=== PATIENT | male | born 1980 | race Caucasian/White ===

== ENCOUNTER 2020-07-16 17:59 | Emergency (ER) | payer MEDICAID, SELFPAY ==
[2020-07-16 18:00] VITALS: BP 130/84; PULSE 71; RESP 18; O2SAT 98; BMI 29.2
--- NOTE | 2020-07-16 18:07 | ECG_ITS ---
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 Measurements Intervals [place] Rate: 70 P: 50 ME: 129 QRS: 86 QRSD: 94 T: 55 QT: 356 QTc: 386 Interpretive Statements SINUS RHYTHM Diffuse early repolarization changes No previous ECG available for comparison Electronically Signed On 07-16-2020 23:04:39 CDT by Eldon Rose M.D. [email or web address] hospitali-[facility].[employer]/store/NU/[id number] f
--- NOTE | 2020-07-16 18:07 | W.ED.HA ---
HPI - Headache General: Chief Complaint: Headache Stated Complaint: HEADACHE Time Seen by Provider: 07/16/20 18:00 Source: patient Mode of arrival: ambulatory Limitations: no limitations History of Present Illness: HPI Narrative: Bernabe is a nice 40-year-old male who comes in complaining of headache. He states he is had a migraine on the right side of his head for the past 2 days. Patient has a history of migraine headaches and he states this feels like a migraine headache. Patient states this headache started 2 days ago with gradual onset getting progressively worse. He denies any fever, neck pain or stiffness or sudden onset thunderclap type headache. He states he is had numerous other headaches like this in the past and he has had them last this long before. He denies any other complaints or concerns said that he had to come to the hospital before for pain relief. He denies any fever, chills, nausea vomiting, loss of sense of taste or loss of sense of smell. Associated symptoms: Deny chest pain, confusion, diaphoresis, fever(s), lightheadedness, malaise, nausea, pre-syncope, rash, syncope or vomiting Review of Systems Const: Denies: fever(s), chills, body aches, fatigue, malaise or diaphoresis Eyes: Denies: change in vision, blurry vision, photophobia, eye discomfort, eye discharge or eye redness ENMT: Denies: throat pain, odynophagia, hoarseness, swelling of lips/tongue, ear or mastoid pain, ear discharge, change in hearing or nasal discharge Card: Denies: chest pain, palpitations, irregular heart rhythm, edema, lightheadedness, syncope, pre-syncope, dyspnea on exertion or orthopnea Resp: Denies: dyspnea, productive cough, non-productive cough, wheezing, hemoptysis or chest congestion GI: Denies: abdominal pain, nausea, vomiting, hematemesis, coffee ground emesis, heartburn, diarrhea, constipation, GI cramping, hematochezia or melena : Denies: flank pain, dysuria, urinary frequency, urinary urgency or hematuria Musc: Denies: neck pain, back pain, extremity pain, extremity swelling, joint pain, joint swelling, joint redness, joint warmth or joint stiffness Skin/Breast: Denies: rash, pruritus, erythema or skin tenderness Neuro: Reports: headache(s); Denies: numbness in extremities, weakness in extremities, sensory changes, lack of coordination, difficulty walking, dizziness, vertigo, confusion, Slurred speech present or seizure-like activity Shashank/Lymph: Denies: easy bruising, easy bleeding, petechiae, purpura or enlarged lymph nodes All/Imm: Denies: urticaria, throat swelling, tongue swelling, facial swelling or acute wheezing PFSH ED PFSH: Medical History Hx of migraine headaches Seizures TBI (traumatic brain injury) Physical Exam Const: COMMON NORMALS: no acute distress, patient oriented x3, no limitations, healthy appearing and well nourished GENERAL APPEARANCE: cooperative, well kempt and well developed HENMT: COMMON NORMALS: normocephalic, atraumatic, external ears normal, EAC's normal and Normal external nose present HEAD & SCALP: normal to inspection, normocephalic and atraumatic FACE & SINUS: normal facial exam and face symmetric NOSE: Normal external nose present and Normal nares present EXTERNAL EAR: Yes external ears normal EXTERNAL AUDITORY CANAL: EAC's normal MOUTH: Normal oral and palatal mucosa present, lip normal and tongue normal Eye: COMMON NORMALS: Equal, round and reactive pupils present and conjunctivae normal GENERAL EYE: appearance normal, both eyes and all related structures ALIGNMENT: Yes alignment normal PERIORBITAL: periorbital findings normal EYELID: eyelids normal CONJUNCTIVA: Yes conjunctivae normal SCLERA: sclerae normal PUPIL: Yes Equal, round and reactive pupils present Neck/C-Spine: COMMON NORMALS: full ROM, no lymphadenopathy, supple, no meningeal signs and no JVD GENERAL: Yes normal visual inspection and Yes trachea midline Chest: COMMONS NORMALS: normal inspection of the chest and normal palpation of entire chest wall Resp: COMMON NORMALS: normal respiratory effort, No retractions, No use of accessory muscles and clear to auscultation bilaterally EFFORT & INSPECTION: Yes able to speak in complete sentences and Yes symmetric chest movement AUSCULTATION: clear to auscultation bilaterally, no crackles, no rales, no rhonchi and no wheezes Cardio: COMMON NORMALS: no JVD, regular rate, regular rhythm, S1 normal heart sound present and S2 normal heart sound present RATE: regular rate RHYTHM: regular rhythm HEART SOUNDS: S1 normal heart sound present, S2 normal heart sound present, no click, no gallops, no murmurs, no rubs and abnormal split S2 GI: COMMON NORMALS: Soft to palpation and No hepatosplenomegaly present PALPATION: Yes Soft to palpation, No Tenderness to palpation present (GI), No Guarding due to palpation present (GI), No Rigid due to palpation, Yes No hepatosplenomegaly present, No Hernia present, No Palpable mass present and No Pulsatile mass present : COMMON NORMALS: Yes no CVA tenderness BLADDER/KIDNEY EXAM: Yes no CVA tenderness Back/Pelvis: COMMON NORMALS: no CVA tenderness, thoracic and lumbar spine normal to inspection, no thoracic nor lumbar tenderness and thoraco-lumbar ROM normal Extremity: COMMON NORMALS: normal to inspection, full ROM, capillary refill normal, no joint enlargement, no clubbing, cyanosis or edema and no calf tenderness Neuro: COMMON NORMALS: patient oriented x3, CN's II-XII intact bilaterally, moves all extremities, no focal motor deficits and no sensory deficits noted MENINGEAL SIGNS: Yes no meningeal signs SPEECH: speech normal Psych: COMMON NORMALS: mental status grossly normal, Normal thought process present, cooperative, normal affect, speech normal and activity/motor behavior normal APPEARANCE: Yes well kempt SPEECH: Yes normal speech THOUGHT PROCESS: Normal thought process present Skin: COMMON NORMALS: no rashes or lesions noted, turgor normal, no jaundice, no petechiae and no mottling GENERAL SKIN EXAM: no rashes or lesions noted and turgor normal Course Vital Signs: Vital signs: Vital Signs Pulse Rate 71 07/16/20 18:31 Respiratory Rate 17 07/16/20 18:31 Blood Pressure 120/78 07/16/20 18:31 Pulse Oximetry 98 07/16/20 18:31 MDM - Headache MDM Narrative: Medical decision making narrative: The patient is feeling much better and is ready to go home. He declines any further treatment including the secondary medicines I have ordered. He agrees to return should her symptoms change or worsen but he is feeling much better and would like to be discharged. I see no sign of subarachnoid hemorrhage, meningitis, pseudotumor cerebri or otherwise. I will go and discharge the patient to follow-up with his regular doctor. Discharge Plan Discharge Patient Disposition: Home Clinical Impression: Migraine Qualifiers: Migraine type: without aura Status migrainosus presence: with status migrainosus Intractability: not intractable Qualified Code(s): G43.001 - Migraine without aura, not intractable, with status migrainosus Condition: Stable Discharge Orders: Discharge Order (Routine); Ordered 07/16/20 Ordered By: Magdalena Charles Referrals: Sheryl Bentley MD [Physician] - 7-10 days Discharge Diet: Advance as tolerated Discharge Activity: Increase activity as tolerated Patient Instructions: Migraine Headache (ED), Acute Headache (ED) Activity Restrictions/Additional Instructions: Please return to the ER immediately for any of the signs or symptoms listed on your discharge instruction sheets, worsening/changing of your symptoms, you are not getting better as quickly as expected, or for ANY other cause or concerns. Coding Level of Care Code ED Customer Service Associate for Chg Fwd Exam Comprehensive
[2020-07-16] MEDS: sodium chloride 0.9% 1,000 ML 100 ML IV (18:26)
[2020-07-16] MEDS: diphenhydrAMINE 50 mg/mL SDV 1mL IVP (18:26)
[2020-07-16] MEDS: metoclopramide 5 mg/mL SDV 2 mL 10 MG IVP (18:26)
[2020-07-16 18:31] VITALS: BP 120/78; PULSE 71; RESP 17; O2SAT 98
--- NOTE | 2020-07-16 18:34 | PC.NURSE ---
EKG done at 1805 and shown to ER doctor, had issues with printing EKG. Doctor cancelled EKG
== END 2020-07-16 19:10 | disposition home or self-care (01) ==
PROVIDERS: Emergency Provider Emergency Medicine
DX: G43.001 Migraine without aura, not intractable, with status migrainosus (principal)
CPT/HCPCS: 12345; 93005; 96361; 96374; 96375; 99282; 99283; J0131; J1200; J2765; J7030

== ENCOUNTER → 2020-10-20 12:25 | Outpatient (BNVA) | payer MEDICAID, SELFPAY | PROVIDERS: Visit Provider Psychiatry & Neurology Psychiatry | DX: F43.10 Post-traumatic stress disorder, unspecified (principal); F10.10 Alcohol abuse, uncomplicated; S06.9X9A Unspecified intracranial injury with loss of consciousness of unspecified duration, initial encounter; R56.9 Unspecified convulsions | CPT/HCPCS: 90792 ==

== ENCOUNTER → 2020-10-28 10:46 | Outpatient (BNVA) | payer MEDICAID, SELFPAY | PROVIDERS: Visit Provider Family Medicine | DX: E78.2 Mixed hyperlipidemia (principal); R56.9 Unspecified convulsions | CPT/HCPCS: 80053; 80061; 85025 ==

== ENCOUNTER → 2020-11-05 09:59 | Outpatient (BNVA) | payer MEDICAID, SELFPAY | PROVIDERS: Visit Provider Specialist | DX: R56.9 Unspecified convulsions (principal); F17.210 Nicotine dependence, cigarettes, uncomplicated | CPT/HCPCS: 95816 ==

== ENCOUNTER 2020-11-12 12:20 | Emergency (ER) | payer MEDICAID, SELFPAY ==
[2020-11-12 12:25] VITALS: BP 149/125; PULSE 113; RESP 18; TEMP 36.6; O2SAT 98; BMI 28.8
--- NOTE | 2020-11-12 13:05 | CT_ITS ---
WS: [id number] CT HEAD NONCONTRAST HISTORY: weakness, concern for subacute stroke TECHNIQUE: Contiguous axial imaging performed through the brain in 2.5 mm imaging. Bone and soft tiss ue windows. Sagittal and coronal reformats reviewed. All CT scans at [facility] use at le ast one of these dose optimization techniques: automated exposure control; mA and/or kV adjustment pe r patient size (includes targeted exams where dose is matched to clinical indication); or iterative r econstruction. DLP: 765.49 mGy.cm COMPARISON: None available. No acute intracranial hemorrhage, midline shift or mass effect. No atrophy or prior infarcts or herniation. Ventricles: Normal size with no hydrocephalus. Paranasal sinuses: Small amount of fluid in the posterior RIGHT ethmoid air cells. Mastoid air cells: Well pneumatized. Calvarium and scalp: Skull is intact with no soft tissue edema or swelling. CT/CT head wo con* [id number] IMPRESSION: 1. No acute intracranial hemorrhage or edema. 2. Minimal posterior RIGHT ethmoid air cell disease.
[2020-11-12 13:26] VITALS: BP 117/82; PULSE 84; RESP 14; O2SAT 96
[2020-11-12 13:45] LABS: Blood Urea Nitrogen 8 mg/dL (6-20); Calcium 9.5 mg/dL (8.5-10.5); Carbon Dioxide 25 mmol/L (22-29); Chloride 101 mmol/L (98-107); Glomerular Filtration Rate 147.8 mL/min (90-130); Glucose 95 mg/dL (65-115); Osmolality Calculated 280 mOsm/kg (285-295); Sodium 136 mmol/L (136-145)
[2020-11-12 13:50] LABS: Creatinine Clr Calc Pharmacy 149.7259
[2020-11-12 15:26] VITALS: BP 137/84; PULSE 82; RESP 14; O2SAT 97
--- NOTE | 2020-11-12 18:14 | ED_ITS ---
HPI - Neuro Symptoms/Deficit General: Chief Complaint: Neuro Symptoms/Deficit Stated Complaint: abnormal EEG Time Seen by Provider: 11/12/20 12:48 History of Present Illness: HPI Narrative: Patient is a well-appearing 40-year-old male seen for multiple complaints. He complains of stuttering which he states came on after having a seizure. He also complains of muscular tenderness in the right forearm and right calf causing flexion of his fingers and toes. He denies weakness of either side, only pain when he tries to extend his fingers and toes. He states that he has had similar symptoms in the past following seizures, and that they always resolve on their own, usually in 1 to 2 weeks. Girlfriend and he both confirm that his stuttering is a starting to improve in his ability to walk and use his hand is improving faster than normal. He denies recent sickness, fever, headache, and has no other associated symptoms. He has no other acute complaints. Review of Systems General: Reports: 10 or more systems reviewed and unremarkable except in HPI and below PFSH ED PFSH: Medical History Alcohol abuse Hx of migraine headaches PTSD (post-traumatic stress disorder) Seizures TBI (traumatic brain injury) Social History Smoking and tobacco status: current every day smoker cigarettes Years cigarettes smoked: 19 Smoking risk assessment/counseling performed?: Yes Tobacco counseling given: counseling >3 minutes Current gender identity: Male Physical Exam Const: COMMON NORMALS: patient oriented x3 and alert ORIENTATION/CONSCIOUSNESS: Yes oriented to person, Yes oriented to place and Yes oriented to time Extremity: NARRATIVE EXTREMITY EXAM: Patient has his right hand balled into a fist, however he is able to open all his fingers roughly 30% of total extension and I am able to passively extend them completely. He has no sensorimotor deficits. I suspect muscle spasm secondary to his seizures and I do not suspect any stroke like symptoms. Neuro: COMMON NORMALS: patient oriented x3 SENSORIUM/ORIENTATION: Yes alert, Yes oriented to person, Yes oriented to place and Yes oriented to time OTHER: He has a stammering stutter which states is typical for him following a seizure and she states it is progressingly getting better each day following the seizure. Course Vital Signs: Vital signs: Vital Signs Temperature 97.9 F 12/17/20 12:25 Pulse Rate 82 11/12/20 15:26 Respiratory Rate 14 11/12/20 15:26 Blood Pressure 137/84 11/12/20 15:26 Pulse Oximetry 97 11/12/20 15:26 MDM - Neuro Symptoms/Deficit MDM Narrative: Medical decision making narrative: Patient remained hemodynamically stable throughout ED course. BMP shows no appreciable abnormality and CT head shows no acute process. I do not suspect stroke, hypokalemia, or any other emergent process warranting further work-up at this time. To be discharged home in stable condition with follow-up to neurology as needed. Lab Data: Labs: Lab Results 11/12/20 Range/Units 13:25 Sodium 136 (136-145) mmol/L Potassium 4.0 (3.5-5.1) mmol/L Chloride 101 (98-107) mmol/L Carbon Dioxide 25 (22-29) mmol/L Anion Gap 14.0 (5-19) BUN 8 (6-20) mg/dL Creatinine 0.6 L (0.7-1.2) mg/dL GFR Calculation 147.8 H (90-130) mL/min Glucose 95 (65-115) mg/dL Calculated Osmolal ity 280 L (285-295) mOsm/k g Calcium 9.5 (8.5-10.5) mg/dL Discharge Plan Discharge Patient Disposition: Home Clinical Impression: Idiopathic stuttering, Seizures, Muscle spasm Condition: Stable Prescriptions: No Action naproxen sodium [Aleve] 220 mg capsule 220 mg PO BID PRN (Reason: Pain) RF: 0 Lipitor 10 mg tablet 10 mg PO DAILY@17 RF: 0 prazosin 1 mg capsule 1 mg PO BEDTIME@ RF: 0 Keppra 250 mg tablet 500 mg PO BID PRN (Reason: Seizures) RF: 0 carbamazepine 300 mg capsule, ER multiphase 12 hr 300 mg PO BID@ RF: 0 Discharge Orders: Discharge ED (Routine); Ordered 11/12/20 Ordered By: Ronnie Fields Discharge Diet: Usual diet Discharge Activity: Resume usual activity Activity Restrictions/Additional Instructions: Your blood test and CT of the brain looked good today. Hopefully your symptoms will resolve as they have in the past following seizures. And there is no evidence of stroke or electrolyte abnormality to cause your symptoms. Coding Level of Care Code ED Sales And Service Advisor for Parker Sutherland
== END 2020-11-12 15:26 | disposition home or self-care (01) ==
PROVIDERS: Emergency Provider Student in an Organized Health Care Education/Training Program
DX: F98.5 Adult onset fluency disorder (principal); R56.9 Unspecified convulsions; M62.838 Other muscle spasm; F17.210 Nicotine dependence, cigarettes, uncomplicated
CPT/HCPCS: 12345; 70450; 80048; 99282; 99283

== ENCOUNTER → 2020-12-10 15:35 | Outpatient (BNVA) | payer MEDICAID, SELFPAY | PROVIDERS: Visit Provider Nurse Practitioner Family | DX: J06.9 Acute upper respiratory infection, unspecified (principal); Z20.828 Contact with and (suspected) exposure to other viral communicable diseases | CPT/HCPCS: 87635 ==

== ENCOUNTER → 2020-12-17 09:16 | Outpatient (BNVA) | payer MEDICAID, SELFPAY | PROVIDERS: Visit Provider Psychiatry & Neurology Psychiatry | DX: F43.10 Post-traumatic stress disorder, unspecified (principal); F10.10 Alcohol abuse, uncomplicated | CPT/HCPCS: 99214 ==

== ENCOUNTER → 2021-02-01 12:17 | Outpatient (BNVA) | payer MEDICAID, SELFPAY | PROVIDERS: Visit Provider Family Medicine | DX: E78.2 Mixed hyperlipidemia (principal) | CPT/HCPCS: 80053; 80061; 85025 ==

== ENCOUNTER → 2021-02-23 13:58 | Outpatient (BNVA) | payer MEDICAID, SELFPAY | PROVIDERS: Visit Provider Nurse Practitioner | DX: F43.10 Post-traumatic stress disorder, unspecified (principal) | CPT/HCPCS: 99214 ==

== ENCOUNTER → 2021-02-25 14:17 | Outpatient (BNVA) | payer MEDICAID, SELFPAY | PROVIDERS: Visit Provider Psychiatry & Neurology Psychiatry | DX: F43.10 Post-traumatic stress disorder, unspecified (principal) | CPT/HCPCS: 99214 ==

== ENCOUNTER 2021-03-17 09:44 | Emergency (ER) | payer MEDICAID, SELFPAY ==
[2021-03-17 09:51] VITALS: BP 133/82; PULSE 72; RESP 18; TEMP 36.7; O2SAT 95
[2021-03-17 09:54] VITALS: BP 133/82; PULSE 78; RESP 18; TEMP 36.7; O2SAT 96
--- NOTE | 2021-03-17 09:54 | XR_ITS ---
WS: [id number] Portable AP upright chest, 03/17/2021 Clinical Data: stroke Comparison: None. Findings: No nodules, masses or effusions are seen. The heart is normal. The pulmonary vascularity is not increased. No pneumonia or pneumothorax is seen. XR/XR chest 1V portable [id number] Impression: Negative chest.
--- NOTE | 2021-03-17 09:56 | ECG_ITS ---
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
--- NOTE | 2021-03-17 09:56 | CT_ITS ---
WS: [id number] CT HEAD TECHNIQUE: Noncontrast CT of the head obtained from the skullbase to the vertex. CLINICAL INFORMATION: Symptoms of Acute Stroke COMPARISON: CT November 12, 2020 DLP: 850.[address] scans at [facility] use at least one of these dose optimization techniques: automat ed exposure control; mA and/or kV adjustment per patient size (includes targeted exams where dose is matched to clinical indication); or iterative reconstruction. FINDINGS: No evidence of intracranial hemorrhage or mass effect. Ventricular system and basal cisterns are padilla nt. Incidental cavum septum pellucidum. Normal crum-white differentiation. No extra-axial fluid colle ctions. No evidence of mass or mass effect. Normal crum-white differentiation. Paranasal sinuses and mastoid air cells are well aerated. . Mild mucosal thickening in the ethmoid ai r cells. CT/CT head wo con* [id number] IMPRESSION: 1. No evidence of intracranial hemorrhage or mass effect. 2. Normal crum-white differentiation. 3. No acute intracranial findings. Attempted notification Juan Frazier MD at 03/17/2021 10:38 AM.
[2021-03-17] MEDS: sodium chloride 0.9% 1,000 ML 999 ML IV (10:19)
[2021-03-17 10:23] LABS: Basophils # 0.1 10^3/uL (0.0-0.1); Basophils % 0.9 %; Eosinophils # 0.3 10^3/uL (0.0-0.8); Eosinophils % 2.9 %; Hematocrit 47.5 % (42.0-52.0); Hemoglobin 16.4 g/dL (11.7-16.6); Lymphocytes % 25.9 %; Mean Corpuscular HGB Conc 34.5 g/dL (30.0-36.0); Mean Corpuscular Hemoglobin 32.6 pg (28.0-34.0); Mean Corpuscular Volume 94.4 fL (80-94); Mean Platelet Volume 9.8 fL (7.4-10.4); Monocytes # 1.2 10^3/uL (0.2-0.9); Monocytes % 10.3 %; Neutrophils # 6.67 10^3/uL (1.8-7.7); Neutrophils % 57.7 %; Nucleated Red Blood Cells % 0 %; Platelet Count 429 10^3/cmm (130-400); Red Blood Count 5.03 10^6/uL (4.1-5.3); Red Cell Distribution Width 11.7 % (12.1-15.1); White Blood Count 11.6 10^3/uL (4.0-10.0)
[2021-03-17 10:31] LABS: INR 0.93 (0.8-1.2)
[2021-03-17 10:32] LABS: Partial Thromboplastin Time 27.9 SECONDS (23.9-36.7)
--- NOTE | 2021-03-17 10:40 | PM.SAN ---
Stroke Alert Activation ED Arrival Date: 03/17/21 Other Last Known Well Infomation: I was called stat for stroke team. Jovan called the emergency department after the stroke alert was called at 9:51 AM. I was informed that Dr. Bundy called the stroke alert but he was called to an emergency and could not talk with me and the patient was being sent to CT. I waited for 15 minutes and did not hear back from Dr. Bundy so I went directly to the emergency department. Dr. Bundy was in his office and informed me that he activated stroke alert because the patient had left facial weakness and as far as he could tell, that was new. He did not know the duration of the patient's symptoms. He said that the [facility] was called to the patient's residence because of a seizure and that they had not expressed any concern about a stroke. Because of the confusion regarding the patient's diagnosis I evaluated the patient. I talked with his best friend, Lucrecia, who was available on his cell phone and he was actively texting with her. He went to [facility] this morning as is often his habit. He walks there. Lucrecia says that normally he has a little bit of trouble expressing himself subsequent to a head injury that he says happened in 2006. He is on carbamazepine and Keppra for seizures but he does not always take them and because of his head injury and memory problems he cannot tell me when he last took a dose of either of his medications. He is reportedly on 400 mg of carbamazepine twice daily and Keppra 500 mg twice daily. He cannot tell me whether he has been seeing a neurologist but he recognized my name and said that he was supposed to see me but he did not keep his appointment. I was able to find a previous EEG from 11/05/2020 that was normal, ordered by Cristina Salamanca. He moved here from [place] in April [address] Salamanca. He goes to behavioral health care for posttraumatic stress disorder related to having witnessed his good friend murdered. He had a head injury in 2006 was in a coma for 6 months. None of his physical exams from the emergency room or Dr. Salamanca have described any kind of neurologic deficit. Lucrecia says that she was called by a friend from [facility] who said that Bernabe went to [facility] and told people he thought he was going to have a seizure and then walked home. When she got there to check on him he was having generalized shaking. She put a spoon in his mouth to prevent him from swallowing his tongue (none of his teeth are broken). She says that normally his speech is better than it is right now but he is always dysarthric. NIH Stroke Scale Time: 12:30 NIH stroke score NIHSS: Level Of Consciousness - 1a: 0 Level Of Consciousness Questions - 1b: Both Correct Level Of Consciousness Commands - 1c: Both Correct Best Gaze - 2: Normal Visual Carmen - 3: No Visual Loss Facial Palsy - 4: Minor Paralysis Motor Arm Right - 5: No Drift Motor Arm Left - 5: No Drift Motor Leg Right - 6: No Drift Motor Leg Left - 6: No Drift Limb Ataxia - 7: Absent Sensory - 8: Normal Best Language - 9: No Aphasia Dysarthia - 10: Severe Dysarthia Extinction And Inattention - 11: 0 Score: Total Score: 3 Stroke Alert Data/Treatment CT Impression: I reviewed his CT of the head on my arrival to the emergency department at 10:00 and that study was normal. Stroke Risk Factors: hypertension and depression tPA Contraindication: tPA Contraindication: Treatment not indcated Critical Care Time Critical Care Time: 30 - 74 mins A&P Assessment and plan (1) TBI (traumatic brain injury): 41-year-old man with previous traumatic brain injury and chronic epilepsy. Cristina Salamanca has been managing his epilepsy and posttraumatic stress disorder with carbamazepine and he is also on a low dose of Keppra. He is not compliant by his own admission. I asked Dr. Bundy to obtain Keppra and carbamazepine levels. I think he can probably go home after he is loaded with IV Keppra but that depends on whether he can walk. I did not check his gait for limits of time today but I think he is having an acute infarct. I think he has postictal speech difficulty related to his previous brain injury. Status: Acute (2) Seizure: Status: Acute Coding Level of Care Code Acute Routeman for Parker Sutherland Diagnoses TBI (traumatic brain injury) S06.9X9A Seizure R56.9
[2021-03-17 10:42] LABS: Troponin(5th) Baseline 6 ng/L (0-15)
[2021-03-17 10:44] LABS: Creatine Phosphokinase 88 U/L (39-308)
[2021-03-17 10:50] LABS: Alanine Aminotransferase 37 U/L (0-41); Albumin Level 4.4 g/dL (3.5-5.2); Alkaline Phosphatase 93 IU/L (40-130); Anion Gap 14.1 (5-19); Aspartate Amino Transferase 24 U/L (0-40); Blood Urea Nitrogen 7 mg/dL (6-20); Carbon Dioxide 24 mmol/L (22-29); Chloride 103 mmol/L (98-107); Globulin 2.3 g/dL (1.3-4.6); Glomerular Filtration Rate 123.1 mL/min (90-130); Glucose 92 mg/dL (65-115); NT Pro B Type Natriuretic Pept 29 pg/mL (0-125); Osmolality Calculated 282 mOsm/kg (285-295); Potassium 4.1 mmol/L (3.5-5.1); Sodium 137 mmol/L (136-145); Total Bilirubin 0.2 mg/dL (0.15-1.2); Total Protein 6.7 g/dL (6.6-8.7)
[2021-03-17 10:58] VITALS: BP 140/93; PULSE 75; RESP 15; O2SAT 95
[2021-03-17 11:02] LABS: Glucose Point of Care 88 mg/dL (70-110)
--- NOTE | 2021-03-17 11:02 | PC.PHAR ---
PT STATES HE TAKES CARE OF HIS OWN MEDICATIONS-PT STATES HE STOP TAKING KEPPRA OVER A MONTH AGO-PT STATES HE IS UNSURE OF ALL THE NAMES OF HIS MEDICATIONS-MEDICATIONS ENTERED ARE FROM EXT MED HISTORY AND FROM WHAT THE PT REMEMBERES-NOTES ARE MADE ON EACH RX IN THE PHARMACY COMMENTS
[2021-03-17 11:06] LABS: Alcohol Level < 10 mg/dL (0-10)
[2021-03-17 11:58] VITALS: BP 137/86; PULSE 64; RESP 18; O2SAT 95
[2021-03-17 12:04] LABS: Add Urine Microscopic? NO; Charge for UA Resulting for Rev
--- NOTE | 2021-03-17 12:08 | ECG_ITS ---
[facility] Test Date: 2021-03-17 Pat Name: Bernabe Kumar Department: Room: Gender: Male Rails Developer: : 1980 Requested By: Juan Frazier Order Number: [id number] Reading MD: GAGE KERN Measurements Intervals [place] Rate: 59 P: 47 [place]: 148 QRS: 83 QRSD: 93 T: 54 QT: 364 QTc: 362 Interpretive Statements SINUS BRADYCARDIA Compared to ECG 03/17/2021 10:04:09 Sinus rhythm no longer present Early repolarization no longer present Electronically Signed On 03-17-2021 19:24:12 CDT by GAGE KERN [email or web address].[facility] RFIDbaldwin park [facility].[employer]/store/OM/[id number]
[2021-03-17 12:14] LABS: Amphetamines Screen Urine Negative (Negative); Barbiturates Screen Urine Negative (Negative); Benzodiazepines Screen Urine Negative (Negative); Cocaine Screen Urine Negative (Negative); Opiate Screen Urine Negative (Negative); PCP Screen Urine Negative (Negative); THC Screen Urine Positive (Negative)
[2021-03-17] MEDS: carBAMazepine 200 mg Tablet 400 MG PO (12:16)
[2021-03-17 12:18] LABS: Bilirubin Urine Neg (Negative); Blood Urine Neg (Negative); Glucose Urine UA Norm (Normal); Ketones Urine Negative (Negative); Leukocyte Esterase Urine Negative (Negative); Nitrate Urine Negative (Negative); Protein Urine Neg (Negative); Specific Gravity, Urine 1.015 (1.005-1.030); Urine Appearance Clear (CLEAR); Urine Color Yellow (Yellow); Urobilinogen Urine Norm (Negative); pH Urine 7 (5-7)
--- NOTE | 2021-03-17 13:12 | W.ED.SEIZURE ---
HPI - Seizure General: Chief Complaint: Seizure Stated Complaint: SEIZURES Time Seen by Provider: 03/17/21 09:46 History of Present Illness: HPI Narrative: The patient is a 41-year-old male with past medical history seizure disorder who comes to the ER after having 2 generalized seizures today. He takes carbamazepine and Keppra. He has a history of traumatic brain injury which causes his seizures years ago and because of this he has memory issues. He is very afraid of taking multiple doses of the seizure medications so he says he misses many doses because he cannot remember if he took them or not. The report is that his speech is abnormal at baseline for years because of this injury as well. He says he has microstrokes with some of his were seizures but does not know if he is ever fully had a stroke. The facial droop he says is from his traumatic brain injury and has not changed for years. At his baseline he is able to walk around and talk with significantly garbled speech. His friend came to check on him today and the door was locked and found him having a generalized seizure. EMS arrived and shortly after their arrival he began to have right arm twitching and then had a generalized seizure. No seizures in the ER so far. Initially a stroke alert was called because of his right facial droop and slight right-sided weakness but with further history this appears to be a chronic finding. Description of Episode: post-event confusion -: minutes(s) (1) Witnessed: Yes - by Bystander Trauma: No Seizure History: Yes Place: Home Possible Precipitating Event: none Associated symptoms: Reports no associated symptoms and confusion; Deny chest pain Review of Systems General: Reports: 10 or more systems reviewed and unremarkable except in HPI and below Const: Denies: fatigue Eyes: Denies: change in vision, blurry vision or eye redness ENMT: Denies: throat pain, swelling of lips/tongue, ear or mastoid pain or nasal congestion Card: Denies: chest pain, palpitations, irregular heart rhythm, edema, dyspnea on exertion or orthopnea Resp: Denies: dyspnea, productive cough or non-productive cough GI: Denies: abdominal pain, diarrhea or GI cramping : Denies: flank pain, urinary frequency or urinary urgency Musc: Denies: neck pain, back pain, extremity pain, joint pain, joint redness, limited range of motion or muscle weakness Skin/Breast: Denies: rash, pruritus, erythema, skin pain or skin tenderness Neuro: Reports: confusion, Slurred speech present and seizure-like activity; Denies: headache(s), numbness in extremities, weakness in extremities, sensory changes, difficulty walking or dizziness Psych: Denies: anxiety or depression Endo: Denies: polyuria All/Imm: Denies: urticaria, throat swelling or tongue swelling PFSH ED PFSH: Medical History Alcohol abuse Hx of migraine headaches PTSD (post-traumatic stress disorder) Seizures TBI (traumatic brain injury) Social History Smoking and tobacco status: current every day smoker cigarettes Packs smoked per day: 0.5 Years cigarettes smoked: 19 Second hand smoke exposure: Yes Smoking risk assessment/counseling performed?: Yes Tobacco counseling given: counseling >3 minutes Alcohol intake: current Alcohol intake frequency: holidays/special occasions only Marital status: Number of children: 2 Current occupational status: retired and disabled Current gender identity: Male Physical Exam Const: COMMON NORMALS: no acute distress, average body habitus, patient oriented x3, no limitations, healthy appearing, alert and well nourished GENERAL APPEARANCE: cooperative, comfortable, well kempt and well developed ORIENTATION/CONSCIOUSNESS: Yes awake, Yes oriented to person, Yes oriented to place and Yes oriented to time HENMT: COMMON NORMALS: normocephalic, external ears normal and Normal external nose present HEAD & SCALP: normal to inspection and normocephalic NOSE: Normal external nose present EXTERNAL EAR: Yes external ears normal MOUTH: Normal oral and palatal mucosa present THROAT: posterior oropharynx normal Eye: COMMON NORMALS: Equal, round and reactive pupils present and EOMs intact bilaterally GENERAL EYE: appearance normal, both eyes and all related structures PUPIL: Yes Equal, round and reactive pupils present Neck/C-Spine: COMMON NORMALS: full ROM, no lymphadenopathy, no meningeal signs and no JVD GENERAL: Yes normal visual inspection Lymph: LYMPHATIC: no lymphadenopathy noted Chest: COMMONS NORMALS: normal inspection of the chest and normal palpation of entire chest wall Resp: COMMON NORMALS: normal respiratory effort, No retractions, No use of accessory muscles, clear to auscultation bilaterally and percussion normal EFFORT & INSPECTION: Yes able to speak in complete sentences AUSCULTATION: clear to auscultation bilaterally PERCUSSION: percussion normal Cardio: COMMON NORMALS: no JVD, regular rate, regular rhythm, S1 normal heart sound present, S2 normal heart sound present and Peripheral pulses 2+ throughout RATE: regular rate RHYTHM: regular rhythm HEART SOUNDS: S1 normal heart sound present and S2 normal heart sound present PERIPHERAL PULSES: Peripheral pulses 2+ throughout GI: COMMON NORMALS: Normal to inspection, nondistended, normoactive bowel sounds present, Soft to palpation, non-tender and no masses INSPECTION: Yes normal to inspection PALPATION: Yes Soft to palpation : COMMON NORMALS: Yes no CVA tenderness BLADDER/KIDNEY EXAM: Yes no CVA tenderness Back/Pelvis: COMMON NORMALS: no CVA tenderness, thoracic and lumbar spine normal to inspection, no thoracic nor lumbar tenderness and thoraco-lumbar ROM normal Extremity: COMMON NORMALS: normal to inspection, full ROM, capillary refill normal, no joint enlargement and no pedal edema GENERAL: Yes normal exam except as noted Neuro: COMMON NORMALS: patient oriented x3, CN's II-XII intact bilaterally, moves all extremities, no focal motor deficits, no sensory deficits noted and gait normal SENSORIUM/ORIENTATION: Yes alert, Yes oriented to person, Yes oriented to place and Yes oriented to time MENINGEAL SIGNS: Yes no meningeal signs Psych: COMMON NORMALS: mental status grossly normal, Normal thought process present, cooperative, normal affect and speech normal APPEARANCE: Yes well kempt ATTITUDE: Yes calm SPEECH: Yes normal speech THOUGHT PROCESS: Normal thought process present Skin: COMMON NORMALS: no rashes or lesions noted GENERAL SKIN EXAM: no rashes or lesions noted Course Vital Signs: Vital signs: Vital Signs Temperature 98.1 F 03/17/21 09:54 Pulse Rate 64 03/17/21 11:58 Respiratory Rate 18 03/17/21 11:58 Blood Pressure 137/86 03/17/21 11:58 Pulse Oximetry 95 03/17/21 11:58 MDM - Seizure MDM Narrative: Medical decision making narrative: The patient had a couple seizures at home and has a history of noncompliance. His traumatic brain injury gives him memory issues and he does not like taking double the dose so he often misses doses. His carbamazepine level was low and he was given a dose of that and the Keppra as well. He trended back to his baseline neuro functioning and was safe for discharge home. Placed case management referral for follow-up to set up care with neurology and primary care locally. ER with worsening symptoms. Discussed he should write down when he takes medications as it has been a significant issue for him daily. He understands and will try to do so. Lab Data: Labs: Lab Results 03/17/21 03/17/21 03/17/21 Range/Units 10:00 10:00 10:00 WBC 11.6 H (4.0-10.0) 10^3/ uL RBC 5.03 (4.1-5.3) 10^6/u L Hgb 16.4 (11.7-16.6) g/dL Hct 47.5 (42.0-52.0) % MCV 94.4 H (80-94) fL MCH 32.6 (28.0-34.0) pg MCHC 34.5 (30.0-36.0) g/dL RDW 11.7 L (12.1-15.1) % Plt Count 429 H (130-400) 10^3/c mm MPV 9.8 (7.4-10.4) fL Neut % (Auto) 57.7 % Lymph % (Auto) 25.9 % [place] % (Auto) 10.3 % Eos % (Auto) 2.9 % Baso % (Auto) 0.9 % Neut # (Auto) 6.67 (1.8-7.7) 10^3/u L Lymph # (Auto) 3.0 (0.8-4.8) 10^3/u L [place] # (Auto) 1.2 H (0.2-0.9) 10^3/u L Eos # (Auto) 0.3 (0.0-0.8) 10^3/u L Baso # (Auto) 0.1 (0.0-0.1) 10^3/u L Nucleated RBC % (a uto) 0 % Nucleated RBCs # 0.0 /100WBC PT 12.80 (12.1-14.9) SECO NDS INR 0.93 (0.8-1.2) APTT 27.9 (23.9-36.7) SECO NDS Sodium 137 (136-145) mmol/L Potassium 4.1 (3.5-5.1) mmol/L Chloride 103 (98-107) mmol/L Carbon Dioxide 24 (22-29) mmol/L Anion Gap 14.1 (5-19) BUN 7 (6-20) mg/dL Creatinine 0.7 (0.7-1.2) mg/dL GFR Calculation 123.1 (90-130) mL/min Glucose 92 (65-115) mg/dL POC Glucose (70-110) mg/dL Calculated Osmolal ity 282 L (285-295) mOsm/k g Calcium 9.0 (8.5-10.5) mg/dL Total Bilirubin 0.2 (0.15-1.2) mg/dL AST 24 (0-40) U/L ALT 37 (0-41) U/L Alkaline Phosphata se 93 (40-130) IU/L Creatine Kinase (39-308) U/L Troponin T Baselin e (0-15) ng/L Troponin T 120 Min [place] (0-15) ng/L Delta Troponin T (0-10) ABS# NT-Pro-B Natriuret Pep 29 (0-125) pg/mL Total Protein 6.7 (6.6-8.7) g/dL Albumin 4.4 (3.5-5.2) g/dL Globulin 2.3 (1.3-4.6) g/dL Urine Color (Yellow) Urine Appearance (CLEAR) Urine pH (5-7) Ur Specific Gravit y (1.005-1.030) Urine Protein (Negative) Urine Glucose (UA) (Normal) Urine Ketones (Negative) Urine Blood (Negative) Urine Nitrate (Negative) Urine Bilirubin (Negative) Urine Urobilinogen (Negative) mg/dL Ur Leukocyte [place] ase (Negative) Urine Opiates Scre en (Negative) ng/mL Ur Barbiturates Sc reen (Negative) ng/mL Carbamazepine (4.0-12.0) ug/mL Ur Phencyclidine S crn (Negative) ng/mL Ur Amphetamines Sc reen (Negative) ng/mL U Benzodiazepines Scrn (Negative) ng/mL Urine Cocaine Scre en (Negative) ng/mL U Marijuana (THC) Screen (Negative) ng/mL Ethyl Alcohol < 10 (0-10) mg/dL 03/17/21 03/17/2103/17/21 Range/Units 10:00 10:00 10:00 WBC (4.0-10.0) 10^3/ uL RBC (4.1-5.3) 10^6/u L Hgb (11.7-16.6) g/dL Hct (42.0-52.0) % MCV (80-94) fL MCH (28.0-34.0) pg MCHC (30.0-36.0) g/dL RDW (12.1-15.1) % Plt Count (130-400) 10^3/c mm MPV (7.4-10.4) fL Neut % (Auto) % Lymph % (Auto) % [place] % (Auto) % Eos % (Auto) % Baso % (Auto) % Neut # (Auto) (1.8-7.7) 10^3/u L Lymph # (Auto) (0.8-4.8) 10^3/u L [place] # (Auto) (0.2-0.9) 10^3/u L Eos # (Auto) (0.0-0.8) 10^3/u L Baso # (Auto) (0.0-0.1) 10^3/u L Nucleated RBC % (a uto) % Nucleated RBCs # /100WBC PT (12.1-14.9) SECO NDS INR (0.8-1.2) APTT (23.9-36.7) SECO NDS Sodium (136-145) mmol/L Potassium (3.5-5.1) mmol/L Chloride (98-107) mmol/L Carbon Dioxide (22-29) mmol/L Anion Gap (5-19) BUN (6-20) mg/dL Creatinine (0.7-1.2) mg/dL GFR Calculation (90-130) mL/min Glucose (65-115) mg/dL POC Glucose (70-110) mg/dL Calculated Osmolal ity (285-295) mOsm/k g Calcium (8.5-10.5) mg/dL Total Bilirubin (0.15-1.2) mg/dL AST (0-40) U/L ALT (0-41) U/L Alkaline Phosphata se (40-130) IU/L Creatine Kinase 88 (39-308) U/L Troponin T Baselin e 6 (0-15) ng/L Troponin T 120 Min [place] (0-15) ng/L Delta Troponin T (0-10) ABS# NT-Pro-B Natriuret Pep (0-125) pg/mL Total Protein (6.6-8.7) g/dL Albumin (3.5-5.2) g/dL Globulin (1.3-4.6) g/dL Urine Color (Yellow) Urine Appearance (CLEAR) Urine pH (5-7) Ur Specific Gravit y (1.005-1.030) Urine Protein (Negative) Urine Glucose (UA) (Normal) Urine Ketones (Negative) Urine Blood (Negative) Urine Nitrate (Negative) Urine Bilirubin (Negative) Urine Urobilinogen (Negative) mg/dL Ur Leukocyte [place] ase (Negative) Urine Opiates Scre en (Negative) ng/mL Ur Barbiturates Sc reen (Negative) ng/mL Carbamazepine 2.0 L (4.0-12.0) ug/mL Ur Phencyclidine S crn (Negative) ng/mL Ur Amphetamines Sc reen (Negative) ng/mL U Benzodiazepines Scrn (Negative) ng/mL Urine Cocaine Scre en (Negative) ng/mL U Marijuana (THC) Screen (Negative) ng/mL Ethyl Alcohol (0-10) mg/dL 03/17/21 03/17/21 03/17/21 Range/Units 10:57 12:00 12:00 WBC (4.0-10.0) 10^3/ uL RBC (4.1-5.3) 10^6/u L Hgb (11.7-16.6) g/dL Hct (42.0-52.0) % MCV (80-94) fL MCH (28.0-34.0) pg MCHC (30.0-36.0) g/dL RDW (12.1-15.1) % Plt Count (130-400) 10^3/c mm MPV (7.4-10.4) fL Neut % (Auto) % Lymph % (Auto) % [place] % (Auto) % Eos % (Auto) % Baso % (Auto) % Neut # (Auto) (1.8-7.7) 10^3/u L Lymph # (Auto) (0.8-4.8) 10^3/u L [place] # (Auto) (0.2-0.9) 10^3/u L Eos # (Auto) (0.0-0.8) 10^3/u L Baso # (Auto) (0.0-0.1) 10^3/u L Nucleated RBC % (a uto) % Nucleated RBCs # /100WBC PT (12.1-14.9) SECO NDS INR (0.8-1.2) APTT (23.9-36.7) SECO NDS Sodium (136-145) mmol/L Potassium (3.5-5.1) mmol/L Chloride (98-107) mmol/L Carbon Dioxide (22-29) mmol/L Anion Gap (5-19) BUN (6-20) mg/dL Creatinine (0.7-1.2) mg/dL GFR Calculation (90-130) mL/min Glucose (65-115) mg/dL POC Glucose 88 (70-110) mg/dL Calculated Osmolal ity (285-295) mOsm/k g Calcium (8.5-10.5) mg/dL Total Bilirubin (0.15-1.2) mg/dL AST (0-40) U/L ALT (0-41) U/L Alkaline Phosphata se (40-130) IU/L Creatine Kinase (39-308) U/L Troponin T Baselin e (0-15) ng/L Troponin T 120 Min [place] (0-15) ng/L Delta Troponin T (0-10) ABS# NT-Pro-B Natriuret Pep (0-125) pg/mL Total Protein (6.6-8.7) g/dL Albumin (3.5-5.2) g/dL Globulin (1.3-4.6) g/dL Urine Color Yellow (Yellow) Urine Appearance Clear (CLEAR) Urine pH 7 (5-7) Ur Specific Gravit y 1.015 (1.005-1.030) Urine Protein Neg (Negative) Urine Glucose (UA) Norm (Normal) Urine Ketones Negative (Negative) Urine Blood Neg (Negative) Urine Nitrate Negative (Negative) Urine Bilirubin Neg (Negative) Urine Urobilinogen Norm (Negative) mg/dL Ur Leukocyte [place] Negative (Negative) Urine Opiates Scre en Negative (Negative) ng/mL Ur Barbiturates Sc reen Negative (Negative) ng/mL Carbamazepine (4.0-12.0) ug/mL Ur Phencyclidine S crn Negative (Negative) ng/mL Ur Amphetamines Sc reen Negative (Negative) ng/mL U Benzodiazepines Scrn Negative (Negative) ng/mL Urine Cocaine Scre en Negative (Negative) ng/mL U Marijuana (THC) Screen Positive H (Negative) ng/mL Ethyl Alcohol (0-10) mg/dL 03/17/21 Range/Units 12:07 WBC (4.0-10.0) 10^3/ uL RBC (4.1-5.3) 10^6/u L Hgb (11.7-16.6) g/dL Hct (42.0-52.0) % MCV (80-94) fL MCH (28.0-34.0) pg MCHC (30.0-36.0) g/dL RDW (12.1-15.1) % Plt Count (130-400) 10^3/c mm MPV (7.4-10.4) fL Neut % (Auto) % Lymph % (Auto) % [place] % (Auto) % Eos % (Auto) % Baso % (Auto) % Neut # (Auto) (1.8-7.7) 10^3/u L Lymph # (Auto) (0.8-4.8) 10^3/u L [place] # (Auto) (0.2-0.9) 10^3/u L Eos # (Auto) (0.0-0.8) 10^3/u L Baso # (Auto) (0.0-0.1) 10^3/u L Nucleated RBC % (a uto) % Nucleated RBCs # /100WBC PT (12.1-14.9) SECO NDS INR (0.8-1.2) APTT (23.9-36.7) SECO NDS Sodium (136-145) mmol/L Potassium (3.5-5.1) mmol/L Chloride (98-107) mmol/L Carbon Dioxide (22-29) mmol/L Anion Gap (5-19) BUN (6-20) mg/dL Creatinine (0.7-1.2) mg/dL GFR Calculation (90-130) mL/min Glucose (65-115) mg/dL POC Glucose (70-110) mg/dL Calculated Osmolal ity (285-295) mOsm/k g Calcium (8.5-10.5) mg/dL Total Bilirubin (0.15-1.2) mg/dL AST (0-40) U/L ALT (0-41) U/L Alkaline Phosphata se (40-130) IU/L Creatine Kinase (39-308) U/L Troponin T Baselin e (0-15) ng/L Troponin T 120 Min [place] 7.40 (0-15) ng/L Delta Troponin T 1.40 (0-10) ABS# NT-Pro-B Natriuret Pep (0-125) pg/mL Total Protein (6.6-8.7) g/dL Albumin (3.5-5.2) g/dL Globulin (1.3-4.6) g/dL Urine Color (Yellow) Urine Appearance (CLEAR) Urine pH (5-7) Ur Specific Gravit y (1.005-1.030) Urine Protein (Negative) Urine Glucose (UA) (Normal) Urine Ketones (Negative) Urine Blood (Negative) Urine Nitrate (Negative) Urine Bilirubin (Negative) Urine Urobilinogen (Negative) mg/dL Ur Leukocyte Shav[place] ase (Negative) Urine Opiates Scre en (Negative) ng/mL Ur Barbiturates Sc reen (Negative) ng/mL Carbamazepine (4.0-12.0) ug/mL Ur Phencyclidine S crn (Negative) ng/mL Ur Amphetamines Sc reen (Negative) ng/mL U Benzodiazepines Scrn (Negative) ng/mL Urine Cocaine Scre en (Negative) ng/mL U Marijuana (THC) Screen (Negative) ng/mL Ethyl Alcohol (0-10) mg/dL Discharge Plan Discharge Patient Disposition: Home Clinical Impression: Seizures, H/O medication noncompliance Condition: Stable Prescriptions: No Action naproxen sodium [Aleve] 220 mg capsule 440 - 880 mg PO PRN RF: 0 celecoxib [Celebrex] 200 mg capsule 200 mg PO BID Qty: 60 RF: 0 carbamazepine 400 mg tablet extended release 12 hr 400 mg PO BID Qty: 60 RF: 0 atorvastatin 20 mg tablet 20 mg PO BEDTIME RF: 0 tizanidine 4 mg tablet 4 mg PO BEDTIME RF: 0 mirtazapine 30 mg tablet 30 mg PO BEDTIME RF: 0 prazosin 2 mg capsule 4 mg PO BEDTIME RF: 0 Discharge Orders: Discharge ED (Routine); Ordered 03/17/21 Ordered By: Juan Frazier Referrals: Cristina Salamanca MD [Physician] - 03/22/21 10:40 am Discharge Diet: Advance as tolerated Discharge Activity: Resume usual activity Patient Instructions: Opioid Safety, Seizures Activity Restrictions/Additional Instructions: You have had 2 seizures today likely related to missing doses of your medication. We have given you the doses of the medication here in the ER so please start them again this evening and write down when you take them see you do not forget if you have taken them or not. Please follow-up with Dr. Bentley in 1 to 2 weeks to set up care with her as she is a neurologist. Return to the ER with worsening symptoms at any time Coding Level of Care Code ED Identification And Records Commander for [facility] Exam Comprehensive
--- NOTE | 2021-03-17 14:09 | DCPLANNER ---
Addendum entered by Eryn Camp 03/23/21 07:29: Patient did attend appointment at [facility] on 03.22.[address] Salamanca. Original Note: manufacturing operations manager was asked to speak with patient about getting established with a primary care physician. manufacturing operations manager spoke with patient, he stated that he seen at the [facility]. manufacturing operations manager called the clinic, a follow up appointment was scheduled for Monday, March 22, 2021 at 10:[address] Salamanca. manufacturing operations manager gave patient the appointment information. manufacturing operations manager was also asked to schedule a follow up appointment for patient with Dr. Bentley. manufacturing operations manager called the office of Dr. Bentley, to speak with Caprice Quevedo building services coordinator for that office. manufacturing operations manager unable to speak with her, a voicemail was left for her with patients information and the reason for the referral.
[2021-03-17 14:12] VITALS: BP 136/62; PULSE 107; RESP 18; O2SAT 94
[2021-03-22 16:07] LABS: Levetiracetam Keppra <2.0 mcg/mL
--- NOTE | 2021-03-24 07:43 | DCPLANNER ---
Patient has a follow up appointment scheduled for Monday, May 17, 2021 at 2:[address] Bentley. Clinic will call patient with appointment information.
--- NOTE | 2021-06-22 11:40 | DCPLANNER ---
Patient had a follow up appointment scheduled for 05.17.[address] Bentley - patient did attend appointment.
== END 2021-03-17 14:14 | disposition home or self-care (01) ==
PROVIDERS: Emergency Provider Family Medicine
DX: G40.909 Epilepsy, unspecified, not intractable, without status epilepticus (principal); Z91.14 Patient's other noncompliance with medication regimen; Z87.820 Personal history of traumatic brain injury; F17.210 Nicotine dependence, cigarettes, uncomplicated
CPT/HCPCS: 36415; 36416; 70450; 71045; 80053; 80156; 80177; 80306; 80307; 81003; 82550; 82962; 83880; 84484; 85025; 85610; 85730; 93005; 96361; 96374; 99284; J1953; J7030

== ENCOUNTER 2021-03-25 20:24 | Emergency (ER) | payer MEDICAID, SELFPAY ==
[2021-03-25] VITALS (14 sets, daily range): BP systolic 100–139; BP diastolic 63–105; PULSE 61–92; RESP 16–25; TEMP 36.7; O2SAT 92–97; BMI 29.8
--- NOTE | 2021-03-25 | CTR_ITS ---
PROCEDURE INFORMATION: Exam: CT Head Without Contrast Exam date and time: 03/25/2021 8:27 PM Age: 41 years old Clinical indication: Condition or disease; Convulsions or seizures; Additional info: Stroke alert TECHNIQUE: Imaging protocol: Computed tomography of the head without contrast. Radiation optimization: All CT scans at this facility use at least one of these dose optimization techniques: automated exposure control; mA and/or kV adjustment per patient size (includes targeted exams where dose is matched to clinical indication); or iterative reconstruction. Other technique: STROKE PROTOCOL was implemented. COMPARISON: CT head wo con* [id number] 03/17/2021 10:23 AM RADIATION DOSE METRICS: Total DLP (mGy-cm): 892.36 FINDINGS: Brain: Normal. No hemorrhage. Unremarkable white matter. No mass effect. Cerebral ventricles: There is a normal-variant cavum septum pellucidum. Bones/joints: Unremarkable. No acute fracture. Paranasal sinuses: Visualized sinuses are unremarkable. No fluid levels. Mastoid air cells: Visualized mastoid air cells are well aerated. Soft tissues: Unremarkable. CT/CT head wo con* [id number] IMPRESSION: No acute intracranial findings. No significant change from 03/17/2021 ASSESSMENT: ASPECTS (Bobbi Stroke Program Early CT Score) is 10. Radiation Dose CTDIVOL = (mGy): DLP = 892.36 (mGy-cm)
--- NOTE | 2021-03-25 20:46 | ED_ITS ---
HPI - Neuro Symptoms/Deficit General: Chief Complaint: Neuro Symptoms/Deficit Stated Complaint: Left facial droop, slurred speech Time Seen by Provider: 03/25/21 20:44 Source: patient and EMS Mode of arrival: EMS Limitations: other (Previous brain injury, dysphagia) History of Present Illness: HPI Narrative: 41-year-old male with history of TBI and seizure disorder brought in by EMS. The patient's friend witnessed him having a seizure and called 911, when the paramedics arrived, he had finished seizing, but was still postictal, in route to the hospital he did have another seizure, they gave him 1 mg of Ativan. He is unsure if he took his carbamazepine tonight. He has a history of TBI and has residual facial droop and weakness. She denies any recent nausea, vomiting, diarrhea. No fever, cough or chest pain. Associated symptoms: Reports headache(s); Deny chest pain, nausea or vomiting Review of Systems General: Reports: 10 or more systems reviewed and unremarkable except in HPI a nd below Const: Denies: fever(s), chills or body aches ENMT: Denies: odynophagia, hoarseness or oral sores Card: Denies: chest pain, irregular heart rhythm or edema Resp: Denies: dyspnea, productive cough or wheezing GI: Denies: nausea, vomiting, heartburn or diarrhea : Denies: difficulty urinating, dysuria or urinary frequency Musc: Denies: extremity pain or extremity swelling Skin/Breast: Denies: rash, pruritus or erythema Neuro: Reports: headache(s), weakness in extremities, confusion and Slurred speech present; Denies: frequent falls Psych: Denies: anxiety or depression Endo: Denies: polyuria, polydipsia or tired all the time Shashank/Lymph: Denies: easy bruising or easy bleeding PFSH ED PFSH: Medical History Alcohol abuse Hx of migraine headaches PTSD (post-traumatic stress disorder) Seizures TBI (traumatic brain injury) Social History Smoking and tobacco status: current every day smoker cigarettes Packs smoked per day: 0.5 Years cigarettes smoked: 19 Second hand smoke exposure: Yes Smoking risk assessment/counseling performed?: Yes Tobacco counseling given: counseling >3 minutes Alcohol intake: current Alcohol intake frequency: holidays/special occasions only Marital status: Number of children: 2 Current occupational status: retired and disabled Current gender identity: Male Physical Exam Const: GENERAL APPEARANCE: cooperative; not in distress, not anxious, not ill appearing and not diaphoretic ORIENTATION/CONSCIOUSNESS: Yes awake and Yes oriented to person HENMT: COMMON NORMALS: normocephalic HEAD & SCALP: normal to inspection and normocephalic FACE & SINUS: face not symmetric Eye: COMMON NORMALS: Equal, round and reactive pupils present, EOMs intact bilaterally, conjunctivae normal and no scleral icterus CONJUNCTIVA: Yes conjunctivae normal PUPIL: Yes Equal, round and reactive pupils present Neck/C-Spine: COMMON NORMALS: full ROM, no lymphadenopathy and supple Resp: COMMON NORMALS: normal respiratory effort EFFORT & INSPECTION: Yes able to speak in complete sentences, No tachypneic, No respiratory distress and No labored Cardio: COMMON NORMALS: regular rate and regular rhythm RATE: regular rate RHYTHM: regular rhythm GI: COMMON NORMALS: Normal to inspection, nondistended, normoactive bowel sounds present, Soft to palpation, non-tender and No hepatosplenomegaly present PALPATION: Yes Soft to palpation and Yes No hepatosplenomegaly present Extremity: COMMON NORMALS: normal to inspection and full ROM Neuro: COMMON NORMALS: moves all extremities and no focal motor deficits SENSORIUM/ORIENTATION: Yes oriented to person and Yes somnolent CRANIAL NERVES: Yes other (Left facial droop) COORDINATION/BALANCE: [id number] test normal SPEECH: abnormal speech Details: slurred GAIT: Yes Unable to assess gait MOTOR EXAM: No Tremors during motor activity present, No Motor fasciculations present and No Abnormal muscle tone present COORDINATION: [id number] test normal Skin: COMMON NORMALS: no rashes or lesions noted, no wounds, turgor normal and no jaundice GENERAL SKIN EXAM: no rashes or lesions noted and turgor normal Course Vital Signs: Vital signs: Vital Signs Temperature 98.1 F 03/25/21 20:26 Pulse Rate 86 03/26/21 01:02 Respiratory Rate 14 03/26/21 01:02 Blood Pressure 133/81 03/26/21 01:02 Pulse Oximetry 92 03/26/21 01:02 MDM - Neuro Symptoms/Deficit MDM Narrative: Medical decision making narrative: 41-year-old male with a history of TBI and residual neuro deficits, seizure disorder, presents with breakthrough seizures x2 today. No known trigger. CT head without any acute abnormalities Somewhat postictal on arrival, but cooperative and communicative. Neuro deficits appear to be chronic and stable. No acute abnormalities on CBC or chemistry. UA clear. Tox: Positive for marijuana. Loaded with Keppra 1000 mg, will recommend that he start 500 mg twice daily unt il he follows up with neurology. Recommended that he discontinue marijuana as it lowers the seizure threshold. ER precautions. Ok to be discharged home with a friend. Differential Diagnosis: Neuro Differential Diagnosis: Likely convulsions, delirium, subarachnoid hemorrhage, cerebrovascular accident and transient cerebral ischemia Medical Records: Attestation: I reviewed the patient's medical records. Lab Data: Attestation: I reviewed the patient's lab results. Labs: Lab Results 03/25/21 03/25/21 03/26/21 Range/Units 23:00 23:00 00:20 WBC 11.6 H (4.0-10.0) 10^3/ uL RBC 4.66 (4.1-5.3) 10^6/u L Hgb 15.1 (11.7-16.6) g/dL Hct 44.4 (42.0-52.0) % MCV 95.3 H (80-94) fL MCH 32.4 (28.0-34.0) pg MCHC 34.0 (30.0-36.0) g/dL RDW 11.8 L (12.1-15.1) % Plt Count 422 H (130-400) 10^3/c mm MPV 9.5 (7.4-10.4) fL Neut % (Auto) 56.9 % Lymph % (Auto) 26.4 % [place] % (Auto) 10.5 % Eos % (Auto) 2.5 % Baso % (Auto) 1.0 % Neut # (Auto) 6.58 (1.8-7.7) 10^3/u L Lymph # (Auto) 3.1 (0.8-4.8) 10^3/u L [place] # (Auto) 1.2 H (0.2-0.9) 10^3/u L Eos # (Auto) 0.3 (0.0-0.8) 10^3/u L Baso # (Auto) 0.1 (0.0-0.1) 10^3/u L Nucleated RBC % (a uto) 0 % Nucleated RBCs # 0.0 /100WBC Sodium 140 (136-145) mmol/L Potassium 3.9 (3.5-5.1) mmol/L Chloride 107 (98-107) mmol/L Carbon Dioxide 24 (22-29) mmol/L Anion Gap 12.9 (5-19) BUN 7 (6-20) mg/dL Creatinine 0.7 (0.7-1.2) mg/dL GFR Calculation 123.1 (90-130) mL/min Glucose 125 H (65-115) mg/dL Calculated Osmolal ity 289 (285-295) mOsm/k g Calcium 8.3 L (8.5-10.5) mg/dL Magnesium 2.1 (1.7-2.3) mg/dL Total Bilirubin 0.2 (0.15-1.2) mg/dL AST 25 (0-40) U/L ALT 33 (0-41) U/L Alkaline Phosphata se 87 (40-130) IU/L Total Protein 6.1 L (6.6-8.7) g/dL Albumin 4.1 (3.5-5.2) g/dL Globulin 2.0 (1.3-4.6) g/dL Urine Color Yellow (Yellow) Urine Appearance Hazy A (CLEAR) Urine pH 8 H (5-7) Ur Specific Gravit y 1.010 (1.005-1.030) Urine Protein Neg (Negative) Urine Glucose (UA) Norm (Normal) Urine Ketones Negative (Negative) Urine Blood Neg (Negative) Urine Nitrate Negative (Negative) Urine Bilirubin Neg (Negative) Prot Sulfosalicyli c Acd Negative (Negative) Urine Urobilinogen Norm (Negative) mg/dL Ur Leukocyte Shavonne ase Negative (Negative) Urine RBC 0-4 H (0-2) /hpf Urine WBC 0-4 H (0-5) /hpf Ur Squamous Epith Cells 0-4 H (0-5) /hpf Amorphous Sediment 3+ /hpf Urine Bacteria Trace (NONE) /hpf Urine Opiates Scre en (Negative) ng/mL Ur Barbiturates Sc reen (Negative) ng/mL Ur Phencyclidine S crn (Negative) ng/mL Ur Amphetamines Sc reen (Negative) ng/mL U Benzodiazepines Scrn (Negative) ng/mL Urine Cocaine Scre en (Negative) ng/mL U Marijuana (THC) Screen (Negative) ng/mL 03/26/21 Range/Units 00:20 WBC (4.0-10.0) 10^3/ uL RBC (4.1-5.3) 10^6/u L Hgb (11.7-16.6) g/dL Hct (42.0-52.0) % MCV (80-94) fL MCH (28.0-34.0) pg MCHC (30.0-36.0) g/dL RDW (12.1-15.1) % Plt Count (130-400) 10^3/c mm MPV (7.4-10.4) fL Neut % (Auto) % Lymph % (Auto) % [place] % (Auto) % Eos % (Auto) % Baso % (Auto) % Neut # (Auto) (1.8-7.7) 10^3/u L Lymph # (Auto) (0.8-4.8) 10^3/u L [place] # (Auto) (0.2-0.9) 10^3/u L Eos # (Auto) (0.0-0.8) 10^3/u L Baso # (Auto) (0.0-0.1) 10^3/u L Nucleated RBC % (a uto) % Nucleated RBCs # /100WBC Sodium (136-145) mmol/L Potassium (3.5-5.1) mmol/L Chloride (98-107) mmol/L Carbon Dioxide (22-29) mmol/L Anion Gap (5-19) BUN (6-20) mg/dL Creatinine (0.7-1.2) mg/dL GFR Calculation (90-130) mL/min Glucose (65-115) mg/dL Calculated Osmolal ity (285-295) mOsm/k g Calcium (8.5-10.5) mg/dL Magnesium (1.7-2.3) mg/dL Total Bilirubin (0.15-1.2) mg/dL AST (0-40) U/L ALT (0-41) U/L Alkaline Phosphata se (40-130) IU/L Total Protein (6.6-8.7) g/dL Albumin (3.5-5.2) g/dL Globulin (1.3-4.6) g/dL Urine Color (Yellow) Urine Appearance (CLEAR) Urine pH (5-7) Ur Specific Gravit y (1.005-1.030) Urine Protein (Negative) Urine Glucose (UA) (Normal) Urine Ketones (Negative) Urine Blood (Negative) Urine Nitrate (Negative) Urine Bilirubin (Negative) Prot Sulfosalicyli c Acd (Negative) Urine Urobilinogen (Negative) mg/dL Ur Leukocyte Shavonne ase (Negative) Urine RBC (0-2) /hpf Urine WBC (0-5) /hpf Ur Squamous Epith Cells (0-5) /hpf Amorphous Sediment /hpf Urine Bacteria (NONE) /hpf Urine Opiates Scre en Negative (Negative) ng/mL Ur Barbiturates Sc reen Negative (Negative) ng/mL Ur Phencyclidine S crn Negative (Negative) ng/mL Ur Amphetamines Sc reen Negative (Negative) ng/mL U Benzodiazepines Scrn Positive H (Negative) ng/mL Urine Cocaine Scre en Negative (Negative) ng/mL U Marijuana (THC) Screen Positive H (Negative) ng/mL Discharge Plan Discharge Patient Disposition: Home Clinical Impression: Seizure disorder, Breakthrough seizure Condition: Stable Prescriptions: New Keppra 500 mg tablet 500 mg PO BID 15 Days Qty: 30 RF: 0 No Action naproxen sodium [Aleve] 220 mg capsule 440 - 880 mg PO PRN RF: 0 celecoxib [Celebrex] 200 mg capsule 200 mg PO BID Qty: 60 RF: 0 carbamazepine 400 mg tablet extended release 12 hr 400 mg PO BID Qty: 60 RF: 0 atorvastatin 20 mg tablet 20 mg PO BEDTIME RF: 0 tizanidine 4 mg tablet 4 mg PO BEDTIME RF: 0 mirtazapine 30 mg tablet 30 mg PO BEDTIME RF: 0 prazosin 2 mg capsule 4 mg PO BEDTIME RF: 0 Discharge Orders: Discharge ED (Routine); Ordered 03/26/21 Ordered By: Allyson Elena Discharge Diet: Advance as tolerated Discharge Activity: Resume usual activity Patient Instructions: Recurrent Seizures Adult (ED), Opioid Safety Activity Restrictions/Additional Instructions: Make sure to schedule a follow-up appointment with Dr. Betnley as soon as possible. Start taking Keppra 500 mg twice daily until you see the neurologist. Make sure you get plenty of sleep, continue taking your carbamazepine as prescribed. Return immediately to the ER if you have further seizures, severe headache, fever, or any other concerning changes. Coding Level of Care Code ED Enrollment Specialist for Parker Sutherland
[2021-03-25] MEDS: LORazepam 2 mg/mL INJ 1 mL 1 MG IVP (20:48)
--- NOTE | 2021-03-25 21:45 | PC.PHAR ---
pt unable to verify medications-pt wouldnt wake up to verify medications-medications entered are meds that show up on ext med history and what was entered on previous entered med list
[2021-03-25 23:04] LABS: Basophils # 0.1 10^3/uL (0.0-0.1); Eosinophils # 0.3 10^3/uL (0.0-0.8); Eosinophils % 2.5 %; Hematocrit 44.4 % (42.0-52.0); Hemoglobin 15.1 g/dL (11.7-16.6); Lymphocytes # 3.1 10^3/uL (0.8-4.8); Lymphocytes % 26.4 %; Mean Corpuscular Hemoglobin 32.4 pg (28.0-34.0); Mean Corpuscular Volume 95.3 fL (80-94); Mean Platelet Volume 9.5 fL (7.4-10.4); Monocytes # 1.2 10^3/uL (0.2-0.9); Monocytes % 10.5 %; Neutrophils # 6.58 10^3/uL (1.8-7.7); Neutrophils % 56.9 %; Nucleated Red Blood Cells % 0 %; Platelet Count 422 10^3/cmm (130-400); Red Blood Count 4.66 10^6/uL (4.1-5.3); Red Cell Distribution Width 11.8 % (12.1-15.1); White Blood Count 11.6 10^3/uL (4.0-10.0)
[2021-03-25 23:19] LABS: Alanine Aminotransferase 33 U/L (0-41); Albumin Level 4.1 g/dL (3.5-5.2); Alkaline Phosphatase 87 IU/L (40-130); Anion Gap 12.9 (5-19); Aspartate Amino Transferase 25 U/L (0-40); Blood Urea Nitrogen 7 mg/dL (6-20); Calcium 8.3 mg/dL (8.5-10.5); Carbon Dioxide 24 mmol/L (22-29); Chloride 107 mmol/L (98-107); Glomerular Filtration Rate 123.1 mL/min (90-130); Glucose 125 mg/dL (65-115); Magnesium 2.1 mg/dL (1.7-2.3); Osmolality Calculated 289 mOsm/kg (285-295); Potassium 3.9 mmol/L (3.5-5.1); Sodium 140 mmol/L (136-145); Total Bilirubin 0.2 mg/dL (0.15-1.2); Total Protein 6.1 g/dL (6.6-8.7)
--- NOTE | 2021-03-25 23:44 | ECG_ITS ---
[facility] Test Date: 2021-03-25 Pat Name: Bernabe Kumar Department: Room: Gender: Male Staff Electrical Engineer: : 1980 Requested By: Allyson Elena Order Number: [id number] Josie MD: Venus Dailey M.D. Measurements Intervals [place] Rate: 70 P: 51 [place]: 137 QRS: 85 QRSD: 94 T: 67 QT: 358 QTc: 387 Interpretive Statements SINUS RHYTHM Compared to ECG 03/17/2021 12:35:23 Sinus bradycardia no longer present Electronically Signed On 03-26-2021 7:14:48 CDT by Venus Dailey M.D. [id number]
[2021-03-26] VITALS: BP 133/81; PULSE 84; RESP 22; O2SAT 88
[2021-03-26 00:34] LABS: Amphetamines Screen Urine Negative (Negative); Barbiturates Screen Urine Negative (Negative); Benzodiazepines Screen Urine Positive (Negative); Cocaine Screen Urine Negative (Negative); Opiate Screen Urine Negative (Negative); PCP Screen Urine Negative (Negative); THC Screen Urine Positive (Negative)
[2021-03-26 00:45] LABS: Add Urine Microscopic? YES; Amorphous Sediment Urine 3+ /hpf; Bacteria Urine TRACE /hpf; Bilirubin Urine Neg (Negative); Blood Urine Neg (Negative); Glucose Urine UA Norm (Normal); Ketones Urine Negative (Negative); Leukocyte Esterase Urine Negative (Negative); Nitrate Urine Negative (Negative); Protein Urine Neg (Negative); RBC Urine 0-4 /hpf (0-2); Squamous Epithelial Cell Urine 0-4 /hpf (0-5); Sulfosalicylic Acid Urine Negative (Negative); Urine Appearance Hazy (CLEAR); Urine Color Yellow (Yellow); Urobilinogen Urine Norm (Negative); WBC Urine 0-4 /hpf (0-5); pH Urine 8 (5-7)
[2021-03-26 01:02] VITALS: BP 133/81; PULSE 86; RESP 14; O2SAT 92
== END 2021-03-26 01:04 | disposition home or self-care (01) ==
PROVIDERS: Emergency Provider Family Medicine
DX: G40.802 Other epilepsy, not intractable, without status epilepticus (principal); F17.210 Nicotine dependence, cigarettes, uncomplicated
CPT/HCPCS: 70450; 80053; 80306; 81001; 83735; 85025; 93005; 96374; 96375; 99284; J1953; J2060

== ENCOUNTER → 2021-04-05 14:15 | Outpatient (BNVA) | payer MEDICAID, SELFPAY | PROVIDERS: Visit Provider Psychiatry & Neurology Psychiatry | DX: F43.10 Post-traumatic stress disorder, unspecified (principal); F10.10 Alcohol abuse, uncomplicated; S06.9X9A Unspecified intracranial injury with loss of consciousness of unspecified duration, initial encounter | CPT/HCPCS: 99214 ==

== ENCOUNTER → 2021-05-17 14:05 | Outpatient (BNVA) | payer MEDICAID, SELFPAY | PROVIDERS: Referring Provider Family Medicine; Visit Provider Specialist | DX: G40.109 Localization-related (focal) (partial) symptomatic epilepsy and epileptic syndromes with simple partial seizures, not intractable, without status epilepticus (principal); G40.309 Generalized idiopathic epilepsy and epileptic syndromes, not intractable, without status epilepticus; S06.9X1S Unspecified intracranial injury with loss of consciousness of 30 minutes or less, sequela; Y93.9 Activity, unspecified; F17.210 Nicotine dependence, cigarettes, uncomplicated | CPT/HCPCS: 99215 ==

== ENCOUNTER → 2021-05-27 14:27 | Outpatient (BNVA) | payer MEDICAID, SELFPAY | PROVIDERS: Visit Provider Psychiatry & Neurology Psychiatry | DX: F43.10 Post-traumatic stress disorder, unspecified (principal); F10.10 Alcohol abuse, uncomplicated; S06.9X1D Unspecified intracranial injury with loss of consciousness of 30 minutes or less, subsequent encounter | CPT/HCPCS: 99214 ==

== ENCOUNTER → 2021-06-28 07:57 | Outpatient (BNVA) | payer MEDICAID, SELFPAY | PROVIDERS: Visit Provider Specialist | DX: R56.9 Unspecified convulsions (principal); F17.210 Nicotine dependence, cigarettes, uncomplicated | CPT/HCPCS: 95816 ==

== ENCOUNTER → 2021-07-05 16:45 | Outpatient (BNVA) | payer MEDICAID, SELFPAY | PROVIDERS: Visit Provider Family Medicine | DX: E78.2 Mixed hyperlipidemia (principal); G40.309 Generalized idiopathic epilepsy and epileptic syndromes, not intractable, without status epilepticus | CPT/HCPCS: 80053; 80061; 84443; 85025 ==

== ENCOUNTER → 2021-07-13 14:58 | Outpatient (BNVA) | payer MEDICAID, SELFPAY | PROVIDERS: Visit Provider Specialist | DX: G40.309 Generalized idiopathic epilepsy and epileptic syndromes, not intractable, without status epilepticus (principal); G40.109 Localization-related (focal) (partial) symptomatic epilepsy and epileptic syndromes with simple partial seizures, not intractable, without status epilepticus; S06.9X1D Unspecified intracranial injury with loss of consciousness of 30 minutes or less, subsequent encounter; Y93.9 Activity, unspecified; F43.10 Post-traumatic stress disorder, unspecified | CPT/HCPCS: 99215 ==

== ENCOUNTER → 2021-07-29 14:46 | Outpatient (BNVA) | payer MEDICAID, SELFPAY | PROVIDERS: Visit Provider Psychiatry & Neurology Psychiatry | DX: F43.10 Post-traumatic stress disorder, unspecified (principal); F10.10 Alcohol abuse, uncomplicated; S06.9X1D Unspecified intracranial injury with loss of consciousness of 30 minutes or less, subsequent encounter | CPT/HCPCS: 99214 ==

== ENCOUNTER 2021-09-29 10:21 | Emergency (ER) | payer MEDICAID, SELFPAY ==
--- NOTE | 2021-09-29 10:26 | CT_ITS ---
WS: [id number] CT HEAD TECHNIQUE: Noncontrast CT of the head obtained from the skullbase to the vertex. CLINICAL INFORMATION: eval brain bleed COMPARISON: CT 429.1 DLP: 895.[address] scans at [facility] use at least one of these dose optimization techniques: automated e xposure control; mA and/or kV adjustment per patient size (includes targeted exams where dose is matc hed to clinical indication); or iterative reconstruction. FINDINGS: No evidence of intracranial hemorrhage or mass effect. Ventricular system and basal cisterns are padilla nt. Incidental cavum septi pellucidum and vergae. No extra-axial fluid collections. Normal crum-white differentiation. Slightly low-lying cerebellar tonsils unchanged. No hydrocephalus. Mild mucosal thickening ethmoid air cells. Mastoid air cells well aerated. CT/CT head wo con* [id number] IMPRESSION: 1. No evidence of intracranial hemorrhage or mass effect. 2. Normal crum-white differentiation. 3. No acute intracranial findings.
[2021-09-29 10:28] VITALS: BP 128/97; PULSE 80; RESP 18; O2SAT 97; BMI 28.6
[2021-09-29 10:59] LABS: Basophils # 0.1 10^3/uL (0.0-0.1); Eosinophils # 0.3 10^3/uL (0.0-0.8); Eosinophils % 2.9 %; Hematocrit 44.4 % (42.0-52.0); Hemoglobin 15.4 g/dL (11.7-16.6); Lymphocytes # 2.9 10^3/uL (0.8-4.8); Lymphocytes % 26.3 %; Mean Corpuscular HGB Conc 34.7 g/dL (30.0-36.0); Mean Corpuscular Hemoglobin 32.2 pg (28.0-34.0); Mean Corpuscular Volume 92.9 fl (80-94); Mean Platelet Volume 10.5 fL (7.4-10.4); Monocytes % 9.5 %; Neutrophils # 6.29 10^3/uL (1.8-7.7); Neutrophils % 58.2 %; Nucleated Red Blood Cells % 0 %; Platelet Count 284 10^3/cmm (130-400); Red Blood Count 4.78 10^6/uL (4.1-5.3); Red Cell Distribution Width 11.8 % (12.1-15.1); White Blood Count 10.8 10^3/uL (4.0-10.0)
[2021-09-29 11:10] LABS: INR 0.85 (0.8-1.2)
[2021-09-29 11:11] LABS: Partial Thromboplastin Time 21.8 SECONDS (23.9-36.7)
[2021-09-29 11:13] LABS: Blood Urea Nitrogen 6 mg/dL (6-20); Calcium 9.6 mg/dL (8.5-10.5); Carbon Dioxide 25 mmol/L (22-29); Chloride 103 mmol/L (98-107); Glomerular Filtration Rate 181.5 mL/min (90-130); Glucose 95 mg/dL (65-115); Osmolality Calculated 285 mOsm/kg (285-295); Sodium 139 mmol/L (136-145)
--- NOTE | 2021-09-29 11:13 | PC.PHAR ---
PT UNABLE TO VERIFY MEDICATIONS-PT BROUGHT IN CARBAMAZEPINE BOTTLE DATED 10/21/2020 for er 300mg bid-[facility] LAST FILLED 05/04/21 30D/S FOR ER 400MG BID -AND mirtazapine 30MG bottle-NOTES ARE MADE IN THE PHARMACY COMMENTS
--- NOTE | 2021-09-29 11:35 | W.ED.GENADLT ---
HPI - General Adult General: Chief complaint: Altered Mental Status Stated complaint: PCP SENT POSS BRAIN BLEED Time Seen by Provider: 09/29/21 10:23 History of Present Illness: HPI narrative: Patient is a 41-year-old male with history of recent development seizure who presents the emergency room for concerns of short-term amnesia. Patient tells me that 2 weeks ago, he fell while walking and hit his head against the concrete. Patient does not remember what happened but was told by his that he lost consciousness. Patient tells me that he cannot recall that he has 2 children. In addition, patient says that he has had difficulty remembering recent events. Denies any changes in long-term memory. Patient denies any history of alcohol use. Was referred to us by his PCP for evaluation of a possible intracranial injuries. Onset: 2 weeks ago Duration:2 weeks ago Location:home Severity:moderate Review of Systems Narrative: Constitutional: No fever, no chills. HEENT: No vision changes CV: No chest pain, no palpitations PULM: no cough, no dyspnea. GI: No abdominal pain, no N/V/D. : No dysuria MSKEL: No muscle pain SKIN: No new rashes, no lesions. NEURO: No headache, no focal weakness. HEME: No visible bruises PSYCH: Normal mood PFSH ED PFSH: Medical History Alcohol abuse Hx of migraine headaches Psychiatric care PTSD (post-traumatic stress disorder) Seizures TBI (traumatic brain injury) Social History Second hand smoke exposure: Yes Smoking risk assessment/counseling performed?: Yes Tobacco counseling given: counseling >3 minutes Alcohol intake: current Alcohol intake frequency: holidays/special occasions only Marital status: Number of children: 2 Current occupational status: retired and disabled History of recent travel: No Current gender identity: Male Physical Exam Narrative: EXAM NARRATIVE: Head: Atraumatic Eyes: PERRL, conjunctiva without injection ENT: Mucous membrane moist NECK: Supple, ROM intact LUNGS: LCTAB, no crackles/rhonchi CV: RRR ABDOMEN: Soft, nontender in all quadrants EXTREMITY: Normal ROM SKIN: No rash or erythema NEURO: Mental status? Awake, alert, and oriented to self, year, month, location, and situation.? Following simple axial and appendicular commands.? Has appropriate fund of knowledge, comprehension, and insight.? Able to recall and understands pertinent aspects of medical history and current treatment status.? ? Language? Speech is fluent without word-finding difficulties.? Intact naming, expression, hospital receptionist, and repetition.? ? Cranial nerves? 2,3,4,6: PERRL, EOMI with no nystagmus. 5: Intact sensation to light touch, symmetric? 7: Smile symmetrical, no facial droop.? 8: Hearing grossly intact.? 9,10: Normal palate movement.? 11: Normal strength in trapezius bilaterally 12: Tongue protrudes midline.? ? Motor examination? Normal bulk & tone. Strength as follows (R/L): Delts (5/5), Biceps (5/5), Triceps (5/5), Wrist ext (5/5), hip flexors (5/5), plantarflexors (5/5), dorsiflexors (5/5). Sensation? Light Touch: Grossly intact and equal in upper and lower extremities bilaterally? Romberg: Negative.? Distal joint position sense intact ? Coordination? Jfhwju-hm-ghyb-finger movements intact without dysmetria or past-pointing.? Rapid fingertaps: preserved amplitude without decriment.? No tremor, myoclonus or truncal ataxia.? ? Gait/stance? Steady, normal narrow base gait with appropriate arm swing and turning.? Tandem gait without hesitation or loss of balance. PSYCH: Normal mood and affect Course Vital Signs: Vital signs: Vital Signs Pulse Rate 80 09/29/21 10:28 Respiratory Rate 18 09/29/21 10:28 Blood Pressure 128/97 09/29/21 10:28 Pulse Oximetry 97 09/29/21 10:28 MDM - General Adult MDM Narrative: Medical decision making narrative: 41-year-old male presents to the emergency room for concerns of short-term amnesia s/p fall. On exam, patient is neurologically intact. No other focal complaints at this time. CT head negative for any acute findings. I discussed today's work-up with patient's Jessica who agrees with close outpatient follow-up at this time. Disposition: Discharge. Patient counseled regarding diagnostic impression, treatment plan. Patient given ED strict return precautions to return for continuation, worsening, or development of new symptoms. Instructed to f/u w/ PCP and Dr. Bentley regarding symptoms today. Patient verbalized understanding. Lab Data: Labs: Lab Results 09/29/21 09/29/21 09/29/21 10:50 10:50 10:50 WBC 10.8 10^3/uL H 10 ^3/uL (4.0-10.0) RBC 4.78 10^6/uL 10^6 /uL (4.1-5.3) Hgb 15.4 g/dL g/dL (11.7-16.6) Hct 44.4 % % (42.0-52.0) MCV 92.9 fl fl (80-94) MCH 32.2 pg pg (28.0-34.0) MCHC 34.7 g/dL g/dL (30.0-36.0) RDW 11.8 % L % (12.1-15.1) Plt Count 284 10^3/cmm 10^3 /cmm (130-400) MPV 10.5 fL H fL (7.4-10.4) Neut % (Auto) 58.2 % % Lymph % (Auto) 26.3 % % [place] % (Auto) 9.5 % % Eos % (Auto) 2.9 % % Baso % (Auto) 1.0 % % Neut # (Auto) 6.29 10^3/uL 10^3 /uL (1.8-7.7) Lymph # (Auto) 2.9 10^3/uL 10^3/ uL (0.8-4.8) [place] # (Auto) 1.0 10^3/uL H 10^ 3/uL (0.2-0.9) Eos # (Auto) 0.3 10^3/uL 10^3/ uL (0.0-0.8) Baso # (Auto) 0.1 10^3/uL 10^3/ uL (0.0-0.1) Nucleated RBC % (a uto) 0 % % Nucleated RBCs # 0.0 /100WBC /100W BC PT 11.90 SECONDS L S ECONDS (12.1-14.9) INR 0.85 (0.8-1.2) APTT 21.8 SECONDS L SE CONDS (23.9-36.7) Sodium 139 mmol/L mmol/L (136-145) Potassium 4.0 mmol/L mmol/L (3.5-5.1) Chloride 103 mmol/L mmol/L (98-107) Carbon Dioxide 25 mmol/L mmol/L (22-29) Anion Gap 15.0 (5-19) BUN 6 mg/dL mg/dL (6-20) Creatinine 0.5 mg/dL L mg/dL (0.7-1.2) GFR Calculation 181.5 mL/min H mL /min (90-130) Glucose 95 mg/dL mg/dL (65-115) Calculated Osmolal ity 285 mOsm/kg mOsm/ kg (285-295) Calcium 9.6 mg/dL mg/dL (8.5-10.5) Imaging Data^: Other Imaging: Radiologist's impression: [address] [id number] Scan ReportSigned Patient: Maeve Kumar #: [id number]: 1980Acct#:[id number]/Sex: 41 / MADM Date: 09/29/21Loc: ERRoom/Bed:Attending Dr: Ordering Provider/Ordering MD: Rubens Singleton MD Date of Service: 09/29/21 Procedure(s): CT head wo con* [id number] Accession Number(s): [id number] Report Number: [id number] WS: [id number] CT HEAD TECHNIQUE: Noncontrast CT of the head obtained from the skullbase to the vertex. CLINICAL INFORMATION: eval brain bleed COMPARISON: CT 429.1 DLP: 895.[address] scans at [facility] use at least one of these dose optimization techniques: automated exposure control; mA and/or kV adjustment per patient size (includes targeted exams where dose is matched to clinical indication); or iterative reconstruction. FINDINGS: No evidence of intracranial hemorrhage or mass effect. Ventricular system and basal cisterns are patent. Incidental cavum septi pellucidum and vergae. No extra-axial fluid collections. Normal crum-white differentiation. Slightly low-lying cerebellar tonsils unchanged. No hydrocephalus. Mild mucosal thickening ethmoid air cells. Mastoid air cells well aerated. CT/CT head wo con* [id number] IMPRESSION: 1. No evidence of intracranial hemorrhage or mass effect. 2. Normal crum-white differentiation. 3. No acute intracranial findings. Dictated By:Timmy Gibbons MDSigned By:Timmy Gibbons MDSigned Date/Time:09/29/21 1048DD/ 1041 Discharge Plan Discharge Prescriptions: No Action naproxen sodium [Aleve] 220 mg capsule 440 - 880 mg PO Q12H PRN (Reason: Pain) RF: 0 mirtazapine 30 mg tablet 30 mg PO BEDTIME 30 Days Qty: 30 RF: 3 atorvastatin 40 mg tablet 40 mg PO BEDTIME RF: 0 carbamazepine 400 mg tablet extended release 12 hr 400 mg PO BID RF: 0 Biofreeze 0.2-3.5 % Gel 1 applic TOPICAL PRN RF: 0 celecoxib 200 mg capsule 200 mg PO BID RF: 0 Keppra 500 mg tablet 500 mg PO BID RF: 0 clobazam [Onfi] 20 mg tablet 20 mg PO BID RF: 0 prazosin 2 mg capsule 4 mg PO BEDTIME RF: 0 Coding Level of Care Code ED [place] Targeting Supervisor for Parker Sutherland
--- NOTE | 2021-09-30 12:54 | DCPLANNER ---
Patient had a message to schedule a follow up appointment for patient with neurology. finance business manager emailed patients information to the neurology clinic. Patients information will be printed and reviewed. Clinic will call patient with appointment information.
--- NOTE | 2021-10-01 10:32 | DCPLANNER ---
Addendum entered by Eryn Camp 12/19/21 15:35: Patient had a follow up appointment scheduled with Dr. Bentley - patient did attend appointment. Original Note: Patient has a follow up appointment scheduled for Monday, October 25, 2021 at 3:30 with Bryce at neurology. Clinic will call patient with appointment information.
== END 2021-09-29 13:40 | disposition home or self-care (01) ==
PROVIDERS: Emergency Provider Emergency Medicine
DX: R41.3 Other amnesia (principal); F43.10 Post-traumatic stress disorder, unspecified; Z87.820 Personal history of traumatic brain injury
CPT/HCPCS: 70450; 80048; 85025; 85610; 85730; 99283

== ENCOUNTER → 2021-09-30 14:55 | Outpatient (BNVA) | payer MEDICAID, SELFPAY | PROVIDERS: Visit Provider Psychiatry & Neurology Psychiatry | DX: F43.10 Post-traumatic stress disorder, unspecified (principal); F10.10 Alcohol abuse, uncomplicated; S06.9X1D Unspecified intracranial injury with loss of consciousness of 30 minutes or less, subsequent encounter | CPT/HCPCS: 99214 ==

== ENCOUNTER 2021-10-17 14:04 | Emergency (ER) | payer MEDICAID, SELFPAY ==
[2021-10-17 14:10] VITALS: BP 120/91; PULSE 104; RESP 16; TEMP 37.1; O2SAT 93
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
--- NOTE | 2021-10-17 14:25 | ECG_ITS ---
[facility] Test Date: 2021-10-17 Pat Name: Bernabe [place] Department: Room: Gender: Male Manager Programming: : 1980 Requested By: Rubens Singleton Order Number: [id number] Josie MD: Eldon Rose M.D. Measurements Intervals [place] Rate: 89 P: 55 [place]: 127 QRS: 98 QRSD: 96 T: 57 QT: 318 QTc: 389 Interpretive Statements SINUS RHYTHM WITH SINUS ARRHYTHMIA BORDERLINE RIGHT AXIS DEVIATION [QRS AXIS > 90] No previous ECG available for comparison Electronically Signed On 10-17-2021 15:57:19 AUTOMATION ARCHITECT by Eldon Rose M.D. [id number] f
[2021-10-17 14:38] LABS: Basophils # 0.1 10^3/uL (0.0-0.1); Basophils % 0.6 %; Eosinophils # 0.2 10^3/uL (0.0-0.8); Eosinophils % 1.3 %; Hematocrit 45.8 % (42.0-52.0); Hemoglobin 16.6 g/dL (11.7-16.6); Lymphocytes # 2.1 10^3/uL (0.8-4.8); Lymphocytes % 15.2 %; Mean Corpuscular HGB Conc 36.2 g/dL (30.0-36.0); Mean Corpuscular Hemoglobin 33.2 pg (28.0-34.0); Mean Corpuscular Volume 91.6 fl (80-94); Mean Platelet Volume 9.6 fL (7.4-10.4); Monocytes # 1.5 10^3/uL (0.2-0.9); Monocytes % 11.3 %; Neutrophils # 9.43 10^3/uL (1.8-7.7); Neutrophils % 69.7 %; Nucleated Red Blood Cells % 0 %; Platelet Count 460 10^3/cmm (130-400); Red Cell Distribution Width 11.9 % (12.1-15.1); White Blood Count 13.5 10^3/uL (4.0-10.0)
[2021-10-17] MEDS: sodium chloride 0.9% 500 ML IV (14:49)
[2021-10-17] MEDS: LORazepam 2 mg/mL INJ 1 mL IVP (14:50)
[2021-10-17 14:51] VITALS: BP 120/91; PULSE 99; RESP 18; O2SAT 98
--- NOTE | 2021-10-17 14:53 | PC.NURSE ---
Pt return from CT and certified surgical tech/first assistant stated pt was having a seizure. BRISSA Quick at bedside, DR Singleton to room with 2 other RNs. Pt on monitor no change in HR 100s, no activity movement noted with pt's eyes closed, no twitching of eyes. 2nd IV started. IV Ativan order and given.
[2021-10-17 14:54] LABS: Partial Thromboplastin Time 23.4 SECONDS (23.9-36.7)
[2021-10-17 14:57] LABS: INR 0.97 (0.8-1.2)
[2021-10-17 14:58] LABS: Alanine Aminotransferase 76 U/L (0-41); Albumin Level 4.6 g/dL (3.5-5.2); Alkaline Phosphatase 94 IU/L (40-130); Anion Gap 17.3 (5-19); Aspartate Amino Transferase 42 U/L (0-40); Blood Urea Nitrogen 8 mg/dL (6-20); Calcium 9.4 mg/dL (8.5-10.5); Carbon Dioxide 25 mmol/L (22-29); Chloride 101 mmol/L (98-107); Globulin 2.7 g/dL (1.3-4.6); Glomerular Filtration Rate 105.5 mL/min (90-130); Glucose 109 mg/dL (65-115); Lipase 49 U/L (13-60); Osmolality Calculated 287 mOsm/kg (285-295); Potassium 4.3 mmol/L (3.5-5.1); Sodium 139 mmol/L (136-145); Total Bilirubin 0.6 mg/dL (0.15-1.2); Total Protein 7.3 g/dL (6.6-8.7)
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
[2021-10-17 16:00] VITALS: BP 128/79; PULSE 83; RESP 18; O2SAT 100
[2021-10-17 17:00] VITALS: PULSE 75; RESP 16; O2SAT 98
[2021-10-17 17:51] VITALS: BP 103/76; PULSE 74; RESP 16; O2SAT 97
== END 2021-10-17 17:52 | disposition home or self-care (01) ==
PROVIDERS: Emergency Provider Emergency Medicine
DX: R56.9 Unspecified convulsions (principal); S06.0X9A Concussion with loss of consciousness of unspecified duration, initial encounter; Z87.820 Personal history of traumatic brain injury; Y04.2XXA Assault by strike against or bumped into by another person, initial encounter
CPT/HCPCS: 70450; 80053; 83690; 85025; 85610; 85730; 93005; 96361; 96374; 96375; 99284; J1953; J2060; J7040

== ENCOUNTER → 2021-10-25 15:08 | Outpatient (BNVA) | payer MEDICAID, SELFPAY | PROVIDERS: Visit Provider Nurse Practitioner | DX: G40.309 Generalized idiopathic epilepsy and epileptic syndromes, not intractable, without status epilepticus (principal); R41.3 Other amnesia; T14.90XS Injury, unspecified, sequela; Z91.19 Patient's noncompliance with other medical treatment and regimen | CPT/HCPCS: 99213; 99214 ==

== ENCOUNTER 2021-10-25 16:37 | Outpatient (CLI) | payer MEDICAID, SELFPAY ==
[2021-10-25 17:56] LABS: Anion Gap 16.9 (5-19); Blood Urea Nitrogen 13 mg/dL (6-20); Calcium 9.5 mg/dL (8.5-10.5); Carbon Dioxide 25 mmol/L (22-29); Chloride 103 mmol/L (98-107); Glomerular Filtration Rate 105.5 mL/min (90-130); Glucose 92 mg/dL (65-115); Osmolality Calculated 292 mOsm/kg (285-295); Potassium 3.9 mmol/L (3.5-5.1); Sodium 141 mmol/L (136-145); Thyroid Stimulating Hormone 0.73 uIU/mL (0.27-4.20); Vitamin B12 323 pg/mL (232-1245)
[2021-10-25 20:27] LABS: Carbamazepine Tegretol 3.8 ug/mL (4.0-12.0)
[2021-10-25 20:30] LABS: Rapid Plasma Reagin Syphilis Nonreactive (Nonreactive)
[2021-10-30 13:38] LABS: Levetiracetam Keppra <2.0 mcg/mL
== END 2021-10-25 16:38 | disposition home or self-care (01) ==
PROVIDERS: PCP Family Medicine; Visit Provider Nurse Practitioner
DX: R41.3 Other amnesia (principal); G40.309 Generalized idiopathic epilepsy and epileptic syndromes, not intractable, without status epilepticus
CPT/HCPCS: 36415; 80048; 80156; 80177; 82607; 84443; 86592

== ENCOUNTER → 2021-12-07 09:12 | Outpatient (BNVA) | payer MEDICAID, SELFPAY | PROVIDERS: PCP Family Medicine; Visit Provider Family Medicine | DX: E78.2 Mixed hyperlipidemia (principal); R56.9 Unspecified convulsions | CPT/HCPCS: 80053; 80061; 85025 ==

== ENCOUNTER 2022-01-11 22:29 | Emergency (ER) | payer MEDICAID, SELFPAY ==
[2022-01-11 22:32] VITALS: BP 142/110; PULSE 83; RESP 18; TEMP 36.5; O2SAT 96; BMI 29.2
--- NOTE | 2022-01-11 22:32 | CTR_ITS ---
PROCEDURE INFORMATION: Exam: CT Head Without Contrast Exam date and time: 01/11/2022 10:32 PM Age: 41 years old Clinical indication: Patient HX: Seizure activity. History of seizure disorder. TECHNIQUE: Imaging protocol: Computed tomography of the head without contrast. Radiation optimization: All CT scans at this facility use at least one of these dose optimization techniques: automated exposure control; mA and/or kV adjustment per patient size (includes targeted exams where dose is matched to clinical indication); or iterative reconstruction. COMPARISON: CT head wo con* [id number] 10/17/2021 2:36 PM RADIATION DOSE METRICS: Total DLP (mGy-cm): 831.45 FINDINGS: Brain: Normal. No hemorrhage. Unremarkable white matter. No mass effect. Cerebral ventricles: No ventriculomegaly. Paranasal sinuses: Visualized sinuses are unremarkable. No fluid levels. Mastoid air cells: Visualized mastoid air cells are well aerated. Bones/joints: Unremarkable. No acute fracture. Soft tissues: Unremarkable. CT/CT head wo con* [id number] IMPRESSION: No acute intracranial abnormality.
[2022-01-11 22:39] VITALS: BP 142/110; PULSE 64; RESP 20; O2SAT 96
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
[2022-01-11 23:13] LABS: Basophils # 0.1 10^3/uL (0.0-0.1); Basophils % 0.7 %; Eosinophils # 0.3 10^3/uL (0.0-0.8); Eosinophils % 2.4 %; Hematocrit 42.9 % (42.0-52.0); Hemoglobin 14.7 g/dL (11.7-16.6); Lymphocytes % 21.8 %; Mean Corpuscular HGB Conc 34.3 g/dL (30.0-36.0); Mean Corpuscular Hemoglobin 32.3 pg (28.0-34.0); Mean Corpuscular Volume 94.3 fl (80-94); Mean Platelet Volume 9.9 fL (7.4-10.4); Monocytes # 1.8 10^3/uL (0.2-0.9); Neutrophils # 8.25 10^3/uL (1.8-7.7); Neutrophils % 60.8 %; Nucleated Red Blood Cells % 0 %; Platelet Count 410 10^3/cmm (130-400); Red Blood Count 4.55 10^6/uL (4.1-5.3); Red Cell Distribution Width 11.8 % (12.1-15.1); White Blood Count 13.6 10^3/uL (4.0-10.0)
[2022-01-11 23:27] LABS: Alanine Aminotransferase 29 U/L (0-41); Albumin Level 4.2 g/dL (3.5-5.2); Alkaline Phosphatase 81 IU/L (40-130); Anion Gap 13.8 (5-19); Aspartate Amino Transferase 20 U/L (0-40); Blood Urea Nitrogen 5 mg/dL (6-20); Calcium 8.9 mg/dL (8.5-10.5); Carbon Dioxide 23 mmol/L (22-29); Chloride 110 mmol/L (98-107); Globulin 2.2 g/dL (1.3-4.6); Glomerular Filtration Rate 123.1 mL/min (90-130); Glucose 94 mg/dL (65-115); Osmolality Calculated 293 mOsm/kg (285-295); Potassium 3.8 mmol/L (3.5-5.1); Sodium 143 mmol/L (136-145); Total Bilirubin 0.3 mg/dL (0.15-1.2); Total Protein 6.4 g/dL (6.6-8.7)
[2022-01-12 02:32] VITALS: BP 105/66; PULSE 72; RESP 18; O2SAT 90
== END 2022-01-12 04:17 | disposition home or self-care (01) ==
PROVIDERS: Emergency Provider Emergency Medicine; PCP Family Medicine
DX: R56.9 Unspecified convulsions (principal); F17.210 Nicotine dependence, cigarettes, uncomplicated; Z87.820 Personal history of traumatic brain injury
CPT/HCPCS: 70450; 80053; 85025; 96374; 99284; J1953

== ENCOUNTER → 2022-01-25 14:45 | Outpatient (BNVA) | payer MEDICAID, SELFPAY | PROVIDERS: PCP Family Medicine; Visit Provider Psychiatry & Neurology Psychiatry | DX: F43.10 Post-traumatic stress disorder, unspecified (principal); F10.10 Alcohol abuse, uncomplicated; S06.9X1D Unspecified intracranial injury with loss of consciousness of 30 minutes or less, subsequent encounter | CPT/HCPCS: 99214 ==

== ENCOUNTER → 2022-03-08 10:42 | Outpatient (BNVA) | payer MEDICAID, SELFPAY | PROVIDERS: PCP Family Medicine; Visit Provider Family Medicine | DX: R04.2 Hemoptysis (principal) | CPT/HCPCS: 71046 ==

== ENCOUNTER → 2022-04-19 14:53 | Outpatient (BNVA) | payer MEDICAID, SELFPAY | PROVIDERS: PCP Family Medicine; Visit Provider Psychiatry & Neurology Psychiatry | DX: F43.10 Post-traumatic stress disorder, unspecified (principal); F10.10 Alcohol abuse, uncomplicated; S06.9X1D Unspecified intracranial injury with loss of consciousness of 30 minutes or less, subsequent encounter | CPT/HCPCS: 99214 ==

== ENCOUNTER 2022-04-21 14:10 | Outpatient (CLI) | payer MEDICAID, SELFPAY ==
--- NOTE | 2022-04-21 14:30 | CT_ITS ---
WS: [id number] CT CHEST WITHOUT INTRAVENOUS CONTRAST HISTORY: R04.2 - Hemoptysis TECHNIQUE: Contiguous 5 mm axial imaging performed on the thorax. Coronal and sagittal reformats are submitted. All CT scans at [facility] use at least one of these dose optimization techniques: automated exposure control; mA and/or kV adjustment per patient size (includes targeted exams where dose is matched to clinical indication); or iterative reconstruction. CONTRAST: None DLP: 733.69 mGy.cm COMPARISON: None available. Lungs and central airway: Mild pulmonary hyperexpansion. 4 mm noncalcified nodule RIGHT upper lobe, i mage 27 series 4. No additional noncalcified nodules. No pneumonia. No bronchiectasis. Pleura: Normal. No pleural effusion. Heart and pericardium: Normal size heart with no pericardial effusion. Mediastinum and lupe: No mediastinum or hilar adenopathy. Vessels: Normal size aortic and pulmonary artery. No coronary artery calcifications. Chest wall and lower neck: No soft tissue masses. Upper abdomen: Very mild hyperplasia LEFT adrenal gland. Osseous structures: No destructive process. CT/CT chest wo con [id number] IMPRESSION: 1. No pulmonary mass or pneumonia. 2. 4 mm noncalcified nodule RIGHT upper lobe. Consider [address] follow-up.
== END 2022-04-21 14:11 | disposition home or self-care (01) ==
LOC: RAD 14:12
PROVIDERS: PCP Family Medicine; Visit Provider Family Medicine
DX: R04.2 Hemoptysis (principal); R91.1 Solitary pulmonary nodule
CPT/HCPCS: 71250

== ENCOUNTER → 2022-05-12 14:31 | Outpatient (BNVA) | payer MEDICAID, SELFPAY | PROVIDERS: PCP Family Medicine; Visit Provider Psychiatry & Neurology Psychiatry | DX: F43.10 Post-traumatic stress disorder, unspecified (principal) | CPT/HCPCS: 80061; 83036 ==

== ENCOUNTER 2022-07-08 09:13 | Emergency (ER) | payer MEDICAID, SELFPAY ==
[2022-05-17 15:46] VITALS: BP 125/81; BMI 29.3
[2022-07-08 09:16] VITALS: BP 132/79; PULSE 74; RESP 18; TEMP 36.8; O2SAT 97; BMI 28.8
--- NOTE | 2022-07-08 09:31 | CT_ITS ---
WS: [id number] CT CERVICAL SPINE HISTORY: fall from approx 10 feet TECHNIQUE: Contiguous 2.5 mm axial imaging performed through the entire cervical spine. Sagittal and coronal reformats also performed. All CT scans at [facility] use at least one of these dose o ptimization techniques: automated exposure control; mA and/or kV adjustment per patient size (include s targeted exams where dose is matched to clinical indication); or iterative reconstruction. DLP: 187.17 mGy.cm COMPARISON: None available. Normal cervical alignment. Craniocervical junction, atlantodental interval and C1-C2 alignment is nor mal. There are a few tiny calcific or osseous density is noted in the cervical spine, along the anterior C 5-6 disc which is probably an osteophyte. No fractures are identified. There is an additional 2 mm os seous density adjacent to the inferior endplate on the LEFT of C6. No acute disc protrusions or stenosis. Lung apices are clear. CT/CT cervical spin wo con* [id number] IMPRESSION: 1. No acute cervical spine fracture identified. 2. There are 2 ossifications or calcifications as described above. These are p robably degenerative in etiology. If patient continues with neck pain consider follow-up cervical spine MRI.
--- NOTE | 2022-07-08 09:31 | CT_ITS ---
WS: [id number] CT HEAD NONCONTRAST HISTORY: Fall with positive LOC TECHNIQUE: Contiguous axial imaging performed through the brain in 2.5 mm imaging. Bone and soft tiss ue windows. Sagittal and coronal reformats reviewed. All CT scans at [facility] use at least one of these dose optimization techniques: automated exposure control; mA and/or kV adjustment per pa tient size (includes targeted exams where dose is matched to clinical indication); or iterative recon struction. DLP: 1059.08 mGy.cm COMPARISON: 01/11/2022 No acute intracranial hemorrhage, midline shift or mass effect. No atrophy or prior infarcts or herniation. No prior infarct or volume loss. Ventricles: Normal size with no hydrocephalus. No inferior displacement of cerebellar tonsils. Paranasal sinuses: Mild mucoperiosteal thickening throughout the ethmoid air cells. No air-fluid leve ls in the sinuses. Mastoid air cells: Mild coalescence of mastoid air cells. Calvarium and scalp: Skull is intact with no soft tissue edema or swelling. CT/CT head wo con* [id number] IMPRESSION: Negative head CT.
--- NOTE | 2022-07-08 09:31 | CT_ITS ---
WS: [id number] CT THORACIC SPINE HISTORY: Back pain after fall from 10 feet high TECHNIQUE: Contiguous 2.5 mm axial images are reviewed to thoracic spine. Images are reformatted in s agittal and coronal planes. All CT scans at [facility] use at least one of these dose optimiz ation techniques: automated exposure control; mA and/or kV adjustment per patient size (includes targ eted exams where dose is matched to clinical indication); or iterative reconstruction. DLP: 952.01 mGy.cm COMPARISON: None available. Normal thoracic alignment. The vertebral body heights and disc spaces are well preserved. Facet joint s are normally aligned. No fractures are identified. No acute disc protrusions or herniations. No compromise of the central canal or foramina. The adjacen t lungs are clear. No pneumothorax or paravertebral hematoma. CT/CT thoracic spin wo con* [id number] IMPRESSION: Negative CT thoracic spine.
--- NOTE | 2022-07-08 09:31 | CT_ITS ---
WS: [id number] CT LUMBAR SPINE, noncontrast. HISTORY: Back pain after fall from 10 feet high TECHNIQUE: Contiguous 2.5 mm axial imaging are performed. Sagittal and coronal reformats are submitte d and reviewed. All CT scans at [facility] use at least one of these dose optimization techni ques: automated exposure control; mA and/or kV adjustment per patient size (includes targeted exams w here dose is matched to clinical indication); or iterative reconstruction. IV contrast: None DLP: 627.00 mGy.cm COMPARISON: None available. Normal lumbar alignment with no loss of disc space height or vertebral body height. L1-2: Normal. L2-3: Normal. L3-4: Normal. L4-5: Normal. L5-S1: Normal. Visualized retroperitoneum is normal. CT/CT lumbar spine wo con* [id number] IMPRESSION: NORMAL CT LUMBAR SPINE.
--- NOTE | 2022-07-08 09:31 | XR_ITS ---
WS: [id number] XR ribs LT mn 3V w CXR1V [id number] REASON FOR EXAM: Fall with left rib pain FINDINGS: The heart and mediastinum are within normal limits. There is calcified granulomatous disease in both hemithoraces. No active pulmonary parenchymal or pleural disease is noted. The bony thorax is intact. Additional images of the left ribs demonstrate no fracture or other bone abnormality. XR/XR ribs LT mn 3V w CXR1V [id number] IMPRESSION: No acute chest abnormality. No rib fracture identified.
--- NOTE | 2022-07-08 09:32 | W.ED.FALL ---
HPI - Fall General: Chief Complaint: Fall Stated Complaint: BACK PAIN - FALL Time Seen by Provider: 07/08/22 09:14 History of Present Illness: Patient is a 42-year-old male comes to the ED via EMS with back pain after fall. EMS gave patient fentanyl while in route to help with pain. Fall injury occurred 2 days ago. Patient says he was working around a pool and they were draining it and going to clean it out. A pool vacuum hose was wrapped around his leg and turned on which caused him to trip and lose his balance. He fell and hit the handrail for the latter that goes out of the pool and then he fell back and landed into the pool. He says he fell approximately 10 to 15 feet. They had been draining the pool and says that there was only about 1 to 2 feet of water at the bottom of the pool. He endorses loss of consciousness and his coworker found him unconscious and woke him. Since the fall he has had severe lower and thoracic back pain along with left rib pain. He endorses having a headache as well. Today the pain was too much and he called the ambulance to bring him here for further evaluation. Denies any vision changes, numbness tingling to face or extremities or any weakness to 1 side of his body. Associated symptoms-after fall: Reports headache(s); Denies abdominal pain, chest pain, hematuria or neck pain Review of Systems Const: Denies: fever(s), chills or fatigue Eyes: Denies: change in vision or eye discomfort ENMT: Denies: throat pain, odynophagia, nasal discharge or nasal congestion Card: Denies: chest pain, palpitations, edema, swelling of feet/ankles, dyspnea on exertion or orthopnea Resp: Reports: pain on inspiration (Left rib pain); Denies: dyspnea, productive cough or non-productive cough GI: Denies: abdominal pain, nausea, vomiting, diarrhea, constipation or hematochezia : Denies: flank pain, difficulty urinating, dysuria or hematuria Musc: Reports: back pain; Denies: neck pain or extremity swelling Skin/Breast: Denies: rash or new lesions Neuro: Reports: headache(s); Denies: numbness in extremities or weakness in extremities [facility] ED PFSH: Medical History Alcohol abuse Hx of migraine headaches Psychiatric care PTSD (post-traumatic stress disorder) Seizures TBI (traumatic brain injury) Family History Other CAD (coronary artery disease) Dementia Suicide Social History Smoking and tobacco status: current every day smoker cigarettes Packs smoked per day: 0.5 Years cigarettes smoked: 30 Quit status (tobacco): considering quitting Second hand smoke exposure: Yes Smoking risk assessment/counseling performed?: Yes Tobacco counseling given: counseling >3 minutes Alcohol intake: current Alcohol intake frequency: holidays/special occasions only Adopted: No Caregiver/support person: No Lives independently: Yes Household members: none Housing: Apartment Marital status: Number of children: 2 Number of grandchildren: 1 Highest education level completed: GED or Equivalent service: Yes (8 years) status: Discharged branch: [employer] Assignments: Outside [facility] ([employer]) Current occupational status: retired and disabled Current occupational exposures/hazards: No Pets and animals: No History of recent travel: No Leisure activites: other Leisure activities details: Watch TV Sexually active: No Current gender identity: Male Macy/Jain: Restorationism Special macy needs: No Agree to transfusion: Yes Financial difficulty paying for basics: Somewhat Hard Physical Exam Const: COMMON NORMALS: patient oriented x3 and alert GENERAL APPEARANCE: cooperative HENMT: COMMON NORMALS: normocephalic HEAD & SCALP: normocephalic MOUTH: Normal oral and palatal mucosa present THROAT: posterior oropharynx normal and uvula midline Eye: COMMON NORMALS: Equal, round and reactive pupils present and EOMs intact bilaterally GENERAL EYE: appearance normal, both eyes and all related structures PUPIL: Yes Equal, round and reactive pupils present Neck/C-Spine: COMMON NORMALS: supple GENERAL: Yes normal visual inspection Lymph: LYMPHATIC: no lymphadenopathy noted Chest: CHEST: Yes tenderness rib left mid-scapular line involving the 5th rib, involving the 6th rib and involving the 7th rib Resp: COMMON NORMALS: normal respiratory effort, No retractions, No use of accessory muscles and clear to auscultation bilaterally AUSCULTATION: clear to auscultation bilaterally Cardio: COMMON NORMALS: regular rate, regular rhythm, S1 normal heart sound present, S2 normal heart sound present, No gallops present (Cardio), No clicks present (Cardio), No murmurs present (Cardio) and Peripheral pulses 2+ throughout RATE: regular rate RHYTHM: regular rhythm HEART SOUNDS: S1 normal heart sound present and S2 normal heart sound present PERIPHERAL PULSES: Peripheral pulses 2+ throughout GI: COMMON NORMALS: Normal to inspection, nondistended, normoactive bowel sounds present, Soft to palpation, non-tender and no masses PALPATION: Yes Soft to palpation : COMMON NORMALS: Yes no CVA tenderness BLADDER/KIDNEY EXAM: Yes no CVA tenderness Back/Pelvis: COMMON NORMALS: no CVA tenderness THORACIC SPINE/UPPER BACK: Yes paraspinal muscle tenderness Thoracic paraspinal muscle tenderness: bilateral LUMBAR SPINE/LOWER BACK: Yes paraspinal muscle tenderness Lumbar paraspinal muscle tenderness: bilateral Extremity: GENERAL: Yes normal exam except as noted Neuro: COMMON NORMALS: patient oriented x3, CN's II-XII intact bilaterally, moves all extremities, no focal motor deficits and no sensory deficits noted SENSORIUM/ORIENTATION: Yes alert SENSORY EXAM: Yes extremities (intact) MOTOR EXAM: 5/5 motor strength present throughout Skin: COMMON NORMALS: no rashes or lesions noted GENERAL SKIN EXAM: no rashes or lesions noted and dry skin Course Vital Signs: Vital signs: Vital Signs Temperature 98.3 F 07/08/22 09:16 Pulse Rate 72 07/08/22 10:34 Respiratory Rate 18 07/08/22 10:34 Blood Pressure 132/79 07/08/22 09:16 Pulse Oximetry 94 07/08/22 10:34 Oxygen Delivery Me thod 07/08/22 10:34 MDM - Fall Medical Decision Making Patient is a 42-year-old male comes to the ED via EMS with back pain after fall. Patient describes falling close to 10 feet into a pool that only had about a foot to 2 feet of water. He reports loss of consciousness. He is complaining of having a headache, back and left rib pain. Vitals are stable. Patient has some palpable bilateral paraspinal muscle tenderness of the thoracic and lumbar spine but no other acute exam findings noted. Neuro exam was benign. CT of head showed no acute findings. CT of cervical spine, thoracic spine and lumbar spine showed no acute fractures or findings CT of cervical spine did note that patient had some chronic ossifications or calcifications and I told patient about those findings and that he can follow-up with his PCP for further outpatient evaluation of chronic neck issues. Left rib x-ray showed no acute findings. Patient was diagnosed with back pain due to injury and discharged home with a prescription for meloxicam and muscle relaxer. Follow-up with PCP in the next week for reevaluation. Return to ED precautions given. Patient understood and agreed with plan. Lab Data Radiology Impressions Cervical Spine CT 07/08/22 09:31 IMPRESSION: 1. No acute cervical spine fracture identified. 2. There are 2 ossifications or calcifications as described above. These are probably degenerative in etiology. If patient continues with neck pain consider follow-up cervical spine MRI. Head CT 07/08/22 09:31 IMPRESSION: Negative head CT. Lumbar Spine CT 07/08/22 09:31 IMPRESSION: NORMAL CT LUMBAR SPINE. Ribs X-Ray 07/08/22 09:31 IMPRESSION: No acute chest abnormality. No rib fracture identified. Thoracic Spine CT 07/08/22 09:31 IMPRESSION: Negative CT thoracic spine. Discharge Plan Discharge Patient Disposition: Home Clinical Impression: Back pain due to injury Condition: Stable Prescriptions: New meloxicam 15 mg tablet 15 mg PO DAILY PRN (Reason: pain) Qty: 30 0RF cyclobenzaprine 10 mg tablet 10 mg PO BID PRN (Reason: muscle spasm) Qty: 20 0RF No Action naproxen sodium [Aleve] 220 mg capsule 440 - 880 mg PO Q12H PRN (Reason: Pain) mirtazapine 30 mg tablet 30 mg PO BEDTIME 30 Days Qty: 30 5RF prazosin 2 mg capsule 4 mg PO BEDTIME 30 Days Qty: 60 5RF clobazam [Onfi] 20 mg tablet 20 mg PO BID Qty: 60 1RF atorvastatin 80 mg tablet 80 mg PO DAILY Qty: 30 2RF carbamazepine 400 mg tablet extended release 12 hr 400 mg PO BID Qty: 60 4RF Keppra 500 mg tablet 500 mg PO BID Qty: 60 4RF Biofreeze 0.2-3.5 % Gel 1 applic TOPICAL PRN celecoxib 200 mg capsule 200 mg PO BID Discharge Orders: Discharge ED (Routine); Ordered 07/08/22 Ordered By: Abdiel Gomez Referrals: Cristina Salamanca MD [Primary Care Provider] - Discharge Diet: Regular Discharge Activity: Increase activity as tolerated Patient Instructions: Back Pain (ED) Activity Restrictions/Additional Instructions: Follow-up with medical provider as directed in the next 5 to 7 days for reevaluation. Take medications as prescribed. Apply cold pack on back to help with symptoms as well. Limit any activity or lifting for the next several days to rest and allow for healing. Return to the ER or your medical provider if condition worsens. Please read and understand discharge instructions. Thank you for choosing [facility] for your healthcare needs today. Please realize this is an emergency room and that we are providing you with a medical screening exam and this may not be complete and all inclusive of all the testing and or work up that you may need to determine your ailment or severity of your illness. It is very important that you follow up as instructed or that you return to the Emergency Department should you have concerns or if your condition changes or worsens in any way. Coding Level of Care Code ED Metal Refiner for Parker Sutherland Exam Comprehensive
[2022-07-08 10:00] VITALS: RESP 18
[2022-07-08] MEDS: morphine 4 mg/mL SDV 1 mL IVP (10:00)
[2022-07-08] MEDS: orphenadrine 30 mg/mL Inj 2 mL 60 MG IVP (10:00)
[2022-07-08 10:34] VITALS: PULSE 72; RESP 18; O2SAT 94
[2022-07-08] MEDS: ketorolac 30 mg/mL INJ IVP (11:28)
[2022-07-08 11:55] VITALS: BP 119/71; PULSE 56; RESP 16; O2SAT 98
== END 2022-07-08 12:01 | disposition home or self-care (01) ==
PROVIDERS: Emergency Provider Physician Assistant; PCP Family Medicine
DX: S39.92XA Unspecified injury of lower back, initial encounter (principal); F17.210 Nicotine dependence, cigarettes, uncomplicated; W17.89XA Other fall from one level to another, initial encounter
CPT/HCPCS: 70450; 71101; 72125; 72128; 72131; 96374; 96375; 99284; J1885; J2270; J2360

== ENCOUNTER 2022-07-24 23:02 | Emergency (ER) | payer MEDICAID, SELFPAY ==
[2022-05-17 15:46] VITALS: BP 125/81; BMI 29.3
[2022-07-24 23:09] VITALS: BP 171/103; PULSE 77; RESP 18; TEMP 37.1; O2SAT 96; BMI 28.3
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
[2022-07-24] MEDS: HYDROcodone-acetaminophen 5-325 mg Tablet 2 TAB PO (23:42)
[2022-07-24 23:50] VITALS: BP 169/99; PULSE 79; RESP 18; TEMP 37; O2SAT 97
== END 2022-07-24 23:51 | disposition home or self-care (01) ==
PROVIDERS: Emergency Provider Physician Assistant; PCP Family Medicine
DX: S02.5XXA Fracture of tooth (traumatic), initial encounter for closed fracture (principal); F17.210 Nicotine dependence, cigarettes, uncomplicated; Z87.820 Personal history of traumatic brain injury; W50.0XXA Accidental hit or strike by another person, initial encounter
CPT/HCPCS: 99283

== ENCOUNTER 2022-09-01 17:53 | Emergency (ER) | payer MEDICAID, SELFPAY ==
[2022-05-17 15:46] VITALS: BP 125/81; BMI 29.3
[2022-09-01 18:00] VITALS: BP 116/83; PULSE 82; RESP 18; TEMP 36.6; O2SAT 97; BMI 27.6
--- NOTE | 2022-09-01 19:28 | XRR_ITS ---
PROCEDURE INFORMATION: Exam: XR Right Forearm Exam date and time: 09/01/2022 7:33 PM Age: 42 years old Clinical indication: Pain; Lower or forearm; Right; Additional info: Fall with deformity TECHNIQUE: Imaging protocol: Radiologic exam of the Right forearm. Views: 2 views. COMPARISON: No relevant prior studies available. FINDINGS: Bones/joints: Normal. Soft tissues: Normal. XR/XR forearm RT 2V [id number] IMPRESSION: No acute findings.
--- NOTE | 2022-09-01 19:29 | W.ED.EXTPRO ---
HPI - Extremity Problem General: Chief complaint: Extremity Injury, Lower Stated complaint: right arm pain Time Seen by Provider: 09/01/22 19:06 History of Present Illness: Patient is in today for right arm pain. He reports that he was running and playing with his granddaughter in the yard and he fell into a hole. He reports trying to catch himself in the right iron fence his arm went in and then when he fell backwards it got stuck and bent the wrong way. He reports that his forearm was turned the wrong way. 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 He is very surprised that he can feel his arm at this point. Review of Systems Musc: Reports: extremity pain PFS ED PFSH: Medical History Alcohol abuse Hx of migraine headaches Psychiatric care PTSD (post-traumatic stress disorder) Seizures TBI (traumatic brain injury) Family History Other CAD (coronary artery disease) Dementia Suicide Social History Smoking and tobacco status: current every day smoker cigarettes Packs smoked per day: 0.5 Years cigarettes smoked: 30 Quit status (tobacco): considering quitting Second hand smoke exposure: Yes Smoking risk assessment/counseling performed?: Yes Tobacco counseling given: counseling >3 minutes Alcohol intake: current Alcohol intake frequency: holidays/special occasions only Adopted: No Caregiver/support person: No Lives independently: Yes Household members: none Housing: Apartment Marital status: Number of children: 2 Number of grandchildren: 1 Highest education level completed: GED or Equivalent service: Yes (8 years) status: Discharged branch: [employer] Assignments: Outside [facility] ([employer]) Current occupational status: retired and disabled Current occupational exposures/hazards: No Pets and animals: No History of recent travel: No Leisure activites: other Leisure activities details: Watch TV Sexually active: No Current gender identity: Male Macy/Yarsanism: Jewish Special macy needs: No Agree to transfusion: Yes Financial difficulty paying for basics: Somewhat Hard Physical Exam Const: COMMON NORMALS: patient oriented x3 and alert OTHER: Patient is in obvious pain but cooperative with exam Resp: COMMON NORMALS: normal respiratory effort and No use of accessory muscles Extremity: NARRATIVE EXTREMITY EXAM: Right forearm is splinted by EMS. Is reported that there was obvious deformity so I did not remove the splint. Fingers are pink warm and dry. Patient has limited mobility of fingers related to pain. Patient reports sensation as per his normal to the fingers but reports pain to his mid arm Neuro: COMMON NORMALS: patient oriented x3 SENSORIUM/ORIENTATION: Yes alert Course Vital Signs: Vital signs: Vital Signs Temperature 97.8 F 09/01/22 18:00 Pulse Rate 82 09/01/22 18:00 Respiratory Rate 18 09/01/22 18:00 Blood Pressure 116/83 09/01/22 18:00 Pulse Oximetry 97 09/01/22 18:00 Oxygen Delivery Me thod 09/01/22 18:00 MDM - Extremity (Nontraumatic) Medical Decision Making Patient was brought in by EMS who advised the nursing staff that his arm was deformed they had it in a splint. X-rays were done. On initial exam patient was not moving the fingers although they were pink warm and dry. X-rays do not show any evidence of acute fracture. I went in to talk to patient about this and he ripped the splint off and his hands were moving everywhere. He has full range of motion of the entire hand and arm. I advised him of conservative treatment at home for arm sprain. Follow-up with PCP as needed. Return to the ER for new or worsening symptoms Lab Data Radiology Impressions Forearm X-Ray 09/01/22 19:28 IMPRESSION: No acute findings. Discharge Plan Discharge Patient Disposition: Home Clinical Impression: Forearm sprain Condition: Stable Prescriptions: No Action prazosin 2 mg capsule 4 mg PO BEDTIME 30 Days Qty: 60 5RF mirtazapine 45 mg tablet 45 mg PO BEDTIME 30 Days Qty: 30 5RF carbamazepine 400 mg tablet extended release 12 hr 400 mg PO BID Qty: 60 4RF Keppra 500 mg tablet 500 mg PO BID Qty: 60 4RF meloxicam 15 mg tablet 15 mg PO DAILY PRN (Reason: pain) Qty: 30 0RF hydrocodone-acetaminophen 5-325 mg tablet 1 tab PO Q6H PRN (Reason: pain) Qty: 10 0RF Discharge Orders: Discharge ED (Routine); Ordered 09/01/22 Ordered By: Tasia Lynn Referrals: Cristina Salamanca MD [Primary Care Provider] - Discharge Diet: Usual diet Discharge Activity: Increase activity as tolerated Patient Instructions: Sprains Activity Restrictions/Additional Instructions: Your x-rays did not show any evidence of fracture. I recommend Yoandy wrap just for comfort and support over the next couple of days. Elevate the arm ice the arm. Take it easy for a day or 2. Follow-up with your primary care provider if needed. Return to the ER for new or worsening symptoms. Coding Level of Care Code ED Master Planner for Chg Fwd Exam Expanded Problem Focused
[2022-09-01 20:33] VITALS: BP 127/82; PULSE 64; RESP 18; TEMP 36.6; O2SAT 97
== END 2022-09-01 20:35 | disposition home or self-care (01) ==
PROVIDERS: Emergency Provider Nurse Practitioner Family; PCP Family Medicine
DX: S63.591A Other specified sprain of right wrist, initial encounter (principal); Z87.820 Personal history of traumatic brain injury; F17.210 Nicotine dependence, cigarettes, uncomplicated; W01.0XXA Fall on same level from slipping, tripping and stumbling without subsequent striking against object, initial encounter
CPT/HCPCS: 73090; 99283

== ENCOUNTER 2022-10-18 12:16 | Outpatient (CLI) | payer MEDICAID, SELFPAY ==
[2022-05-17 15:46] VITALS: BP 125/81; BMI 29.3
--- NOTE | 2022-10-18 13:00 | MR_ITS ---
WS: [id number] MRI CERVICAL SPINE NONCONTRAST TECHNIQUE: Sagittal T1, T2 and STIR imaging. Axial T2, gradient, and fiesta imaging. CLINICAL INFORMATION: M54.2 - Cervicalgia COMPARISON: CT July 08, 2022 FINDINGS: Straightening of the normal cervical lordosis. No high-grade central canal narrowing. Cord signal is normal. No acute fractures. No evidence of acute bony avulsion or ligamentous injury. C2-C3: Normal. C3-C4: Mild disc bulging with a tiny shallow central protrusion. Slight effacement of ventral thecal sac. Mild facet arthropathy. Spinal canal and foramen are patent. C4-C5: Mild disc bulging with osteophytic ridging. Mild LEFT bony foraminal narrowing. Mild facet art hropathy. C5-C6: Disc osteophyte ridging. Mild to moderate LEFT greater than RIGHT bony foraminal narrowing. Sp inal canal is patent. Mild facet arthropathy. Uncovertebral joint hypertrophy. C6-C7: Minimal disc bulging. Mild LEFT and no significant RIGHT foraminal narrowing. Spinal canal is patent. C7-T1: No significant disc bulging. Mild LEFT and no RIGHT foraminal narrowing. Visualized brain stem structures: Normal. Prevertebral soft tissues: Normal. MR/MR cervical spin wo con* [id number] IMPRESSION: 1. Straightening of the normal cervical lordosis. Cord signal is normal. 2. Shallow central disc protrusion C3-C4 with slight effacement of ventral the lane sac. 3. Minimal disc bulging C4-C6 without significant spinal canal narrowing. 4. Mild LEFT C4-C5 bony foraminal narrowing. Mild to moderate LEFT C5-C6 bony foraminal narrowing. Mild LEFT C6-C7 and LEFT C7-T1 bony foraminal narrowing. 5. Moderate facet arthropathy C3-C4 and C4-C5.
== END 2022-10-18 12:17 | disposition home or self-care (01) ==
LOC: RAD 12:17
PROVIDERS: PCP Family Medicine; Visit Provider Family Medicine
DX: M50.21 Other cervical disc displacement, high cervical region (principal); M47.812 Spondylosis without myelopathy or radiculopathy, cervical region
CPT/HCPCS: 72141

== ENCOUNTER → 2022-11-24 08:53 | Outpatient (BNVA) | payer MEDICAID, SELFPAY ==
[2022-05-17 15:46] VITALS: BP 125/81; BMI 29.3
== END ==
PROVIDERS: PCP Family Medicine; Referring Provider Family Medicine; Visit Provider Physician Assistant
DX: M54.2 Cervicalgia (principal)
CPT/HCPCS: 72050; 99203

== ENCOUNTER → 2022-12-13 09:49 | Outpatient (BNVA) | payer MEDICAID, SELFPAY ==
[2022-05-17 15:46] VITALS: BP 125/81; BMI 29.3
== END ==
PROVIDERS: PCP Family Medicine; Referring Provider Physician Assistant; Visit Provider Anesthesiology Pain Medicine
DX: M47.812 Spondylosis without myelopathy or radiculopathy, cervical region (principal); M54.41 Lumbago with sciatica, right side; G40.309 Generalized idiopathic epilepsy and epileptic syndromes, not intractable, without status epilepticus; S06.9X1D Unspecified intracranial injury with loss of consciousness of 30 minutes or less, subsequent encounter; M79.601 Pain in right arm; M79.602 Pain in left arm; X58.XXXD Exposure to other specified factors, subsequent encounter
CPT/HCPCS: 99204

== ENCOUNTER → 2023-02-21 10:51 | Outpatient (BNVA) | payer MEDICAID, SELFPAY ==
[2022-05-17 15:46] VITALS: BP 125/81; BMI 29.3
== END ==
PROVIDERS: PCP Family Medicine; Visit Provider Anesthesiology Pain Medicine
DX: M47.812 Spondylosis without myelopathy or radiculopathy, cervical region (principal); M54.41 Lumbago with sciatica, right side; G40.309 Generalized idiopathic epilepsy and epileptic syndromes, not intractable, without status epilepticus; S06.9X1D Unspecified intracranial injury with loss of consciousness of 30 minutes or less, subsequent encounter; X58.XXXD Exposure to other specified factors, subsequent encounter
CPT/HCPCS: 99214

== ENCOUNTER → 2023-03-13 14:26 | Outpatient (BNVA) | payer MEDICAID, SELFPAY ==
[2022-05-17 15:46] VITALS: BP 125/81; BMI 29.3
== END ==
PROVIDERS: PCP Family Medicine; Visit Provider Anesthesiology Pain Medicine
DX: M47.812 Spondylosis without myelopathy or radiculopathy, cervical region (principal)
CPT/HCPCS: 64490; 64491; 64492; J3490

== ENCOUNTER → 2023-03-22 10:46 | Outpatient (BNVA) | payer MEDICAID, SELFPAY ==
[2022-05-17 15:46] VITALS: BP 125/81; BMI 29.3
== END ==
PROVIDERS: PCP Family Medicine; Visit Provider Anesthesiology Pain Medicine
DX: M47.812 Spondylosis without myelopathy or radiculopathy, cervical region (principal); M54.41 Lumbago with sciatica, right side; G40.309 Generalized idiopathic epilepsy and epileptic syndromes, not intractable, without status epilepticus; S06.9X1D Unspecified intracranial injury with loss of consciousness of 30 minutes or less, subsequent encounter; X58.XXXD Exposure to other specified factors, subsequent encounter
CPT/HCPCS: 99214

== ENCOUNTER → 2023-04-06 14:15 | Outpatient (BNVA) | payer MEDICAID, SELFPAY ==
[2022-05-17 15:46] VITALS: BP 125/81; BMI 29.3
== END ==
PROVIDERS: PCP Family Medicine; Visit Provider Anesthesiology Pain Medicine
DX: M47.812 Spondylosis without myelopathy or radiculopathy, cervical region (principal)
CPT/HCPCS: 64633; 64634; J1030

== ENCOUNTER → 2023-04-27 11:02 | Outpatient (BNVA) | payer MEDICAID, SELFPAY ==
[2022-05-17 15:46] VITALS: BP 125/81; BMI 29.3
== END ==
PROVIDERS: PCP Family Medicine; Visit Provider Anesthesiology Pain Medicine
DX: M47.812 Spondylosis without myelopathy or radiculopathy, cervical region (principal); G40.309 Generalized idiopathic epilepsy and epileptic syndromes, not intractable, without status epilepticus; M54.41 Lumbago with sciatica, right side; S06.9X1D Unspecified intracranial injury with loss of consciousness of 30 minutes or less, subsequent encounter; X58.XXXD Exposure to other specified factors, subsequent encounter
CPT/HCPCS: 99213

== ENCOUNTER 2023-05-02 15:18 | Outpatient (CLI) | payer MEDICAID, SELFPAY ==
[2022-05-17 15:46] VITALS: BP 125/81; BMI 29.3
--- NOTE | 2023-05-02 15:30 | CTR_ITS ---
PROCEDURE INFORMATION: Exam: CT Chest Without Contrast; Diagnostic Exam date and time: 05/02/2023 3:30 PM Age: 43 years old Clinical indication: Abnormal findings; Abnormal radiologic exam of lung or chest; Additional info: R91.1 - solitary pulmonary nodule, allergy to contrast dye TECHNIQUE: Imaging protocol: Diagnostic computed tomography of the chest without contrast. Radiation optimization: All CT scans at this facility use at least one of these dose optimization techniques: automated exposure control; mA and/or kV adjustment per patient size (includes targeted exams where dose is matched to clinical indication); or iterative reconstruction. REPORTING DATA: Count of CT and Cardiac NM exams in prior 12 months: This patient has received 4 known CTs and 0 known cardiac nuclear medicine studies in the 12 months prior to the current study. COMPARISON: CT chest wo con [id number] 04/21/2022 2:54 PM RADIATION DOSE METRICS: Total DLP (mGy-cm): 201.67 FINDINGS: Lungs: Emphysematous changes. Right upper lobe 4 mm pulmonary nodule, series 4, image 28, similar to prior exam. Pleural spaces: Unremarkable. No pneumothorax. No pleural effusion. Heart: Unremarkable. No cardiomegaly. No pericardial effusion. Negative for coronary artery atherosclerotic calcifications. Impression Lymph nodes: Unremarkable. No enlarged lymph nodes. Vasculature: Unremarkable. No aortic aneurysm. Bones/joints: Unremarkable. No acute fracture. Soft tissues: Unremarkable. CT/CT chest wo con [id number] IMPRESSION: 1. Emphysematous changes. 2. Right upper lobe 4 mm pulmonary nodule, series 4, image 28, similar to prior exam. Consider an additional 6-12 month follow-up exam to ensure continued stability for up to 2 years.
== END 2023-05-02 15:19 | disposition home or self-care (01) ==
LOC: RAD 15:20
PROVIDERS: PCP Family Medicine; Visit Provider Family Medicine
DX: R91.1 Solitary pulmonary nodule (principal)
CPT/HCPCS: 71250

== ENCOUNTER → 2023-06-27 15:38 | Outpatient (BNVA) | payer MEDICAID, SELFPAY ==
[2023-06-21 10:37] VITALS: BP 125/81; BMI 29.3
== END ==
PROVIDERS: PCP Family Medicine; Visit Provider Family Medicine
DX: R56.9 Unspecified convulsions (principal); Z13.220 Encounter for screening for lipoid disorders; Z12.5 Encounter for screening for malignant neoplasm of prostate; Z13.29 Encounter for screening for other suspected endocrine disorder; F43.10 Post-traumatic stress disorder, unspecified; G40.309 Generalized idiopathic epilepsy and epileptic syndromes, not intractable, without status epilepticus; E78.2 Mixed hyperlipidemia
CPT/HCPCS: 80053; 80061; 84443; 85025; G0103

== ENCOUNTER 2023-08-19 15:52 | Emergency (ER) | payer MEDICAID, SELFPAY ==
[2023-06-21 10:37] VITALS: BP 125/81; BMI 29.3
[2023-08-19 15:58] VITALS: BP 117/77; PULSE 58; RESP 18; TEMP 36.8; O2SAT 94; BMI 27.9
--- NOTE | 2023-08-19 16:13 | CTR_ITS ---
PROCEDURE INFORMATION: Exam: CT Chest With Contrast; Diagnostic Exam date and time: 08/19/2023 5:06 PM Age: 43 years old Clinical indication: Injury or trauma; Fall; Luq; Blunt trauma (contusions or hematomas); Additional info: Fall, syncope- fell onto furniture. Left chest pain, luq and llq TECHNIQUE: Imaging protocol: Diagnostic computed tomography of the chest with contrast. Radiation optimization: All CT scans at this facility use at least one of these dose optimization techniques: automated exposure control; mA and/or kV adjustment per patient size (includes targeted exams where dose is matched to clinical indication); or iterative reconstruction. Contrast material: OMNI 350; Contrast volume: 100 ml; Contrast route: INTRAVENOUS (IV); REPORTING DATA: Count of CT and Cardiac NM exams in prior 12 months: This patient has received [address] and 0 known cardiac nuclear medicine studies in the 12 months prior to the current study. COMPARISON: CT chest wo con [id number] 05/02/2023 3:30 PM RADIATION DOSE METRICS: Total DLP (mGy-cm): 846.82 FINDINGS: Lungs: Unremarkable. No consolidation. No masses. Pleural spaces: Unremarkable. No pneumothorax. No pleural effusion. Heart: Unremarkable. No cardiomegaly. No pericardial effusion. Lymph nodes: Unremarkable. No enlarged lymph nodes. Vasculature: Unremarkable. No aortic aneurysm. Bones/joints: Unremarkable. No acute fracture. Soft tissues: Unremarkable. PROCEDURE INFORMATION: Exam: CT Abdomen And Pelvis With Contrast Exam date and time: 08/19/2023 5:06 PM Age: 43 years old Clinical indication: Injury or trauma; Fall; Luq; Blunt trauma (contusions or hematomas); Additional info: Fall, syncope- fell onto furniture. Left chest pain, luq and llq TECHNIQUE: Imaging protocol: Computed tomography of the abdomen and pelvis with contrast. Radiation optimization: All CT scans at this facility use at least one of these dose optimization techniques: automated exposure control; mA and/or kV adjustment per patient size (includes targeted exams where dose is matched to clinical indication); or iterative reconstruction. Contrast material: OMNI 350; Contrast volume: 100 ml; Contrast route: INTRAVENOUS (IV); REPORTING DATA: Count of CT and Cardiac NM exams in prior 12 months: This patient has received [address] and 0 known cardiac nuclear medicine studies in the 12 months prior to the current study. COMPARISON: CT chest wo con [id number] 05/02/2023 3:30 PM RADIATION DOSE METRICS: Total DLP (mGy-cm): 846.82 FINDINGS: Liver: Normal. No mass. Gallbladder and bile ducts: Normal. No calcified stones. No ductal dilation. Pancreas: Normal. No ductal dilation. Spleen: Normal. No splenomegaly. Adrenal glands: Normal. No mass. Kidneys and ureters: Normal. No hydronephrosis. Stomach and bowel: Unremarkable. No obstruction. No mucosal thickening. Mild diverticular disease in the colon. Appendix: No evidence of appendicitis. Intraperitoneal space: Unremarkable. No free air. No significant fluid collection. Vasculature: Unremarkable. No abdominal aortic aneurysm. Lymph nodes: Unremarkable. No enlarged lymph nodes. Urinary bladder: Unremarkable as visualized. Reproductive: Unremarkable as visualized. Bones/joints: Mild degenerative changes at L5-S1. Soft tissues: Unremarkable. CT/CT chest abdpel w/*[id number] IMPRESSION: No acute findings. IMPRESSION: No acute findings.
--- NOTE | 2023-08-19 16:13 | CTR_ITS ---
PROCEDURE INFORMATION: Exam: CT Cervical Spine Without Contrast Exam date and time: 08/19/2023 4:39 PM Age: 43 years old Clinical indication: Injury or trauma; Fall; Concussion/head injury; Additional info: Fall, syncope, fell onto furniture, neck pain TECHNIQUE: Imaging protocol: Computed tomography of the cervical spine without contrast. Radiation optimization: All CT scans at this facility use at least one of these dose optimization techniques: automated exposure control; mA and/or kV adjustment per patient size (includes targeted exams where dose is matched to clinical indication); or iterative reconstruction. REPORTING DATA: Count of CT and Cardiac NM exams in prior 12 months: This patient has received [address] and 0 known cardiac nuclear medicine studies in the 12 months prior to the current study. COMPARISON: MR cervical spin wo con* [id number] 10/18/2022 12:57 PM RADIATION DOSE METRICS: Total DLP (mGy-cm): 615.3 FINDINGS: Bones/joints: Alignment is normal. No fracture. No significant degenerative change. Lungs: Visualized lung apices are clear. Soft tissues: Unremarkable. CT/CT cervical spin wo con* [id number] IMPRESSION: No acute findings.
--- NOTE | 2023-08-19 16:13 | CTR_ITS ---
PROCEDURE INFORMATION: Exam: CT Head Without Contrast Exam date and time: 08/19/2023 4:39 PM Age: 43 years old Clinical indication: Injury or trauma; Fall; Concussion/head injury; Additional info: Fall, syncope, fall- hit head on furniture TECHNIQUE: Imaging protocol: Computed tomography of the head without contrast. Radiation optimization: All CT scans at this facility use at least one of these dose optimization techniques: automated exposure control; mA and/or kV adjustment per patient size (includes targeted exams where dose is matched to clinical indication); or iterative reconstruction. REPORTING DATA: Count of CT and Cardiac NM exams in prior 12 months: This patient has received [address] and 0 known cardiac nuclear medicine studies in the 12 months prior to the current study. COMPARISON: CT head wo con* [id number] 07/08/2022 10:05 AM RADIATION DOSE METRICS: Total DLP (mGy-cm): 949.4 FINDINGS: Brain: No midline shift. Ventricles, cisterns, and sulci are normal. No mass, acute infarct, hemorrhage, or extraaxial fluid collection. Cerebral ventricles: No ventriculomegaly. Incidental note is made of cavum septum pellucidum. Paranasal sinuses: Visualized sinuses are unremarkable. No fluid levels. Mastoid air cells: Visualized mastoid air cells are well aerated. Bones/joints: Unremarkable. No acute fracture. Soft tissues: Unremarkable. CT/CT head wo con* [id number] IMPRESSION: No acute intracranial abnormality.
--- NOTE | 2023-08-19 16:15 | ECG_ITS ---
[facility] Test Date: 2023-08-19 Pat Name: Bernabe Birmingham Department: Room: Gender: Male General Duty Nurse: : 1980 Requested By: Saundra Baker Order Number: [id number] Josie MD: Neel Pulliam M.D. Measurements Intervals [place] Rate: 51 P: 45 OK: 143 QRS: 71 QRSD: 93 T: 66 QT: 398 QTc: 370 Interpretive Statements SINUS BRADYCARDIA Compared to ECG 10/17/2021 14:10:15 Sinus rhythm no longer present Sinus arrhythmia no longer present Electronically Signed On 08-19-2023 20:29:45 CDT by Neel Pulliam M.D. [id number]
--- NOTE | 2023-08-19 16:17 | W.ED.SYNCOPE ---
HPI - Syncope General: Chief Complaint: Syncope Stated Complaint: SYNCOPE; FALL Time Seen by Provider: 08/19/23 16:03 Source: patient Mode of arrival: EMS Limitations: no limitations History of Present Illness: Patient presents emergency department today after syncopal episode and injury sustained during the syncopal episode at home. Patient states he woke up this morning and knew he did not feel right. Patient reports sensations of presyncope throughout the day. Patient has been out of his chronic medications now for approximately 2 days as they all needed authorization for refills. He states he was notified today that they were available so he went to [facility]. He states he was after returning home from [facility] that he noticed an acute worsening in his symptoms and reports that while walking into his living room passed out. He indicated his loss of consciousness was brief because he indicated when he fell he knew he impacted his left upper quadrant on the coffee table and pushed him sideways causing him to impact his head and bend his neck sideways on the couch. Patient reports hearing cracks from his neck. Patient states his cell phone was in his pocket so he was able to call 911 for help. Patient reports severe left upper quadrant pain-indicated up underneath his ribs and left abdominal pain in addition to severe neck pain. Patient received 100 of fentanyl in route. Patient is not sure why he had been presyncopal and had a syncopal episode at home. He denies recent illness with fever, cough, congestion, or GI bug with vomiting or diarrhea. Review of Systems General: Reports: 10 or more systems reviewed and unremarkable except in HPI and below PFSH ED PFSH: Medical History Alcohol abuse Hx of migraine headaches Psychiatric care PTSD (post-traumatic stress disorder) Seizures TBI (traumatic brain injury) Family History Other CAD (coronary artery disease) Dementia Suicide Social History Smoking and tobacco status: current every day smoker cigarettes Packs smoked per day: 0.5 Years cigarettes smoked: 30 Quit status (tobacco): considering quitting Smoking risk assessment/counseling performed?: Yes Tobacco counseling given: counseling >3 minutes Alcohol intake: current Alcohol intake frequency: holidays/special occasions only Alcohol type: beer and hard liquor Substance/Drug Use: never Adopted: No Caregiver/support person: No Lives independently: Yes Household members: none Housing: Apartment Marital status: Number of children: 2 Number of grandchildren: 1 Highest education level completed: GED or Equivalent service: Yes (8 years) status: Discharged branch: [employer] Assignments: Outside [facility] ([employer]) Current occupational status: retired and disabled Current occupational exposures/hazards: No Pets and animals: No Leisure activites: other Leisure activities details: Watch TV Sexually active: No Do you think of yourself as: Straight/Heterosexual Current gender identity: Male Macy/Scientologist: Denominational Special macy needs: No Agree to transfusion: Yes Financial difficulty paying for basics: Somewhat Hard Physical Exam Const: COMMON NORMALS: patient oriented x3 and alert OTHER: Patient in distress and indicating significant pain. He is still able to answer his own history. HENMT: COMMON NORMALS: normocephalic, atraumatic and hearing grossly normal bilaterally HEAD & SCALP: normocephalic and atraumatic OTHER: No signs of facial trauma. No signs of acute dental injury. No signs of epistaxis from nasal trauma. No raccoon eyes, no dennis sign. Eye: COMMON NORMALS: Equal, round and reactive pupils present, EOMs intact bilaterally and conjunctivae normal CONJUNCTIVA: Yes conjunctivae normal PUPIL: Yes Equal, round and reactive pupils present Neck/C-Spine: COMMON NORMALS: full ROM OTHER: Patient's initial evaluation he was in a c-collar but was tender on palpation through the collar. After negative CT scan and removal of c-collar, patient did demonstrate range of motion to the neck for me. Lymph: LYMPHATIC: no lymphadenopathy noted Chest: OTHER: Tender on palpation to the left anterior lower ribs Resp: COMMON NORMALS: normal respiratory effort, No retractions and No use of accessory muscles Cardio: COMMON NORMALS: regular rate RATE: regular rate GI: OTHER: Profuse tenderness on palpation in the left upper quadrant and along the left lateral abdomen. Abdomen is still soft but patient does exhibit guarding. No signs of abdominal bruising to the left abdominal region. Back/Pelvis: THORACIC SPINE/UPPER BACK: Yes normal to inspection, Yes thoracic ROM normal and No thoracic spinal tenderness Extremity: NARRATIVE EXTREMITY EXAM: Patient demonstrates full range of motion of his extremities. Equal and strong cocktail lounge manager strength of the upper extremities bilaterally. Neuro: COMMON NORMALS: patient oriented x3 SENSORIUM/ORIENTATION: Yes alert Psych: COMMON NORMALS: mental status grossly normal, Normal thought process present, cooperative and normal affect THOUGHT PROCESS: Normal thought process present Skin: COMMON NORMALS: no rashes or lesions noted and turgor normal GENERAL SKIN EXAM: no rashes or lesions noted and turgor normal Course Vital Signs: Vital signs: Vital Signs Temperature 98.2 F 08/19/23 15:58 Pulse Rate 64 08/19/23 18:53 Respiratory Rate 18 08/19/23 16:53 Blood Pressure 134/94 08/19/23 18:53 Pulse Oximetry 100 08/19/23 17:30 Oxygen Delivery Me thod Room Air 08/19/23 17:30 MDM - Syncope Medical Decision Making Given that the patient is not sure why he passed out we did go ahead and proceed on with evaluation for potential arrhythmia or cardiac involvement. All evaluation for this was negative. Patient had no significant findings on his lab work to indicate acute dehydration, anemia. Patient states that with an negative work-up he most likely is having symptoms because he has not had his medication for a while. However, he states his medication is at home and would like to discharge home to return to his normal medication regimens. CT examination of the head, neck, chest, abdomen, and pelvis are all negative for any acute injury. There was concern for a potential splenic injury, diaphragm injury, or chest/rib injury given the profuse amount of pain patient was in when he presented. However, patient has been treated for pain here and has calm significantly in regards to his pain. Patient is up and ambulatory in his room just prior to his discharge. Did have a conversation with the patient that at this time, work-up is negative. We discussed any concerns he may have for further work-up either for his pain or due to his syncopal episode but, patient indicates he would like to discharge home and continue monitoring there. Patient was given strict return precautions for change or worsening in condition including any passing of blood in the stool, new onset vomiting, any difficulty breathing or return of syncope. Patient verbalized understanding and agreement to the treatment plan. Differential Diagnosis Unlikely syncope due to orthostatic hypotension, vasovagal syncope, complete atrioventricular block, subarachnoid hemorrhage, pulmonary embolism or dehydration Lab Data 08/19/23 16:35 08/19/23 16:35 Radiology Impressions Cervical Spine CT 08/19/23 16:13 IMPRESSION: No acute findings. Chest/Abdomen/Pelvis CT 08/19/23 16:13 IMPRESSION: No acute findings. IMPRESSION: No acute findings. Head CT 08/19/23 16:13 IMPRESSION: No acute intracranial abnormality. Laboratory Results WBC 11.71 10^3/uL (3.29-11.43) H 08/19/23 16:35 RBC 4.91 10^6/uL (3.85-5.65) 08/19/23 16:35 Hgb 16.00 g/dL (11.27-16.99) 08/19/23 16:35 Hct 46.3 % (37-53) 08/19/23 16:35 MCV 94.3 fl (82-101) 08/19/23 16:35 MCH 32.6 pg (27-33) 08/19/23 16:35 MCHC 34.6 g/dL (30-55) 08/19/23 16:35 RDW 12.2 % (12.1-15.1) 08/19/23 16:35 Plt Count 444 10^3/cmm (157-399) H 08/19/23 16:35 MPV 9.4 fL (7.4-10.4) 08/19/23 16:35 Neut % (Auto) 60.9 % 08/19/23 16:35 Lymph % (Auto) 24.7 % 08/19/23 16:35 [place] % (Auto) 11.0 % 08/19/23 16:35 Eos % (Auto) 1.5 % 08/19/23 16:35 Baso % (Auto) 0.6 % 08/19/23 16:35 Neut # (Auto) 7.14 10^3/uL (1.8-7.7) 08/19/23 16:35 Lymph # (Auto) 2.9 10^3/uL (0.8-4.8) 08/19/23 16:35 [place] # (Auto) 1.3 10^3/uL (0.2-0.9) H 08/19/23 16:35 Eos # (Auto) 0.2 10^3/uL (0.0-0.8) 08/19/23 16:35 Baso # (Auto) 0.1 10^3/uL (0.0-0.1) 08/19/23 16:35 Nucleated RBC % (auto) 0 % 08/19/23 16:35 Nucleated RBCs # 0.0 /100WBC 08/19/23 16:35 Sodium 139 mmol/L (136-145) 08/19/23 16:35 Potassium 4.1 mmol/L (3.5-5.1) 08/19/23 16:35 Chloride 102 mmol/L (98-107) 08/19/23 16:35 Carbon Dioxide 23 mmol/L (22-29) 08/19/23 16:35 Anion Gap 18.1 (5-19) 08/19/23 16:35 BUN 10 mg/dL (6-20) 08/19/23 16:35 Creatinine 0.9 mg/dL (0.7-1.2) 08/19/23 16:35 GFR Calculation 91.3 mL/min (90-130) 08/19/23 16:35 Glucose 97 mg/dL (65-115) 08/19/23 16:35 Calculated Osmolality 287 mOsm/kg (285-295) 08/19/23 16:35 Calcium 9.7 mg/dL (8.5-10.5) 08/19/23 16:35 Total Bilirubin 0.4 mg/dL (0.15-1.2) 08/19/23 16:35 AST 23 U/L (0-40) 08/19/23 16:35 ALT 21 U/L (0-41) 08/19/23 16:35 Alkaline Phosphatase 94 U/L (40-130) 08/19/23 16:35 Troponin T Baseline < 6 ng/L (0-15) 08/19/23 16:35 Troponin T 120 Minute 6.00 ng/L (0-15) 08/19/23 18:25 Delta Troponin T 0 ABS# (0-10) 08/19/23 18:25 Total Protein 7.2 g/dL (6.6-8.7) 08/19/23 16:35 Albumin 4.9 g/dL (3.5-5.2) 08/19/23 16:35 Globulin 2.3 g/dL (1.3-4.6) 08/19/23 16:35 Ethyl Alcohol < 10 mg/dL (0-10) 08/19/23 16:35 All radiology interpretation(s) finalized by discharge Discharge Plan Discharge Patient Disposition: Home Clinical Impression: Syncope, Rib pain on left side, Left lateral abdominal pain Condition: Stable Prescriptions: No Action naproxen sodium [Aleve] 220 mg tablet 220 mg PO BID PRN carbamazepine 400 mg tablet extended release 12 hr See Rx Instructions .ROUTE .COMPLEX Qty: 60 2RF Dose Instruction: Take 1 tablet by mouth twice daily Rx Instructions: Take 1 tablet by mouth twice daily levetiracetam 500 mg tablet See Rx Instructions .ROUTE .COMPLEX Qty: 60 3RF Dose Instruction: Take 1 tablet by mouth twice daily Rx Instructions: Take 1 tablet by mouth twice daily mirtazapine 45 mg tablet 45 mg PO BEDTIME 30 Days Qty: 30 5RF prazosin 2 mg capsule 4 mg PO BEDTIME 30 Days Qty: 60 5RF tizanidine 4 mg tablet 4 mg PO BID PRN (Reason: muscle spasticity) Qty: 60 2RF meloxicam 15 mg tablet 15 mg PO DAILY PRN (Reason: pain) Qty: 30 0RF hydrocodone-acetaminophen 5-325 mg tablet 1 tab PO Q6H PRN (Reason: pain) Qty: 10 0RF Discharge Orders: Discharge ED (Routine); Ordered 08/19/23 Ordered By: Saundra Montoya Referrals: Cristina Salamanca MD [Primary Care Provider] - Discharge Diet: Usual diet Discharge Activity: Increase activity as tolerated Patient Instructions: Abdominal Pain (ED), Opioid Safety, Pain Management Activity Restrictions/Additional Instructions: Labs showed no acute concerns regarding your episode of syncope. Your scans revealed no acute fractures or internal organ damage from your fall. You will still be extremely tender and sore and encourage you to take your at home medication for pain to help control your discomfort. You may wish to apply ice packs or heating pads to various areas of discomfort for the next several days. We recommend a recheck next week with your primary care doctor to reevaluate any residual discomfort or pain you may have from your fall. Start back on your chronic medications as directed this evening. Coding Level of Care Code ED Crew Leader Gluing for Parker Sutherland
[2023-08-19] MEDS: methylPREDNISolone sod succ 40 MG in water for injection-sterile 1 ML 12 MG IVP (16:50)
[2023-08-19] MEDS: diphenhydrAMINE 50 mg/mL SDV 1mL IVP (16:50)
[2023-08-19 16:53] VITALS: RESP 18
[2023-08-19] MEDS: morphine 4 mg/mL SDV 1 mL IVP (16:53)
[2023-08-19] MEDS: metoclopramide 5 mg/mL SDV 2 mL 10 MG IVP (16:53)
[2023-08-19 17:11] LABS: Basophils # 0.1 10^3/uL (0.0-0.1); Basophils % 0.6 %; Eosinophils # 0.2 10^3/uL (0.0-0.8); Eosinophils % 1.5 %; Hematocrit 46.3 % (37-53); Lymphocytes # 2.9 10^3/uL (0.8-4.8); Lymphocytes % 24.7 %; Mean Corpuscular HGB Conc 34.6 g/dL (30-55); Mean Corpuscular Hemoglobin 32.6 pg (27-33); Mean Corpuscular Volume 94.3 fl (82-101); Mean Platelet Volume 9.4 fL (7.4-10.4); Monocytes # 1.3 10^3/uL (0.2-0.9); Neutrophils # 7.14 10^3/uL (1.8-7.7); Neutrophils % 60.9 %; Nucleated Red Blood Cells % 0 %; Platelet Count 444 10^3/cmm (157-399); Red Blood Count 4.91 10^6/uL (3.85-5.65); Red Cell Distribution Width 12.2 % (12.1-15.1); White Blood Count 11.71 10^3/uL (3.29-11.43)
[2023-08-19] MEDS: iohexol 350 mg/mL 500 mL Btl (per mL) IV (17:11)
[2023-08-19 17:30] VITALS: BP 93/56; PULSE 52; O2SAT 100
[2023-08-19 17:32] LABS: Troponin(5th) Baseline < 6 ng/L (0-15)
[2023-08-19 17:36] LABS: Alanine Aminotransferase 21 U/L (0-41); Albumin Level 4.9 g/dL (3.5-5.2); Alkaline Phosphatase 94 U/L (40-130); Anion Gap 18.1 (5-19); Aspartate Amino Transferase 23 U/L (0-40); Blood Urea Nitrogen 10 mg/dL (6-20); Calcium 9.7 mg/dL (8.5-10.5); Carbon Dioxide 23 mmol/L (22-29); Chloride 102 mmol/L (98-107); Globulin 2.3 g/dL (1.3-4.6); Glomerular Filtration Rate 91.3 mL/min (90-130); Glucose 97 mg/dL (65-115); Osmolality Calculated 287 mOsm/kg (285-295); Potassium 4.1 mmol/L (3.5-5.1); Sodium 139 mmol/L (136-145); Total Bilirubin 0.4 mg/dL (0.15-1.2); Total Protein 7.2 g/dL (6.6-8.7)
[2023-08-19 17:37] LABS: Alcohol Level < 10 mg/dL (0-10)
[2023-08-19 18:53] VITALS: BP 134/94; PULSE 64
[2023-08-19 18:58] LABS: Troponin 5 2HR Delta 0 ABS# (0-10)
== END 2023-08-19 18:54 | disposition home or self-care (01) ==
PROVIDERS: Emergency Provider Physician Assistant; PCP Family Medicine
DX: R55 Syncope and collapse (principal); R07.81 Pleurodynia; R10.12 Left upper quadrant pain; R10.32 Left lower quadrant pain; F17.210 Nicotine dependence, cigarettes, uncomplicated; Z87.820 Personal history of traumatic brain injury
CPT/HCPCS: 36415; 70450; 71260; 72125; 74177; 80053; 80307; 84484; 85025; 93005; 96374; 96375; 99285; J1200; J2270; J2765; J2920; Q9967

== ENCOUNTER 2023-09-02 12:52 | Emergency (ER) | payer MEDICAID, SELFPAY ==
[2023-06-21 10:37] VITALS: BP 125/81; BMI 29.3
[2023-09-02 12:55] VITALS: BP 118/87; PULSE 62; RESP 16; TEMP 36.5; O2SAT 98
--- NOTE | 2023-09-02 13:07 | CTR_ITS ---
PROCEDURE INFORMATION: Exam: CT Cervical Spine Without Contrast Exam date and time: 09/02/2023 1:16 PM Age: 43 years old Clinical indication: Injury or trauma; Blunt trauma; Injury details: Had seizure causing a fall TECHNIQUE: Imaging protocol: Computed tomography of the cervical spine without contrast. Radiation optimization: All CT scans at this facility use at least one of these dose optimization techniques: automated exposure control; mA and/or kV adjustment per patient size (includes targeted exams where dose is matched to clinical indication); or iterative reconstruction. REPORTING DATA: Count of CT and Cardiac NM exams in prior 12 months: This patient has received 4 known CTs and 0 known cardiac nuclear medicine studies in the 12 months prior to the current study. COMPARISON: CT cervical spin wo con* [id number] 08/19/2023 4:39 PM RADIATION DOSE METRICS: Total DLP (mGy-cm): 483.3 FINDINGS: Bones/joints: Normal alignment. No fracture or traumatic subluxation. Disk spaces are maintained. No severe spinal canal stenosis. Lungs: Lung apices are normal. Soft tissues: Unremarkable. CT/CT cervical spin wo con* [id number] IMPRESSION: No acute findings.
--- NOTE | 2023-09-02 13:07 | CTR_ITS ---
PROCEDURE INFORMATION: Exam: CT Head Without Contrast Exam date and time: 09/02/2023 1:16 PM Age: 43 years old Clinical indication: Injury or trauma; Blunt trauma (contusions or hematomas); Injury details: Had seizure causing a fall TECHNIQUE: Imaging protocol: Computed tomography of the head without contrast. Radiation optimization: All CT scans at this facility use at least one of these dose optimization techniques: automated exposure control; mA and/or kV adjustment per patient size (includes targeted exams where dose is matched to clinical indication); or iterative reconstruction. REPORTING DATA: Count of CT and Cardiac NM exams in prior 12 months: This patient has received 4 known CTs and 0 known cardiac nuclear medicine studies in the 12 months prior to the current study. COMPARISON: CT head wo con* [id number] 08/19/2023 4:39 PM RADIATION DOSE METRICS: Total DLP (mGy-cm): 933.3 FINDINGS: Brain: Normal. No hemorrhage. No mass effect or midline shift. Cortical sulci and white matter are unremarkable for age. Cerebral ventricles: Unremarkable for age. Developmental variation with septum cavum lucent of incidentally noted. Paranasal sinuses: Visualized sinuses are unremarkable. No fluid levels. Mastoid air cells: Visualized mastoid air cells are well aerated. Bones/joints: Unremarkable. No acute fracture. Soft tissues: Unremarkable. CT/CT head wo con* [id number] IMPRESSION: No acute intracranial abnormality.
[2023-09-02 13:20] LABS: Basophils # 0.1 10^3/uL (0.0-0.1); Eosinophils # 0.3 10^3/uL (0.0-0.8); Eosinophils % 2.2 %; Hematocrit 48.7 % (37-53); Lymphocytes # 2.7 10^3/uL (0.8-4.8); Mean Corpuscular HGB Conc 34.3 g/dL (30-55); Mean Corpuscular Hemoglobin 32.4 pg (27-33); Mean Corpuscular Volume 94.6 fl (82-101); Mean Platelet Volume 10.8 fL (7.4-10.4); Monocytes # 1.5 10^3/uL (0.2-0.9); Monocytes % 12.5 %; Neutrophils # 7.27 10^3/uL (1.8-7.7); Neutrophils % 60.4 %; Nucleated Red Blood Cells % 0 %; Platelet Count 399 10^3/cmm (157-399); Red Blood Count 5.15 10^6/uL (3.85-5.65); Red Cell Distribution Width 11.9 % (12.1-15.1); White Blood Count 12.05 10^3/uL (3.29-11.43)
--- NOTE | 2023-09-02 13:20 | ED_ITS ---
HPI - Seizure General: Chief Complaint: Seizure Stated Complaint: FALL; SEIZURE Time Seen by Provider: 09/02/23 12:54 Source: patient Mode of arrival: EMS History of Present Illness: HPI Narrative: 43-year-old male presents emergency room via EMS. He was walking on the way to [place] became lightheaded dizzy fell and had a seizure hit his head. He has a known history of seizures 2 weeks ago he ran out of his Keppra he was out for a week and then received a short prescription for a week. He missed this morning's doses he took the last dose last night. He also states he has not been sleeping well. No vomiting no loss of bowel or bladder control. Patient has had issues with syncopal episodes in the past as well. MD complaint: seizure Onset (ago): minute(s) Description of Episode: loss of consciousness and tonic-clonic movement Witnessed: Yes - by Bystander Trauma: No Seizure History: Yes (TBI) Place: Outdoors Possible Precipitating Event: lack of sleep and medication Associated symptoms: Deny chills or fever(s) Treatments prior to arrival: none Review of Systems Const: Denies: fever(s) or chills Resp: Denies: dyspnea GI: Denies: abdominal pain : Denies: dysuria Musc: Denies: neck pain or back pain Skin/Breast: Denies: pruritus Neuro: Denies: headache(s) PFSH ED PFSH: Medical History Alcohol abuse Hx of migraine headaches Psychiatric care PTSD (post-traumatic stress disorder) Seizures TBI (traumatic brain injury) Family History Other CAD (coronary artery disease) Dementia Suicide Social History Smoking and tobacco status: current every day smoker cigarettes Packs smoked per day: 0.5 Years cigarettes smoked: 30 Quit status (tobacco): considering quitting Smoking risk assessment/counseling performed?: Yes Tobacco counseling given: counseling >3 minutes Alcohol intake: current Alcohol intake frequency: holidays/special occasions only Alcohol type: beer and hard liquor Substance/Drug Use: never Adopted: No Caregiver/support person: No Lives independently: Yes Household members: none Housing: Apartment Marital status: Number of children: 2 Number of grandchildren: 1 Highest education level completed: GED or Equivalent service: Yes (8 years) status: Discharged branch: [employer] Assignments: Outside [facility] ([employer]) Current occupational status: retired and disabled Current occupational exposures/hazards: No Pets and animals: No Leisure activites: other Leisure activities details: Watch TV Sexually active: No Do you think of yourself as: Straight/Heterosexual Current gender identity: Male Macy/Lutheran: Sikh Special macy needs: No Agree to transfusion: Yes Financial difficulty paying for basics: Somewhat Hard Physical Exam Const: COMMON NORMALS: no acute distress GENERAL APPEARANCE: cooperative and comfortable ORIENTATION/CONSCIOUSNESS: Yes awake, Yes oriented to person, Yes oriented to place and Yes oriented to time HENMT: COMMON NORMALS: normocephalic, atraumatic and hearing grossly normal bilaterally HEAD & SCALP: normocephalic and atraumatic Resp: COMMON NORMALS: normal respiratory effort, No retractions, No use of accessory muscles and clear to auscultation bilaterally AUSCULTATION: clear to auscultation bilaterally Cardio: COMMON NORMALS: regular rate, regular rhythm and No murmurs present (Cardio) RATE: regular rate RHYTHM: regular rhythm GI: COMMON NORMALS: Soft to palpation and No hepatosplenomegaly present AUSCULTATION: Yes normoactive bowel sounds PALPATION: Yes Soft to palpation, No Tenderness to palpation present (GI), No Guarding due to palpation present (GI) and Yes No hepatosplenomegaly present Extremity: COMMON NORMALS: normal to inspection, capillary refill normal, no clubbing, cyanosis or edema, no calf tenderness and no pedal edema Neuro: SENSORIUM/ORIENTATION: Yes oriented to person, Yes oriented to place and Yes oriented to time Skin: COMMON NORMALS: no rashes or lesions noted GENERAL SKIN EXAM: no rashes or lesions noted Course Vital Signs: Vital signs: Vital Signs Temperature 97.7 F 09/02/23 12:55 Pulse Rate 70 09/02/23 13:32 Respiratory Rate 16 09/02/23 12:55 Blood Pressure 135/83 09/02/23 13:32 Pulse Oximetry 99 09/02/23 13:32 Oxygen Delivery Me thod Room Air 09/02/23 13:32 MDM - Seizure MDM Narrative Medical decision making narrative: CT head and neck unremarkable. Patient has been out of his Keppra missed a dose this morning and he had lack of sleep overnight. Lactic acid was normal. Remainder of his exam was unremarkable. Discharge patient home encouraged to take his Keppra and Tegretol he was given Keppra single dose IV here. Levels for both have been checked and are pending. He should follow-up with his primary care doctor within the next week return if is further problems. Lab Data 09/02/23 12:55 09/02/23 12:55 Labs: Radiology Impressions Cervical Spine CT 09/02/23 13:07 IMPRESSION: No acute findings. Head CT 09/02/23 13:07 IMPRESSION: No acute intracranial abnormality. Laboratory Results WBC 12.05 10^3/uL (3.29-11.43) H 09/02/23 12:55 RBC 5.15 10^6/uL (3.85-5.65) 09/02/23 12:55 Hgb 16.70 g/dL (11.27-16.99) 09/02/23 12:55 Hct 48.7 % (37-53) 09/02/23 12:55 MCV 94.6 fl (82-101) 09/02/23 12:55 MCH 32.4 pg (27-33) 09/02/23 12:55 MCHC 34.3 g/dL (30-55) 09/02/23 12:55 RDW 11.9 % (12.1-15.1) L 09/02/23 12:55 Plt Count 399 10^3/cmm (157-399) 09/02/23 12:55 MPV 10.8 fL (7.4-10.4) H 09/02/23 12:55 Neut % (Auto) 60.4 % 09/02/23 12:55 Lymph % (Auto) 22.0 % 09/02/23 12:55 [place] % (Auto) 12.5 % 09/02/23 12:55 Eos % (Auto) 2.2 % 09/02/23 12:55 Baso % (Auto) 1.0 % 09/02/23 12:55 Neut # (Auto) 7.27 10^3/uL (1.8-7.7) 09/02/23 12:55 Lymph # (Auto) 2.7 10^3/uL (0.8-4.8) 09/02/23 12:55 [place] # (Auto) 1.5 10^3/uL (0.2-0.9) H 09/02/23 12:55 Eos # (Auto) 0.3 10^3/uL (0.0-0.8) 09/02/23 12:55 Baso # (Auto) 0.1 10^3/uL (0.0-0.1) 09/02/23 12:55 Nucleated RBC % (auto) 0 % 09/02/23 12:55 Nucleated RBCs # 0.0 /100WBC 09/02/23 12:55 Sodium 139 mmol/L (136-145) 09/02/23 12:55 Potassium 3.8 mmol/L (3.5-5.1) 09/02/23 12:55 Chloride 100 mmol/L (98-107) 09/02/23 12:55 Carbon Dioxide 28 mmol/L (22-29) 09/02/23 12:55 Anion Gap 14.8 (5-19) 09/02/23 12:55 BUN 9 mg/dL (6-20) 09/02/23 12:55 Creatinine 0.9 mg/dL (0.7-1.2) 09/02/23 12:55 GFR Calculation 91.3 mL/min (90-130) 09/02/23 12:55 Glucose 103 mg/dL (65-115) 09/02/23 12:55 Calculated Osmolality 287 mOsm/kg (285-295) 09/02/23 12:55 Lactic Acid 1.2 mmol/L (0.5-2.2) 09/02/23 13:40 Calcium 9.8 mg/dL (8.5-10.5) 09/02/23 12:55 Total Bilirubin 0.3 mg/dL (0.15-1.2) 09/02/23 12:55 AST 21 U/L (0-40) 09/02/23 12:55 ALT 22 U/L (0-41) 09/02/23 12:55 Alkaline Phosphatase 102 U/L (40-130) 09/02/23 12:55 Total Protein 7.6 g/dL (6.6-8.7) 09/02/23 12:55 Albumin 4.9 g/dL (3.5-5.2) 09/02/23 12:55 Globulin 2.7 g/dL (1.3-4.6) 09/02/23 12:55 Urine Color Yellow (Yellow) 09/02/23 13:53 Urine Appearance Clear (CLEAR) 09/02/23 13:53 Urine pH 6.5 (5-7) 09/02/23 13:53 Ur Specific [place] 1.010 (1.005-1.030) 09/02/23 13:53 Urine Protein Neg (Negative) 09/02/23 13:53 Urine Glucose (UA) Norm (Normal) 09/02/23 13:53 Urine Ketones Negative (Negative) 09/02/23 13:53 Urine Blood Neg (Negative) 09/02/23 13:53 Urine Nitrate Negative (Negative) 09/02/23 13:53 Urine Bilirubin Neg (Negative) 09/02/23 13:53 Urine Urobilinogen Norm mg/dL (Negative) 09/02/23 13:53 Ur Leukocyte Esterase Negative (Negative) 09/02/23 13:53 All radiology interpretation(s) finalized by discharge Discharge Plan Discharge Patient Disposition: Home Clinical Impression: Seizure, Neck pain Condition: Stable Prescriptions: No Action naproxen sodium [Aleve] 220 mg tablet 220 mg PO BID PRN carbamazepine 400 mg tablet extended release 12 hr See Rx Instructions .ROUTE .COMPLEX Qty: 60 2RF Dose Instruction: Take 1 tablet by mouth twice daily Rx Instructions: Take 1 tablet by mouth twice daily levetiracetam 500 mg tablet See Rx Instructions .ROUTE .COMPLEX Qty: 60 3RF Dose Instruction: Take 1 tablet by mouth twice daily Rx Instructions: Take 1 tablet by mouth twice daily mirtazapine 45 mg tablet 45 mg PO BEDTIME 30 Days Qty: 30 5RF prazosin 2 mg capsule 4 mg PO BEDTIME 30 Days Qty: 60 5RF tizanidine 4 mg tablet 4 mg PO BID PRN (Reason: muscle spasticity) Qty: 60 2RF meloxicam 15 mg tablet 15 mg PO DAILY PRN (Reason: pain) Qty: 30 0RF hydrocodone-acetaminophen 5-325 mg tablet 1 tab PO Q6H PRN (Reason: pain) Qty: 10 0RF Discharge Orders: Discharge ED (Routine); Ordered 09/02/23 Ordered By: Marlon De Referrals: Cristina Salamanca MD [Primary Care Provider] - Discharge Diet: Usual diet Discharge Activity: Increase activity as tolerated Patient Instructions: Opioid Safety, Pain Management Activity Restrictions/Additional Instructions: Continue your current antiseizure medications Keppra and Tegretol. Follow-up with your primary care doctor next week. Coding Level of Care Code ED Transaction Manager for [facility]
[2023-09-02 13:30] LABS: Alanine Aminotransferase 22 U/L (0-41); Albumin Level 4.9 g/dL (3.5-5.2); Alkaline Phosphatase 102 U/L (40-130); Anion Gap 14.8 (5-19); Aspartate Amino Transferase 21 U/L (0-40); Blood Urea Nitrogen 9 mg/dL (6-20); Calcium 9.8 mg/dL (8.5-10.5); Carbon Dioxide 28 mmol/L (22-29); Chloride 100 mmol/L (98-107); Globulin 2.7 g/dL (1.3-4.6); Glomerular Filtration Rate 91.3 mL/min (90-130); Glucose 103 mg/dL (65-115); Osmolality Calculated 287 mOsm/kg (285-295); Potassium 3.8 mmol/L (3.5-5.1); Sodium 139 mmol/L (136-145); Total Bilirubin 0.3 mg/dL (0.15-1.2); Total Protein 7.6 g/dL (6.6-8.7)
[2023-09-02 13:32] VITALS: BP 135/83; PULSE 70; O2SAT 99
[2023-09-02 14:01] LABS: Add Urine Microscopic? NO; Charge for UA Resulting for Rev
[2023-09-02 14:05] LABS: Bilirubin Urine Neg (Negative); Blood Urine Neg (Negative); Glucose Urine UA Norm (Normal); Ketones Urine Negative (Negative); Leukocyte Esterase Urine Negative (Negative); Nitrate Urine Negative (Negative); Protein Urine Neg (Negative); Urine Appearance Clear (CLEAR); Urine Color Yellow (Yellow); Urobilinogen Urine Norm (Negative); pH Urine 6.5 (5-7)
[2023-09-02 14:07] LABS: Lactic Sepsis W/Reflex 1.2 mmol/L (0.5-2.2)
[2023-09-05 10:53] LABS: Levetiracetam Immunoassy <2.0 mcg/mL (6.0-46.0)
== END 2023-09-02 14:27 | disposition home or self-care (01) ==
PROVIDERS: Emergency Provider Family Medicine; PCP Family Medicine
DX: R56.9 Unspecified convulsions (principal); M54.2 Cervicalgia; Z87.820 Personal history of traumatic brain injury; F17.210 Nicotine dependence, cigarettes, uncomplicated
CPT/HCPCS: 36415; 70450; 72125; 80053; 80156; 80177; 81003; 83605; 85025; 96365; 99285; J1953

== ENCOUNTER 2023-10-04 16:31 | Emergency (ER) | payer MEDICAID, SELFPAY ==
[2023-06-21 10:37] VITALS: BP 125/81; BMI 29.3
[2023-10-04 16:39] VITALS: BP 116/81; PULSE 68; RESP 18; TEMP 36.8; O2SAT 95; BMI 29.2
--- NOTE | 2023-10-04 16:45 | CTR_ITS ---
PROCEDURE INFORMATION: Exam: CT Head Without Contrast Exam date and time: 10/04/2023 6:16 PM Age: 43 years old Clinical indication: Injury or trauma; Fall; Blunt trauma (contusions or hematomas); Additional info: Seizure TECHNIQUE: Imaging protocol: Computed tomography of the head without contrast. Radiation optimization: All CT scans at this facility use at least one of these dose optimization techniques: automated exposure control; mA and/or kV adjustment per patient size (includes targeted exams where dose is matched to clinical indication); or iterative reconstruction. REPORTING DATA: Count of CT and Cardiac NM exams in prior 12 months: This patient has received 6 known CTs and 0 known cardiac nuclear medicine studies in the 12 months prior to the current study. COMPARISON: CT head wo con* [id number] 09/02/2023 1:16 PM RADIATION DOSE METRICS: Total DLP (mGy-cm): 1032 FINDINGS: Brain: Normal. No hemorrhage. Unremarkable white matter. No mass effect. Cerebral ventricles: No ventriculomegaly. Paranasal sinuses: Visualized sinuses are unremarkable. No fluid levels. Mastoid air cells: Visualized mastoid air cells are well aerated. Bones/joints: Unremarkable. No acute fracture. Soft tissues: Posterior scalp contusion. CT/CT head wo con* [id number] IMPRESSION: No acute intracranial abnormality.
--- NOTE | 2023-10-04 16:46 | W.ED.SEIZURE ---
HPI - Seizure General: Chief Complaint: Seizure Stated Complaint: siezures Time Seen by Provider: 10/04/23 16:38 Source: patient and EMS Mode of arrival: EMS Limitations: no limitations History of Present Illness: HPI Narrative: 43-year-old male has a history of TBI along with seizure history states that he had a seizure just prior to arrival. He is unsure if he hit his head he is on Keppra he states he has missed some doses of his Keppra he is now awake and alert at his baseline he has a mild headache denies any other complaints Seizure History: Yes Associated symptoms: Deny chest pain, chills or fever(s) Review of Systems Const: Denies: fever(s), chills, body aches or change in appetite Eyes: Denies: eye discomfort ENMT: Denies: throat pain or dental pain Card: Denies: chest pain Resp: Denies: dyspnea GI: Denies: abdominal pain, nausea, vomiting or diarrhea Musc: Denies: neck pain or back pain Skin/Breast: Denies: rash Neuro: Reports: seizure-like activity; Denies: headache(s) PFSH ED PFSH: Medical History Alcohol abuse Hx of migraine headaches Psychiatric care PTSD (post-traumatic stress disorder) Seizures TBI (traumatic brain injury) Family History Other CAD (coronary artery disease) Dementia Suicide Social History Smoking and tobacco/nicotine status: current every day tobacco/nicotine user cigarettes Packs smoked per day: 0.5 Years cigarettes smoked: 30 Quit status (tobacco/nicotine): considering quitting Alcohol intake: current Alcohol intake frequency: holidays/special occasions only Alcohol type: beer and hard liquor Substance/Drug Use: never Adopted: No Caregiver/support person: No Lives independently: Yes Household members: none Housing: Apartment Marital status: Number of children: 2 Number of grandchildren: 1 Highest education level completed: GED or Equivalent service: Yes (8 years) status: Discharged branch: [employer] Assignments: Outside [facility] ([employer]) Current occupational status: retired and disabled Current occupational exposures/hazards: No Pets and animals: No Leisure activites: other Leisure activities details: Watch TV Sexually active: No Do you think of yourself as: Straight/Heterosexual Current gender identity: Male Macy/Baptism: Anabaptist Special macy needs: No Agree to transfusion: Yes Physical Exam Const: COMMON NORMALS: no acute distress, patient oriented x3 and healthy appearing HENMT: COMMON NORMALS: normocephalic and atraumatic HEAD & SCALP: normocephalic and atraumatic Eye: COMMON NORMALS: Equal, round and reactive pupils present and EOMs intact bilaterally PUPIL: Yes Equal, round and reactive pupils present Neck/C-Spine: COMMON NORMALS: full ROM and supple Chest: COMMONS NORMALS: normal inspection of the chest and normal palpation of entire chest wall Resp: COMMON NORMALS: normal respiratory effort, No retractions, No use of accessory muscles and clear to auscultation bilaterally AUSCULTATION: clear to auscultation bilaterally Cardio: COMMON NORMALS: regular rate, regular rhythm and No murmurs present (Cardio) RATE: regular rate RHYTHM: regular rhythm GI: COMMON NORMALS: Normal to inspection, nondistended, normoactive bowel sounds present, Soft to palpation, non-tender and no masses PALPATION: Yes Soft to palpation Extremity: COMMON NORMALS: normal to inspection and full ROM Neuro: COMMON NORMALS: patient oriented x3, moves all extremities and no focal motor deficits Psych: COMMON NORMALS: mental status grossly normal, Normal thought process present and cooperative THOUGHT PROCESS: Normal thought process present Skin: COMMON NORMALS: no rashes or lesions noted and no wounds GENERAL SKIN EXAM: no rashes or lesions noted Course Vital Signs: Vital signs: Vital Signs Temperature 98.2 F 10/04/23 16:39 Pulse Rate 68 10/04/23 16:39 Respiratory Rate 18 10/04/23 16:39 Blood Pressure 116/81 10/04/23 16:39 Pulse Oximetry 95 10/04/23 16:39 Oxygen Delivery Me thod Room Air 10/04/23 16:39 MDM - Seizure MDM Narrative Medical decision making narrative: Patient presents with a seizure likely due to noncompliance he is well-appearing here head CT is normal did give him IV Keppra here he is stable for discharge follow-up with PCP and return if worsening. Medical Records Attestation: I reviewed the patient's medical records. Lab Data Labs: Radiology Impressions Head CT 10/04/23 16:45 IMPRESSION: No acute intracranial abnormality. No radiology studies performed this visit Discharge Plan Discharge Patient Disposition: Home Clinical Impression: Seizure Condition: Stable Prescriptions: No Action naproxen sodium [Aleve] 220 mg tablet 220 mg PO BID PRN levetiracetam 500 mg tablet See Rx Instructions .ROUTE .COMPLEX Qty: 60 3RF Dose Instruction: Take 1 tablet by mouth twice daily Rx Instructions: Take 1 tablet by mouth twice daily mirtazapine 45 mg tablet 45 mg PO BEDTIME 30 Days Qty: 30 5RF prazosin 2 mg capsule 4 mg PO BEDTIME 30 Days Qty: 60 5RF tizanidine 4 mg tablet 4 mg PO BID PRN (Reason: muscle spasticity) Qty: 60 2RF carbamazepine 400 mg tablet extended release 12 hr See Rx Instructions .ROUTE .COMPLEX Qty: 60 3RF Dose Instruction: Take 1 tablet by mouth twice daily Rx Instructions: Take 1 tablet by mouth twice daily meloxicam 15 mg tablet 15 mg PO DAILY PRN (Reason: pain) Qty: 30 0RF hydrocodone-acetaminophen 5-325 mg tablet 1 tab PO Q6H PRN (Reason: pain) Qty: 10 0RF Discharge Orders: Discharge ED (Routine); Ordered 10/04/23 Ordered By: Rukhsana Jolley Referrals: Cristina Salamanca MD [Primary Care Provider] - 1-3 days Discharge Diet: Advance as tolerated Discharge Activity: Resume usual activity Patient Instructions: Recurrent Seizures in Adults (ED) Coding Level of Care Code ED Copy Room Technician for [facility]
[2023-10-04] MEDS: levETIRAcetam 1,000 MG/100 ML PREMIX 400 MG IV (16:52)
== END 2023-10-04 19:08 | disposition home or self-care (01) ==
PROVIDERS: Emergency Provider Emergency Medicine; PCP Family Medicine
DX: R56.9 Unspecified convulsions (principal); Z87.820 Personal history of traumatic brain injury; F17.210 Nicotine dependence, cigarettes, uncomplicated
CPT/HCPCS: 70450; 96365; 99285; J1953

== ENCOUNTER → 2023-10-30 10:55 | Outpatient (BNVA) | payer MEDICAID, SELFPAY ==
[2023-06-21 10:37] VITALS: BP 125/81; BMI 29.3
== END ==
PROVIDERS: PCP Family Medicine; Visit Provider Anesthesiology Pain Medicine
DX: M47.812 Spondylosis without myelopathy or radiculopathy, cervical region; G40.309 Generalized idiopathic epilepsy and epileptic syndromes, not intractable, without status epilepticus; M54.41 Lumbago with sciatica, right side; S06.9X1D Unspecified intracranial injury with loss of consciousness of 30 minutes or less, subsequent encounter; M48.02 Spinal stenosis, cervical region; X58.XXXD Exposure to other specified factors, subsequent encounter
CPT/HCPCS: 99214

== ENCOUNTER 2023-11-01 14:54 | Outpatient (CLI) | payer MEDICAID, SELFPAY ==
[2023-06-21 10:37] VITALS: BP 125/81; BMI 29.3
--- NOTE | 2023-11-01 15:00 | XR_ITS ---
WS: [id number] Cervical spine, 3 views, 11/01/2023 Clinical Data: M54.2 - Cervicalgia Comparison: Cervical spine, 11/24/2022. Findings: No compression fractures are seen. The disc heights are normal. There is minimal calcificat ion of the anterior longitudinal ligament at C5-C6 unchanged. There is no prevertebral soft tissue sw elling. The odontoid is unremarkable. The soft tissues of the neck and the lung apices are normal. 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
== END 2023-11-01 14:55 | disposition home or self-care (01) ==
LOC: RAD 14:56
PROVIDERS: PCP Family Medicine; Visit Provider Anesthesiology Pain Medicine
DX: M54.2 Cervicalgia (principal)
CPT/HCPCS: 72040

== ENCOUNTER → 2023-11-08 15:04 | Outpatient (BNVA) | payer MEDICAID, SELFPAY ==
[2023-06-21 10:37] VITALS: BP 125/81; BMI 29.3
== END ==
PROVIDERS: PCP Family Medicine; Visit Provider Anesthesiology Pain Medicine
DX: M79.18 Myalgia, other site (principal); M47.812 Spondylosis without myelopathy or radiculopathy, cervical region; G40.309 Generalized idiopathic epilepsy and epileptic syndromes, not intractable, without status epilepticus; M54.41 Lumbago with sciatica, right side; S06.9X1D Unspecified intracranial injury with loss of consciousness of 30 minutes or less, subsequent encounter; X58.XXXD Exposure to other specified factors, subsequent encounter
CPT/HCPCS: 20553; 99214; J1030; J3490

== ENCOUNTER 2023-12-06 09:00 | Emergency (ER) | payer MEDICAID, SELFPAY ==
[2023-06-21 10:37] VITALS: BP 125/81; BMI 29.3
[2023-12-06 09:02] VITALS: BP 122/62; PULSE 74; TEMP 36.4; O2SAT 96; BMI 30.2
--- NOTE | 2023-12-06 10:03 | ED_ITS ---
HPI - Back Pain/Injury 2 General: Chief Complaint: Back Pain/Injury Stated Complaint: Fall Time Seen by Provider: 12/06/23 09:02 History of Present Illness: 43-year-old male presents emergency room complaining of right flank pain that began overnight when he was bending over to pick something up. He notices worsening pain with almost any movement and light touch she denies dysuria urgency or frequency no fever sweats or chills. Associated symptoms: Deny abdominal pain, chills, dysuria, fever(s) or urinary urgency Review of Systems 2 Const: Denies: fever(s) or chills Card: Denies: chest pain Resp: Denies: dyspnea GI: Denies: abdominal pain : Denies: dysuria, urinary frequency or urinary urgency Musc: Denies: neck pain or back pain Skin/Breast: Denies: rash PFSH ED 2 PFSH: Medical History Alcohol abuse PTSD (post-traumatic stress disorder) Seizures TBI (traumatic brain injury) Hx of migraine headaches Family History Other CAD (coronary artery disease) Dementia Suicide Social History Smoking and tobacco/nicotine status: current every day tobacco/nicotine user cigarettes Packs smoked per day: 0.5 Years cigarettes smoked: 30 Quit status (tobacco/nicotine): considering quitting Alcohol intake: current Alcohol intake frequency: holidays/special occasions only Alcohol type: beer and hard liquor Substance/Drug Use: never Adopted: No Caregiver/support person: No Lives independently: Yes Household members: none Housing: Apartment Marital status: Number of children: 2 Number of grandchildren: 1 Highest education level completed: GED or Equivalent service: Yes (8 years) status: Discharged branch: [employer] Assignments: Outside [facility] ([employer]) Current occupational status: retired and disabled Current occupational exposures/hazards: No Pets and animals: No Leisure activites: other Leisure activities details: Watch TV Sexually active: No Do you think of yourself as: Straight/Heterosexual Current gender identity: Male Macy/Yarsanism: Church Special macy needs: No Agree to transfusion: Yes Physical Exam 2 Const: COMMON NORMALS: no acute distress GENERAL APPEARANCE: cooperative and comfortable ORIENTATION/CONSCIOUSNESS: Yes awake, Yes oriented to person, Yes oriented to place and Yes oriented to time HENMT: COMMON NORMALS: normocephalic, atraumatic and hearing grossly normal bilaterally HEAD & SCALP: normocephalic and atraumatic Resp: COMMON NORMALS: normal respiratory effort, No retractions, No use of accessory muscles and clear to auscultation bilaterally AUSCULTATION: clear to auscultation bilaterally Cardio: COMMON NORMALS: regular rate, regular rhythm and No murmurs present (Cardio) RATE: regular rate RHYTHM: regular rhythm GI: COMMON NORMALS: Soft to palpation and No hepatosplenomegaly present A USCULTATION: Yes normoactive bowel sounds PALPATION: Yes Soft to palpation, No Tenderness to palpation present (GI), No Guarding due to palpation present (GI) and Yes No hepatosplenomegaly present Extremity: COMMON NORMALS: normal to inspection, capillary refill normal, no clubbing, cyanosis or edema, no calf tenderness and no pedal edema Neuro: SENSORIUM/ORIENTATION: Yes oriented to person, Yes oriented to place and Yes oriented to time Skin: COMMON NORMALS: no rashes or lesions noted GENERAL SKIN EXAM: no rashes or lesions noted Course 2 Vital Signs: Vital signs: Vital Signs Temperature 97.5 F L 12/06/23 09:02 Pulse Rate 60 12/06/23 12:17 Respiratory Rate 18 12/06/23 12:17 Blood Pressure 141/94 12/06/23 12:17 Pulse Oximetry 97 12/06/23 12:17 Oxygen Delivery Me thod Room Air 12/06/23 12:17 MDM - Back Pain/Injury Medical Decision Making Labs and imaging reviewed CT does not show an acute appendicitis there is no sign of acute gallbladder disease no sign of infection CT did not show any abnormality in the lumbar spine or the your genitourinary system. Suspect this is all musculoskeletal in nature and at bedside it is reproduced with light touch and with movement discharge home with steroid taper tizanidine diclofenac follow-up with primary care. Differential Diagnosis Likely strain of lumbar region Medical Records I reviewed the patient's medical records. Labs I reviewed the patient's lab results. 12/06/23 10:19 12/06/23 10:19 Laboratory Results WBC 9.94 10^3/uL (3.29-11.43) 12/06/23 10:19 RBC 4.85 10^6/uL (3.85-5.65) 12/06/23 10:19 Hgb 15.80 g/dL (11.27-16.99) 12/06/23 10:19 Hct 46.1 % (37-53) 12/06/23 10:19 MCV 95.1 fl (82-101) 12/06/23 10:19 MCH 32.6 pg (27-33) 12/06/23 10:19 MCHC 34.3 g/dL (30-55) 12/06/23 10:19 RDW 12.1 % (12.1-15.1) 12/06/23 10:19 Plt Count 406 10^3/cmm (157-399) H 12/06/23 10:19 MPV 9.5 fL (7.4-10.4) 12/06/23 10:19 Neut % (Auto) 62.0 % 12/06/23 10:19 Lymph % (Auto) 19.0 % 12/06/23 10:19 [place] % (Auto) 10.4 % 12/06/23 10:19 Eos % (Auto) 2.7 % 12/06/23 10:19 Baso % (Auto) 1.7 % 12/06/23 10:19 Neut # (Auto) 6.16 10^3/uL (1.8-7.7) 12/06/23 10:19 Lymph # (Auto) 1.9 10^3/uL (0.8-4.8) 12/06/23 10:19 [place] # (Auto) 1.0 10^3/uL (0.2-0.9) H 12/06/23 10:19 Eos # (Auto) 0.3 10^3/uL (0.0-0.8) 12/06/23 10:19 Baso # (Auto) 0.2 10^3/uL (0.0-0.1) H 12/06/23 10:19 Nucleated RBC % (auto) 0 % 12/06/23 10:19 Nucleated RBCs # 0.0 /100WBC 12/06/23 10:19 Sodium 139 mmol/L (136-145) 12/06/23 10:19 Potassium 4.2 mmol/L (3.5-5.1) 12/06/23 10:19 Chloride 103 mmol/L (98-107) 12/06/23 10:19 Carbon Dioxide 28 mmol/L (22-29) 12/06/23 10:19 Anion Gap 12.2 (5-19) 12/06/23 10:19 BUN 9 mg/dL (6-20) 12/06/23 10:19 Creatinine 0.6 mg/dL (0.7-1.2) L 12/06/23 10:19 GFR Calculation 145.7 mL/min (90-130) H 12/06/23 10:19 Glucose 103 mg/dL (65-115) 12/06/23 10:19 Calculated Osmolality 287 mOsm/kg (285-295) 12/06/23 10:19 Lactic Acid 1.6 mmol/L (0.5-2.2) 12/06/23 10:19 Calcium 9.4 mg/dL (8.5-10.5) 12/06/23 10:19 Total Bilirubin 0.2 mg/dL (0.15-1.2) 12/06/23 10:19 AST 20 U/L (0-40) 12/06/23 10:19 ALT 20 U/L (0-41) 12/06/23 10:19 Alkaline Phosphatase 80 U/L (40-130) 12/06/23 10:19 Creatine Kinase 87 U/L (39-308) 12/06/23 10:19 Total Protein 6.6 g/dL (6.6-8.7) 12/06/23 10:19 Albumin 4.1 g/dL (3.5-5.2) 12/06/23 10:19 Globulin 2.5 g/dL (1.3-4.6) 12/06/23 10:19 Urine Color Yellow (Yellow) 12/06/23 11:52 Urine Appearance Clear (CLEAR) 12/06/23 11:52 Urine pH 7 (5-7) 12/06/23 11:52 Ur Specific [place] 1.005 (1.005-1.030) 12/06/23 11:52 Urine Protein Neg (Negative) 12/06/23 11:52 Urine Glucose (UA) Norm (Normal) 12/06/23 11:52 Urine Ketones Negative (Negative) 12/06/23 11:52 Urine Blood Neg (Negative) 12/06/23 11:52 Urine Nitrate Negative (Negative) 12/06/23 11:52 Urine Bilirubin Neg (Negative) 12/06/23 11:52 Urine Urobilinogen Norm mg/dL (Negative) 12/06/23 11:52 Ur Leukocyte Esterase Negative (Negative) 12/06/23 11:52 All radiology interpretation(s) finalized by discharge Discharge Plan Discharge Patient Disposition: Home Clinical Impression: Strain of lumbar region, Acute right flank pain Condition: Stable Prescriptions: New tizanidine 4 mg tablet 4 mg PO Q6H PRN (Reason: muscle spasticity) Qty: 20 0RF Rx Instructions: do not exceed 3 doses per 24 hrs prednisone 20 mg tablet 20 mg PO TID Qty: 15 0RF Rx Instructions: 1 p.o. 3 times daily x3 days, 1 p.o. twice daily x2 days, 1 p.o. daily x2 days diclofenac sodium 75 mg tablet,delayed release (DR/EC) 75 mg PO Q12H PRN (Reason: pain) Qty: 20 0RF Discontinued naproxen sodium [Aleve] 220 mg tablet 220 mg PO BID PRN (Reason: Pain) No Action mirtazapine 45 mg tablet 45 mg PO BEDTIME 30 Days Qty: 30 5RF prazosin 2 mg capsule 4 mg PO BEDTIME 30 Days Qty: 60 5RF tizanidine 4 mg tablet 4 mg PO BID PRN (Reason: muscle spasticity) Qty: 60 2RF levetiracetam 500 mg tablet 500 mg PO BID carbamazepine 400 mg tablet extended release 12 hr 400 mg PO BID Discharge Orders: Discharge ED (Routine); Ordered 12/06/23 Ordered By: Marlon De Referrals: Cristina Salamanca MD [Primary Care Provider] - Patient Instructions: Musculoskeletal Pain (ED), Opioid Safety, Pain Management Activity Restrictions/Additional Instructions: Thank you for choosing [facility] for your healthcare needs today. Please realize this is an emergency room and that we are providing you with a medical screening exam and this may not be complete and all inclusive of all the testing and or work up that you may need to determine your ailment or severity of your illness. It is very important that you follow up as instructed or that you return to the Emergency Department should you have concerns or if your condition changes or worsens in any way. Coding Level of Care Code ED Field Agent for Parker Sutherland
[2023-12-06 10:04] VITALS: BP 103/72; PULSE 78; RESP 18; O2SAT 99
--- NOTE | 2023-12-06 10:12 | CT_ITS ---
WS: [id number] CT ABDOMEN PELVIS TECHNIQUE: Noncontrast CT of the abdomen and pelvis with coronal and sagittal reformatted images. CLINICAL INFORMATION: flank pain COMPARISON: CT 08/19/2023 DLP: 606.[address] scans at [facility] use at least one of these dose optimization techniques: automated e xposure control; mA and/or kV adjustment per patient size (includes targeted exams where dose is matc hed to clinical indication); or iterative reconstruction. FINDINGS: Adrenal glands are normal. No hydronephrosis in either kidney. No obstructing renal or ureteral calcu li. Normal appendix in the RIGHT lower quadrant. No evidence of acute appendicitis. Lung bases are well aerated. Mild hepatomegaly. Noncontrast spleen is normal. Normal GE junction. Air -fluid level in the stomach. Noncontrast pancreas is normal. Normal caliber abdominal aorta. Normal colon. No evidence of small or large bowel obstruction. Urine distended bladder. Normal calibe r abdominal aorta. No other suspicious findings. IMPRESSION: 1. Normal appendix. 2. No hydronephrosis in either kidney. No obstructing renal or ureteral calculi. 3. No other suspicious findings.
[2023-12-06 10:37] LABS: Basophils # 0.2 10^3/uL (0.0-0.1); Basophils % 1.7 %; Eosinophils # 0.3 10^3/uL (0.0-0.8); Eosinophils % 2.7 %; Hematocrit 46.1 % (37-53); Lymphocytes # 1.9 10^3/uL (0.8-4.8); Mean Corpuscular HGB Conc 34.3 g/dL (30-55); Mean Corpuscular Hemoglobin 32.6 pg (27-33); Mean Corpuscular Volume 95.1 fl (82-101); Mean Platelet Volume 9.5 fL (7.4-10.4); Monocytes % 10.4 %; Neutrophils # 6.16 10^3/uL (1.8-7.7); Nucleated Red Blood Cells % 0 %; Platelet Count 406 10^3/cmm (157-399); Red Blood Count 4.85 10^6/uL (3.85-5.65); Red Cell Distribution Width 12.1 % (12.1-15.1); White Blood Count 9.94 10^3/uL (3.29-11.43)
[2023-12-06] MEDS: ondansetron 2 mg/ML SDV 2 mL 4 MG IVP (10:47)
[2023-12-06] MEDS: morphine 4 mg/mL SDV 1 mL IVP (10:47)
[2023-12-06] MEDS: sodium chloride 0.9% 1,000 ML 999 ML IV (10:47)
[2023-12-06 10:54] LABS: Lactic Sepsis W/Reflex 1.6 mmol/L (0.5-2.2)
[2023-12-06 10:55] LABS: Alanine Aminotransferase 20 U/L (0-41); Albumin Level 4.1 g/dL (3.5-5.2); Alkaline Phosphatase 80 U/L (40-130); Anion Gap 12.2 (5-19); Aspartate Amino Transferase 20 U/L (0-40); Blood Urea Nitrogen 9 mg/dL (6-20); Calcium 9.4 mg/dL (8.5-10.5); Carbon Dioxide 28 mmol/L (22-29); Chloride 103 mmol/L (98-107); Creatine Phosphokinase 87 U/L (39-308); Creatinine Clr Calc Pharmacy 148.3337; Globulin 2.5 g/dL (1.3-4.6); Glomerular Filtration Rate 145.7 mL/min (90-130); Glucose 103 mg/dL (65-115); Osmolality Calculated 287 mOsm/kg (285-295); Potassium 4.2 mmol/L (3.5-5.1); Sodium 139 mmol/L (136-145); Total Bilirubin 0.2 mg/dL (0.15-1.2); Total Protein 6.6 g/dL (6.6-8.7)
--- NOTE | 2023-12-06 12:01 | W.ED.BACK ---
HPI - Back Pain/Injury General: Chief Complaint: Back Pain/Injury Stated Complaint: Fall Time Seen by Provider: 12/06/23 09:02 [facility] ED PFSH: Medical History Alcohol abuse PTSD (post-traumatic stress disorder) Seizures TBI (traumatic brain injury) Hx of migraine headaches Family History Other CAD (coronary artery disease) Dementia Suicide Social History Smoking and tobacco/nicotine status: current every day tobacco/nicotine user cigarettes Packs smoked per day: 0.5 Years cigarettes smoked: 30 Quit status (tobacco/nicotine): considering quitting Alcohol intake: current Alcohol intake frequency: holidays/special occasions only Alcohol type: beer and hard liquor Substance/Drug Use: never Adopted: No Caregiver/support person: No Lives independently: Yes Household members: none Housing: Apartment Marital status: Number of children: 2 Number of grandchildren: 1 Highest education level completed: GED or Equivalent service: Yes (8 years) status: Discharged branch: [employer] Assignments: Outside [employer] ([employer]) Current occupational status: retired and disabled Current occupational exposures/hazards: No Pets and animals: No Leisure activites: other Leisure activities details: Watch TV Sexually active: No Do you think of yourself as: Straight/Heterosexual Current gender identity: Male Macy/Scientologist: Sikhism Special macy needs: No Agree to transfusion: Yes Course Vital Signs: Vital signs: Vital Signs Temperature 97.5 F L 12/06/23 09:02 Pulse Rate 78 12/06/23 10:04 Respiratory Rate 18 12/06/23 10:04 Blood Pressure 103/72 12/06/23 10:04 Pulse Oximetry 99 12/06/23 10:04 Oxygen Delivery Me thod Room Air 12/06/23 10:04 MDM - Back Pain/Injury Labs 12/06/23 10:19 12/06/23 10:19 Laboratory Results WBC 9.94 10^3/uL (3.29-11.43) 12/06/23 10:19 RBC 4.85 10^6/uL (3.85-5.65) 12/06/23 10:19 Hgb 15.80 g/dL (11.27-16.99) 12/06/23 10:19 Hct 46.1 % (37-53) 12/06/23 10:19 MCV 95.1 fl (82-101) 12/06/23 10:19 MCH 32.6 pg (27-33) 12/06/23 10:19 MCHC 34.3 g/dL (30-55) 12/06/23 10:19 RDW 12.1 % (12.1-15.1) 12/06/23 10:19 Plt Count 406 10^3/cmm (157-399) H 12/06/23 10:19 MPV 9.5 fL (7.4-10.4) 12/06/23 10:19 Neut % (Auto) 62.0 % 12/06/23 10:19 Lymph % (Auto) 19.0 % 12/06/23 10:19 [place] % (Auto) 10.4 % 12/06/23 10:19 Eos % (Auto) 2.7 % 12/06/23 10:19 Baso % (Auto) 1.7 % 12/06/23 10:19 Neut # (Auto) 6.16 10^3/uL (1.8-7.7) 12/06/23 10:19 Lymph # (Auto) 1.9 10^3/uL (0.8-4.8) 12/06/23 10:19 [place] # (Auto) 1.0 10^3/uL (0.2-0.9) H 12/06/23 10:19 Eos # (Auto) 0.3 10^3/uL (0.0-0.8) 12/06/23 10:19 Baso # (Auto) 0.2 10^3/uL (0.0-0.1) H 12/06/23 10:19 Nucleated RBC % (auto) 0 % 12/06/23 10:19 Nucleated RBCs # 0.0 /100WBC 12/06/23 10:19 Sodium 139 mmol/L (136-145) 12/06/23 10:19 Potassium 4.2 mmol/L (3.5-5.1) 12/06/23 10:19 Chloride 103 mmol/L (98-107) 12/06/23 10:19 Carbon Dioxide 28 mmol/L (22-29) 12/06/23 10:19 Anion Gap 12.2 (5-19) 12/06/23 10:19 BUN 9 mg/dL (6-20) 12/06/23 10:19 Creatinine 0.6 mg/dL (0.7-1.2) L 12/06/23 10:19 GFR Calculation 145.7 mL/min (90-130) H 12/06/23 10:19 Glucose 103 mg/dL (65-115) 12/06/23 10:19 Calculated Osmolality 287 mOsm/kg (285-295) 12/06/23 10:19 Lactic Acid 1.6 mmol/L (0.5-2.2) 12/06/23 10:19 Calcium 9.4 mg/dL (8.5-10.5) 12/06/23 10:19 Total Bilirubin 0.2 mg/dL (0.15-1.2) 12/06/23 10:19 AST 20 U/L (0-40) 12/06/23 10:19 ALT 20 U/L (0-41) 12/06/23 10:19 Alkaline Phosphatase 80 U/L (40-130) 12/06/23 10:19 Creatine Kinase 87 U/L (39-308) 12/06/23 10:19 Total Protein 6.6 g/dL (6.6-8.7) 12/06/23 10:19 Albumin 4.1 g/dL (3.5-5.2) 12/06/23 10:19 Globulin 2.5 g/dL (1.3-4.6) 12/06/23 10:19 Discharge Plan Discharge Condition: Stable Prescriptions: No Action naproxen sodium [Aleve] 220 mg tablet 220 mg PO BID PRN (Reason: Pain) mirtazapine 45 mg tablet 45 mg PO BEDTIME 30 Days Qty: 30 5RF prazosin 2 mg capsule 4 mg PO BEDTIME 30 Days Qty: 60 5RF tizanidine 4 mg tablet 4 mg PO BID PRN (Reason: muscle spasticity) Qty: 60 2RF levetiracetam 500 mg tablet 500 mg PO BID carbamazepine 400 mg tablet extended release 12 hr 400 mg PO BID Referrals: Cristina Salamanca MD [Primary Care Provider] - Coding Level of Care Code ED Dicer Operator for Parker Sutherland
[2023-12-06 12:06] LABS: Add Urine Microscopic? NO; Charge for UA Resulting for Rev
[2023-12-06] MEDS: orphenadrine 30 mg/mL Inj 2 mL 60 MG IVP (12:15)
[2023-12-06] MEDS: ketorolac 30 mg/mL INJ IVP (12:15)
[2023-12-06 12:17] VITALS: BP 141/94; PULSE 60; RESP 18; O2SAT 97
[2023-12-06 12:17] LABS: Bilirubin Urine Neg (Negative); Blood Urine Neg (Negative); Glucose Urine UA Norm (Normal); Ketones Urine Negative (Negative); Leukocyte Esterase Urine Negative (Negative); Nitrate Urine Negative (Negative); Protein Urine Neg (Negative); Specific Gravity, Urine 1.005 (1.005-1.030); Urine Appearance Clear (CLEAR); Urine Color Yellow (Yellow); Urobilinogen Urine Norm (Negative); pH Urine 7 (5-7)
== END 2023-12-06 12:56 | disposition home or self-care (01) ==
PROVIDERS: Emergency Provider Family Medicine; PCP Family Medicine
DX: S39.012A Strain of muscle, fascia and tendon of lower back, initial encounter (principal); R10.9 Unspecified abdominal pain; Z72.0 Tobacco use; X50.1XXA Overexertion from prolonged static or awkward postures, initial encounter
CPT/HCPCS: 36415; 74176; 80053; 81003; 82550; 83605; 85025; 96361; 96374; 96375; 99285; J1885; J2270; J2360; J2405; J7030

== ENCOUNTER → 2023-12-20 09:43 | Outpatient (BNVA) | payer MEDICAID, SELFPAY ==
[2023-06-21 10:37] VITALS: BP 125/81; BMI 29.3
== END ==
PROVIDERS: PCP Family Medicine; Visit Provider Anesthesiology Pain Medicine
DX: M47.812 Spondylosis without myelopathy or radiculopathy, cervical region (principal); G40.309 Generalized idiopathic epilepsy and epileptic syndromes, not intractable, without status epilepticus; M54.41 Lumbago with sciatica, right side; S06.9X1D Unspecified intracranial injury with loss of consciousness of 30 minutes or less, subsequent encounter; M48.02 Spinal stenosis, cervical region; X58.XXXD Exposure to other specified factors, subsequent encounter
CPT/HCPCS: 99214

== ENCOUNTER → 2024-01-16 13:03 | Outpatient (BNVA) | payer MEDICAID, SELFPAY ==
[2023-06-21 10:37] VITALS: BP 125/81; BMI 29.3
== END ==
PROVIDERS: PCP Family Medicine; Referring Provider Anesthesiology Pain Medicine; Visit Provider Orthopaedic Surgery
DX: M47.22 Other spondylosis with radiculopathy, cervical region
CPT/HCPCS: 99204

== ENCOUNTER 2024-02-06 06:00 | Outpatient (RCR) | payer MEDICAID, SELFPAY ==
[2023-06-21 10:37] VITALS: BP 125/81; BMI 29.3
== END 2024-02-25 23:59 | disposition home or self-care (01) ==
LOC: TPT 06:00
PROVIDERS: Visit Provider Orthopaedic Surgery
DX: M54.2 Cervicalgia (principal); G89.29 Other chronic pain
CPT/HCPCS: 97110; 97140; 97161

== ENCOUNTER 2024-02-26 06:00 | Outpatient (RCR) | payer MEDICAID, SELFPAY ==
[2023-06-21 10:37] VITALS: BP 125/81; BMI 29.3
== END 2024-03-26 23:59 | disposition home or self-care (01) ==
LOC: TPT 06:00
PROVIDERS: PCP Family Medicine; Visit Provider Orthopaedic Surgery
DX: M54.2 Cervicalgia (principal); G89.29 Other chronic pain
CPT/HCPCS: 97110

== ENCOUNTER → 2024-02-29 13:38 | Outpatient (BNVA) | payer MEDICAID, SELFPAY ==
[2023-06-21 10:37] VITALS: BP 125/81; BMI 29.3
== END ==
PROVIDERS: PCP Family Medicine; Visit Provider Orthopaedic Surgery
DX: M47.22 Other spondylosis with radiculopathy, cervical region
CPT/HCPCS: 99213

== ENCOUNTER 2024-04-16 15:38 | Outpatient (CLI) | payer MEDICAID, SELFPAY ==
[2023-06-21 10:37] VITALS: BP 125/81; BMI 29.3
--- NOTE | 2024-04-16 16:00 | MR_ITS ---
WS: [id number] MRI CERVICAL SPINE NONCONTRAST TECHNIQUE: Sagittal T1, T2 and STIR imaging. Axial T2, gradient, and fiesta imaging. CLINICAL INFORMATION: neck pain COMPARISON: MRI 2021 FINDINGS: Straightening of the normal cervical doses. No high-grade central canal narrowing. Cord signal is nor mal. Slight anterolisthesis C2 on C3 is new from the prior MRI. C2-C3: Moderate facet arthropathy. Mild LEFT and no significant RIGHT foraminal narrowing. Spinal can al is patent. Small mild edema in the LEFT C2-3 facets C3-C4: Mild disc bulging. Mild to moderate facet arthropathy. Spinal canal and foramen are patent. C4-C5: Mild disc bulging. Mild to moderate facet arthropathy. Mild LEFT foraminal narrowing. Spinal c anal is patent. C5-C6: Mild disc bulge with endplate ridging. Mild RIGHT greater than LEFT foraminal narrowing. Spina l canal is patent. C6-C7: Mild disc bulging. Spinal canal is patent. Uncovertebral joint hypertrophy with mild bilateral foraminal narrowing. C7-T1: LEFT eccentric disc osteophyte complex with moderate LEFT and mild RIGHT bony foraminal narrow ing. Spinal canal is patent. Visualized brain stem structures: Normal. Prevertebral soft tissues: Normal. MR/MR cervical spin wo con* [id number] IMPRESSION: 1. Straightening of the normal cervical lordosis. Slight anterolisthesis C2 on C3 appears new compared to previous. 2. Mild edema in the LEFT C2-3 facets likely due to inflammatory or degenerati ve synovitis is new from previous. Moderate facet arthropathy in this location on the recent CT with degenerative changes. This is progressed compared to the prior CT 2021. 3. Moderate LEFT C7-T1 bony foraminal narrowing appears progressed compared to previous 4. Otherwise mild foraminal narrowing described above similar to previous. 5. Mild to moderate facet arthropathy C2-3, C3-C4, and C4-5.
== END 2024-04-16 15:39 | disposition home or self-care (01) ==
LOC: RAD 15:38
PROVIDERS: PCP Family Medicine; Visit Provider Orthopaedic Surgery
DX: M43.12 Spondylolisthesis, cervical region (principal); M47.812 Spondylosis without myelopathy or radiculopathy, cervical region; M48.03 Spinal stenosis, cervicothoracic region; M50.31 Other cervical disc degeneration, high cervical region; M48.02 Spinal stenosis, cervical region; M50.321 Other cervical disc degeneration at C4-C5 level; M50.322 Other cervical disc degeneration at C5-C6 level; M50.323 Other cervical disc degeneration at C6-C7 level; M25.78 Osteophyte, vertebrae
CPT/HCPCS: 72141

== ENCOUNTER 2024-05-07 15:40 | Inpatient (IN) | payer MEDICAID, SELFPAY ==
[2023-06-21 10:37] VITALS: BP 125/81; BMI 29.3
[2024-05-07] VITALS (11 sets, daily range): BP systolic 95–134; BP diastolic 65–86; PULSE 56–72; RESP 12–20; TEMP 36.5–36.6; O2SAT 91–99; BMI 30.4; BMI 27.8
--- NOTE | 2024-05-07 15:50 | XRR_ITS ---
PROCEDURE INFORMATION: Exam: XR Right Tibia and Fibula Exam date and time: 05/07/2024 4:03 PM Age: 44 years old Clinical indication: Injury or trauma; Other: Seizure, blunt trauma; Lower leg; Right TECHNIQUE: Imaging protocol: Radiologic exam of the right tibia and fibula. Views: 2 views. COMPARISON: No relevant prior studies available. FINDINGS: Bones/joints: Normal anatomic alignment. There is no evidence of acutely displaced skeletal fractures. There is no evidence of joint dislocation. No aggressive osseous lesions. Soft tissues: No acute soft tissue findings. XR/XR tibia fibula RT 2V [id number] IMPRESSION: No acute skeletal pathology.
--- NOTE | 2024-05-07 15:50 | XRR_ITS ---
PROCEDURE INFORMATION: Exam: XR Right Ankle Exam date and time: 05/07/2024 4:05 PM Age: 44 years old Clinical indication: Injury or trauma; Other: Seizure, blunt trauma; Ankle; Right TECHNIQUE: Imaging protocol: Radiologic exam of the right ankle. Views: 3 or more views. COMPARISON: CR (LOW EXM, ) 05/07/2024 4:03 PM FINDINGS: Bones/joints: Normal anatomic alignment. There is no evidence of acutely displaced skeletal fractures. There is no evidence of joint dislocation. No aggressive osseous lesions. Soft tissues: No acute soft tissue findings. XR/XR ankle RT min 3V* [id number] IMPRESSION: No acute skeletal pathology.
--- NOTE | 2024-05-07 15:50 | ED_ITS ---
Documented by User: STEPHANIE Brumfield 05/07/24 17:12 HPI - Extremity Injury (Lower) 2 General: Chief Complaint: Extremity Injury, Lower Stated Complaint: Lower leg injury/ seizures Time Seen by Provider: 05/07/24 15:41 Source: patient and EMS Mode of arrival: EMS Limitations: other (drowsy from meds/post-ictal ) History of Present Illness: Patient is a 44-year-old male with a history of TBI and subsequent epilepsy here via EMS for evaluation of a right lower leg injury as well as seizure. EMS is very familiar with patient and states he often times will have seizures with stress/injury. Patient states he was swimming when he got to his right lower extremity hung up on a portion of the pool. He is complaining of pain to the right lower leg and ankle. Thinks maybe he tore his calf muscle/Achilles. EMS states they administered 100 mcg Fentanyl en route. They state after this patient began having a seizure so they administered 2 mg of Versed. Upon arrival patient is drowsy either from medications or postictal state. Patient states he takes Carbamazepine for his seizures. He states he is in between neurologists right now. Med list also has Keppra listed. Looking at previous documentation he does have a history of noncompliance. Looks like he saw PCP back in February who gave him refills of both of these meds. complaint: leg injury and ankle injury Onset (ago): hour(s) Injury: Right: ankle Type of Injury: other (twisting injury) Place: home Severity: moderate Relieving factors: immobilization Exacerbating factors: weight bearing, movement and palpation Associated symptoms: Reports no associated symptoms Other symptoms: seizure Review of Systems 2 Const: Denies: fever(s), chills, body aches, fatigue or malaise Card: Denies: chest pain, palpitations, lightheadedness, syncope or pre- syncope Resp: Denies: dyspnea GI: Denies: abdominal pain, nausea, vomiting or diarrhea Musc: Reports: extremity pain (R lower leg) and joint pain (R ankle); Denies: neck pain, back pain, extremity swelling or joint swelling Skin/Breast: Denies: rash Neuro: Reports: sensory changes (chronic peripheral neuropathy) and seizure- like activity; Denies: headache(s) or dizziness PFS ED 2 PFSH: Medical History Alcohol abuse PTSD (post-traumatic stress disorder) Seizures TBI (traumatic brain injury) Hx of migraine headaches Family History Other CAD (coronary artery disease) Dementia Suicide Social History Smoking and tobacco/nicotine status: current every day tobacco/nicotine user cigarettes Packs smoked per day: 0.5 Years cigarettes smoked: 30 Quit status (tobacco/nicotine): considering quitting Alcohol intake: current Alcohol intake frequency: holidays/special occasions only Alcohol type: beer and hard liquor Substance/Drug Use: never Adopted: No Caregiver/support person: No Lives independently: Yes Household members: none Housing: Apartment Marital status: Number of children: 2 Number of grandchildren: 1 Highest education level completed: GED or Equivalent service: Yes (8 years) status: Discharged branch: [employer] Assignments: Outside [facility] ([facility]) Current occupational status: retired and disabled Current occupational exposures/hazards: No Pets and animals: No Leisure activites: other Leisure activities details: Watch TV Sexually active: No Do you think of yourself as: Straight/Heterosexual Current gender identity: Male Macy/Islam: Zoroastrian Special macy needs: No Agree to transfusion: Yes Physical Exam 2 Const: COMMON NORMALS: average body habitus, alert and well nourished G ENERAL APPEARANCE: cooperative and other (drowsy upon arrival (meds + post ictal state)) ORIENTATION/CONSCIOUSNESS: Yes awake, Yes oriented to person and Yes oriented to place HENMT: COMMON NORMALS: normocephalic and atraumatic HEAD & SCALP: normal to inspection, normocephalic and atraumatic Eye: GENERAL EYE: appearance normal, both eyes and all related structures and normal light reflex DIRECT OPHTHALMOSCOPY: Yes normal light reflex Resp: COMMON NORMALS: normal respiratory effort and clear to auscultation bilaterally AUSCULTATION: clear to auscultation bilaterally Cardio: COMMON NORMALS: regular rate and regular rhythm RATE: regular rate RHYTHM: regular rhythm Back/Pelvis: COMMON NORMALS: thoracic and lumbar spine normal to inspection Extremity: COMMON NORMALS: full ROM, capillary refill normal, no joint enlargement, no clubbing, cyanosis or edema and no pedal edema GENERAL: Yes normal exam except as noted RIGHT LOWER EXTREMITY: Yes lower leg (pain to R calf and ankle; no edema noted) Right lower leg: Yes neurovascular exam (normal) and Yes other (no obvious Achilles rupture) and Yes foot & digits Neuro: ESME COMA SCALE: document GCS findings Esme coma scale eye opening: Spontaneous Esme coma scale verbal response: Orientated [place] coma scale motor response: Obey commands [place] coma scale total score: 15 COMMON NORMALS: CN's II-XII intact bilaterally, moves all extremities, no focal motor deficits and no sensory deficits noted SENSORIUM/ORIENTATION: Yes alert, Yes oriented to person and Yes oriented to place Skin: COMMON NORMALS: no rashes or lesions noted GENERAL SKIN EXAM: no rashes or lesions noted Course 2 ED course: Shortly after initial examination I overhead RN call that patient was having another seizure. He was rolled onto his side. He was maintaining oxygen. Will start him on IV Keppra. Seizure pads being added. Will attempt to avoid further sedation. Reevaluation(s): Reevaluation #1: Alerted of another seizure by RN. He has finished his Keppra. Will order him some Dilantin. We will move him to Room 11. Plan on admission now that he has had three seizures thus far today. His Tegretol level is subtheraputic. He does have a history of non-compliance. Consultations: Consultation #1: Dr. Sutton-accepts admission to ICU Consultation #2: Dr. Morales-will consult on patient Vital Signs: Vital signs: Vital Signs Temperature 97.9 F 05/07/24 19:57 Pulse Rate 68 05/07/24 19:57 Respiratory Rate 15 05/07/24 19:57 Blood Pressure 121/83 05/07/24 19:57 Pulse Oximetry 94 05/07/24 19:57 Oxygen Delivery Me thod Room Air 05/07/24 19:15 Oxygen Flow Rate 3 05/07/24 16:52 MDM - Extremity Injury (Lower) Medical Decision Making Patient is a 44-year-old male with history of TBI/epilepsy here following a right lower extremity injury. His x-rays are negative. Patient did have a seizure en route by EMS. He has had 2 additional seizures here in our emergency department. He has been given 2 mg of Versed, 1 g of Keppra as well as 1 g of Dilantin. Patient will be admitted to the hospital. Dr. Jolley aware of patient and will also consult on him prior to admission. Lab Data 05/07/24 16:15 05/07/24 16:15 Radiology Impressions Ankle X-Ray 05/07/24 15:50 IMPRESSION: No acute skeletal pathology. Tibia/Fibula X-Ray 05/07/24 15:50 IMPRESSION: No acute skeletal pathology. Chest X-Ray 05/07/24 16:49 IMPRESSION: No acute findings. Head CT 05/07/24 16:49 IMPRESSION: No acute intracranial abnormality. Laboratory Results WBC 10.34 10^3/uL (3.29-11.43) 05/07/24 16:15 RBC 4.86 10^6/uL (3.85-5.65) 05/07/24 16:15 Hgb 15.50 g/dL (11.27-16.99) 05/07/24 16:15 Hct 44.3 % (37-53) 05/07/24 16:15 MCV 91.2 fl (82-101) 05/07/24 16:15 MCH 31.9 pg (27-33) 05/07/24 16:15 MCHC 35.0 g/dL (30-55) 05/07/24 16:15 RDW 11.9 % (12.1-15.1) L 05/07/24 16:15 Plt Count 373 10^3/cmm (157-399) 05/07/24 16:15 MPV 9.6 fL (7.4-10.4) 05/07/24 16:15 Neut % (Auto) 66.2 % 05/07/24 16:15 Lymph % (Auto) 18.2 % 05/07/24 16:15 Bowie % (Auto) 11.2 % 05/07/24 16:15 Eos % (Auto) 2.1 % 05/07/24 16:15 Baso % (Auto) 1.0 % 05/07/24 16:15 Neut # (Auto) 6.85 10^3/uL (1.8-7.7) 05/07/24 16:15 Lymph # (Auto) 1.9 10^3/uL (0.8-4.8) 05/07/24 16:15 Bowie # (Auto) 1.2 10^3/uL (0.2-0.9) H 05/07/24 16:15 Eos # (Auto) 0.2 10^3/uL (0.0-0.8) 05/07/24 16:15 Baso # (Auto) 0.1 10^3/uL (0.0-0.1) 05/07/24 16:15 Nucleated RBC % (auto) 0 % 05/07/24 16:15 Nucleated RBCs # 0.0 /100WBC 05/07/24 16:15 Sodium 138 mmol/L (136-145) 05/07/24 16:15 Potassium 3.9 mmol/L (3.5-5.1) 05/07/24 16:15 Chloride 103 mmol/L (98-107) 05/07/24 16:15 Carbon Dioxide 25 mmol/L (22-29) 05/07/24 16:15 Anion Gap 13.9 (5-19) 05/07/24 16:15 BUN 8 mg/dL (6-20) 05/07/24 16:15 Creatinine 0.7 mg/dL (0.7-1.2) 05/07/24 16:15 GFR Calculation 121.4 mL/min (90-130) 05/07/24 16:15 Glucose 99 mg/dL (65-115) 05/07/24 16:15 Calculated Osmolality 284 mOsm/kg (285-295) L 05/07/24 16:15 Lactic Acid 1.1 mmol/L (0.5-2.2) 05/07/24 16:15 Calcium 8.8 mg/dL (8.5-10.5) 05/07/24 16:15 Total Bilirubin 0.2 mg/dL (0.15-1.2) 05/07/24 16:15 AST 16 U/L (0-40) 05/07/24 16:15 ALT 16 U/L (0-41) 05/07/24 16:15 Alkaline Phosphatase 95 U/L (40-130) 05/07/24 16:15 Creatine Kinase 99 U/L (39-308) 05/07/24 17:32 Total Protein 6.6 g/dL (6.6-8.7) 05/07/24 16:15 Albumin 4.1 g/dL (3.5-5.2) 05/07/24 16:15 Globulin 2.5 g/dL (1.3-4.6) 05/07/24 16:15 Procalcitonin 0.04 ng/mL (0-0.5) 05/07/24 17:32 Salicylates < 0.3 mg/dL (3-10) L 05/07/24 17:40 Acetaminophen < 5.0 ug/mL (10-30) L 05/07/24 17:40 Carbamazepine < 2.0 ug/mL (4.0-12.0) L 05/07/24 16:15 Ethyl Alcohol < 10 mg/dL (0-10) 05/07/24 17:40 Discharge Plan Discharge Patient Disposition: Admitted As Inpatient Admit Provider: Gerardo Kamara Clinical Impression: TBI (traumatic brain injury), Seizures, Injury of leg, right Condition: Stable Coding Level of Care Code ED [employer] [facility] Documented by User: Rukhsana Jolley MD 05/07/24 20:47 HPI - Extremity Injury (Lower) 2 General: Chief Complaint: Extremity Injury, Lower Stated Complaint: Lower leg injury/ seizures Time Seen by Provider: 05/07/24 15:41 [facility] ED 2 PFSH: Medical History Alcohol abuse PTSD (post-traumatic stress disorder) Seizures TBI (traumatic brain injury) Hx of migraine headaches Family History Other CAD (coronary artery disease) Dementia Suicide Social History Smoking and tobacco/nicotine status: current every day tobacco/nicotine user cigarettes Packs smoked per day: 0.5 Years cigarettes smoked: 30 Quit status (tobacco/nicotine): considering quitting Alcohol intake: current Alcohol intake frequency: holidays/special occasions only Alcohol type: beer and hard liquor Substance/Drug Use: never Adopted: No Caregiver/support person: No Lives independently: Yes Household members: none Housing: Apartment Marital status: Number of children: 2 Number of grandchildren: 1 Highest education level completed: GED or Equivalent service: Yes (8 years) status: Discharged branch: [employer] Assignments: Outside [facility] ([employer]) Current occupational status: retired and disabled Current occupational exposures/hazards: No Pets and animals: No Leisure activites: other Leisure activities details: Watch TV Sexually active: No Do you think of yourself as: Straight/Heterosexual Current gender identity: Male Macy/Islam: Zoroastrian Special macy needs: No Agree to transfusion: Yes Physical Exam 2 Neuro: ESME COMA SCALE: document GCS findings [place] coma scale total score: 15 Course 2 Vital Signs: Vital signs: Vital Signs Temperature 97.9 F 05/07/24 19:57 Pulse Rate 68 05/07/24 19:57 Respiratory Rate 15 05/07/24 19:57 Blood Pressure 121/83 05/07/24 19:57 Pulse Oximetry 94 05/07/24 19:57 Oxygen Delivery Me thod Room Air 05/07/24 19:15 Oxygen Flow Rate 3 05/07/24 16:52 MDM - Extremity Injury (Lower) Medical Decision Making Patient is a 44-year-old male with history of TBI/epilepsy here following a right lower extremity injury. His x-rays are negative. Patient did have a seizure en route by EMS. He has had 2 additional seizures here in our emergency department. He has been given 2 mg of Versed, 1 g of Keppra as well as 1 g of Dilantin. Patient will be admitted to the hospital. Dr. Jolley aware of patient and will also consult on him prior to admission. I saw patient with above midlevel agree with her history and plan. He did have 1 seizure here after she had left and I treated him with Ativan he has not had any more seizure-like activity he is being admitted to the ICU at this time Lab Data 05/07/24 16:15 05/07/24 16:15 Radiology Impressions Ankle X-Ray 05/07/24 15:50 IMPRESSION: No acute skeletal pathology. Tibia/Fibula X-Ray 05/07/24 15:50 IMPRESSION: No acute skeletal pathology. Chest X-Ray 05/07/24 16:49 IMPRESSION: No acute findings. Head CT 05/07/24 16:49 IMPRESSION: No acute intracranial abnormality. Laboratory Results WBC 10.34 10^3/uL (3.29-11.43) 05/07/24 16:15 RBC 4.86 10^6/uL (3.85-5.65) 05/07/24 16:15 Hgb 15.50 g/dL (11.27-16.99) 05/07/24 16:15 Hct 44.3 % (37-53) 05/07/24 16:15 MCV 91.2 fl (82-101) 05/07/24 16:15 MCH 31.9 pg (27-33) 05/07/24 16:15 MCHC 35.0 g/dL (30-55) 05/07/24 16:15 RDW 11.9 % (12.1-15.1) L 05/07/24 16:15 Plt Count 373 10^3/cmm (157-399) 05/07/24 16:15 MPV 9.6 fL (7.4-10.4) 05/07/24 16:15 Neut % (Auto) 66.2 % 05/07/24 16:15 Lymph % (Auto) 18.2 % 05/07/24 16:15 Bowie % (Auto) 11.2 % 05/07/24 16:15 Eos % (Auto) 2.1 % 05/07/24 16:15 Baso % (Auto) 1.0 % 05/07/24 16:15 Neut # (Auto) 6.85 10^3/uL (1.8-7.7) 05/07/24 16:15 Lymph # (Auto) 1.9 10^3/uL (0.8-4.8) 05/07/24 16:15 Bowie # (Auto) 1.2 10^3/uL (0.2-0.9) H 05/07/24 16:15 Eos # (Auto) 0.2 10^3/uL (0.0-0.8) 05/07/24 16:15 Baso # (Auto) 0.1 10^3/uL (0.0-0.1) 05/07/24 16:15 Nucleated RBC % (auto) 0 % 05/07/24 16:15 Nucleated RBCs # 0.0 /100WBC 05/07/24 16:15 Sodium 138 mmol/L (136-145) 05/07/24 16:15 Potassium 3.9 mmol/L (3.5-5.1) 05/07/24 16:15 Chloride 103 mmol/L (98-107) 05/07/24 16:15 Carbon Dioxide 25 mmol/L (22-29) 05/07/24 16:15 Anion Gap 13.9 (5-19) 05/07/24 16:15 BUN 8 mg/dL (6-20) 05/07/24 16:15 Creatinine 0.7 mg/dL (0.7-1.2) 05/07/24 16:15 GFR Calculation 121.4 mL/min (90-130) 05/07/24 16:15 Glucose 99 mg/dL (65-115) 05/07/24 16:15 Calculated Osmolality 284 mOsm/kg (285-295) L 05/07/24 16:15 Lactic Acid 1.1 mmol/L (0.5-2.2) 05/07/24 16:15 Calcium 8.8 mg/dL (8.5-10.5) 05/07/24 16:15 Total Bilirubin 0.2 mg/dL (0.15-1.2) 05/07/24 16:15 AST 16 U/L (0-40) 05/07/24 16:15 ALT 16 U/L (0-41) 05/07/24 16:15 Alkaline Phosphatase 95 U/L (40-130) 05/07/24 16:15 Creatine Kinase 99 U/L (39-308) 05/07/24 17:32 Total Protein 6.6 g/dL (6.6-8.7) 05/07/24 16:15 Albumin 4.1 g/dL (3.5-5.2) 05/07/24 16:15 Globulin 2.5 g/dL (1.3-4.6) 05/07/24 16:15 Procalcitonin 0.04 ng/mL (0-0.5) 05/07/24 17:32 Salicylates < 0.3 mg/dL (3-10) L 05/07/24 17:40 Acetaminophen < 5.0 ug/mL (10-30) L 05/07/24 17:40 Carbamazepine < 2.0 ug/mL (4.0-12.0) L 05/07/24 16:15 Ethyl Alcohol < 10 mg/dL (0-10) 05/07/24 17:40 All radiology interpretation(s) finalized by discharge Critical Care Time 2 Critical Care Time: Critical Care Time: Yes Total Critical Care Time: 45 Attestation: The high probability of a clinically significant, sudden or life threatening deterioration of the patient's neuro system(s) required my full and direct attention, intervention and personal management. The critical care time is as shown. This time is in addition to time spent performing any reported procedures but includes the following: [x] Data and vital sign review and interpretation [x] Patient assessment, examination and intervention [x] Documentation [x] Medication orders and management Discharge Plan Discharge Patient Disposition: Admitted As Inpatient Admit Provider: Gerardo Kamara Clinical Impression: TBI (traumatic brain injury), Seizures, Injury of leg, right Condition: Stable Coding Level of Care Code ED [employer] [facility]
[2024-05-07] MEDS: levETIRAcetam 1,000 MG/100 ML PREMIX 400 MG IV (16:00)
--- NOTE | 2024-05-07 16:12 | PC.NURSE ---
SEIZURE PADS PLACED ON PT SIDE RAILS DUE TO PT EPISODE OF SEIZURE, WITNESSED BY THIS NURSE AND STEPHANIE ST.
[2024-05-07] MEDS: sodium chloride 0.9% 1,000 ML 999 ML IV (16:19)
[2024-05-07 16:26] LABS: Basophils # 0.1 10^3/uL (0.0-0.1); Eosinophils # 0.2 10^3/uL (0.0-0.8); Eosinophils % 2.1 %; Hematocrit 44.3 % (37-53); Lymphocytes # 1.9 10^3/uL (0.8-4.8); Lymphocytes % 18.2 %; Mean Corpuscular Hemoglobin 31.9 pg (27-33); Mean Corpuscular Volume 91.2 fl (82-101); Mean Platelet Volume 9.6 fL (7.4-10.4); Monocytes # 1.2 10^3/uL (0.2-0.9); Monocytes % 11.2 %; Neutrophils # 6.85 10^3/uL (1.8-7.7); Neutrophils % 66.2 %; Nucleated Red Blood Cells % 0 %; Platelet Count 373 10^3/cmm (157-399); Red Blood Count 4.86 10^6/uL (3.85-5.65); Red Cell Distribution Width 11.9 % (12.1-15.1); White Blood Count 10.34 10^3/uL (3.29-11.43)
--- NOTE | 2024-05-07 16:49 | CTR_ITS ---
PROCEDURE INFORMATION: Exam: CT Head Without Contrast Exam date and time: 05/07/2024 4:57 PM Age: 44 years old Clinical indication: Other: Seizures TECHNIQUE: Imaging protocol: Computed tomography of the head without contrast. Radiation optimization: All CT scans at this facility use at least one of these dose optimization techniques: automated exposure control; mA and/or kV adjustment per patient size (includes targeted exams where dose is matched to clinical indication); or iterative reconstruction. COMPARISON: CT head wo con* [id number] 10/04/2023 6:16 PM RADIATION DOSE METRICS: Total DLP (mGy-cm): 1054.04 FINDINGS: Brain: Normal. No hemorrhage. Unremarkable white matter. No mass effect or acute infarct. Cerebral ventricles: No ventriculomegaly. No midline shift. Paranasal sinuses: Visualized sinuses are unremarkable. No fluid levels. Mastoid air cells: Visualized mastoid air cells are well aerated. Bones: Unremarkable. No acute fracture. Soft tissues: Unremarkable. CT/CT head wo con* [id number] IMPRESSION: No acute intracranial abnormality.
--- NOTE | 2024-05-07 16:49 | XRR_ITS ---
PROCEDURE INFORMATION: Exam: XR Chest Exam date and time: 05/07/2024 4:51 PM Age: 44 years old Clinical indication: Other: Seizures TECHNIQUE: Imaging protocol: Radiologic exam of the chest. Views: 1 view. COMPARISON: CT chest abdpel w/*[id number] 08/19/2023 5:06 PM FINDINGS: Lungs: Unremarkable. No consolidation or mass. Pleural spaces: Unremarkable. No pleural effusion. No pneumothorax. Heart/Mediastinum: Unremarkable. No cardiomegaly. Bones/joints: Unremarkable. XR/XR chest 1V portable [id number] IMPRESSION: No acute findings.
[2024-05-07 16:53] LABS: Carbamazepine Tegretol < 2.0 ug/mL (4.0-12.0)
[2024-05-07 17:00] LABS: Alanine Aminotransferase 16 U/L (0-41); Albumin Level 4.1 g/dL (3.5-5.2); Alkaline Phosphatase 95 U/L (40-130); Anion Gap 13.9 (5-19); Aspartate Amino Transferase 16 U/L (0-40); Blood Urea Nitrogen 8 mg/dL (6-20); Calcium 8.8 mg/dL (8.5-10.5); Carbon Dioxide 25 mmol/L (22-29); Chloride 103 mmol/L (98-107); Creatinine Clr Calc Pharmacy 126.1435; Globulin 2.5 g/dL (1.3-4.6); Glomerular Filtration Rate 121.4 mL/min (90-130); Glucose 99 mg/dL (65-115); Osmolality Calculated 284 mOsm/kg (285-295); Potassium 3.9 mmol/L (3.5-5.1); Sodium 138 mmol/L (136-145); Total Bilirubin 0.2 mg/dL (0.15-1.2); Total Protein 6.6 g/dL (6.6-8.7)
[2024-05-07] MEDS: phenytoin 1,000 MG in sodium chloride 0.9% (100 ml) 100 ML, non-DEHP filter tubing onc ... 270 MG IV (17:03)
[2024-05-07] MEDS: LORazepam 2 mg/mL INJ 10 mL MDV 1 MG IVP ×2 (17:16)
--- NOTE | 2024-05-07 17:18 | P.HP_ITS ---
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 On route, he had seizure for which he was given 2 of Ativan. While in ER he had one more episode seizure for which he was given ativan and keppra load. He was loaded for phenytoin. In all, he had 4 episode of seizures out of which 2 episodes after phenytoin. Patient has had seizure prior to examination for which she had received further 2 g of IV Ativan. On examination patient was drowsy but awake and maintaining his airway with saturation of more than 92% on room air. Patient was able to follow directions. Review of Systems 2 General: Reports: ROS unobtainable due to mental status Medications/Allergies Home Medications Medication Instructions Recorded Confirmed Last Taken Type diclofenac sodium 75 mg 75 mg PO Q12H PRN pain #20 tabs 12/06/23 05/08/24 Unknown Rx tablet,delayed release prednisone 20 mg tablet 20 mg PO TID #15 tabs 12/06/23 05/08/24 Unknown Rx tizanidine 4 mg tablet 4 mg PO Q6H PRN muscle spasticity 12/06/23 05/08/24 Unknown Rx #20 tabs carbamazepine 400 mg 400 mg PO BID #60 tabs 03/14/24 05/08/24 Unknown Rx tablet,extended release,12 hr levetiracetam 500 mg tablet 500 mg PO BID #60 tabs 03/14/24 05/08/24 Unknown Rx mirtazapine 45 mg tablet 45 mg PO BEDTIME 30 days #30 tabs 03/14/24 05/08/24 Unknown Rx prazosin 2 mg capsule 4 mg (2 x 2 mg) PO BEDTIME 30 days 03/14/24 05/08/24 Unknown Rx #60 caps Allergies Allergy/AdvReac Type Severity Reaction Status Date / Time latex Allergy Severe body rash Verified 03/14/24 13:38 onion Allergy Severe air Verified 03/14/24 13:38 passage swells. Iodinated Contrast Media Allergy ALGY-Rash Verified 03/14/24 13:38 Penicillins Allergy ALGY-Rash Verified 03/14/24 13:38 PFSH Acute 2 PFSH: Medical History Alcohol abuse PTSD (post-traumatic stress disorder) Seizures TBI (traumatic brain injury) Hx of migraine headaches Family History Other CAD (coronary artery disease) Dementia Suicide Social History Smoking and tobacco/nicotine status: current every day tobacco/nicotine user cigarettes Packs smoked per day: 0.5 Years cigarettes smoked: 30 Quit status (tobacco/nicotine): considering quitting Alcohol intake: current Alcohol intake frequency: holidays/special occasions only Alcohol type: beer and hard liquor Substance/Drug Use: never Adopted: No Caregiver/support person: No Lives independently: Yes Household members: none Housing: Apartment Marital status: Number of children: 2 Number of grandchildren: 1 Highest education level completed: GED or Equivalent service: Yes (8 years) status: Discharged branch: [employer] Assignments: Outside [facility] ([employer]) Current occupational status: retired and disabled Current occupational exposures/hazards: No Pets and animals: No Leisure activites: other Leisure activities details: Watch TV Sexually active: No Do you think of yourself as: Straight/Heterosexual Current gender identity: Male Macy/Sikhism: Taoist Special macy needs: No Agree to transfusion: Yes Vitals/I&O/Wt Last Vital Signs Temp 97.9 F 05/07/24 15:42 Pulse 60 05/07/24 16:52 Resp 19 H 05/07/24 16:52 BP 131/86 05/07/24 16:52 Pulse Ox 99 05/07/24 16:52 O2 Del Method Nasal Cannula 05/07/24 16:52 O2 Flow Rate 3 05/07/24 16:52 05/07/24 05/07/24 05/07/24 06:59 14:59 22:59 Intake Total 100 / 100 Balance 100 / 100 Weight last 48 hrs Weight 80.286 kg Physical Exam 2 Narrative: General: No acute distress, AO x 2-3, drowsy, postictal HEENT: PERRLA, pupils bilaterally equal and reactive Chest: Normal vesicular breath sounds, no added sounds, equal good air entry bilaterally CVS: S1-S2 regular, no murmurs, no tachycardia, no gallops, no rubs Abdomen: Soft, nontender, no organomegaly, bowel sounds present Neuro: No focal deficits, no facial deformity, AO x3, power 5/5 in all limbs Data 05/08/24 04:31 05/08/24 04:31 A&P Assessment and plan (1) Seizures: History of noncompliance. Keppra levels pending, carbamazepine level low. Seizure precaution, fall precaution, aspiration precaution. Patient has already received a loading dose of Keppra and phenytoin while in the ER. Care discussed in detail with neurology on-call. Plan to start on Keppra 500 mg every 6 hour IV, fosphenytoin 100 mg every 8 hour with plan to check phenytoin level in a.m. EEG in AM. 2 mg IV Ativan every 4 hours as needed for breakthrough seizure. Low threshold to intubate. Monitor electrolytes, keep NPO. Check alcohol level, urine drug screen, salicylate, Tylenol levels. (2) TBI (traumatic brain injury): Qualifiers: Encounter type: subsequent encounter Loss of consciousness presence/duration: with LOC of 30 min or less Qualified Code(s): S06.9X1D - Unspecified intracranial injury with loss of consciousness of 30 minutes or less, subsequent encounter (3) Noncompliance: (4) PTSD (post-traumatic stress disorder): Plan Restart home medications when patient is more awake and able to take oral medications. Normal saline with 20 minutes of potassium at 50 cc/h. Full code N.p.o. Protonix OPD prophylaxis Heparin 5000 every 12 hourly for DVT prophylaxis Attestations 2 Medical Necessity Statement*: Admission for more than 2 midnights for management of breakthrough seizures in a patient with history of seizure disorder secondary to traumatic brain injury, noncompliance. Admit to ICU Critical Care Time: The high probability of a clinically significant, sudden or life threatening deterioration of the patient's [neurological] system(s) required my full and direct attention, intervention and personal management. The critical care time is as shown. This time is in addition to time spent performing any reported procedures but includes the following: [x] Data and vital sign review and interpretation [x] Patient assessment, examination and intervention [x] Documentation [x] Medication orders and management Critical Care Time (min): 70 Coding Level of Care Code Critical Care >/= 30 minutes Critical care time (in minutes): 70 The high probability of a clinically significant, sudden or life threatening deterioration, as referenced in this documentation, required my full and direct attention, intervention and personal management. The critical care time shown is in addition to time spent performing any reported separately billable procedures and includes the following: [x] Data and vital sign review and interpretation [x ] Patient assessment, examination and intervention [x] Medication orders and management [x] Patient/Family updates as able [x] Care Coordination and Documentation. Diagnoses Seizures R56.9 Traumatic brain injury, with loss of consciousness of 30 minutes or less, subsequent encounter S06.9X1D Encounter type: subsequent encounter Loss of consciousness presence/duration: with LOC of 30 min or less Noncompliance Z91.199 PTSD (post-traumatic stress disorder) F43.10
[2024-05-07 17:34] LABS: Lactic Sepsis W/Reflex 1.1 mmol/L (0.5-2.2)
[2024-05-07] MEDS: LORazepam 2 mg/mL INJ 10 mL MDV (17:38)
[2024-05-07] MEDS: levETIRAcetam 500 MG/100 ML PREMIX 400 MG IV (18:16)
[2024-05-07 18:33] LABS: Creatine Phosphokinase 99 U/L (39-308)
[2024-05-07 18:38] LABS: Procalcitonin 0.04 ng/mL (0-0.5)
[2024-05-07] MEDS: phenytoin 100 MG in sodium chloride 0.9% 20 ML, non-DEHP filter tubing onc 1 EACH 104 MG IV (18:40)
[2024-05-07] MEDS: sodium chlor 0.9% + KCl 20 mEq 20 MEQ/1,000 ML BAG 50 MEQ IV (19:13)
--- NOTE | 2024-05-07 19:15 | PC.NURSE ---
CALLED FOR PATIENT REPORT [id number] TO GIVE REPORT. TOLD NURSE WOULD CALL BACK. CALLED AT 1840, NURSE WAS ON [facility].
[2024-05-07 19:25] LABS: Amphetamines Screen Urine Negative (Negative); Barbiturates Screen Urine Positive (Negative); Benzodiazepines Screen Urine Positive (Negative); Cocaine Screen Urine Negative (Negative); Opiate Screen Urine Negative (Negative); PCP Screen Urine Negative (Negative); THC Screen Urine Positive (Negative)
[2024-05-07 19:45] LABS: Acetaminophen < 5.0 ug/mL (10-30); Alcohol Level < 10 mg/dL (0-10); Salicylate < 0.3 mg/dL (3-10)
[2024-05-07] MEDS: LORazepam 2 mg/mL INJ 10 mL MDV IVP (20:25)
--- NOTE | 2024-05-07 20:45 | PC.NURSE ---
Patient arrived from er, confused, unstable on feet at transfer from stretcher to bed. Patient voiced concerns over brown bag, not with patient upon arrival to Icu room. ER staff to check for bag and return to patient if in er. Staff not aware of bag with him upon er arrival. After settling patient in room, he woke from snoring respirations to attempt climbing out of bed. Staff support him as unstable/ confused/ risk of self harm. Patient looking for bag. Verbally aggressive to staff I've been trained to snap necks . Leave me alone! Security to bed side. Patient confused agitated. Ativan prn given. Patient did vomit large amount light brown liquid prior to Ativan iv being given. Resting at this time.
[2024-05-08] VITALS (37 sets, daily range): BP systolic 83–133; BP diastolic 49–89; PULSE 48–81; RESP 12–24; TEMP 35.8–36.8; O2SAT 92–98
[2024-05-08] MEDS: levETIRAcetam 500 MG/100 ML PREMIX 400 MG IV ×4 (00:45→21:02)
[2024-05-08] MEDS: LORazepam 2 mg/mL INJ 10 mL MDV IVP (02:20)
[2024-05-08] MEDS: haloperidol inj 5 mg/mL INJ 1 mL IM ×2 (02:32→02:43)
[2024-05-08] MEDS: dexmedeTOMIDine 0.9 % NaCL 400 MCG/100 ML PREMIX 1.80000000000000004 MCG (02:40)
--- NOTE | 2024-05-08 02:41 | W.PM.EVENTAC ---
Event Note Event Note: At ~ 2:30 am, patient was awake, disoriented. He had taken off his clothes and attempted to walk out of the ICU. He was able to state his name, stated he is going home, but had no plan on how to get there, was unable to state where he is trying to go. Then stated he is claustrophobic and wants to step outside to smoke 2 cigarettes, smell the roses and blow out some birthday candles . As he attempted to get out of bed, he was unable to hold his weight and needed to be caught by the nursing staff standing at bedside to avoid a fall and injury. He then proceeded to kick staff members who were helping him back into bed. He is verbally abusive and physically aggressive. He exhibited no insight with regards to his actions, could not explain rationale for his behavior. I do believe patient is still post ictal, confused and disoriented, therefore not safe to leave the hospital AMA at this point. He lacks capacity to make decisions at this time. HE had just received Ativan 2 mg for agitation prior to this assessment , additionally ordered for Haldol 5mg im and Precedex gtt for combative behavior, risk of injury to self and staff. Soft restraints ordered. 96 hr hold order placed. Nicotine patch applied.
--- NOTE | 2024-05-08 03:00 | PC.NURSE ---
Precedex drip increased to 0.4 mcg/kg / min due to extreme agitation, threatening staff, attempting to remove lines and restraints per md instructions. Patient confused, tearing leads off / pulling clothes off, thought he was in [place] and my kids are in danger .
--- NOTE | 2024-05-08 03:33 | PC.NURSE ---
96 [facility] Pt served with copy of 96 [facility] by this RN and security x 2. Pt drowsy and falling asleep during reading of rights. Copy laid at bedside.
[2024-05-08] MEDS: phenytoin 100 MG in sodium chloride 0.9% 20 ML, non-DEHP filter tubing onc 1 EACH IV (03:41)
[2024-05-08 03:46] LABS: Add Urine Microscopic? NO; Charge for UA Resulting for Rev
[2024-05-08 03:54] LABS: Bilirubin Urine Neg (Negative); Blood Urine Neg (Negative); Glucose Urine UA Norm (Normal); Ketones Urine Negative (Negative); Leukocyte Esterase Urine Negative (Negative); Nitrate Urine Negative (Negative); Protein Urine Neg (Negative); Specific Gravity, Urine 1.005 (1.005-1.030); Sulfosalicylic Acid Urine Negative (Negative); Urine Appearance Clear (CLEAR); Urine Color Yellow (Yellow); Urobilinogen Urine Norm (Negative); pH Urine 8 (5-7)
[2024-05-08 04:20] LABS: Iron 98 ug/dL (59-158); Thyroid Stimulating Hormone 0.87 uIU/mL (0.27-4.20)
[2024-05-08] MEDS: ondansetron 2 mg/ML SDV 2 mL 4 MG IVP (04:20)
--- NOTE | 2024-05-08 04:35 | PC.NURSE ---
Patient was trying to get out of bed. Nathalie RN and Sherwin RN were trying to stabilize the patient so that the patient would not fall. They were able to get the patrient back in bed successfully but then the patient became verbally and physically aggressive. chemical plant operator supervisor, security and Dr. Christensen were called. Code 10 was also called overhead. Manual four point restraint was applied by this nurse, security personnel and other nursing staff to prevent the patient from causing harm to themselves and to staff at 0230. Patient was able to be transitioned to 2 point soft wrist restraints at 0245. Dr. Christensen ordered haldol and precedex drip to be given to the patient. Patient calmed down and was able to relax.
[2024-05-08 04:44] LABS: Basophils # 0.1 10^3/uL (0.0-0.1); Basophils % 0.5 %; Eosinophils # 0.3 10^3/uL (0.0-0.8); Eosinophils % 1.9 %; Hematocrit 45.3 % (37-53); Lymphocytes % 20.1 %; Mean Corpuscular HGB Conc 34.2 g/dL (30-55); Mean Corpuscular Hemoglobin 32.3 pg (27-33); Mean Corpuscular Volume 94.4 fl (82-101); Mean Platelet Volume 9.6 fL (7.4-10.4); Monocytes # 1.6 10^3/uL (0.2-0.9); Monocytes % 10.8 %; Neutrophils # 9.81 10^3/uL (1.8-7.7); Neutrophils % 65.6 %; Nucleated Red Blood Cells % 0 %; Platelet Count 365 10^3/cmm (157-399); White Blood Count 14.99 10^3/uL (3.29-11.43)
[2024-05-08 04:59] LABS: Estmated Average Glucose 111; Hemoglobin A1C 5.5 % (4.0-6.0)
[2024-05-08 05:06] LABS: Alanine Aminotransferase 17 U/L (0-41); Albumin Level 3.9 g/dL (3.5-5.2); Alkaline Phosphatase 96 U/L (40-130); Anion Gap 14.1 (5-19); Aspartate Amino Transferase 22 U/L (0-40); Blood Urea Nitrogen 8 mg/dL (6-20); Calcium 8.8 mg/dL (8.5-10.5); Carbon Dioxide 25 mmol/L (22-29); Chloride 105 mmol/L (98-107); Creatinine Clr Calc Pharmacy 121.0675; Globulin 2.7 g/dL (1.3-4.6); Glomerular Filtration Rate 121.4 mL/min (90-130); Glucose 135 mg/dL (65-115); Magnesium 2.1 mg/dL (1.7-2.3); Osmolality Calculated 290 mOsm/kg (285-295); Potassium 4.1 mmol/L (3.5-5.1); Sodium 140 mmol/L (136-145); Total Bilirubin 0.4 mg/dL (0.15-1.2); Total Protein 6.6 g/dL (6.6-8.7)
[2024-05-08 05:11] LABS: Cholesterol 230 mg/dL (0-200); HDL Cholesterol 46 mg/dL (60-100); LDL Cholesterol Calculated 145 mg/dL (50-129); LDL HDL Ratio 3.15 RATIO (0.00-3.22); Triglycerides 195 mg/dL (0-150)
[2024-05-08 05:23] LABS: Vitamin B12 380 pg/mL (232-1245)
[2024-05-08 05:25] LABS: Folate Level 6.4 ng/mL (4.5-32.2)
[2024-05-08 05:32] LABS: Percent Saturation 27.8 % (20-50); Total Iron Binding Capacity 352 mcg/dl; Unsaturated Iron Binding 254 ug/dL (112-347)
--- NOTE | 2024-05-08 07:54 | PC.PHAR ---
PT UNABLE TO VERIFY MEDICATIONS-PHARMACY DOES NOT OPEN UNTIL 9AM. VERIFIED FROM PT LIST WITH FILL DATES ON CURRENT MEDICATIONS.
--- NOTE | 2024-05-08 08:03 | XRR_ITS ---
PROCEDURE INFORMATION: Exam: XR Chest Exam date and time: 05/08/2024 8:28 AM Age: 44 years old Clinical indication: Other: Hypoxia; Additional info: Hypoxia, possible pna TECHNIQUE: Imaging protocol: Radiologic exam of the chest. Views: 1 view. COMPARISON: CR (CHEST, ) 05/07/2024 4:51 PM FINDINGS: Lungs: Unremarkable. No consolidation. Pleural spaces: Unremarkable. No pleural effusion. No pneumothorax. Heart/Mediastinum: Unremarkable. No cardiomegaly. Bones/joints: Unremarkable. XR/XR chest 1V portable [id number] IMPRESSION: No acute findings.
--- NOTE | 2024-05-08 08:04 | PM.CONSULT ---
Providers/Reason For Consult Consulting Physician/Specialty*: Dariel Morales MD neurology and epilepsy Reason for Consult*: Intractable epilepsy with recurrent seizures requiring IV anticonvulsants and admission to the intensive care unit bed #11 Attending Physician: Gerardo Kamara MD Primary Care Provider: Cristina Salamanca MD History of Present Illness History of Present Illness Bernabe Kumar is a 44 year old male with a reported history of traumatic brain injury and intractable epilepsy epilepsy treated by Dr. Bentley. Patient treated with Keppra and Tegretol but has reported history of noncompliance. Patient also has a history of alcohol abuse. According to the ER physician, the patient was swimming in a pool and was witnessed to experience a seizure. He was brought to the hospital by EMS. He was reported to have 3 seizures in the emergency room patient was started on IV Keppra load as well as IV Dilantin load but had another seizure and therefore was admitted to the intensive care unit. I spoke with the admitting physician and recommended IV Keppra 500 mg every 6 hours and IV fosphenytoin 100 mg IV every 8 hours with trough Dilantin level and Keppra level on 05/08/2024 at 10 AM and continue Ativan 1 mg IV every 6 hours as needed seizures. Patient was scheduled to have surface EEG recording on 05/08/2024 and continued on seizure precautions per state law. No reported seizures during the night. I recommended starting the patient on thiamine 200 mg IV now then 100 mg IV every day since patient has reported history of alcohol abuse. Drug allergies: Latex which resulted in a body rash Onion which resulted in air passage swelling IV contrast medium which resulted in a rash Penicillin which resulted in a rash Outpatient medications: Keppra 500 mg p.o. twice daily for seizures/epilepsy Tegretol ER 400 mg p.o. twice daily for seizures/epilepsy Mirtazapine 45 mg p.o. daily Prazosine 4 mg p.o. nightly Prednisone 20 mg p.o. 3 times daily Zanaflex 4 mg p.o. every 6 hours as needed Diclofenac 75 mg p.o. every 12 hours as needed for pain Past medical history: Traumatic brain injury followed by seizures Intractable epilepsy Alcohol abuse Cervical spondylosis Posttraumatic stress disorder Hyperlipidemia Low back pain Migraine headaches Past anticonvulsant: medications unknown Habits: Unknown Family history: Unknown Review of Systems General: Reports: ROS unobtainable due to medical condition Medications/Allergies Home Medications Medication Instructions Recorded Confirmed Last Taken Type diclofenac sodium 75 mg 75 mg PO Q12H PRN pain #20 tabs 12/06/23 05/08/24 Unknown Rx tablet,delayed release prednisone 20 mg tablet 20 mg PO TID #15 tabs 12/06/23 05/08/24 Unknown Rx tizanidine 4 mg tablet 4 mg PO Q6H PRN muscle spasticity 12/06/23 05/08/24 Unknown Rx #20 tabs carbamazepine 400 mg 400 mg PO BID #60 tabs 03/14/24 05/08/24 Unknown Rx tablet,extended release,12 hr levetiracetam 500 mg tablet 500 mg PO BID #60 tabs 03/14/24 05/08/24 Unknown Rx mirtazapine 45 mg tablet 45 mg PO BEDTIME 30 days #30 tabs 03/14/24 05/08/24 Unknown Rx prazosin 2 mg capsule 4 mg (2 x 2 mg) PO BEDTIME 30 days 03/14/24 05/08/24 Unknown Rx #60 caps Allergies Allergy/AdvReac Type Severity Reaction Status Date / Time latex Allergy Severe body rash Verified 03/14/24 13:38 onion Allergy Severe air Verified 03/14/24 13:38 passage swells. Iodinated Contrast Media Allergy ALGY-Rash Verified 03/14/24 13:38 Penicillins Allergy ALGY-Rash Verified 03/14/24 13:38 Current Medications Generic Name Dose Route Start Last Admin Trade Name Freq PRN Reason Stop Dose Admin Potassium Chloride/Sodium Chloride 20 meq in 1,000 mls @ 50 mls/hr 05/07/24 17:17 05/07/24 19:13 Sodium Chlor 0.9% + Kcl 20 Meq IV 50 mls/hr .Q20H HANNA Administration Levetiracetam 500 mg in 100 mls @ 400 mls/hr 05/07/24 17:45 05/08/24 06:01 Keppra IV Infused Q6H HANNA Infusion Phenytoin 100 mg/ Sodium 22 mls @ 104 mls/hr 05/07/24 18:00 05/08/24 03:55 Chloride/ IV Miscellaneous IV Infused Supplies Q8H HANNA Infusion Lorazepam 2 mg 05/07/24 17:45 05/08/24 02:20 Lorazepam 2 Mg/Ml Inj 10 Ml Mdv IVP 2 mg Q4H PRN Administration SEIZURES Mirtazapine 45 mg 05/07/24 21:00 05/07/24 22:59 Mirtazapine 15 Mg Tablet PO Not Given BEDTIME HANNA Ondansetron HCl 4 mg 05/07/24 20:41 05/08/24 04:20 Ondansetron 2 Mg/Ml Sdv 2 Ml IVP 4 mg Q6H PRN Administration vomiting, or N/V if npo Prazosin HCl 4 mg 05/07/24 21:00 05/07/24 22:59 Prazosin 1 Mg Capsule PO Not Given BEDTIME HANNA PFSH Acute PFSH: Medical History Alcohol abuse PTSD (post-traumatic stress disorder) Seizures TBI (traumatic brain injury) Hx of migraine headaches Family History Other CAD (coronary artery disease) Dementia Suicide Social History Smoking and tobacco/nicotine status: current every day tobacco/nicotine user cigarettes Packs smoked per day: 0.5 Years cigarettes smoked: 30 Quit status (tobacco/nicotine): considering quitting Alcohol intake: current Alcohol intake frequency: holidays/special occasions only Alcohol type: beer and hard liquor Substance/Drug Use: never Adopted: No Caregiver/support person: No Lives independently: Yes Household members: none Housing: Apartment Marital status: Number of children: 2 Number of grandchildren: 1 Highest education level completed: GED or Equivalent service: Yes (8 years) status: Discharged branch: [employer] Assignments: Outside [facility] ([employer]) Current occupational status: retired and disabled Current occupational exposures/hazards: No Pets and animals: No Leisure activites: other Leisure activities details: Watch TV Sexually active: No Do you think of yourself as: Straight/Heterosexual Current gender identity: Male Macy/Uatsdin: Jainism Special macy needs: No Agree to transfusion: Yes Vitals/I&O/Wt Last Vital Signs Temp 97.6 F 05/08/24 03:00 Pulse 60 05/08/24 07:00 Resp 14 05/08/24 07:00 BP 104/65 05/08/24 07:00 Pulse Ox 92 05/08/24 07:00 O2 Del Method Nasal Cannula 05/08/24 03:00 O2 Flow Rate 2 05/08/24 03:00 05/07/24 05/08/24 05/08/24 22:59 06:59 14:59 Intake Total 1342 / 1342 235.144 / 1577.144 Output Total 0 / 0 Balance 1342 / 1342 235.144 / 1577.144 Weight last 48 hrs Weight 162 lb Weight 162 lb Weight 177 lb Physical Exam Narrative: Patient was reported to be given medications for sedation during the night. He is resting in no apparent distress. hemodialysis technician is at the bedside. Pupils 4 mm reactive to light. Motor testing revealed no obvious focal weakness. Patient in soft restraints. He revealed no obvious signs of trauma. Deep tendon reflex revealed plantar responses bilaterally. Throat clear. Lungs clear. Heart regular rhythm and rate. Extremities were negative for cyanosis. During the attempted EEG hookup this morning the patient became combative and agitated and refused to have the electrodes placed. Therefore EEG study was discontinued/canceled. Data 05/08/24 04:31 05/08/24 04:31 Micro: Microbiology 05/07/24 19:05 Legionella Urinary Antigen - Final Unknown Source 05/07/24 17:32 Blood Culture - Preliminary Blood SPECIMEN COLLECTED 05/07/24 17:32 Blood Culture - Preliminary Blood SPECIMEN COLLECTED A&P Assessment and plan (1) Intractable epilepsy: Impression: 1. History of traumatic brain injury and intractable epilepsy admitted with recurrent seizures on 05/07/2024 2. History of alcohol abuse 3. History of posttraumatic stress disorder Plan: 1. Continue current treatment 2. Recommend starting thiamine 200 mg IV x 1 dose then 1 mg IV thereafter until patient is able to take oral thiamine 100 mg since patient has documented history of alcohol abuse 3. Continue seizure precautions per state law 4. Recommend obtaining trough Dilantin level at 10 AM on 05/08/2024 and adjust Dilantin as needed/tolerated 5. Have patient follow-up with Dr. Bentley on discharge Consult Attestations Medical Necessity Statement: The patient was evaluated by neurology for recurrent seizures. Coding Level of Care Code Acute Code for [facility] Fwd Diagnoses Intractable epilepsy G40.919
[2024-05-08 08:52] LABS: Phenytoin Dilantin 14.6 ug/mL (10-20)
[2024-05-08] MEDS: heparin 5,000 unit/mL INJ 1 mL 5000 UNIT SUBCUT ×2 (09:50→18:24)
[2024-05-08] MEDS: nicotine 14 mg Patch 1 PATCH TRANSDERMA (09:55)
[2024-05-08] MEDS: mirtazapine 15 mg Tablet 45 MG PO ×2 (10:00→21:03)
--- NOTE | 2024-05-08 10:00 | PC.NURSE ---
Pt awakened stating he was cold. More blankets provided. He stated he did not need to use restroom when asked. He agreed to take his morning Pills. lso applied the Nicotine patch. Snoring respirations restarted. Heparin sub Qadmin , pt did not even flinch, twitch, or mumble.
--- NOTE | 2024-05-08 10:30 | PC.NURSE ---
Pt started to get up out of bed. Stated he needed to pee. He was not following safety directions. Offered pt urinal. Placed it next to his body, pt then became aggressive and belligerent, yelling about it being cold. This nurse apologized. Offered to help him to restroom while, he is actively pulling at restraints. He was very agitated and getting aggressive refused to listen to staff. Staff trying to reassure him and calm him. He stated the next one that touches him I am going to knock out. Code 10 called. Pt pulled off restraints and 2 IVs. He stated he did not care he was bleeding all over the place and asked staff if they wanted some while slinging his left arm around splattering his blood around. Staff attempted to redirect and reassure. Pt up to bathroom to urinate. Dr Charles, Lupe Lang, risk management and Other Nurses present. Pt agreed to cooperating with staying until this evening, getting a meal and taking his seizure meds as per Dariana Michel. Pt back in the bed., snoring respirations noted.
[2024-05-08] MEDS: prazosin 1 mg Capsule 4 MG PO ×2 (10:43→21:02)
[2024-05-08] MEDS: phenytoin 100 MG in sodium chloride 0.9% 20 ML, non-DEHP filter tubing onc 1 EACH 104 MG IV ×2 (10:46→18:25)
[2024-05-08 12:22] LABS: Phenytoin Dilantin 11.5 ug/mL (10-20)
--- NOTE | 2024-05-08 13:17 | PC.NURSE ---
Received order for Haldol earlier this shift, Dr. Kamara was able to verbally de-escalate the situation and patient. Haldol wasted witnessed by Dr. Kamara and Lucy SHAIKH
--- NOTE | 2024-05-08 13:19 | PC.NURSE ---
Angela wasted with Brinda SHAIKH
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
[2024-05-08] MEDS: haloperidol inj 5 mg/mL INJ 1 mL 2 MG IM (17:55)
[2024-05-08] MEDS: LORazepam 2 mg/mL INJ 1 mL (18:00)
[2024-05-08] MEDS: sodium chlor 0.9% + KCl 20 mEq 20 MEQ/1,000 ML BAG 50 MEQ IV (18:26)
[2024-05-08] MEDS: dexmedeTOMIDine 0.9 % NaCL 400 MCG/100 ML PREMIX 1.73999999999999999 MCG IV (18:55)
--- NOTE | 2024-05-08 19:31 | PC.NURSE ---
1734: Pt up out of bed to restroom. Pt very unsteady. Pt then to chiar while staff remade his bed. Dinner offered. Pt stated he was nt going to eat reprocessed foods. Explained that mince and moist diet ordered because of his seizure activity , if he could eat a little and his swallowing was good, this nurse could call the Dr and see if we could change it. Pt started yelling i told you I was not going to eat this. Call the Dr as a matter of fact I will call the Dr. My Mom is the head of the committee She will fix you. More staff arrived, attempts tp verbally deescalate not successful. Pt stated I will take you all out. Go ahead and try me. ' 1744: Code 10 called overhead. Security, superintendent warehouse, risk management and others arrived. Pt spewing insults at staff. told this nurse to shut her mouth or he would do it for her. Hope, lump room supervisor told him we are just trying to help him. Not to talk to us like that. We are just here to help. e told her to shut her mouth also. Pt walking towards this nurse and Hope while puffing out his chest and gesture. Pt told to stop and please take a step back. Pt refused. Pt ripped out his remaining IV on the left. blood pouring down his arm. This nurse left room to call Dr Zeng and notified of incident. Orders for Haldol 2 mg IM received. While this nurse was on phone more yelling from room and pt then physically restrained by staff on floor. Overheard pt threatening Security with getting his blood all over Olvin, security. I Hope you get it. I hope your gets it Pt spewing profanities and threats. Haldol admin in left ventro gluteus. Pt became quite. Seizure activity noted. Eyes closed, Whole body twitching briefly. Some foamy spittle noted at his mouth. Pt assisted/ lifted to bed. Seizure lasted less than [address] Michel notified [facility] telephone. Orders for Ativan given. Monitoring back on, vital signs stable. Medical restraints applied. 2 new IVs started. Ativan admin. 1809: Pt lifted his head off pillow and said he was sorry. I had an acute episode Will continue to monitor. Dr Michel called back, update given, new orders received and started.
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
[2024-05-09] VITALS (18 sets, daily range): BP systolic 90–135; BP diastolic 55–105; PULSE 58–90; RESP 5–20; TEMP 36.3–36.7; O2SAT 92–98
[2024-05-09] MEDS: phenytoin 100 MG in sodium chloride 0.9% 20 ML, non-DEHP filter tubing onc 1 EACH 104 MG IV ×2 (01:23→11:12)
[2024-05-09] MEDS: morphine 4 mg/mL SDV 1 mL 2 MG IVP (02:22)
[2024-05-09 05:43] LABS: Basophils % 0.4 %; Eosinophils # 0.2 10^3/uL (0.0-0.8); Eosinophils % 2.1 %; Hematocrit 44.4 % (37-53); Lymphocytes # 2.7 10^3/uL (0.8-4.8); Lymphocytes % 25.9 %; Mean Corpuscular HGB Conc 34.2 g/dL (30-55); Mean Corpuscular Hemoglobin 32.1 pg (27-33); Mean Corpuscular Volume 93.7 fl (82-101); Mean Platelet Volume 9.7 fL (7.4-10.4); Monocytes # 1.1 10^3/uL (0.2-0.9); Monocytes % 10.6 %; Neutrophils # 6.33 10^3/uL (1.8-7.7); Neutrophils % 59.9 %; Nucleated Red Blood Cells % 0 %; Platelet Count 368 10^3/cmm (157-399); Red Blood Count 4.74 10^6/uL (3.85-5.65); Red Cell Distribution Width 11.9 % (12.1-15.1); White Blood Count 10.56 10^3/uL (3.29-11.43)
[2024-05-09 06:08] LABS: Alanine Aminotransferase 20 U/L (0-41); Albumin Level 3.5 g/dL (3.5-5.2); Alkaline Phosphatase 102 U/L (40-130); Anion Gap 13.9 (5-19); Aspartate Amino Transferase 22 U/L (0-40); Blood Urea Nitrogen 6 mg/dL (6-20); Calcium 8.4 mg/dL (8.5-10.5); Carbon Dioxide 25 mmol/L (22-29); Chloride 107 mmol/L (98-107); Creatinine Clr Calc Pharmacy 117.3448; Globulin 2.5 g/dL (1.3-4.6); Glomerular Filtration Rate 121.4 mL/min (90-130); Glucose 93 mg/dL (65-115); Osmolality Calculated 291 mOsm/kg (285-295); Potassium 3.9 mmol/L (3.5-5.1); Sodium 142 mmol/L (136-145); Total Bilirubin 0.4 mg/dL (0.15-1.2)
--- NOTE | 2024-05-09 08:05 | PC.NURSE ---
Pt forcefully stated he did not want his mother , Bernie Ayala to have any information what so ever.
--- NOTE | 2024-05-09 09:12 | PC.NURSE ---
0835: Pt alert and oriented. Pt is calm at this time. Breakfast served. He then requested his glasses. His backpack retrieved from Doctor's dictation glasses retrieved from side pocket. Pt seen his backpack. He stated he wanted his belongings in his room right here by him. Explained that that could to happen, due to the 96 hour hold, if he could stay calm he might be able to be discharged today. Pt escalated his yelling. Sarmad Ashraf and karol Green at bedside. NEEL Ayala on her phone notified Dr Michel. Pt started targeting her with his rude mocking comments : 'On social media , look at me . 0842: Pt continues to escalate his behavior. Code 10 called. Pt threatening I am going to hurt everyone of you. Unable to redirect pt. Pt reared up out of bed and started grabbing for his lines. security Sarmad, restrained his arms. Many people showed up for CODE 10, included but not limited to: IVANA, MILK COLLECTOR, Jake MILK COLLECTOR, Peter later Sarmad roberson Justin Brown : both , Nita Watson, public affairs manager, Isis Arriaza and Isaura Staley, NEEL form [employer], RD Jeremias. Pt physically restrained in ICU bed, Restraint bed brought into ICU room, pt transferred to restraint bed. 4 point restraints ensued. Pt doing breathing exercised to try to calm down. Dr Michel via telephone gave orders for Haldol if needed. Pt to stay in restraints until after Dr Beyer sees him. Per RD only Security to release restraints. 0905: Pt apologetic to staff 0910: Pt calm and cooperative. Wrist Restraints released for pt to eat breakfast. Then reapplied. Pt almost Euphoric , giggling and conversing with security Caruso.
--- NOTE | 2024-05-09 09:28 | PC.NURSE ---
One hour face to face completed by this RN at 0850 after patient was placed in restraints in ICU. Provider was notified.
[2024-05-09] MEDS: levETIRAcetam 500 mg Tablet 1000 MG PO ×2 (09:37→18:30)
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
[2024-05-09 09:50] LABS: Levetiracetam Immunoassy 18.1 mcg/mL (6.0-46.0)
--- NOTE | 2024-05-09 11:17 | P.PN_ITS ---
Subjective 2 Subjective: Yesterday in the evening patient had 1 more episode of agitation when Melodie was called and he was placed back on Precedex drip. Overnight he has remained on Precedex drip at 0.1. Today morning when Precedex drip was turned off he became agitated again requiring another code and call with patient threatening the security staff. Patient was eventually placed in 4-point restraints. On examination patient is calm, no agitation. Is apologetic for his behavior. Denies any nausea, vomiting, headache. Able to swallow safely by mouth. No episodes of seizure since last night. Vitals/I&O/Wt Last Vital Signs Temp 98.1 F 05/09/24 00:00 Pulse 64 05/09/24 10:00 Resp 20 H 05/09/24 10:00 BP 134/83 05/09/24 10:00 Pulse Ox 97 05/09/24 10:00 O2 Del Method Room Air 05/09/24 08:00 O2 Flow Rate 2 05/08/24 03:00 05/08/24 05/09/24 05/09/24 22:59 06:59 14:59 Intake Total 1137.833 / 1365.715 142 / 1507.715 621.315 / 621.315 Balance 1137.833 / 1365.715 142 / 1507.715 621.315 / 621.315 Weight last 48 hrs Weight 68.492 kg Weight 68.492 kg Weight 69.49 kg Weight 73.482 kg Weight 73.482 kg Weight 80.286 kg Physical Exam 2 Narrative: General: No acute distress, AO x 3, and 4 point restraints, calm HEENT: PERRLA, pupils bilaterally equal and reactive Chest: Normal vesicular breath sounds, no added sounds, equal good air entry bilaterally CVS: S1-S2 regular, no murmurs, no tachycardia, no gallops, no rubs Abdomen: Soft, nontender, no organomegaly, bowel sounds present Neuro: No focal deficits, no facial deformity, AO x3, power 5/5 in all limbs Data 05/09/24 05:20 05/09/24 05:20 Micro: Microbiology 05/07/24 17:32 Blood Culture - Preliminary Blood NEGATIVE TO DATE 05/07/24 17:32 Blood Culture - Preliminary Blood NEGATIVE TO DATE 05/07/24 19:05 Bacterial Antigens - Final Urine Kidney A&P Assessment and plan (1) Seizures: History of noncompliance. Keppra levels pending, carbamazepine level low. Seizure precaution, fall precaution, aspiration precaution. Awake and alert currently. Discussed in detail with neurology. Appreciate their recommendations. Switch Keppra to 1000 mg twice daily, Dilantin 100 mg 3 times daily. Plan to discharge on extended release Keppra 2000 mg daily and Dilantin 300 mg extended release nightly. Advance diet to mechanical soft. (2) TBI (traumatic brain injury): Qualifiers: Encounter type: subsequent encounter Loss of consciousness presence/duration: with LOC of 30 min or less Qualified Code(s): S06.9X1D - Unspecified intracranial injury with loss of consciousness of 30 minutes or less, subsequent encounter (3) Noncompliance: (4) PTSD (post-traumatic stress disorder): Continue with home dose of mirtazapine, prazosin. With episodes of psychosis during hospitalization requiring multiple episodes of code 10. Currently in 4-point restraints for agitation. Currently on 96-hour hold. Continue with sitter. Will consult psych to see if patient needs to be transferred to Neuropsych Unit. If needed patient is medically safe to be transferred to Neuropsych Unit on oral antiseizure medication as above. (5) Agitated: As above. Plan Restart home medications when patient is more awake and able to take oral medications. Blood exposure to security staff by patient during agitation. Check hepatitis panel, HIV. Full code Mechanical soft diet Protonix OPD prophylaxis Heparin 5000 every 12 hourly for DVT prophylaxis Attestations 2 Medical Necessity Statement*: Requires further hospitalization for management of agitation and episodes of psychosis in a patient who has baseline PTSD he was initially admitted for seizure disorder Diagnoses Seizures R56.9 Traumatic brain injury, with loss of consciousness of 30 minutes or less, subsequent encounter S06.9X1D Encounter type: subsequent encounter Loss of consciousness presence/duration: with LOC of 30 min or less Noncompliance Z91.199 PTSD (post-traumatic stress disorder) F43.10 Agitated R45.1
[2024-05-09 11:27] LABS: Hepatitis B Surface Antigen Non-Reactive (Nonreactive); Hepatitis C Virus Antibody Non-Reactive (Nonreactive)
[2024-05-09 11:40] LABS: HIV 1 & 2 Antibody Non-Reactive (Non-Reactiv); HIV 1 & 2 Antigen Non-Reactive (Non-Reactiv)
--- NOTE | 2024-05-09 12:15 | PC.NURSE ---
Report called to NPU for room 170. Report given to NEEL Delarosa. Pt transferred to NPU via W/C with security and house calls nurse practitioner.
--- NOTE | 2024-05-09 12:25 | PC.NURSE ---
Pt's mother called to check on him, wanted to know when he was being discharged so she could provide a ride. She was informed that the 96 hour hold was still in effect and he would not be discharged today. She was also informed of NPU visiting hours of [phone]. ( She was provided this information as she visited pt yesterday and had planned to be his ride home) She verbalized understanding. She requested further information on his condition, She was informed that she could visit him from [phone] and pt stated this am she was to have no further information.
--- NOTE | 2024-05-09 13:15 | PC.NURSE ---
THIS NURSE SPOKE WITH DR. CASTILLO AND HE GAVE TELEPHONE ORDERS TO CHANGE VITALS TO NPU'S PROTOCOL INSTEAD OF Q30 MINUTES AND TO DISCONTINUE ASSESSING THE NEUROLOGICAL STATUS. ORDERS UPDATED.
[2024-05-09] MEDS: ziprasidone 20 mg/mL SDV IM (13:37)
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
[2024-05-09] MEDS: phenytoin ER 100 mg Capsule PO ×2 (15:30→21:05)
[2024-05-09] MEDS: prazosin 1 mg Capsule 4 MG PO (21:05)
[2024-05-10] VITALS: RESP 17
--- NOTE | 2024-05-10 00:09 | PC.NURSE ---
PHYSICIAN NOTIFIED AND OKAYED TO NOT WAKE PT UP FOR MIDNIGHT Q4HR VITALS DUE TO PT FINALLY RESTING. RESPIRATIONS WERE OBTAINED AT 17 WHEN THIS EXTERIOR DESIGNER WAS IN ROOM CHECKING ON PT.
[2024-05-10 03:52] VITALS: BP 136/79; PULSE 109; RESP 17; O2SAT 97
--- NOTE | 2024-05-10 07:40 | P.NPUPN_ITS ---
Subjective NPU 2 Subjective: Patient presented today reporting that he is doing okay. He continues to have significant volatility and was seemingly activated and agitated by some other patients with significant impulse control issues. We continue to discuss the need for him to be able to exercise self-control and he continues to believe that he is controlling himself and that we are reading it wrong. He denies any side effects of the medication and continues to be focused on discharge. Mental Status Exam 2 MSE Comments: This is a well-nourished well-developed male who is in a hospital gown with limited grooming and limited eye contact. He is lying in a restraint bed with lots of agitated talk per staff reports and direct observation. No abnormal movements except extreme psychomotor agitation. Mostly uncooperative with exam in mild to extreme distress depending on the moment. Speech was between normal and increased rate and volume. Mood described as frustrated, affect congruent. Thought process somewhat organized. Thought content: Patient denied suicidal or homicidal ideation but made threats to staff regularly through the interview. There were no delusions reported but concerns for paranoia and persecutory thinking exists, he denied auditory or visual hallucinations. Patient exhibits anger and frustration, but denies having issues with controlling his anger. He acknowledges having PTSD and experiences flashbacks and nightmares. He denies experiencing depression, anxiety, or paranoia. He does not report hearing voices or seeing things others can't see. Attention and concentration were limited versus impaired and memory appears somewhat reliable but none were formally tested. He is alert and oriented times person and place. Insight, judgment and impulse control are impaired. Vitals/I&O/Wt Last Vital Signs Temp 97.9 F 05/09/24 20:00 Pulse 109 H 05/10/24 03:52 Resp 17 05/10/24 03:52 BP 136/79 05/10/24 03:52 Pulse Ox 97 05/10/24 03:52 O2 Del Method Room Air 05/10/24 03:52 O2 Flow Rate 2 05/08/24 03:00 Weight last 48 hrs Weight 68.492 kg Weight 68.492 kg Weight 69.49 kg Data NPU 05/10/24 07:32 05/10/24 07:32 A&P Assessment and plan (1) PTSD (post-traumatic stress disorder): (2) Alcohol abuse: (3) Agitated: (4) Noncompliance: (5) TBI (traumatic brain injury): Qualifiers: Encounter type: subsequent encounter Loss of consciousness presence/duration: with LOC of 30 min or less Qualified Code(s): S06.9X1D - Unspecified intracranial injury with loss of consciousness of 30 minutes or less, subsequent encounter (6) Hx of migraine headaches: (7) Generalized epilepsy: (8) Focal epilepsy: Plan This is a 44-year-old white male who is known to the system through medical as well as psychiatric outpatient services who presents with reported baseline TBI and some self-control issues admitted for evaluation of a somatic medical concern and placed on a 96-hour hold but unwilling to negotiate discontinued aggressive behaviors. Patient is currently on hold and in restraints due to aggressive and threatening behavior. He has a history of PTSD and is currently experiencing significant stress related to his children's situation with Child Protective Services. He is resistant to the idea of being admitted to the psych unit. Plan 1. Continue current medication. May consider changes. 2. Admitted to the neuropsychiatric unit from ICU. 3. Encourage individual, group and milieu therapies. 4. Encourage sober living treatment after discharge at the highest level care to which he is willing to commit. 5. Will appreciate continued hospitalist involvement given his very proximate seizure activity. 6. Will consider discharge once he has demonstrated ability to not lose his temper so easily. Involuntary Hold Information 2 96 Hour Hold: 96 Hour Involuntary Admission: Yes 96 Hour Hold Ending Date: 05/14/24 96 Hour Hold Ending Time: 02:30 Attestations NPU 2 Medical Necessity Statement*: Inpatient hospitalization is medically necessary and the clinically appropriate intervention at this time. We will monitor medications and make changes as indicated. Likely length of stay 2-4 days. Coding Level of Care Code Acute Code for [facility] Fwd Diagnoses PTSD (post-traumatic stress disorder) F43.10 Alcohol abuse F10.10 Agitated R45.1 Noncompliance Z91.199 Traumatic brain injury, with loss of consciousness of 30 minutes or less, subsequent encounter S06.9X1D Encounter type: subsequent encounter Loss of consciousness presence/duration: with LOC of 30 min or less Hx of migraine headaches Z86.69 Generalized epilepsy G40.309 Focal epilepsy G40.109
[2024-05-10 08:00] VITALS: BP 127/72; PULSE 84; RESP 17; TEMP 36.5; O2SAT 97
[2024-05-10 08:05] LABS: Basophils # 0.1 10^3/uL (0.0-0.1); Basophils % 0.6 %; Eosinophils # 0.2 10^3/uL (0.0-0.8); Eosinophils % 2.2 %; Lymphocytes # 3.4 10^3/uL (0.8-4.8); Mean Corpuscular HGB Conc 34.5 g/dL (30-55); Mean Corpuscular Volume 92.9 fl (82-101); Neutrophils # 6.25 10^3/uL (1.8-7.7); Neutrophils % 56.5 %; Nucleated Red Blood Cells % 0 %; Platelet Count 407 10^3/cmm (157-399); Red Blood Count 5.06 10^6/uL (3.85-5.65); Red Cell Distribution Width 11.9 % (12.1-15.1); White Blood Count 11.06 10^3/uL (3.29-11.43)
[2024-05-10 08:26] LABS: Alanine Aminotransferase 19 U/L (0-41); Albumin Level 4.1 g/dL (3.5-5.2); Alkaline Phosphatase 117 U/L (40-130); Aspartate Amino Transferase 25 U/L (0-40); Blood Urea Nitrogen 8 mg/dL (6-20); Carbon Dioxide 23 mmol/L (22-29); Chloride 103 mmol/L (98-107); Creatinine Clr Calc Pharmacy 91.2682; Glomerular Filtration Rate 90.8 mL/min (90-130); Glucose 105 mg/dL (65-115); Osmolality Calculated 287 mOsm/kg (285-295); Sodium 139 mmol/L (136-145); Total Bilirubin 0.3 mg/dL (0.15-1.2); Total Protein 7.1 g/dL (6.6-8.7)
[2024-05-10] MEDS: levETIRAcetam 500 mg Tablet 1000 MG PO ×2 (08:26→18:00)
[2024-05-10] MEDS: acetaminophen 325 mg Tablet 650 MG PO ×2 (08:27→17:00)
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
[2024-05-10 12:00] VITALS: BP 127/80; PULSE 71; RESP 17; TEMP 36.8; O2SAT 93
--- NOTE | 2024-05-10 12:13 | PC.NURSE ---
PT STATES I TOOK A BITE OF ONION AND NOW I NEED AN EPI PEN. PT HAS BEEN YELLING AND SCREAMING FOR 10 MINUTES ABOUT HAVING AN ALLERGIC REACTION WHICH THIS RN AND NO OTHER STAFF HAVE OBSERVED ANY SIGNS OR SYMPTOMS OF ALLERGIC REACTIONS AT THIS TIME. STAFF CALLED KITCHEN TO ASK IF THERE WERE ONIONS IN THE HUSH PUPPYS, STAFF CONFIRMED THERE ARE. PT DID STATE I NEVER SWALLOWED IT, THANK GOD. THIS RN NOTIFIED DR. BETTENCOURT OF POTENTIAL ALLERGIC REACTION DUE TO PT EATING A HUSHPUPPY OFF THAT GIRLS TRAY. NEW ORDERS RECEIVED FOR BENADRYL 50 MG IM NOW. PT DID ALLOW RN TO GIVE BENADRYL 50 MG IM TO LEFT DELTOID. PT THEN CAME TO NURSES STATION YELLING STATING I NEED TO GO SMOKE. PT WAS REDIRECTED AND OFFERED A NICOTINE PATCH OR NICOTINE ELDON. PT DECLINED BOTH. PT STILL HAS NOT EXHIBITED ANY SIGNS OR SYMPTOMS OF ALLERGIC REACTION. SUPPORT VOICED.
[2024-05-10] MEDS: diphenhydrAMINE 50 mg/mL SDV 1mL IM ×2 (12:21→20:05)
--- NOTE | 2024-05-10 12:46 | PC.NURSE ---
PT BECAME IRRITATED BECAUSE OF A MISSING PICTURE. THIS NURSE WENT TO HELP PT LOOK FOR IT IN HIS ROOM. PT STATED I DIDN'T MOVE IT. THIS NURSE COULD NOT LOCATE SAID PICTURE WAS HANGING ON THE WALL. THERE WAS A PICTURE HANGING ON THE WALL BUT THIS NURSE ASSUMED THERE WAS SUPPOSED TO BE A DIFFERENT PHOTO. ONCE PT NOTICED THE PICTURE HE STATED DID I MOVE THIS WITHOUT KNOWING IT BRO? SPEAKING TO HIS ROOMMATE. PT ROOMMATE SHOOK HIS HEAD KNOW. PT THEN BECAME HIGHLY AGITATED, SPEECH BECAME PRESSURED, AND PT WAS PACING ROOM FRANTICALLY. PT THEN STATED SOMEONE IS IN OUR ROOM, AND IF I CATCH THE PERSON IT IS GOING TO GET PHYSICAL. THIS NURSE AND OTHER STAFF ATTEMPTED TO CALM PT VERBAL DEESCALATION WAS INEFFECTIVE. PT BEGAN CALMING BACK DOWN ONCE STAFF WAS ABLE TO STEP AWAY.
[2024-05-10 13:28] VITALS: BP 127/80; PULSE 71; RESP 16; TEMP 36.8; O2SAT 93
[2024-05-10] MEDS: phenytoin ER 100 mg Capsule PO (14:09)
--- NOTE | 2024-05-10 16:20 | PC.NURSE ---
SENIOR ADMINISTRATOR SUPPORT CAME AND ALERTED THIS RN WHILE IN ANOTHER ROOM WITH ANOTHER PT DOING AN ADMISSION THAT PT WAS IN THE FLOOR DROOLING ON HIMSELF. RN RESPONDED IMMEDIATELY AND OBSERVED PT SITTING IN FLOOR BY DOOR, PT IS OBSERVED SLUMPED OVER WITH DROOL COMING OUT OF LEFT SIDE OF MOUTH. PT WOULD NOT RESPOND TO VERBAL STIMULI. VITALS OBTAINED AND ARE FOLLOWS: 148/90, HR 66, TEMP 9.7, RR 16 AND SPOZ 98%. PULSE OX AND HR MONITOR LEFT ON PT TO VISUALIZE HR AND O2 SATURATIONS. O2 SATS DID NOT FALL BELOW 97% ON RA AND HR DID NOT INCREASE OVER 68. AT 1624 STAFF ASSISTED PT TO WHEELCHAIR AND PT WAS ASSISTED TO BED. NURSE TECH STAYED WITH PT UNTIL PT AROUSED. VITALS WERE TAKEN AT 1645 AND WERE FOLLOWS: 108/61, HR 60, RR 18, SPO2 98% ON RA AND TEMP 98.6. RN CALLED DR. TURNER AND REPORTED UNRESPONSIVENESS, VITALS AND THE ABOVE SITUATION. NO NEW ORDERS WERE RECEIVED AT THAT TIME. DR. BETTENCOURT WAS NOTIFIED VIA PHONE AT 1650 AN NO NEW ORDERS WERE OBTAINED BY HIM. PT DID AROUSE AND WAS EXTREMELY AGITATED FOR SEVERAL MINUTES YELLING AT THIS RN CALLING RN DEANN, ALISON AND MAKING THREATS TO THE RN STATING I'M GOING TO BURY YOU FUCKING BITCH, YOU DON'T KNOW WHAT A FUCKING SEIZURE IS, I HEARD EVERYTHING YOU SAID WHEN I HAD MY SEIZURE. PT DID EVENTUALLY CALM AND AT APPROXIMATE 1730 PT WAS APOLOGIZING TO RN ASKING FOR FORGIVENESS. RN INFORMED PT THAT HE DOES NOT NEED TO APOLOGIZE THAT WE WILL GET THROUGH ALL OF THIS TOGETHER. PT CONTINUES TO EXHIBIT POOR IMPULSE CONTROL, IS INTRUSIVE WITH STAFF. SUPPORT WAS VOICED.
--- NOTE | 2024-05-10 16:20 | PC.NURSE ---
STORE SALES LEADER CAME AND ALERTED RN WHILE IN ANOTHER ROOM DOING AN ADMISSION THAT PT WAS IN THE FLOOR DROOLING. RN RESPONDED IMMEDIATELY AND OBSERVED PT SITTING IN FLOOR BY
--- NOTE | 2024-05-10 18:10 | PC.NURSE ---
UP AT NURSES STATION ATTEMPTING TO CARRY A MATTRESS FROM 150-1 TO 151-1. STAFF IMMEDIATELY UP TO ASSIST PT AND REDIRECT HIM TO PUT THE MATTRESS DOWN. PT WAS EDUCATED THAT THE FACILITY HAVE STAFF TO CLEAN ROOMS AND WE DO NOT NEED HELP. PT LAUGHED AND FINISHED PICKING UP THE MATTRESS AND MOVED HIS DIRTY BED INTO ROOM 151-1.
--- NOTE | 2024-05-10 18:10 | PC.NURSE ---
PAIN ASSESSMENT COMPLETED. PT HAS NO S/S OF PAIN AT THIS TIME AND IS WALKING UP AND DOWN HERNANDEZ WITHOUT DIFFICULTY WHILE LAUGHING.
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
[2024-05-10 20:00] VITALS: BP 141/91; PULSE 87; RESP 18; O2SAT 96
[2024-05-10] MEDS: LORazepam 2 mg/mL INJ 1 mL 1 MG IM (20:05)
[2024-05-10] MEDS: haloperidol inj 5 mg/mL INJ 1 mL 2 MG IM (20:05)
[2024-05-10] MEDS: prazosin 1 mg Capsule 4 MG PO (20:22)
[2024-05-10] MEDS: mirtazapine 15 mg Tablet 45 MG PO (20:23)
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
[2024-05-11] VITALS: RESP 15
--- NOTE | 2024-05-11 00:18 | PC.NURSE ---
Patient behavior Around 1930 pt started escalating and began hitting verduzco and throwing walker. Nurse Nuvia called Dr Saenz and put in medication order-see note. After verbal deescalation, patient agreed to take the medications given by this nurse at 2004-see JAN. Patient requested both injections in the same arm. Pt tolerated well and was observed laughing shortly after.
--- NOTE | 2024-05-11 00:44 | PC.NURSE ---
fish bin tender stated did not want pt woke up for Q4 vitals at 0000. Respiration Rate 15.
[2024-05-11 03:50] VITALS: BP 122/80; PULSE 77; RESP 18; O2SAT 96
[2024-05-11 08:00] VITALS: BP 137/78; PULSE 60; RESP 20; TEMP 36.5; O2SAT 98
[2024-05-11] MEDS: phenytoin ER 100 mg Capsule PO ×2 (08:21→14:29)
[2024-05-11] MEDS: levETIRAcetam 500 mg Tablet 1000 MG PO (08:21)
[2024-05-11] MEDS: acetaminophen 325 mg Tablet 650 MG PO (10:31)
[2024-05-11 12:00] VITALS: BP 104/62; PULSE 59; RESP 20; TEMP 36.6; O2SAT 96
--- NOTE | 2024-05-11 12:12 | PC.NURSE ---
Addendum entered and electronically signed by Nancy Lynch RN 05/11/24 12:54: PT REPORTS NO PAIN OR DISCOMFORT TO TOOTH. PT WAS OBSERVED TO HAVE POOR DENTATION PRIOR TO TOOTH CHIPPING AND REPORTS I'VE HAD MY TEETH CHIP LOTS OF TIME WHEN I HAVE A SEIZURE. PT DID TAKE TYLENOL 650 MG FOR C/O OF HEADACHE, WHICH PT REPORTED PRIOR TO EVENT. Original Note: AT APPROXIMATELY 1030 AM PT CAME TO NURSES STATION AND STATED I'M NOT FEELING WELL, I THINK I'M GOING TO HAVE A SEIZURE MY HEAD HURTS. PT WAS OFFERED TYLENOL FOR HEADACHE AND STATES HE WILL TAKE IT BUT I'M GONNA LAY DOWN FIRST. SECURITY SCREENER WAS INSTRUCTED TO ASSIST PT TO BED IN CASE PT REQUIRED ASSISTANCE. AT 1030 SECURITY SCREENER MOTIONED THIS RN TO COME TO ROOM, THIS RN BROUGHT VITALS MACHINE. PT WAS OBSERVED WITH TENSE MUSCLES, SLIGHT JERKING MOTION TO UPPER AND LOWER EXTREMITIES AND CLENCHED JAW. PT WAS ASSISTED TO LEFT SIDE AND PT AIRWAY REMAINED PATENT. VITALS OBTAINED AT 1032 AM AND ARE FOLLOWS: BP 126/81, HR 64, SPO2 96% ON RA AND RR 16. PT STOPPED HAVING TENSION IN UPPER AND LOWER EXTREMITIES AT APPROXIMATELY 1033. PT DID EVENTUALLY RELAX AND WAS ABLE TO RESPOND TO STAFF. PT WAS OBSERVED GRABBING THE BACK OF HIS HEAD IF HE WAS IN PAIN. VITALS OBTAINED AT 1039 AM BP 133/84 HR 68, SPO2 97% ON RA. STAFF EVENTUALLY LEFT ROOM, LEAVING THE HISTOLOGY TECHNICIAN TO GIVE PT TYLENOL WHEN HE WAS ABLE TO TAKE IT. AT APPROXIMATELY 1041 AM HISTOLOGY TECHNICIAN YELLED FOR THIS RN AND SECURITY SCREENER TO COME BACK INTO ROOM AT THAT TIME PT WAS AGAIN OBSERVED WITH TIGHTENED UPPER AND LOWER EXTREMITIES WITH CLENCHED JAW. PT WAS OBSERVED WITH A SMALL PIECE OF OF A TOOTH COMING OUT OF MOUTH. VITALS OBTAINED AT 1042 AND ARE FOLLOWS: 129/71, HR 60, SPO2 98% ON RA, AND RR 18. PT THEN STOPPED HAVING RIGID MOVEMENTS OF BODY AT 1043 AM. PT WAS SLOW TO RESPOND AND IT TOOK PT SEVERAL MINUTES TO COME AROUND AND SPEAK TO STAFF. AT 1050 AM, PT WAS SITTING ON SIDE OF BED SPEAKING WITH STAFF, VITAL SIGNS : 72 HR, BP 126/69, SPOZ 97% ON RA AND RR 16. PT WAS INFORMED THAT A PIECE OF TOOTH CAME OUT OF HIS MOUTH AND WAS ON HIS SHIRT, PT PICKED IT UP SAID YEP THAT'S MY TOOTH. THEN PT FLICKED THE TOOTH IN THE FLOOR AND LAUGHED, WHILE SHRUGGING HIS SHOULDERS. SUPPORT WAS VOICED.
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
[2024-05-11 15:33] VITALS: BP 104/62; PULSE 59; RESP 20; TEMP 36.6; O2SAT 96
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
--- NOTE | 2024-05-11 15:48 | PC.NURSE ---
CALLED [facility] IN [place] TO MAKE SURE DILATIN AND KEPPRA PRESCRIPTIONS WERE SENT ELECTRONICALLY. STAFF MEMBER STATES PT ONLY HAD OLD PRESCRIPTIONS TO [facility]. PER DR. BETTENCOURT PRESCRIPTION WERE CALLED IN FOR DILANTIN 100 MG PO TID, DISPENSE 90 TABS ONE REFILL AND KEPRRA XR 500 MG TAKE 1000 MG PO BID DISPENSE 120 TABS WITH ONE REFILL. PT INSTRUCTED TO [facility] PRESCRIPTIONS AT [facility] PT REQUESTED. SUPPORT VOICED.
--- NOTE | 2024-05-11 15:56 | P.PN_ITS ---
Subjective 2 Subjective: Seems to be at his baseline mentation. Has been compliant with seizure medications. Vitals/I&O/Wt Last Vital Signs Temp 97.9 F 05/11/24 15:33 Pulse 59 L 05/11/24 15:33 Resp 20 H 05/11/24 15:33 BP 104/62 05/11/24 15:33 Pulse Ox 96 05/11/24 15:33 O2 Del Method Room Air 05/11/24 03:50 O2 Flow Rate 2 05/08/24 03:00 Physical Exam 2 Narrative: General: No acute distress, AO x 3, and 4 point restraints, calm HEENT: PERRLA, pupils bilaterally equal and reactive Chest: Normal vesicular breath sounds, no added sounds, equal good air entry bilaterally CVS: S1-S2 regular, no murmurs, no tachycardia, no gallops, no rubs Abdomen: Soft, nontender, no organomegaly, bowel sounds present Neuro: No focal deficits, no facial deformity, AO x3, power 5/5 in all limbs Data 05/10/24 07:32 05/10/24 07:32 A&P Assessment and plan (1) Seizures: History of noncompliance. Keppra levels pending, carbamazepine level low. Seizure precaution, fall precaution, aspiration precaution. Awake and alert currently. Discussed in detail with neurology. Appreciate their recommendations. Switch Keppra to 1000 mg twice daily, Dilantin 100 mg 3 times daily. Plan to discharge on extended release Keppra 2000 mg daily and Dilantin 300 mg extended release nightly. Advance diet to mechanical soft. (2) TBI (traumatic brain injury): Qualifiers: Encounter type: subsequent encounter Loss of consciousness presence/duration: with LOC of 30 min or less Qualified Code(s): S06.9X1D - Unspecified intracranial injury with loss of consciousness of 30 minutes or less, subsequent encounter (3) Noncompliance: (4) PTSD (post-traumatic stress disorder): Continue with home dose of mirtazapine, prazosin. With episodes of psychosis during hospitalization requiring multiple episodes of code 10. Currently in 4-point restraints for agitation. Currently on 96-hour hold. Continue with sitter. Will consult psych to see if patient needs to be transferred to Neuropsych Unit. If needed patient is medically safe to be transferred to Neuropsych Unit on oral antiseizure medication as above. (5) Agitated: As above. Plan Restart home medications when patient is more awake and able to take oral medications. Blood exposure to security staff by patient during agitation. Check hepatitis panel, HIV. Plan for the day: Patient is stable to be discharged from medical standpoint once ready from Neuropsych Unit. He should be discharged on Keppra extended release 2000 mg every morning and phenytoin extended release 300 mg every night. Patient has been made aware of the changes in medications. He should not be taking carbamazepine anymore. Full code Mechanical soft diet Protonix OPD prophylaxis Heparin 5000 every 12 hourly for DVT prophylaxis Attestations 2 Medical Necessity Statement*: As per Neuropsych Unit Diagnoses Seizures R56.9 Traumatic brain injury, with loss of consciousness of 30 minutes or less, subsequent encounter S06.9X1D Encounter type: subsequent encounter Loss of consciousness presence/duration: with LOC of 30 min or less Noncompliance Z91.199 PTSD (post-traumatic stress disorder) F43.10 Agitated R45.1
== END 2024-05-11 15:49 | disposition home or self-care (01) | DRG 101 ==
LOC: ER 16:55 → ICU 18:04 → NP 05-09 12:33
PROVIDERS: Admitting Provider Student in an Organized Health Care Education/Training Program; Emergency Provider Physician Assistant; PCP Family Medicine; Visit Provider Student in an Organized Health Care Education/Training Program
DX: G40.419 Other generalized epilepsy and epileptic syndromes, intractable, without status epilepticus (principal); G40.119 Localization-related (focal) (partial) symptomatic epilepsy and epileptic syndromes with simple partial seizures, intractable, without status epilepticus; Z87.820 Personal history of traumatic brain injury; Z91.148 Patient's other noncompliance with medication regimen for other reason; F10.10 Alcohol abuse, uncomplicated; F12.10 Cannabis abuse, uncomplicated; F43.10 Post-traumatic stress disorder, unspecified; G43.909 Migraine, unspecified, not intractable, without status migrainosus; F17.210 Nicotine dependence, cigarettes, uncomplicated; Z78.1 Physical restraint status; E78.5 Hyperlipidemia, unspecified; M54.50 Low back pain, unspecified; M47.812 Spondylosis without myelopathy or radiculopathy, cervical region; R45.1 Restlessness and agitation; M25.571 Pain in right ankle and joints of right foot; M79.661 Pain in right lower leg; Z88.0 Allergy status to penicillin; Z91.040 Latex allergy status; Z91.041 Radiographic dye allergy status
CPT/HCPCS: 36415; 70450; 71045; 73590; 73610; 80053; 80061; 80156; 80177; 80185; 80306; 80307; 81003; 82550; 82607; 82746; 83036; 83540; 83550; 83605; 83735; 84100; 84145; 84443; 85025; 86403; 86803; 87040; 87340; 87449; 87806; 94664; 96365; 96372; 96375; 97150; 97165; 99285; A4222; J1165; J1200; J1630; J1644; J1953; J2060; J2270; J2405; J3411; J3480; J3486; J7030

== ENCOUNTER 2024-05-15 12:38 | Emergency (ER) | payer MEDICAID, SELFPAY ==
[2023-06-21 10:37] VITALS: BP 125/81; BMI 29.3
[2024-05-15 12:39] VITALS: BP 136/96; PULSE 72; RESP 18; TEMP 36.8; O2SAT 96
--- NOTE | 2024-05-15 12:51 | CTR_ITS ---
PROCEDURE INFORMATION: Exam: CT Head Without Contrast Exam date and time: 05/15/2024 1:41 PM Age: 44 years old Clinical indication: Condition or disease; Convulsions or seizures; Additional info: Seizure TECHNIQUE: Imaging protocol: Computed tomography of the head without contrast. Axial, coronal and sagittal reformatted images were created and reviewed. Radiation optimization: All CT scans at this facility use at least one of these dose optimization techniques: automated exposure control; mA and/or kV adjustment per patient size (includes targeted exams where dose is matched to clinical indication); or iterative reconstruction. COMPARISON: CT head wo con* [id number] 05/07/2024 4:57 PM RADIATION DOSE METRICS: Total DLP (mGy-cm): 1038.48 FINDINGS: Brain: No CT evidence of acute intracranial hemorrhage or acute territorial infarction. No significant mass effect or midline shift. Basal cisterns patent. Cerebral ventricles: Normal in size and configuration. Cavum septum pellucidum and vergae. Paranasal sinuses: Mild ethmoid mucosal thickening. No fluid levels. Mastoid air cells: Grossly unremarkable. Bones: Unremarkable. No acute fracture. Soft tissues: Grossly unremarkable. CT/CT head wo con* [id number]: 1[address] No CT evidence of acute intracranial pathology. 2. Additional findings, as above.
--- NOTE | 2024-05-15 13:01 | ECG_ITS ---
[facility] Test Date: 2024-05-15 Pat Name: Bernabe Kumar Department: Room: Gender: Male [employer] System Operator: : 1980 Requested By: Rukhsana Jolley Order Number: [id number] Josie MD: Stanford Vazquez M.D. Measurements Intervals [place] Rate: 87 P: 62 TN: 141 QRS: 89 QRSD: 93 T: 62 QT: 351 QTc: 423 Interpretive Statements SINUS RHYTHM Compared to ECG 03/25/2021 20:39:13 No significant changes Electronically Signed On 05-17-2024 13:29:42 CDT by Stanford Vazquez M.D. [email or web address] Paper [email or web address] Boardsohiohealth [email or web address].[id number]
[2024-05-15] MEDS: LORazepam 2 mg/mL INJ 10 mL MDV IVP (13:02)
[2024-05-15] MEDS: levETIRAcetam 1,500 MG/100 ML PREMIX 400 MG IV (13:02)
--- NOTE | 2024-05-15 13:05 | PC.NURSE ---
Pt c/o SOB, appears anxious, oxygen saturation 94% on room air, pt states symptoms relieved shortly after. Dr. De notified.
--- NOTE | 2024-05-15 13:10 | PC.NURSE ---
Upon pt arrival approx @1239 seizure pads applied to pt bed rails.
--- NOTE | 2024-05-15 13:19 | ED_ITS ---
HPI - Seizure 2 General: Chief Complaint: Seizure Stated Complaint: SEIZURES Time Seen by Provider: 05/15/24 12:40 Source: patient and EMS Mode of arrival: EMS History of Present Illness: HPI Narrative: 44-year-old male has a history of TBI an d seizures has had a history noncompliance of his seizure medication had been admitted here little over a week ago for epilepsy. Patient was home alone had not talked to anyone for a while so his mom sent police for a wellness check that arrived and witnessed him have a seizure and had another seizure and route with EMS and 1 more here patient given Versed by EMS I am loading with Keppra and Ativan. Patient here was awake before his seizure he had no complaints denies headache or fever. Seizure History: Yes Associated symptoms: Deny chest pain, chills or fever(s) Review of Systems 2 Const: Denies: fever(s), chills, body aches or change in appetite ENMT: Denies: throat pain or dental pain Card: Denies: chest pain Resp: Denies: dyspnea GI: Denies: abdominal pain, nausea, vomiting or diarrhea : Denies: dysuria Musc: Denies: neck pain or back pain Skin/Breast: Denies: rash Neuro: Reports: seizure-like activity; Denies: headache(s) PFSH ED 2 PFSH: Medical History Alcohol abuse PTSD (post-traumatic stress disorder) Seizures TBI (traumatic brain injury) Hx of migraine headaches Family History Other CAD (coronary artery disease) Dementia Suicide Social History Smoking and tobacco/nicotine status: current every day tobacco/nicotine user cigarettes Packs smoked per day: 0.5 Years cigarettes smoked: 30 Quit status (tobacco/nicotine): considering quitting Alcohol intake: current Alcohol intake frequency: holidays/special occasions only Alcohol type: beer and hard liquor Substance/Drug Use: never Adopted: No Caregiver/support person: No Lives independently: Yes Household members: none Housing: Apartment Marital status: Number of children: 2 Number of grandchildren: 1 Highest education level completed: GED or Equivalent service: Yes (8 years) status: Discharged branch: [employer] Assignments: Outside [facility] ([employer]) Current occupational status: retired and disabled Current occupational exposures/hazards: No Pets and animals: No Leisure activites: other Leisure activities details: Watch TV Sexually active: No Do you think of yourself as: Straight/Heterosexual Current gender identity: Male Macy/Yazidi: Pentecostalism Special macy needs: No Agree to transfusion: Yes Physical Exam 2 Const: COMMON NORMALS: no acute distress, patient oriented x3 and healthy appearing HENMT: COMMON NORMALS: normocephalic and atraumatic HEAD & SCALP: n ormocephalic and atraumatic Eye: COMMON NORMALS: Equal, round and reactive pupils present and EOMs intact bilaterally PUPIL: Yes Equal, round and reactive pupils present Neck/C-Spine: COMMON NORMALS: full ROM and supple Chest: COMMONS NORMALS: normal inspection of the chest and normal palpation of entire chest wall Resp: COMMON NORMALS: normal respiratory effort, No retractions, No use of accessory muscles and clear to auscultation bilaterally AUSCULTATION: clear to auscultation bilaterally Cardio: COMMON NORMALS: regular rate, regular rhythm and No murmurs present (Cardio) RATE: regular rate RHYTHM: regular rhythm GI: COMMON NORMALS: Normal to inspection, nondistended, normoactive bowel sounds present, Soft to palpation, non-tender and no masses PALPATION: Yes Soft to palpation Extremity: COMMON NORMALS: normal to inspection and full ROM Neuro: COMMON NORMALS: patient oriented x3, moves all extremities and no focal motor deficits Psych: COMMON NORMALS: mental status grossly normal, Normal thought process present and cooperative THOUGHT PROCESS: Normal thought process present Skin: COMMON NORMALS: no rashes or lesions noted and no wounds GENERAL SKIN EXAM: no rashes or lesions noted Course 2 Vital Signs: Vital signs: Vital Signs Temperature 98.2 F 05/15/24 12:39 Pulse Rate 81 05/15/24 14:02 Respiratory Rate 24 H 05/15/24 14:02 Blood Pressure 142/100 05/15/24 14:02 Pulse Oximetry 96 05/15/24 14:02 Oxygen Delivery Me thod Room Air 05/15/24 12:39 MDM - Seizure MDM Narrative Medical decision making narrative: Patient presents after a seizure he has history of seizures and is noncompliant his Dilantin level was low did load him with Keppra and Dilantin here patient is wanting to leave head CT blood work is normal he stable for discharge follow-up with PCP and return if worsening Lab Data Attestation: I reviewed the patient's lab results. 05/15/24 13:12 05/15/24 13:12 Labs: Radiology Impressions Head CT 05/15/24 12:[address]: [address] evidence of acute intracranial pathology. 2. Additional findings, as above. Laboratory Results WBC 10.08 10^3/uL (3.29-11.43) 05/15/24 13:12 RBC 4.76 10^6/uL (3.85-5.65) 05/15/24 13:12 Hgb 15.10 g/dL (11.27-16.99) 05/15/24 13:12 Hct 46.2 % (37-53) 05/15/24 13:12 MCV 97.1 fl (82-101) 05/15/24 13:12 MCH 31.7 pg (27-33) 05/15/24 13:12 MCHC 32.7 g/dL (30-55) 05/15/24 13:12 RDW 11.9 % (12.1-15.1) L 05/15/24 13:12 Plt Count 410 10^3/cmm (157-399) H 05/15/24 13:12 MPV 9.3 fL (7.4-10.4) 05/15/24 13:12 Neut % (Auto) 52.6 % 05/15/24 13:12 Lymph % (Auto) 27.6 % 05/15/24 13:12 [place] % (Auto) 13.9 % 05/15/24 13:12 Eos % (Auto) 3.1 % 05/15/24 13:12 Baso % (Auto) 1.0 % 05/15/24 13:12 Neut # (Auto) 5.31 10^3/uL (1.8-7.7) 05/15/24 13:12 Lymph # (Auto) 2.8 10^3/uL (0.8-4.8) 05/15/24 13:12 [place] # (Auto) 1.4 10^3/uL (0.2-0.9) H 05/15/24 13:12 Eos # (Auto) 0.3 10^3/uL (0.0-0.8) 05/15/24 13:12 Baso # (Auto) 0.1 10^3/uL (0.0-0.1) 05/15/24 13:12 Nucleated RBC % (auto) 0 % 05/15/24 13:12 Nucleated RBCs # 0.0 /100WBC 05/15/24 13:12 Sodium 141 mmol/L (136-145) 05/15/24 13:12 Potassium 4.5 mmol/L (3.5-5.1) 05/15/24 13:12 Chloride 106 mmol/L (98-107) 05/15/24 13:12 Carbon Dioxide 25 mmol/L (22-29) 05/15/24 13:12 Anion Gap 14.5 (5-19) 05/15/24 13:12 BUN 6 mg/dL (6-20) 05/15/24 13:12 Creatinine 0.6 mg/dL (0.7-1.2) L 05/15/24 13:12 GFR Calculation 145.0 mL/min (90-130) H 05/15/24 13:12 Glucose 103 mg/dL (65-115) 05/15/24 13:12 Calculated Osmolality 290 mOsm/kg (285-295) 05/15/24 13:12 Calcium 8.8 mg/dL (8.5-10.5) 05/15/24 13:12 Total Bilirubin 0.2 mg/dL (0.15-1.2) 05/15/24 13:12 AST 22 U/L (0-40) 05/15/24 13:12 ALT 20 U/L (0-41) 05/15/24 13:12 Alkaline Phosphatase 106 U/L (40-130) 05/15/24 13:12 Total Protein 6.3 g/dL (6.6-8.7) L 05/15/24 13:12 Albumin 4.1 g/dL (3.5-5.2) 05/15/24 13:12 Globulin 2.2 g/dL (1.3-4.6) 05/15/24 13:12 Phenytoin 0.8 ug/mL (10-20) L 05/15/24 13:12 All radiology interpretation(s) finalized by discharge EKG Data EKG 1: Attestation: I personally reviewed and interpreted this EKG as follows: EKG interpretation date: 05/15/24 EKG interpretation time: 13:05 Interpretation: nsr hr [address] or t wave abnormalities qrs 93 qtc 395 Discharge Plan Discharge Patient Disposition: Home Clinical Impression: Generalized seizure Condition: Stable Prescriptions: No Action mirtazapine 45 mg tablet 45 mg PO BEDTIME 30 Days Qty: 30 5RF prazosin 2 mg capsule 4 mg PO BEDTIME 30 Days Qty: 60 5RF levetiracetam [Keppra XR] 500 mg tablet extended release 24 hr 2,000 mg PO DAILY Qty: 120 3RF phenytoin sodium extended [Dilantin Extended] 100 mg capsule 300 mg PO DAILY Qty: 90 3RF carbamazepine 400 mg tablet extended release 12 hr 400 mg PO BID tizanidine 4 mg tablet 4 mg PO Q6H PRN (Reason: muscle spasticity) Qty: 20 0RF Rx Instructions: do not exceed 3 doses per 24 hrs diclofenac sodium 75 mg tablet,delayed release (DR/EC) 75 mg PO Q12H PRN (Reason: pain) Qty: 20 0RF Discharge Orders: Discharge ED (Routine); Ordered 05/15/24 Ordered By: Rukhsana Jolley Referrals: Cristina Salamanca MD [Primary Care Provider] - Discharge Diet: Advance as tolerated Discharge Activity: Resume usual activity Patient Instructions: Generalized Tonic Clonic Seizures (ED) Coding Level of Care Code ED Dough Puncher for Parker Sutherland
[2024-05-15 13:31] LABS: Basophils # 0.1 10^3/uL (0.0-0.1); Eosinophils # 0.3 10^3/uL (0.0-0.8); Eosinophils % 3.1 %; Hematocrit 46.2 % (37-53); Lymphocytes # 2.8 10^3/uL (0.8-4.8); Lymphocytes % 27.6 %; Mean Corpuscular HGB Conc 32.7 g/dL (30-55); Mean Corpuscular Hemoglobin 31.7 pg (27-33); Mean Corpuscular Volume 97.1 fl (82-101); Mean Platelet Volume 9.3 fL (7.4-10.4); Monocytes # 1.4 10^3/uL (0.2-0.9); Monocytes % 13.9 %; Neutrophils # 5.31 10^3/uL (1.8-7.7); Neutrophils % 52.6 %; Nucleated Red Blood Cells % 0 %; Platelet Count 410 10^3/cmm (157-399); Red Blood Count 4.76 10^6/uL (3.85-5.65); Red Cell Distribution Width 11.9 % (12.1-15.1); White Blood Count 10.08 10^3/uL (3.29-11.43)
--- NOTE | 2024-05-15 13:41 | PC.PHAR ---
PT STATES NEW MED SEROQUEL WAS ADDED-UNABLE TO LOCATE A CURRENT ORDER FOR IT. WM TAYLOR OUT TO LUNCH UNTIL 2PM
[2024-05-15 13:51] LABS: Alanine Aminotransferase 20 U/L (0-41); Albumin Level 4.1 g/dL (3.5-5.2); Alkaline Phosphatase 106 U/L (40-130); Anion Gap 14.5 (5-19); Aspartate Amino Transferase 22 U/L (0-40); Blood Urea Nitrogen 6 mg/dL (6-20); Calcium 8.8 mg/dL (8.5-10.5); Carbon Dioxide 25 mmol/L (22-29); Chloride 106 mmol/L (98-107); Globulin 2.2 g/dL (1.3-4.6); Glucose 103 mg/dL (65-115); Osmolality Calculated 290 mOsm/kg (285-295); Potassium 4.5 mmol/L (3.5-5.1); Sodium 141 mmol/L (136-145); Total Bilirubin 0.2 mg/dL (0.15-1.2); Total Protein 6.3 g/dL (6.6-8.7)
[2024-05-15 13:52] LABS: Phenytoin Dilantin 0.8 ug/mL (10-20)
[2024-05-15 14:02] VITALS: BP 142/100; PULSE 81; RESP 24; O2SAT 96
--- NOTE | 2024-05-15 14:23 | PC.NURSE ---
@1320: During central-line insertion pt became very anxious, attempting to grab sterile site, called for staff help, Dr. De gave verbal orders for 1mg Ativan IVP.
--- NOTE | 2024-05-15 14:24 | PC.NURSE ---
@1335: pt lips appear cyanotic, unable to get oxygen saturation reading, applied non-rebreather 10L. per Dr. De for RSI. @1341: 20mg Etomidate administered @1342: 10mg Vecuronium administered @1343: confirmed intubation by Dr. De, bilateral breath sounds.
[2024-05-15 14:30] VITALS: BP 109/71; PULSE 76; RESP 18; O2SAT 96
[2024-05-15] MEDS: phenytoin 1,000 MG in sodium chloride 0.9% (100 ml) 100 ML, non-DEHP filter tubing onc ... 270 MG IV (15:04)
== END 2024-05-15 15:40 | disposition home or self-care (01) ==
PROVIDERS: Emergency Provider Emergency Medicine; PCP Family Medicine
DX: G40.409 Other generalized epilepsy and epileptic syndromes, not intractable, without status epilepticus (principal); F17.210 Nicotine dependence, cigarettes, uncomplicated; Z87.820 Personal history of traumatic brain injury
CPT/HCPCS: 70450; 80053; 80185; 85025; 93005; 96365; 96375; 99285; J1165; J1953; J2060

== ENCOUNTER 2024-09-12 10:39 | Emergency (ER) | payer MEDICAID, SELFPAY ==
[2023-06-21 10:37] VITALS: BP 125/81; BMI 29.3
[2024-09-12] MEDS: LORazepam 2 mg/mL INJ 1 mL IVP (10:43)
--- NOTE | 2024-09-12 10:43 | CT_ITS ---
WS: [id number] CT HEAD NONCONTRAST HISTORY: seizure TECHNIQUE: Contiguous axial imaging performed through the brain. Bone and soft tissue windows. Sagitt al and coronal reformats reviewed. All CT scans at [facility] use at least one of these dose optimization techniques: automated exposure control; mA and/or kV adjustment per patient size (includ es targeted exams where dose is matched to clinical indication); or iterative reconstruction. DLP: 634.98 mGy.cm COMPARISON: 05/15/2024 No acute intracranial hemorrhage, midline shift or mass effect. No atrophy or prior infarcts or herniation. Ventricles: Normal size with no hydrocephalus. Normal variant cavum septum pellucida et vergae. No inferior displacement of the cerebellar tonsils. Paranasal sinuses: As visualized are clear. Mastoid air cells: Well pneumatized. Calvarium and scalp: Skull is intact with no soft tissue edema or swelling. CT/CT head wo con* [id number] IMPRESSION: Negative noncontrast head CT. No acute blood or edema.
[2024-09-12 10:46] VITALS: BP 165/96; PULSE 94; RESP 19; TEMP 36.5; O2SAT 98
--- NOTE | 2024-09-12 10:50 | CT_ITS ---
WS: [id number] CT ANGIOGRAM CEREBRAL AND CAROTID ARTERIES HISTORY: flores TECHNIQUE: CT angiogram is performed of the carotid and cerebral arteries. During arterial injection imaging is obtained from the skull vertex to the aortic arch in 1.25 mm imaging. Coronal and sagittal reformats are submitted. Additional multi planar reformats of the carotid and cerebral arteries are submitted, MIP imaging also reviewed. NASCET criteria utilized. [facility] at least one of these dose optimization techniques: automated exposure control; mA and/or kV adjust ment per patient size (includes targeted exams where dose is matched to clinical indication); or iter ative reconstruction. CONTRAST: Omnipaque 350; 100 mL IV. DLP: 513.62 mGy.cm COMPARISON: None available. Carotid Angiogram: Right carotid: Common carotid artery: Arises normally from the innominate artery. No significant plaque or stenosis. Internal carotid artery: No plaque or stenosis. External carotid artery: Patent. Left carotid: Common carotid artery: Arises normally from the aorta. No significant plaque or stenosis. Internal carotid artery: No plaque or stenosis. External carotid artery: Patent. Right vertebral artery: Unremarkable. Left vertebral artery: Arises from the aortic arch. Normal caliber. Mildly dominant LEFT vertebral ar rachel. Subclavian arteries: No stenosis or significant abnormality. Upper thorax: Normal. Thyroid gland: Normal. Osseous structures: Unremarkable. CEREBRAL ANGIOGRAM: Intracranial vertebral arteries: Normal with no significant atherosclerosis. Basilar artery: No significant stenosis or occlusion. No aneurysm. Intracranial Internal carotid arteries: Demonstrates no significant stenosis or plaque. Middle cerebral arteries: Normal. Anterior cerebral arteries and ACOM: Normal. Posterior cerebral arteries and PCOM's: Posterior cerebral arteries are both patent. Dominant RIGHT p osterior communicating artery. Small caliber irregular LEFT posterior communicating artery. Dural venous sinuses are normally enhancing. Mastoid air cells: Normal. Paranasal sinuses: Normal. Calvarium: Normal. CT/CT angio headneck* [id number] IMPRESSION: 1. No significant carotid artery stenosis or plaque. No dissection. 2. No [place] aneurysm or occlusion. No thrombus.
[2024-09-12] MEDS: levETIRAcetam 1,000 MG/100 ML PREMIX 400 MG IV (10:54)
[2024-09-12 10:56] LABS: Basophils # 0.1 10^3/uL (0.0-0.1); Basophils % 0.7 %; Eosinophils # 0.1 10^3/uL (0.0-0.8); Eosinophils % 1.2 %; Hematocrit 51.8 % (37-53); Lymphocytes # 3.4 10^3/uL (0.8-4.8); Lymphocytes % 28.9 %; Mean Corpuscular HGB Conc 34.4 g/dL (30-55); Mean Corpuscular Hemoglobin 32.1 pg (27-33); Mean Corpuscular Volume 93.5 fl (82-101); Mean Platelet Volume 9.7 fL (7.4-10.4); Monocytes # 1.3 10^3/uL (0.2-0.9); Monocytes % 11.1 %; Neutrophils # 6.69 10^3/uL (1.8-7.7); Neutrophils % 56.8 %; Nucleated Red Blood Cells % 0 %; Platelet Count 457 10^3/cmm (157-399); Red Blood Count 5.54 10^6/uL (3.85-5.65); White Blood Count 11.78 10^3/uL (3.29-11.43)
--- NOTE | 2024-09-12 11:11 | ED_ITS ---
HPI - Seizure 2 General: Chief Complaint: Seizure Stated Complaint: seizure Time Seen by Provider: 09/12/24 10:41 Source: patient Mode of arrival: ambulatory Limitations: no limitations History of Present Illness: HPI Narrative: 44-year-old male whose had a history of a TBI has had history of intractable seizures since then. Patient states that yesterday was hit in the head with a soccer ball and knocked him over the then hit his head on the curb he states that since then he has been having severe headaches and he states he has had vision loss. 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 but states he is not able to see out of his left eye currently patient been brought in into the parking lot actively seizing is actively seizing when he arrived did give him Ativan he is now awake alert answering my questions appropriately he does still complain of a headache no focal weakness the only new finding is the new onset of blindness Seizure History: Yes Associated symptoms: Deny chest pain, chills or fever(s) Related Data Previous Rx's Medication Instructions Recorded diclofenac sodium 75 mg 75 mg PO Q12H PRN pain #20 tabs 12/06/23 tablet,delayed release tizanidine 4 mg tablet 4 mg PO Q6H PRN muscle spasticity 12/06/23 #20 tabs mirtazapine 45 mg tablet 45 mg PO BEDTIME 30 days #30 tabs 03/14/24 prazosin 2 mg capsule 4 mg (2 x 2 mg) PO BEDTIME 30 days 03/14/24 #60 caps levetiracetam 500 mg 2,000 mg (4 x 500 mg) PO DAILY 05/08/24 tablet,extended release 24 hr #120 tabs (Keppra XR) carbamazepine 400 mg 400 mg PO BID #60 tabs 06/12/24 tablet,extended release,12 hr phenytoin sodium extended 100 mg 300 mg (3 x 100 mg) PO DAILY #90 08/12/24 capsule (Dilantin Extended) caps Allergies Allergy/AdvReac Type Severity Reaction Status Date / Time latex Allergy Severe body rash Verified 08/13/24 16:04 onion Allergy Severe air Verified 08/13/24 16:04 passage swells. Iodinated Contrast Media Allergy ALGY-Rash Verified 08/13/24 16:04 Penicillins Allergy ALGY-Rash Verified 08/13/24 16:04 Review of Systems 2 Const: Denies: fever(s), chills, body aches or change in appetite Eyes: Reports: change in vision ENMT: Denies: throat pain or dental pain Card: Denies: chest pain Resp: Denies: dyspnea GI: Denies: abdominal pain, nausea, vomiting or diarrhea Musc: Denies: neck pain or back pain Skin/Breast: Denies: rash Neuro: Reports: headache(s) and seizure-like activity PFSH ED 2 PFSH: Medical History Alcohol abuse PTSD (post-traumatic stress disorder) Seizures TBI (traumatic brain injury) Hx of migraine headaches Family History Other CAD (coronary artery disease) Dementia Suicide Social History Smoking and tobacco/nicotine status: current every day tobacco/nicotine user cigarettes Packs smoked per day: 0.5 Years cigarettes smoked: 30 Quit status (tobacco/nicotine): considering quitting Alcohol intake: current Alcohol intake frequency: holidays/special occasions only Alcohol type: beer and hard liquor Substance/Drug Use: never Adopted: No Caregiver/support person: No Lives independently: Yes Household members: none Housing: Apartment Marital status: Number of children: 2 Number of grandchildren: 1 Highest education level completed: GED or Equivalent service: Yes (8 years) status: Discharged branch: [employer] Assignments: Outside [facility] Current occupational status: retired and disabled Current occupational exposures/hazards: No Pets and animals: No Leisure activites: other Leisure activities details: Watch TV Sexually active: No Do you think of yourself as: Straight/Heterosexual Current gender identity: Male Macy/Latter-Day: Gnosticist Special macy needs: No Agree to transfusion: Yes Physical Exam 2 Const: COMMON NORMALS: patient oriented x3 HENMT: COMMON NORMALS: normocephalic and atraumatic HEAD & SCALP: n ormocephalic and atraumatic Eye: COMMON NORMALS: Equal, round and reactive pupils present and EOMs intact bilaterally PUPIL: Yes Equal, round and reactive pupils present Neck/C-Spine: COMMON NORMALS: full ROM and supple Chest: COMMONS NORMALS: normal inspection of the chest and normal palpation of entire chest wall Resp: COMMON NORMALS: normal respiratory effort, No retractions, No use of accessory muscles and clear to auscultation bilaterally AUSCULTATION: clear to auscultation bilaterally Cardio: COMMON NORMALS: regular rate, regular rhythm and No murmurs present (Cardio) RATE: regular rate RHYTHM: regular rhythm GI: COMMON NORMALS: Normal to inspection, nondistended, normoactive bowel sounds present, Soft to palpation, non-tender and no masses PALPATION: Yes Soft to palpation Extremity: COMMON NORMALS: normal to inspection and full ROM Neuro: COMMON NORMALS: patient oriented x3, moves all extremities and no focal motor deficits Psych: COMMON NORMALS: mental status grossly normal, Normal thought process present and cooperative THOUGHT PROCESS: Normal thought process present Skin: COMMON NORMALS: no rashes or lesions noted and no wounds GENERAL SKIN EXAM: no rashes or lesions noted Course 2 Vital Signs: Vital signs: Vital Signs Temperature 97.7 F 09/12/24 10:46 Pulse Rate 82 09/12/24 13:00 Respiratory Rate 19 H 09/12/24 10:46 Blood Pressure 108/62 09/12/24 13:00 Pulse Oximetry 94 09/12/24 13:00 Oxygen Delivery Me thod Room Air 09/12/24 13:00 MDM - Seizure MDM Narrative Medical decision making narrative: Patient presents here after a seizure he has been well-appearing here and seizure-free does have some decreased vision head CT CTA is normal I did offer him admission for an MRI but he states he feels improved and does not want to stay states he has a neurologist and wants to follow-up with his neurologist I did inform him that he needs to follow-up pulmonology as well if he changes his mind about admission return he understands agrees to plan Lab Data 09/12/24 10:45 09/12/24 11:22 Labs: Radiology Impressions Head CT 09/12/24 10:43 IMPRESSION: Negative noncontrast head CT. No acute blood or edema. Head/Neck CTA 09/12/24 10:50 IMPRESSION: 1. No significant carotid artery stenosis or plaque. No dissection. 2. No [place] aneurysm or occlusion. No thrombus. Laboratory Results WBC 11.78 10^3/uL (3.29-11.43) H 09/12/24 10:45 RBC 5.54 10^6/uL (3.85-5.65) 09/12/24 10:45 Hgb 17.80 g/dL (11.27-16.99) H 09/12/24 10:45 Hct 51.8 % (37-53) 09/12/24 10:45 MCV 93.5 fl (82-101) 09/12/24 10:45 MCH 32.1 pg (27-33) 09/12/24 10:45 MCHC 34.4 g/dL (30-55) 09/12/24 10:45 RDW 12.0 % (12.1-15.1) L 09/12/24 10:45 Plt Count 457 10^3/cmm (157-399) H 09/12/24 10:45 MPV 9.7 fL (7.4-10.4) 09/12/24 10:45 Neut % (Auto) 56.8 % 09/12/24 10:45 Lymph % (Auto) 28.9 % 09/12/24 10:45 [place] % (Auto) 11.1 % 09/12/24 10:45 Eos % (Auto) 1.2 % 09/12/24 10:45 Baso % (Auto) 0.7 % 09/12/24 10:45 Neut # (Auto) 6.69 10^3/uL (1.8-7.7) 09/12/24 10:45 Lymph # (Auto) 3.4 10^3/uL (0.8-4.8) 09/12/24 10:45 [place] # (Auto) 1.3 10^3/uL (0.2-0.9) H 09/12/24 10:45 Eos # (Auto) 0.1 10^3/uL (0.0-0.8) 09/12/24 10:45 Baso # (Auto) 0.1 10^3/uL (0.0-0.1) 09/12/24 10:45 Nucleated RBC % (auto) 0 % 09/12/24 10:45 Nucleated RBCs # 0.0 /100WBC 09/12/24 10:45 Sodium 136 mmol/L (136-145) 09/12/24 11:22 Potassium 4.0 mmol/L (3.5-5.1) 09/12/24 11:22 Chloride 101 mmol/L (98-107) 09/12/24 11:22 Carbon Dioxide 26 mmol/L (22-29) 09/12/24 11:22 Anion Gap 13.0 (5-19) 09/12/24 11:22 BUN 8 mg/dL (6-20) 09/12/24 11:22 Creatinine 0.8 mg/dL (0.7-1.2) 09/12/24 11:22 GFR Calculation 104.1 mL/min (90-130) 09/12/24 11:22 Glucose 118 mg/dL (65-115) H 09/12/24 11:22 Calculated Osmolality 281 mOsm/kg (285-295) L 09/12/24 11:22 Calcium 8.8 mg/dL (8.5-10.5) 09/12/24 11:22 Total Bilirubin 0.6 mg/dL (0.15-1.2) 09/12/24 11:22 AST 25 U/L (0-40) 09/12/24 11:22 ALT 24 U/L (0-41) 09/12/24 11:22 Alkaline Phosphatase 113 U/L (40-130) 09/12/24 11:22 Total Protein 7.3 g/dL (6.6-8.7) 09/12/24 11:22 Albumin 4.6 g/dL (3.5-5.2) 09/12/24 11:22 Globulin 2.7 g/dL (1.3-4.6) 09/12/24 11:22 Phenytoin 0.8 ug/mL (10-20) L 09/12/24 11:22 Ethyl Alcohol < 10 mg/dL (0-10) 09/12/24 11:22 No radiology studies performed this visit Discharge Plan Discharge Patient Disposition: Home Clinical Impression: Seizure, Closed head injury, Changes in vision Condition: Stable Prescriptions: No Action mirtazapine 45 mg tablet 45 mg PO BEDTIME 30 Days Qty: 30 5RF prazosin 2 mg capsule 4 mg PO BEDTIME 30 Days Qty: 60 5RF carbamazepine 400 mg tablet extended release 12 hr 400 mg PO BID Qty: 60 4RF phenytoin sodium extended [Dilantin Extended] 100 mg capsule 300 mg PO DAILY Qty: 90 3RF levetiracetam [Keppra XR] 500 mg tablet extended release 24 hr 2,000 mg PO DAILY Qty: 120 3RF tizanidine 4 mg tablet 4 mg PO Q6H PRN (Reason: muscle spasticity) Qty: 20 0RF Rx Instructions: do not exceed 3 doses per 24 hrs diclofenac sodium 75 mg tablet,delayed release (DR/EC) 75 mg PO Q12H PRN (Reason: pain) Qty: 20 0RF Discharge Orders: Discharge ED (Routine); Ordered 09/12/24 Ordered By: Rukhsana Jolley Referrals: Cristina Salamanca MD [Primary Care Provider] - 4-7 days Discharge Diet: Advance as tolerated Discharge Activity: Resume usual activity Patient Instructions: Head Injury (ED), Epilepsy (ED), Vision Problems Coding Level of Care Code ED Batch Trucker for Parker Sutherland
[2024-09-12] MEDS: methylPREDNISolone sod succ 40 mg/mL INJ IVP (11:43)
[2024-09-12] MEDS: diphenhydrAMINE 50 mg/mL SDV 1mL IVP (11:43)
[2024-09-12 11:50] LABS: Alanine Aminotransferase 24 U/L (0-41); Albumin Level 4.6 g/dL (3.5-5.2); Alkaline Phosphatase 113 U/L (40-130); Aspartate Amino Transferase 25 U/L (0-40); Blood Urea Nitrogen 8 mg/dL (6-20); Calcium 8.8 mg/dL (8.5-10.5); Carbon Dioxide 26 mmol/L (22-29); Chloride 101 mmol/L (98-107); Creatinine Clr Calc Pharmacy 107.7109; Globulin 2.7 g/dL (1.3-4.6); Glomerular Filtration Rate 104.1 mL/min (90-130); Glucose 118 mg/dL (65-115); Osmolality Calculated 281 mOsm/kg (285-295); Sodium 136 mmol/L (136-145); Total Bilirubin 0.6 mg/dL (0.15-1.2); Total Protein 7.3 g/dL (6.6-8.7)
[2024-09-12 11:51] LABS: Alcohol Level < 10 mg/dL (0-10); Phenytoin Dilantin 0.8 ug/mL (10-20)
[2024-09-12 12:00] VITALS: PULSE 82; O2SAT 99
[2024-09-12] MEDS: iohexol 350 mg/mL 500 mL Btl (per mL) IV (12:07)
--- NOTE | 2024-09-12 12:26 | PC.NURSE ---
RAVEN OVERRODE 2 VIALS OF ATIVAN, 1 VIAL OF ATIVAN WAS GIVEN. OTHER VIAL OF ATIVAN WAS WASTED WITH NEEL DELGADO.
[2024-09-12 13:00] VITALS: BP 108/62; PULSE 82; O2SAT 94
[2024-09-12 13:58] VITALS: BP 115/74; PULSE 79; O2SAT 98
--- NOTE | 2024-09-13 08:01 | DCPLANNER ---
faxed referral packet to [facility]
== END 2024-09-12 14:00 | disposition home or self-care (01) ==
PROVIDERS: Emergency Provider Emergency Medicine; PCP Family Medicine
DX: R56.9 Unspecified convulsions (principal); H53.9 Unspecified visual disturbance; S09.8XXA Other specified injuries of head, initial encounter; W21.02XA Struck by soccer ball, initial encounter; W18.39XA Other fall on same level, initial encounter
CPT/HCPCS: 36415; 70450; 70496; 70498; 80053; 80185; 80307; 85025; 96374; 96375; 99285; J1200; J1953; J2060; J2919

== ENCOUNTER → 2025-06-05 14:04 | Outpatient (BNVA) | payer MEDICAID, SELFPAY ==
[2023-06-21 10:37] VITALS: BP 125/81; BMI 29.3
== END ==
PROVIDERS: PCP Nurse Practitioner Family; Visit Provider Nurse Practitioner Family
DX: M25.512 Pain in left shoulder (principal); R93.7 Abnormal findings on diagnostic imaging of other parts of musculoskeletal system
CPT/HCPCS: 73030

== ENCOUNTER 2025-06-23 14:57 | Outpatient (CLI) | payer MEDICAID, SELFPAY ==
[2023-06-21 10:37] VITALS: BP 125/81; BMI 29.3
--- NOTE | 2025-06-23 15:15 | MR_ITS ---
WS: [id number] MRI LEFT SHOULDER HISTORY: M25.512 - Pain in left shoulder COMPARISON: Radiograph 06/05/2025 TECHNIQUE: Multiplanar sequences of the shoulder joint are submitted. Increased T2 signal in the AC joint and the surrounding synovial capsule. Very slight widening of the AC joint was also noted on the prior radiograph. Small osteophytes from the distal clavicle and acromion. Mild downsloping of the acromion. No os acromion. Biceps tendon in normal position. No rotator cuff muscle atrophy. No rotator cuff tendon tear. No significant narrowing of the glenohumeral joint. There are a few small subchondral cysts in the posterior lateral humeral head. No fluid in the axillary pouch. No labral tear. MR/MR shoulder LT wo con* [id number] IMPRESSION: 1. Mild AC joint sprain. Mild widening of the AC joint with synovial thickenin g and edema. Small osteophytes from the distal clavicle and acromion with mild encroachment upon the myotendinous portion of the supraspinatus. 2. No rotator cuff tear or muscle atrophy. 3. Normal biceps tendon.
== END 2025-06-23 14:58 | disposition home or self-care (01) ==
LOC: RAD 14:59
PROVIDERS: PCP Nurse Practitioner Family; Visit Provider Nurse Practitioner Family
DX: S43.52XA Sprain of left acromioclavicular joint, initial encounter (principal); M25.712 Osteophyte, left shoulder; X58.XXXA Exposure to other specified factors, initial encounter
CPT/HCPCS: 73221

== ENCOUNTER → 2025-07-02 10:56 | Outpatient (BNVA) | payer MEDICAID, SELFPAY ==
[2023-06-21 10:37] VITALS: BP 125/81; BMI 29.3
== END ==
PROVIDERS: PCP Nurse Practitioner Family; Referring Provider Nurse Practitioner Family; Visit Provider Psychiatry & Neurology Neurology
DX: G40.919 Epilepsy, unspecified, intractable, without status epilepticus (principal); S06.9XAS Unspecified intracranial injury with loss of consciousness status unknown, sequela; X58.XXXS Exposure to other specified factors, sequela
CPT/HCPCS: 99203

== ENCOUNTER → 2025-07-03 10:03 | Outpatient (BNVA) | payer MEDICAID, SELFPAY ==
[2023-06-21 10:37] VITALS: BP 125/81; BMI 29.3
== END ==
PROVIDERS: PCP Nurse Practitioner Family; Visit Provider Psychiatry & Neurology Neurology
DX: G40.919 Epilepsy, unspecified, intractable, without status epilepticus (principal); R56.9 Unspecified convulsions; G40.109 Localization-related (focal) (partial) symptomatic epilepsy and epileptic syndromes with simple partial seizures, not intractable, without status epilepticus
CPT/HCPCS: 80053; 80157; 80177; 80185; 82306; 82607; 82746; 83735; 83921; 84439; 84443; 85025

== ENCOUNTER → 2025-07-08 14:20 | Outpatient (BNVA) | payer MEDICAID, SELFPAY ==
[2023-06-21 10:37] VITALS: BP 125/81; BMI 29.3
== END ==
PROVIDERS: PCP Nurse Practitioner Family; Visit Provider Orthopaedic Surgery
DX: M25.512 Pain in left shoulder (principal); G89.29 Other chronic pain
CPT/HCPCS: 99204

== ENCOUNTER → 2025-08-12 08:47 | Outpatient (BNVA) | payer MEDICAID, SELFPAY ==
[2023-06-21 10:37] VITALS: BP 125/81; BMI 29.3
== END ==
PROVIDERS: PCP Nurse Practitioner Family; Visit Provider Orthopaedic Surgery
DX: M25.512 Pain in left shoulder (principal); G89.29 Other chronic pain
CPT/HCPCS: 99213

== ENCOUNTER 2025-08-13 12:53 | Outpatient (CLI) | payer MEDICAID, SELFPAY ==
[2023-06-21 10:37] VITALS: BP 125/81; BMI 29.3
--- NOTE | 2025-08-13 13:01 | MR_ITS ---
WS: [id number] MRI HEAD WITHOUT CONTRAST TECHNIQUE: Sagittal T1, T2 axial, T2 axial FLAIR, axial susceptibility weighted imaging, axial diffusion weighted images, and coronal T2 images were obtained. Gadolinium not administered. Patient experienced a PTSD/anxiety episode while in the scanner, therefore gadolinium was not administered for this study. CLINICAL INFORMATION: G40.919 - Epilepsy, unspecified, intractable, without sta... COMPARISON: CT 09/12/2024 FINDINGS: No evidence of restricted diffusion to suggest acute ischemia. Incidental cavum septum pellucida and vergae. No hydrocephalus. No suspicious intracranial signal abnormalities. Normal posterior fossa. Normal vascular flow voids at the skull base. No extra-axial fluid collections. No evidence of mass or mass effect. Mild mucosal thickening in the paranasal sinuses. Mastoid air cells are well aerated. No hemosiderin on the susceptibly weighted images. Temporal lobes and hippocampal formations are normal in appearance. No signal abnormalities in the mesial temporal lobes. MR/MR head wo con* [id number] IMPRESSION: 1. No evidence of restricted diffusion to suggest acute ischemia. 2. No suspicious intracranial signal abnormalities. 3. No hemosiderin on the susceptibly weighted images. 4. Temporal lobes and hippocampal formations are normal in appearance. 5. No signal abnormalities in the mesial temporal lobes 6. Mild mucosal thickening in the paranasal sinuses. 7. No other suspicious findings.
--- NOTE | 2025-08-13 13:01 | MR_ITS ---
WS: [id number] MRA neck without gadolinium enhancement. INDICATION: Head trauma. Seizures. TECHNIQUE: 3D ecio-tc-ahjbel MRA neck. Maximum intensity projection images. FINDINGS: Some images are degraded by motion. RIGHT: RIGHT common carotid artery is patent. No significant RIGHT ICA stenosis. RIGHT ICA is patent to the skull base. LEFT: LEFT common carotid artery is patent. No significant LEFT ICA stenosis. LEFT ICA is patent to the skull base. Both vertebral arteries are patent. LEFT dominant vertebral artery. Vertebral arteries are patent to the basilar junction. Proximal subclavian arteries are patent. MR/MR angio neck wo con [id number] IMPRESSION: Normal neck MRA.
--- NOTE | 2025-08-13 13:01 | MR_ITS ---
WS: [id number] MRA HEAD TECHNIQUE: Axial 3-D TOF images obtained with axial images and axial, sagittal, and coronal 2-D reformatted images. CLINICAL INFORMATION: Z86.69 - Personal history of other diseases of the nervou... COMPARISON: None. FINDINGS: Distal vertebral arteries are patent. Basilar artery is patent. Normal vascularity to the FURNITURE REMOVALIST territory bilaterally. Patent RIGHT posterior communicating artery. Both ICAs are patent at the skull base. Small RIGHT A1 segment. Normal vascularity to the RONEL and MCA territories bilaterally. No evidence of proximal flow-limiting stenosis. MR/MR angio head wo con [id number] IMPRESSION: Normal intracranial MRA.
== END 2025-08-13 12:54 | disposition home or self-care (01) ==
LOC: RAD 12:53
PROVIDERS: PCP Nurse Practitioner Family; Visit Provider Psychiatry & Neurology Neurology
DX: Z86.69 Personal history of other diseases of the nervous system and sense organs (principal); G43.909 Migraine, unspecified, not intractable, without status migrainosus; J34.89 Other specified disorders of nose and nasal sinuses
CPT/HCPCS: 70544; 70547; 70548; 70551; 70553

== ENCOUNTER 2025-09-09 17:17 | Emergency (ER) | payer MEDICAID, SELFPAY ==
[2023-06-21 10:37] VITALS: BP 125/81; BMI 29.3
[2025-09-09] VITALS (7 sets, daily range): BP systolic 109–159; BP diastolic 64–101; PULSE 61–82; RESP 24; TEMP 36.9; O2SAT 91–97; BMI 30.5
--- NOTE | 2025-09-09 17:21 | CTR_ITS ---
PROCEDURE INFORMATION: Exam: CT Head Without Contrast Exam date and time: 09/09/2025 6:04 PM Age: 45 years old Clinical indication: Other: Seizure; Additional info: Seizure, vision loss TECHNIQUE: Imaging protocol: Computed tomography of the head without contrast. Radiation optimization: All CT scans at this facility use at least one of these dose optimization techniques: automated exposure control; mA and/or kV adjustment per patient size (includes targeted exams where dose is matched to clinical indication); or iterative reconstruction. COMPARISON: MR head wo con* [id number] 08/13/2025 1:24 PM RADIATION DOSE METRICS: Total DLP (mGy-cm): 1167.37 FINDINGS: Brain: Normal. No hemorrhage. Unremarkable white matter. No mass effect. Cerebral ventricles: Cavum septum pellucidum and cavum septum vergae. Paranasal sinuses: Visualized sinuses are unremarkable. No fluid levels. Mastoid air cells: Visualized mastoid air cells are well aerated. Bones: Unremarkable. No acute fracture. Soft tissues: Unremarkable. CT/CT head wo con* [id number] IMPRESSION: No acute intracranial abnormality.
[2025-09-09] MEDS: LORazepam 1 MG/0.5 ML injection 2 MG IVP (17:22)
--- NOTE | 2025-09-09 17:22 | ED_ITS ---
Documented by User: Zoraida Mckeon MD 09/09/25 20:16 HPI - Seizure 2 General: Chief Complaint: Seizure Stated Complaint: Siezures Time Seen by Provider: 09/09/25 17:19 History of Present Illness: HPI Narrative: 45-year-old man with a history of seizur e disorder, PTSD, traumatic brain injury, migraine headaches, hyperlipidemia, alcohol abuse, who presents to the emergency room by ambulance with seizure activity. He said a total of 3 seizures and then had another upon arrival. He had reported to EMS that he has decreased vision loss that he cannot see anything. Once he recovers from the seizure I talked to him again and he says that everything seems dark and this is not something has happened to him before. No focal motor deficits. He is almost immediately awake and alert. Very limited postictal state. No focal motor deficits. He tells me he had a stroke at 1 point. Seizure History: Yes Related Data Previous Rx's ?Medication ?Instructions ?Recorded diclofenac sodium 75 mg 75 mg PO Q12H PRN pain #20 t abs 12/06/23 tablet,delayed release mirtazapine 45 mg tablet 45 mg PO BEDTIME 30 days #30 tabs 03/14/24 prazosin 2 mg capsule 4 mg (2 x 2 mg) PO BEDTIME 3 0 days 03/14/24 #60 caps prednisone 20 mg tablet 20 mg PO BID #10 tabs meloxicam 15 mg tablet 15 mg PO DAILY #30 tabs 05/27 tizanidine 4 mg capsule 4 mg PO BID PRN muscle spast icity 06/05/25 #30 caps carbamazepine 400 mg 400 mg PO BID 90 days #180 t abs 07/07/25 tablet,extended release,12 hr ergocalciferol (vitamin D2) 1,250 1,250 mcg PO Q7D 3 m [facility] #13 caps 07/07/25 mcg (50,000 unit) capsule levetiracetam 500 mg 1,000 mg (2 x 500 mg) PO BID 90 07/07/25 tablet,extended release 24 hr days #360 tabs (Keppra XR) phenytoin sodium extended 100 mg 300 mg (3 x 100 mg) P O DAILY 07/07/25 capsule (Dilantin Extended) days #90 caps divalproex 500 mg tablet,delayed 500 mg PO BID #60 tab s 09/09/25 release (Depakote) Allergies Allergy/AdvReac Type Severity Reaction Status Date / Time latex Allergy Severe body rash Verified 08/12/25 08:53 onion Allergy Severe air Verified 08/12/25 08:53 passage swells. Iodinated Contrast Media Allergy ALGY-Rash Verified 08/12/25 08:53 Penicillins Allergy ALGY-Rash Verified 08/12/25 08:53 Review of Systems 2 Narrative: Constitutional symptoms: Negative except as documented in HPI. Skin symptoms: Negative except as documented in HPI. Eye symptoms: Negative except as documented in HPI. ENMT symptoms: Negative except as documented in HPI. Respiratory symptoms: Negative except as documented in HPI. Cardiovascular symptoms: Negative except as documented in HPI. Gastrointestinal symptoms: Negative except as documented in HPI. Genitourinary symptoms: Negative except as documented in HPI. Musculoskeletal symptoms: Negative except as documented in HPI. Neurologic symptoms: Negative except as documented in HPI. Psychiatric symptoms: Negative except as documented in HPI. Endocrine symptoms: Negative except as documented in HPI. PFSH ED 2 PFSH: Medical History (Updated 09/09/25 @ 20:10 by Zoraida Mckeon MD) Alcohol abuse PTSD (post-traumatic stress disorder) Seizures TBI (traumatic brain injury) Hx of migraine headaches Family History Other CAD (coronary artery disease) Dementia Suicide Social History Smoking and tobacco/nicotine status: current every day tobacco/nicotine user cigarettes Packs smoked per day: 0.5 Years cigarettes smoked: 30 Quit status (tobacco/nicotine): considering quitting Alcohol intake: current Alcohol intake frequency: holidays/special occasions only Alcohol type: beer and hard liquor Substance/Drug Use: never Adopted: No Caregiver/support person: No Lives independently: Yes Household members: none Housing: Apartment Marital status: Number of children: 2 Number of grandchildren: 1 Highest education level completed: GED or Equivalent service: Yes (8 years) status: Discharged branch: [employer] Assignments: Outside [facility] ([employer]) Current occupational status: retired and disabled Current occupational exposures/hazards: No Pets and animals: No Leisure activites: other Leisure activities details: Watch TV Sexually active: No Do you think of yourself as: Straight/Heterosexual Current gender identity: Male Macy/Latter Day: Worship Special macy needs: No Agree to transfusion: Yes Physical Exam 2 Narrative: EXAM NARRATIVE: General: Alert, no acute distress. Skin: Warm, dry. Head: Normocephalic, atraumatic. Neck: Supple, trachea midline. Eye: Extraocular movements are intact. Ears, nose, mouth and throat: mucosa moist. Cardiovascular: Regular, Normal peripheral perfusion. Respiratory: Lungs are clear to auscultation, respirations are non-labored, breath sounds are equal, Symmetrical chest wall expansion. Gastrointestinal: Soft, Nontender, Non distended Musculoskeletal: Normal ROM, no deformity. Neurological: Patient initially having some seizure-like activity. This stopped after some Ativan and he is almost immediately awake. He says he has a headache and cannot see. He says he can see bright lights in his left eye and nothing in his right. Psychiatric: Very odd affect Course 2 Vital Signs: Vital signs: Vital Signs Temperature 98.4 F 09/09/25 17:22 Pulse Rate 68 09/09/25 21:19 Respiratory Rate 24 H 09/09/25 17:22 Blood Pressure 125/86 09/09/25 21:19 Pulse Oximetry 94 09/09/25 21:19 Oxygen Delivery Me thod Room Air 09/09/25 21:19 MDM - Seizure MDM Narrative Medical decision making narrative: Medical decision making: Differential diagnosis for this patient with a complaint of seizure like activity would include but not be limited to, and based on the above HPI, review of systems and physical exam: seizure, DT's, alcohol withdrawal, brain malignancy, pseudo-seizure, syncope. Orders placed to evaluate differential diagnosis based on the above differential, HPI and physical exam Lab Review: Laboratory results were reviewed and interpreted by myself the emergency room physician Mild leukocytosis. No anemia. No renal failure. Liver enzymes are normal. Lactate is normal. His Dilantin level is a little low at 0.8. I reviewed the patient's medical record. Reexamination: Patient is sleeping comfortably in his room. When I wake him up he still says he cannot see. He is still complaining of a headache. Consultation: I spoke with Dr. Bentley on an unofficial consult. He does have history of migraines and focal seizures. With him having a headache and these vision changes I think this may just be an atypical migraine and she agrees. No CT changes. And this would not be typical of a stroke. At shift change patient is just now receiving medication for migraine. Dr. Bentley recommends repeat dose if needed. I have discussed the patient with the PA who is on-call right now. She will follow-up on his symptoms. If he does improve he should be able to go home. Lab Data 09/09/25 18:00 09/09/25 18:00 Labs: Radiology Impressions Head CT 09/09/25 17:21 IMPRESSION: No acute intracranial abnormality. Laboratory Results WBC 13.24 10^3/uL (3.29-11.43) H 09/09/25 18:00 RBC 5.23 10^6/uL (3.85-5.65) 09/09/25 18:00 Hgb 16.70 g/dL (11.27-16.99) 09/09/25 18:00 Hct 47.7 % (37-53) 09/09/25 18:00 MCV 91.2 fl (82-101) 09/09/25 18:00 MCH 31.9 pg (27-33) 09/09/25 18:00 MCHC 35.0 g/dL (30-55) 09/09/25 18:00 RDW 11.9 % (12.1-15.1) L 09/09/25 18:00 Plt Count 438 10^3/cmm (157-399) H 09/09/25 18:00 MPV 9.5 fL (7.4-10.4) 09/09/25 18:00 Neut % (Auto) 72.7 % 09/09/25 18:00 Lymph % (Auto) 14.9 % 09/09/25 18:00 [place] % (Auto) 10.0 % 09/09/25 18:00 Eos % (Auto) 1.0 % 09/09/25 18:00 Baso % (Auto) 0.4 % 09/09/25 18:00 Neut # (Auto) 9.64 10^3/uL (1.8-7.7) H 09/09/25 18:00 Lymph # (Auto) 2.0 10^3/uL (0.8-4.8) 09/09/25 18:00 [place] # (Auto) 1.3 10^3/uL (0.2-0.9) H 09/09/25 18:00 Eos # (Auto) 0.1 10^3/uL (0.0-0.8) 09/09/25 18:00 Baso # (Auto) 0.1 10^3/uL (0.0-0.1) 09/09/25 18:00 Nucleated RBC % (auto) 0 % 09/09/25 18:00 Nucleated RBCs # 0.0 /100WBC 09/09/25 18:00 Specimen Type Arterial 09/09/25 17:30 Sample Site Radial, left 09/09/25 17:30 ABG pH 7.42 (7.35-7.45) 09/09/25 17:30 ABG pCO2 38.1 mmHg (35-45) 09/09/25 17:30 ABG pO2 74.8 mmHg (80.0-100.0) L 09/09/25 17:30 ABG PO2/FiO2 Ratio 356 09/09/25 17:30 ABG HCO3 24.5 mmol/L (22-26) 09/09/25 17:30 ABG O2 Saturation 96.5 09/09/25 17:30 ABG Base Excess 0.2 mmol/L (-2.0-2.0) 09/09/25 17:30 Henrry Test Pos 09/09/25 17:30 A-a O2 Gradient 3.7 mmHg (5-10) L 09/09/25 17:30 Hematocrit 50.4 % (42-52) 09/09/25 17:30 Hgb O2 Saturation 93.3 % (95-100) L 09/09/25 17:30 Carboxyhemoglobin 3.4 %THgb (0.4-20.1) 09/09/25 17:30 Methemoglobin 0.0 % (0.4-1.5) L 09/09/25 17:30 Total Hemoglobin 16.4 g/dL (14-18) 09/09/25 17:30 Sodium 142.0 mmol/L (131-143) 09/09/25 17:30 Potassium 4.0 mmol/L (3.5-5.0) 09/09/25 17:30 Glucose 118.0 mg/dL (70-115) H 09/09/25 17:30 Ionized Calcium 1.2 mmol/L (1.1-1.4) 09/09/25 17:30 O2 Delivery Device Room air 09/09/25 17:30 FiO2 21.0 % 09/09/25 17:30 Wireless Sales Associate ID [employer] 09/09/25 17:30 Sodium 143 mmol/L (136-145) 09/09/25 18:00 Potassium 4.6 mmol/L (3.5-5.1) 09/09/25 18:00 Chloride 102 mmol/L (98-107) 09/09/25 18:00 Carbon Dioxide 26 mmol/L (22-29) 09/09/25 18:00 Anion Gap 19.6 (5-19) H 09/09/25 18:00 BUN 9 mg/dL (6-20) 09/09/25 18:00 Creatinine 0.9 mg/dL (0.7-1.2) 09/09/25 18:00 GFR Calculation 90.4 mL/min (90-130) 09/09/25 18:00 Glucose 95 mg/dL (65-115) 09/09/25 18:00 Calculated Osmolality 294 mOsm/kg (285-295) 09/09/25 18:00 Lactic Acid 1.8 mmol/L (0.5-2.2) 09/09/25 18:00 Calcium 9.8 mg/dL (8.5-10.5) 09/09/25 18:00 Total Bilirubin 0.5 mg/dL (0.15-1.2) 09/09/25 18:00 AST 19 U/L (0-40) 09/09/25 18:00 ALT 19 U/L (0-41) 09/09/25 18:00 Alkaline Phosphatase 102 U/L (40-130) 09/09/25 18:00 Total Protein 7.4 g/dL (6.6-8.7) 09/09/25 18:00 Albumin 4.8 g/dL (3.5-5.2) 09/09/25 18:00 Globulin 2.6 g/dL (1.3-4.6) 09/09/25 18:00 Urine Opiates Screen Negative ng/mL (Negative) 09/09/25 20:06 Ur Barbiturates Screen Negative ng/mL (Negative) 09/09/25 20:06 Phenytoin 0.8 ug/mL (10-20) L 09/09/25 18:00 Ur Phencyclidine Scrn Negative ng/mL (Negative) 09/09/25 20:06 Ur Amphetamines Screen Negative ng/mL (Negative) 09/09/25 20:06 U Benzodiazepines Scrn Positive ng/mL (Negative) H 09/09/25 20:06 Urine Cocaine Screen Negative ng/mL (Negative) 09/09/25 20:06 U Marijuana (THC) Screen Positive ng/mL (Negative) H 09/09/25 20:06 Discharge Plan Discharge Patient Disposition: Home Clinical Impression: Atypical migraine, Seizure, Generalized epilepsy TBI (traumatic brain injury) Qualifiers: Encounter type: subsequent encounter Loss of consciousness presence/duration: w ith LOC of 30 min or less Qualified Code(s): S06.9X1D - Unspecified intracranial injury with loss of consciousness of 30 minutes or less, subsequent encounter Condition: Stable Prescriptions: New divalproex [Depakote] 500 mg tablet,delayed release (DR/EC) 500 mg PO BID Qty: 60 0RF No Action mirtazapine 45 mg tablet 45 mg PO BEDTIME 30 Days Qty: 30 5RF prazosin 2 mg capsule 4 mg PO BEDTIME 30 Days Qty: 60 5RF meloxicam 15 mg tablet 15 mg PO DAILY Qty: 30 0RF tizanidine 4 mg capsule 4 mg PO BID PRN (Reason: muscle spasticity) Qty: 30 0RF prednisone 20 mg tablet 20 mg PO BID Qty: 10 0RF ergocalciferol (vitamin D2) 1,250 mcg (50,000 unit) capsule 1,250 mcg PO Q7D 90 Days Qty: 13 3RF levetiracetam [Keppra XR] 500 mg tablet extended release 24 hr 1,000 mg PO BID 90 Days Qty: 360 3RF phenytoin sodium extended [Dilantin Extended] 100 mg capsule 300 mg PO DAILY 90 Days Qty: 90 3RF Patient Comments: Takes 2 in am and 1 in afternoon carbamazepine 400 mg tablet extended release 12 hr 400 mg PO BID 90 Days Qty: 180 3RF diclofenac sodium 75 mg tablet,delayed release (DR/EC) 75 mg PO Q12H PRN (Reason: pain) Qty: 20 0RF Discharge Orders: Discharge ED (Routine); Ordered 09/09/25 Ordered By: Rosie Feliciano Referrals: Dariel Morales MD [Physician, Neurology] - 1 week Meghann Weiner FNP-C [Primary Care Provider, Family Practice] Discharge Diet: Usual diet Discharge Activity: Increase activity as tolerated Patient Instructions: Patient Portal & Natacha Instructions, Absence Seizure Activity Restrictions/Additional Instructions: - Follow-up with Dr. Morales, your personal neurologist. - Your medication: Depakote is at the pharmacy. - You will need a level next week Thank you for choosing [facility] for your healthcare needs today. You have been screened and evaluated and felt safe for discharge. Health conditions do change or evolve sometimes and as such it is important that you follow up with your Primary Doctor to be re checked, 3-5 days is a general good time frame for follow up. You are always welcome to return to the ED for re assessment if your symptoms are worsening or you have new concerns Print Language: Tongan Coding Level of Care Code ED Mixer Operator Hot Metal for Chg Fwd Documented by User: STEPHANIE Mejia 09/09/25 21:52 HPI - Seizure 2 General: Chief Complaint: Seizure Stated Complaint: Siezures Time Seen by Provider: 09/09/25 17:19 Related Data Previous Rx's ?Medication ?Instructions ?Recorded diclofenac sodium 75 mg 75 mg PO Q12H PRN pain #20 t abs 12/06/23 tablet,delayed release mirtazapine 45 mg tablet 45 mg PO BEDTIME 30 days #30 tabs 03/14/24 prazosin 2 mg capsule 4 mg (2 x 2 mg) PO BEDTIME 3 0 days 03/14/24 #60 caps prednisone 20 mg tablet 20 mg PO BID #10 tabs meloxicam 15 mg tablet 15 mg PO DAILY #30 tabs 05/27 tizanidine 4 mg capsule 4 mg PO BID PRN muscle spast icity 06/05/25 #30 caps carbamazepine 400 mg 400 mg PO BID 90 days #180 t abs 07/07/25 tablet,extended release,12 hr ergocalciferol (vitamin D2) 1,250 1,250 mcg PO Q7D 3 m onths #13 caps 07/07/25 mcg (50,000 unit) capsule levetiracetam 500 mg 1,000 mg (2 x 500 mg) PO BID 90 07/07/25 tablet,extended release 24 hr days #360 tabs (Keppra XR) phenytoin sodium extended 100 mg 300 mg (3 x 100 mg) P O DAILY 90 07/07/25 capsule (Dilantin Extended) days #90 caps divalproex 500 mg tablet,delayed 500 mg PO BID #60 tab s 09/09/25 release (Depakote) Allergies Allergy/AdvReac Type Severity Reaction Status Date / Time latex Allergy Severe body rash Verified 08/12/25 08:53 onion Allergy Severe air Verified 08/12/25 08:53 passage swells. Iodinated Contrast Media Allergy ALGY-Rash Verified 08/12/25 08:53 Penicillins Allergy ALGY-Rash Verified 08/12/25 08:53 PFSH ED 2 PFSH: Medical History (Updated 09/09/25 @ 20:10 by Zoraida Mckeon MD) Alcohol abuse PTSD (post-traumatic stress disorder) Seizures TBI (traumatic brain injury) Hx of migraine headaches Family History Other CAD (coronary artery disease) Dementia Suicide Social History Smoking and tobacco/nicotine status: current every day tobacco/nicotine user cigarettes Packs smoked per day: 0.5 Years cigarettes smoked: 30 Quit status (tobacco/nicotine): considering quitting Alcohol intake: current Alcohol intake frequency: holidays/special occasions only Alcohol type: beer and hard liquor Substance/Drug Use: never Adopted: No Caregiver/support person: No Lives independently: Yes Household members: none Housing: Apartment Marital status: Number of children: 2 Number of grandchildren: 1 Highest education level completed: GED or Equivalent service: Yes (8 years) status: Discharged branch: [employer] Assignments: Outside [employer] [facility] [employer] ([employer]) Current occupational status: retired and disabled Current occupational exposures/hazards: No Pets and animals: No Leisure activites: other Leisure activities details: Watch TV Sexually active: No Do you think of yourself as: Straight/Heterosexual Current gender identity: Male Macy/Latter Day: Worship Special macy needs: No Agree to transfusion: Yes Course 2 Vital Signs: Vital signs: Vital Signs Temperature 98.4 F 09/09/25 17:22 Pulse Rate 68 09/09/25 21:19 Respiratory Rate 24 H 09/09/25 17:22 Blood Pressure 125/86 09/09/25 21:19 Pulse Oximetry 94 09/09/25 21:19 Oxygen Delivery Me thod Room Air 09/09/25 21:19 MDM - Seizure MDM Narrative Medical decision making narrative: Medical decision making: Differential diagnosis for this patient with a complaint of seizure like activity would include but not be limited to, and based on the above HPI, review of systems and physical exam: seizure, DT's, alcohol withdrawal, brain malignancy, pseudo-seizure, syncope. Orders placed to evaluate differential diagnosis based on the above differential, HPI and physical exam Lab Review: Laboratory results were reviewed and interpreted by myself the emergency room physician Mild leukocytosis. No anemia. No renal failure. Liver enzymes are normal. Lactate is normal. His Dilantin level is a little low at 0.8. I reviewed the patient's medical record. Reexamination: Patient is sleeping comfortably in his room. When I wake him up he still says he cannot see. He is still complaining of a headache. Consultation: I spoke with Dr. Bentley on an unofficial consult. He does have history of migraines and focal seizures. With him having a headache and these vision changes I think this may just be an atypical migraine and she agrees. No CT changes. And this would not be typical of a stroke. At shift change patient is just now receiving medication for migraine. Dr. Bentley recommends repeat dose if needed. I have discussed the patient with the PA who is on-call right now. She will follow-up on his symptoms. If he does improve he should be able to go home. After reevaluation/examined patient at bedside. ROBER. He does state he can see. Sent Depakote to the pharmacy for patient to start tomorrow. Answered all of his questions to his satisfaction. He has a neurologist, Dr. Morales that he will follow-up with./RW Lab Data 09/09/25 18:00 09/09/25 18:00 Labs: Radiology Impressions Head CT 09/09/25 17:21 IMPRESSION: No acute intracranial abnormality. Laboratory Results WBC 13.24 10^3/uL (3.29-11.43) H 09/09/25 18:00 RBC 5.23 10^6/uL (3.85-5.65) 09/09/25 18:00 Hgb 16.70 g/dL (11.27-16.99) 09/09/25 18:00 Hct 47.7 % (37-53) 09/09/25 18:00 MCV 91.2 fl (82-101) 09/09/25 18:00 MCH 31.9 pg (27-33) 09/09/25 18:00 MCHC 35.0 g/dL (30-55) 09/09/25 18:00 RDW 11.9 % (12.1-15.1) L 09/09/25 18:00 Plt Count 438 10^3/cmm (157-399) H 09/09/25 18:00 MPV 9.5 fL (7.4-10.4) 09/09/25 18:00 Neut % (Auto) 72.7 % 09/09/25 18:00 Lymph % (Auto) 14.9 % 09/09/25 18:00 [place] % (Auto) 10.0 % 09/09/25 18:00 Eos % (Auto) 1.0 % 09/09/25 18:00 Baso % (Auto) 0.4 % 09/09/25 18:00 Neut # (Auto) 9.64 10^3/uL (1.8-7.7) H 09/09/25 18:00 Lymph # (Auto) 2.0 10^3/uL (0.8-4.8) 09/09/25 18:00 [place] # (Auto) 1.3 10^3/uL (0.2-0.9) H 09/09/25 18:00 Eos # (Auto) 0.1 10^3/uL (0.0-0.8) 09/09/25 18:00 Baso # (Auto) 0.1 10^3/uL (0.0-0.1) 09/09/25 18:00 Nucleated RBC % (auto) 0 % 09/09/25 18:00 Nucleated RBCs # 0.0 /100WBC 09/09/25 18:00 Specimen Type Arterial 09/09/25 17:30 Sample Site Radial, left 09/09/25 17:30 ABG pH 7.42 (7.35-7.45) 09/09/25 17:30 ABG pCO2 38.1 mmHg (35-45) 09/09/25 17:30 ABG pO2 74.8 mmHg (80.0-100.0) L 09/09/25 17:30 ABG PO2/FiO2 Ratio 356 09/09/25 17:30 ABG HCO3 24.5 mmol/L (22-26) 09/09/25 17:30 ABG O2 Saturation 96.5 09/09/25 17:30 ABG Base Excess 0.2 mmol/L (-2.0-2.0) 09/09/25 17:30 Henrry Test Pos 09/09/25 17:30 A-a O2 Gradient 3.7 mmHg (5-10) L 09/09/25 17:30 Hematocrit 50.4 % (42-52) 09/09/25 17:30 Hgb O2 Saturation 93.3 % (95-100) L 09/09/25 17:30 Carboxyhemoglobin 3.4 %THgb (0.4-20.1) 09/09/25 17:30 Methemoglobin 0.0 % (0.4-1.5) L 09/09/25 17:30 Total Hemoglobin 16.4 g/dL (14-18) 09/09/25 17:30 Sodium 142.0 mmol/L (131-143) 09/09/25 17:30 Potassium 4.0 mmol/L (3.5-5.0) 09/09/25 17:30 Glucose 118.0 mg/dL (70-115) H 09/09/25 17:30 Ionized Calcium 1.2 mmol/L (1.1-1.4) 09/09/25 17:30 O2 Delivery Device Room air 09/09/25 17:30 FiO2 21.0 % 09/09/25 17:30 Wireless Sales Associate ID [employer] 09/09/25 17:30 Sodium 143 mmol/L (136-145) 09/09/25 18:00 Potassium 4.6 mmol/L (3.5-5.1) 09/09/25 18:00 Chloride 102 mmol/L (98-107) 09/09/25 18:00 Carbon Dioxide 26 mmol/L (22-29) 09/09/25 18:00 Anion Gap 19.6 (5-19) H 09/09/25 18:00 BUN 9 mg/dL (6-20) 09/09/25 18:00 Creatinine 0.9 mg/dL (0.7-1.2) 09/09/25 18:00 GFR Calculation 90.4 mL/min (90-130) 09/09/25 18:00 Glucose 95 mg/dL (65-115) 09/09/25 18:00 Calculated Osmolality 294 mOsm/kg (285-295) 09/09/25 18:00 Lactic Acid 1.8 mmol/L (0.5-2.2) 09/09/25 18:00 Calcium 9.8 mg/dL (8.5-10.5) 09/09/25 18:00 Total Bilirubin 0.5 mg/dL (0.15-1.2) 09/09/25 18:00 AST 19 U/L (0-40) 09/09/25 18:00 ALT 19 U/L (0-41) 09/09/25 18:00 Alkaline Phosphatase 102 U/L (40-130) 09/09/25 18:00 Total Protein 7.4 g/dL (6.6-8.7) 09/09/25 18:00 Albumin 4.8 g/dL (3.5-5.2) 09/09/25 18:00 Globulin 2.6 g/dL (1.3-4.6) 09/09/25 18:00 Urine Opiates Screen Negative ng/mL (Negative) 09/09/25 20:06 Ur Barbiturates Screen Negative ng/mL (Negative) 09/09/25 20:06 Phenytoin 0.8 ug/mL (10-20) L 09/09/25 18:00 Ur Phencyclidine Scrn Negative ng/mL (Negative) 09/09/25 20:06 Ur Amphetamines Screen Negative ng/mL (Negative) 09/09/25 20:06 U Benzodiazepines Scrn Positive ng/mL (Negative) H 09/09/25 20:06 Urine Cocaine Screen Negative ng/mL (Negative) 09/09/25 20:06 U Marijuana (THC) Screen Positive ng/mL (Negative) H 09/09/25 20:06 All radiology interpretation(s) finalized by discharge Discharge Plan Discharge Patient Disposition: Home Clinical Impression: Atypical migraine, Seizure, Generalized epilepsy TBI (traumatic brain injury) Qualifiers: Encounter type: subsequent encounter Loss of consciousness presence/duration: w ith LOC of 30 min or less Qualified Code(s): S06.9X1D - Unspecified intracranial injury with loss of consciousness of 30 minutes or less, subsequent encounter Condition: Stable Prescriptions: New divalproex [Depakote] 500 mg tablet,delayed release (DR/EC) 500 mg PO BID Qty: 60 0RF No Action mirtazapine 45 mg tablet 45 mg PO BEDTIME 30 Days Qty: 30 5RF prazosin 2 mg capsule 4 mg PO BEDTIME 30 Days Qty: 60 5RF meloxicam 15 mg tablet 15 mg PO DAILY Qty: 30 0RF tizanidine 4 mg capsule 4 mg PO BID PRN (Reason: muscle spasticity) Qty: 30 0RF prednisone 20 mg tablet 20 mg PO BID Qty: 10 0RF ergocalciferol (vitamin D2) 1,250 mcg (50,000 unit) capsule 1,250 mcg PO Q7D 90 Days Qty: 13 3RF levetiracetam [Keppra XR] 500 mg tablet extended release 24 hr 1,000 mg PO BID 90 Days Qty: 360 3RF phenytoin sodium extended [Dilantin Extended] 100 mg capsule 300 mg PO DAILY 90 Days Qty: 90 3RF Patient Comments: Takes 2 in am and 1 in afternoon carbamazepine 400 mg tablet extended release 12 hr 400 mg PO BID 90 Days Qty: 180 3RF diclofenac sodium 75 mg tablet,delayed release (DR/EC) 75 mg PO Q12H PRN (Reason: pain) Qty: 20 0RF Discharge Orders: Discharge ED (Routine); Ordered 09/09/25 Ordered By: Rosie Feliciano Referrals: Dariel Morales MD [Physician, Neurology] - 1 week Husam,Meghann, CHAIRPERSON ANESTHESIOLOGY-C [Primary Care Provider, Family Practice] Discharge Diet: Usual diet Discharge Activity: Increase activity as tolerated Patient Instructions: Patient Portal & Natacha Instructions, Absence Seizure Activity Restrictions/Additional Instructions: - Follow-up with Dr. Morales, your personal neurologist. - Your medication: Depakote is at the pharmacy. - You will need a level next week Thank you for choosing [facility] for your healthcare needs today. You have been screened and evaluated and felt safe for discharge. Health conditions do change or evolve sometimes and as such it is important that you follow up with your Primary Doctor to be re checked, 3-5 days is a general good time frame for follow up. You are always welcome to return to the ED for re assessment if your symptoms are worsening or you have new concerns Print Language: Tongan Coding Level of Care Code ED Mixer Operator Hot Metal for [facility] [place]
[2025-09-09] MEDS: levETIRAcetam 2,000 MG/200 ML PREMIX 400 MG IV (17:25)
[2025-09-09 17:42] LABS: ABG PCO2 38.1 mmHg (35-45); ABG PH Result 7.42 (7.35-7.45); Alveolar-Arterial Oxygen Gradi 3.7 mmHg (5-10); Arterial Blood Gas Hematocrit 50.4 % (42-52); Blood Gas Allen Test Pos; Blood Gas Operator Identificat WALCI; Blood Gas Sample Site Radial, left; Blood Gas Sample Type Arterial; Carboxyhemoglobin 3.4 %THgb (0.4-20.1); Glucose Level-ABG 118.0 mg/dL (70-115); HCO3 ABG 24.5 mmol/L (22-26); Ionized Calcium Level - ABG 1.2 mmol/L (1.1-1.4); Methemoglobin 0.0 % (0.4-1.5); Oxygen Saturation ABG 96.5; PO2 ABG 74.8 mmHg (80.0-100.0); PO2 FiO2 Ratio Arterial Blood 356; Potassium Level - ABG 4.0 mmol/L (3.5-5.0); Sodium Level - ABG 142.0 mmol/L (131-143)
[2025-09-09 18:20] LABS: Hematocrit 47.7 % (37-53); Hemoglobin 16.70 g/dL (11.27-16.99); Mean Corpuscular HGB Conc 35.0 g/dL (30-55); Mean Corpuscular Hemoglobin 31.9 pg (27-33); Mean Corpuscular Volume 91.2 fl (82-101); Nucleated Red Blood Cells % 0 %; Platelet Count 438 10^3/cmm (157-399); Red Blood Count 5.23 10^6/uL (3.85-5.65); White Blood Count 13.24 10^3/uL (3.29-11.43)
[2025-09-09 18:36] LABS: Lactic Sepsis W/Reflex 1.8 mmol/L (0.5-2.2)
[2025-09-09 18:48] LABS: Alanine Aminotransferase 19 U/L (0-41); Albumin Level 4.8 g/dL (3.5-5.2); Alkaline Phosphatase 102 U/L (40-130); Anion Gap 19.6 (5-19); Aspartate Amino Transferase 19 U/L (0-40); Blood Urea Nitrogen 9 mg/dL (6-20); Calcium 9.8 mg/dL (8.5-10.5); Carbon Dioxide 26 mmol/L (22-29); Chloride 102 mmol/L (98-107); Creatinine Clr Calc Pharmacy 97.3279; Globulin 2.6 g/dL (1.3-4.6); Glucose 95 mg/dL (65-115); Osmolality Calculated 294 mOsm/kg (285-295); Potassium 4.6 mmol/L (3.5-5.1); Sodium 143 mmol/L (136-145); Total Protein 7.4 g/dL (6.6-8.7)
[2025-09-09 20:45] LABS: PCP Screen Urine Negative (Negative)
== END 2025-09-09 22:12 | disposition home or self-care (01) ==
PROVIDERS: Emergency Medicine; Emergency Provider Physician Assistant; PCP Nurse Practitioner Family
DX: G40.409 Other generalized epilepsy and epileptic syndromes, not intractable, without status epilepticus (principal); G43.909 Migraine, unspecified, not intractable, without status migrainosus; S06.9X1D Unspecified intracranial injury with loss of consciousness of 30 minutes or less, subsequent encounter; X58.XXXD Exposure to other specified factors, subsequent encounter
CPT/HCPCS: 36415; 36600; 70450; 80051; 80053; 80185; 80306; 82330; 82805; 83605; 85025; 96365; 96375; 99285; J1953; J2060; J3490

== ENCOUNTER 2025-10-17 16:56 | Emergency (ER) | payer MEDICAID, SELFPAY ==
[2023-06-21 10:37] VITALS: BP 125/81; BMI 29.3
[2025-10-17] MEDS: LORazepam 2 mg/mL INJ 1 mL IVP (17:09)
--- NOTE | 2025-10-17 17:10 | W.ED.SEIZURE ---
HPI - Seizure General: Chief Complaint: Seizure Stated Complaint: seizures Time Seen by Provider: 10/17/25 16:59 History of Present Illness: HPI Narrative: 45-year-old male with epilepsy, presents to ED due to seizures. He was brought in by EMS. Presenting issue is breakthrough seizures. No other information is available at this time. On his chart review, patient last filled his phenytoin, Depakote, Keppra, carbamazepine on 09/02/2025, as a 30-day supply of each of those. Patient did indicate he was taking his medication appropriately by shaking his head. This does not appear to be consistent with last fill of medication, with 30-day supply. Seizure History: Yes Related Data Previous Rx's ?Medication ?Instructions ?Recorded diclofenac sodium 75 mg 75 mg PO Q12H PRN pain #20 tabs 12/06/23 tablet,delayed release mirtazapine 45 mg tablet 45 mg PO BEDTIME 30 days #30 tabs 03/14/24 prazosin 2 mg capsule 4 mg (2 x 2 mg) PO BEDTIME 30 days 03/14/24 #60 caps prednisone 20 mg tablet 20 mg PO BID #10 tabs 09/17/24 meloxicam 15 mg tablet 15 mg PO DAILY #30 tabs 06/05/25 tizanidine 4 mg capsule 4 mg PO BID PRN muscle spasticity 06/05/25 #30 caps carbamazepine 400 mg 400 mg PO BID 90 days #180 tabs 07/07/25 tablet,extended release,12 hr ergocalciferol (vitamin D2) 1,250 1,250 mcg PO Q7D 3 months #13 caps 07/07/25 mcg (50,000 unit) capsule levetiracetam 500 mg 1,000 mg (2 x 500 mg) PO BID 90 07/07/25 tablet,extended release 24 hr days #360 tabs (Keppra XR) phenytoin sodium extended 100 mg 300 mg (3 x 100 mg) PO DAILY 90 07/07/25 capsule (Dilantin Extended) days #90 caps divalproex 500 mg tablet,delayed 500 mg PO BID #60 tabs 09/09/25 release (Depakote) Allergies Allergy/AdvReac Type Severity Reaction Status Date / Time latex Allergy Severe body rash Verified 08/12/25 08:53 onion Allergy Severe air Verified 08/12/25 08:53 passage swells. Iodinated Contrast Media Allergy ALGY-Rash Verified 08/12/25 08:53 Penicillins Allergy ALGY-Rash Verified 08/12/25 08:53 Review of Systems General: Reports: ROS unobtainable due to medical condition and ROS unobtainable due to mental status PFS ED PFSH: Medical History (Updated 10/17/25 @ 18:50 by STEPHANIE Mejia) Alcohol abuse PTSD (post-traumatic stress disorder) Seizures TBI (traumatic brain injury) Hx of migraine headaches Family History Other CAD (coronary artery disease) Dementia Suicide Social History Smoking and tobacco/nicotine status: current every day tobacco/nicotine user cigarettes Packs smoked per day: 0.5 Years cigarettes smoked: 30 Quit status (tobacco/nicotine): considering quitting Alcohol intake: current Alcohol intake frequency: holidays/special occasions only Alcohol type: beer and hard liquor Substance/Drug Use: never Adopted: No Caregiver/support person: No Lives independently: Yes Household members: none Housing: Apartment Marital status: Number of children: 2 Number of grandchildren: 1 Highest education level completed: GED or Equivalent service: Yes (8 years) status: Discharged branch: [employer] Assignments: Outside [facility] ([employer]) Current occupational status: retired and disabled Current occupational exposures/hazards: No Pets and animals: No Leisure activites: other Leisure activities details: Watch TV Sexually active: No Do you think of yourself as: Straight/Heterosexual Current gender identity: Male Macy/Worship: [employer] Special macy needs: No Agree to transfusion: Yes Physical Exam Const: COMMON NORMALS: no acute distress, average body habitus and patient oriented x3 EXAM LIMITATIONS: altered mental status HENMT: COMMON NORMALS: normocephalic and atraumatic HEAD & SCALP: normocephalic and atraumatic Neck/C-Spine: COMMON NORMALS: full ROM, no lymphadenopathy and supple Lymph: LYMPHATIC: no lymphadenopathy noted Chest: COMMONS NORMALS: normal inspection of the chest and normal palpation of entire chest wall Resp: COMMON NORMALS: normal respiratory effort, No retractions and No use of accessory muscles Cardio: COMMON NORMALS: regular rate and regular rhythm RATE: regular rate RHYTHM: regular rhythm GI: COMMON NORMALS: Normal to inspection, nondistended, normoactive bowel sounds present, Soft to palpation, non-tender and No hepatosplenomegaly present PALPATION: Yes Soft to palpation and Yes No hepatosplenomegaly present : COMMON NORMALS: Yes no CVA tenderness BLADDER/KIDNEY EXAM: Yes no CVA tenderness Back/Pelvis: COMMON NORMALS: no CVA tenderness Extremity: COMMON NORMALS: normal to inspection, full ROM and capillary refill normal Neuro: KALPESH COMA SCALE: document GCS findings COMMON NORMALS: patient oriented x3, CN's II-XII intact bilaterally and moves all extremities Psych: COMMON NORMALS: mental status grossly normal, Normal thought process present and cooperative THOUGHT PROCESS: Normal thought process present Course Reevaluation(s): Reevaluation #1: 1719: Patient was actively seizing. Ativan 2 mg ordered, plus seizure precautions, and head of bed up. Reevaluation #2: 1732: Appears stable without active seizures. To head CT. Reevaluation #3: 1831: Patient is awake, well, stating yes he did not take his medication appropriately/noncompliance. Additional Reevaluation(s): 1914: Patient up on side of the bed playing with his phone, no complaints. Vital Signs: Vital signs: Vital Signs Temperature 98.7 F 10/17/25 17:15 Pulse Rate 63 10/17/25 19:41 Respiratory Rate 16 10/17/25 19:41 Blood Pressure 136/94 10/17/25 19:41 Pulse Oximetry 96 10/17/25 19:41 Oxygen Delivery Me thod Room Air 10/17/25 17:15 MDM - Seizure MDM Narrative Medical decision making narrative: Patient is a 45-year-old gentleman that is noncompliant to his seizure medications. His prolactin is elevated indicating patient most likely did have seizure activity. He improved with Ativan 2 mg here. He was loaded on his Keppra IV, and given his carbamazepine, Depakote, and phenytoin. The only pending level is his carbamazepine. Discussed all of this with patient since he is now awake, alert, playing with his phone, that compliance is extremely important when you have epilepsy. Patient states understanding, and assures me he has refills at the pharmacy. Lab Data 10/17/25 17:22 10/17/25 17:22 Labs: Radiology Impressions Head CT 10/17/25 17:19 IMPRESSION: No acute intracranial abnormality. Laboratory Results WBC 10.99 10^3/uL (3.29-11.43) 10/17/25 17:22 RBC 4.70 10^6/uL (3.85-5.65) 10/17/25 17:22 Hgb 15.00 g/dL (11.27-16.99) 10/17/25 17:22 Hct 43.6 % (37-53) 10/17/25 17:22 MCV 92.8 fl (82-101) 10/17/25 17:22 MCH 31.9 pg (27-33) 10/17/25 17:22 MCHC 34.4 g/dL (30-55) 10/17/25 17:22 RDW 11.9 % (12.1-15.1) L 10/17/25 17:22 Plt Count 432 10^3/cmm (157-399) H 10/17/25 17:22 MPV 9.3 fL (7.4-10.4) 10/17/25 17:22 Neut % (Auto) 62.7 % 10/17/25 17:22 Lymph % (Auto) 21.6 % 10/17/25 17:22 Pickett % (Auto) 11.6 % 10/17/25 17:22 Eos % (Auto) 1.9 % 10/17/25 17: Baso % (Auto) 0.7 % 10/17/25 17: Neut # (Auto) 6.88 10^3/uL (1.8-7.7) 10/17/25 17:22 Lymph # (Auto) 2.4 10^3/uL (0.8-4.8) 10/17/25 17:22 Pickett # (Auto) 1.3 10^3/uL (0.2-0.9) H 10/17/25 17:22 Eos # (Auto) 0.2 10^3/uL (0.0-0.8) 10/17/25 17:22 Baso # (Auto) 0.1 10^3/uL (0.0-0.1) 10/17/25 17:22 Nucleated RBC % (auto) 0 % 10/17/25 17:22 Nucleated RBCs # 0.0 /100WBC 10/17/25 17:22 Sodium 141 mmol/L (136-145) 10/17/25 17:22 Potassium 4.3 mmol/L (3.5-5.1) 10/17/25 17:22 Chloride 105 mmol/L (98-107) 10/17/25 17:22 Carbon Dioxide 27 mmol/L (22-29) 10/17/25 17:22 Anion Gap 13.3 (5-19) 10/17/25 17:22 BUN 6 mg/dL (6-20) 10/17/25 17:22 Creatinine 0.7 mg/dL (0.7-1.2) 10/17/25 17:22 GFR Calculation 120.9 mL/min (90-130) 10/17/25 17:22 Glucose 92 mg/dL (65-115) 10/17/25 17:22 Calculated Osmolality 289 mOsm/kg (285-295) 10/17/25 17:22 Lactic Acid 1.2 mmol/L (0.5-2.2) 10/17/25 17:22 Calcium 9.5 mg/dL (8.5-10.5) 10/17/25 17:22 Magnesium 2.2 mg/dL (1.7-2.3) 10/17/25 17:22 Total Bilirubin 0.3 mg/dL (0.15-1.2) 10/17/25 17:22 AST 23 U/L (0-40) 10/17/25 17:22 ALT 23 U/L (0-41) 10/17/25 17:22 Alkaline Phosphatase 92 U/L (40-130) 10/17/25 17:22 Total Protein 6.7 g/dL (6.6-8.7) 10/17/25 17:22 Albumin 4.5 g/dL (3.5-5.2) 10/17/25 17:22 Globulin 2.2 g/dL (1.3-4.6) 10/17/25 17:22 Prolactin 19.85 ng/mL (4.0-15.2) H 10/17/25 17:22 Phenytoin 0.8 ug/mL (10-20) L 10/17/25 17:22 Valproic Acid 2.8 ug/mL (50-100) L 10/17/25 17:22 Ethyl Alcohol < 10 mg/dL (0-10) 10/17/25 17:22 All radiology interpretation(s) finalized by discharge ED provider radiology interpretation(s): No acute findings. Compared to previous. Discharge Plan Discharge Patient Disposition: Home Clinical Impression: Non compliance w medication regimen Epilepsy Qualifiers: Epilepsy type: partial symptomatic Partial seizure type: with complex partial seizures Intractability: not intractable Status epilepticus: without status epilepticus Qualified Code(s): G40.209 - Localization-related (focal) (partial) symptomatic epilepsy and epileptic syndromes with complex partial seizures, not intractable, without status epilepticus Condition: Stable Prescriptions: No Action mirtazapine 45 mg tablet 45 mg PO BEDTIME 30 Days Qty: 30 5RF prazosin 2 mg capsule 4 mg PO BEDTIME 30 Days Qty: 60 5RF meloxicam 15 mg tablet 15 mg PO DAILY Qty: 30 0RF tizanidine 4 mg capsule 4 mg PO BID PRN (Reason: muscle spasticity) Qty: 30 0RF prednisone 20 mg tablet 20 mg PO BID Qty: 10 0RF ergocalciferol (vitamin D2) 1,250 mcg (50,000 unit) capsule 1,250 mcg PO Q7D 90 Days Qty: 13 3RF levetiracetam [Keppra XR] 500 mg tablet extended release 24 hr 1,000 mg PO BID 90 Days Qty: 360 3RF phenytoin sodium extended [Dilantin Extended] 100 mg capsule 300 mg PO DAILY 90 Days Qty: 90 3RF Patient Comments: Takes 2 in am and 1 in afternoon carbamazepine 400 mg tablet extended release 12 hr 400 mg PO BID 90 Days Qty: 180 3RF diclofenac sodium 75 mg tablet,delayed release (DR/EC) 75 mg PO Q12H PRN (Reason: pain) Qty: 20 0RF divalproex [Depakote] 500 mg tablet,delayed release (DR/EC) 500 mg PO BID Qty: 60 0RF Discharge Orders: Discharge ED (Routine); Ordered 10/17/25 Ordered By: Rosie Feliciano Referrals: Meghann Weiner FNP-C [Primary Care Provider, Family Practice] Patient Instructions: Epilepsy (ED), Patient Portal & Nat[facility] Instructions Activity Restrictions/Additional Instructions: - Refill your medications at the pharmacy. It is important to be compliant/meaning take your medication as directed by a doctor. Especially, when you have epilepsy. If you do not take your medications, you will have breakthrough seizures. If you have breakthrough seizures, you are unable to help your daughters in [place], and you will have to spend more time in the ER. It is important just to take them and do as you are supposed to with epilepsy to avoid these issues. The only pending level is carbamazepine. Although the rest of your levels were very low indicating you have not taken your medications, as we discussed, it is important to follow your directions. As you give yourself some love, and take your medications, you also feel better. Thank you for choosing [facility] for your healthcare needs today. You have been screened and evaluated and felt safe for discharge. Health conditions do change or evolve sometimes and as such it is important that you follow up with your Primary Doctor to be re checked, 3-5 days is a general good time frame for follow up. You are always welcome to return to the ED for re assessment if your symptoms are worsening or you have new concerns Print Language: [place] Arabian Coding Level of Care Code ED Certified Control Systems Technician for [facility]
[2025-10-17] MEDS: levETIRAcetam 1,000 MG/100 ML PREMIX 400 MG IV (17:13)
[2025-10-17 17:15] VITALS: BP 145/90; PULSE 91; RESP 18; TEMP 37.1; O2SAT 95
--- NOTE | 2025-10-17 17:19 | CTR_ITS ---
PROCEDURE INFORMATION: Exam: CT Head Without Contrast Exam date and time: 10/17/2025 5:32 PM Age: 45 years old Clinical indication: Syncope and collapse and other: Seizures; Additional info: Refractory seizures TECHNIQUE: Imaging protocol: Computed tomography of the head without contrast. Radiation optimization: All CT scans at this facility use at least one of these dose optimization techniques: automated exposure control; mA and/or kV adjustment per patient size (includes targeted exams where dose is matched to clinical indication); or iterative reconstruction. COMPARISON: CT head wo con* [id number] 09/09/2025 6:04 PM RADIATION DOSE METRICS: Total DLP (mGy-cm): 1039.68 FINDINGS: Brain: Normal. No hemorrhage. Unremarkable white matter. No mass effect. Cerebral ventricles: No ventriculomegaly. Paranasal sinuses: Visualized sinuses are unremarkable. No fluid levels. Mastoid air cells: Visualized mastoid air cells are well aerated. Pharynx: Probable low-lying tonsils. Bones: Unremarkable. No acute fracture. Soft tissues: Unremarkable. CT/CT head wo con* [id number] IMPRESSION: No acute intracranial abnormality.
[2025-10-17 17:29] LABS: Hematocrit 43.6 % (37-53); Hemoglobin 15.00 g/dL (11.27-16.99); Mean Corpuscular HGB Conc 34.4 g/dL (30-55); Mean Corpuscular Hemoglobin 31.9 pg (27-33); Mean Corpuscular Volume 92.8 fl (82-101); Nucleated Red Blood Cells % 0 %; Platelet Count 432 10^3/cmm (157-399); Red Blood Count 4.70 10^6/uL (3.85-5.65); White Blood Count 10.99 10^3/uL (3.29-11.43)
[2025-10-17 17:44] VITALS: BP 119/95; PULSE 79; RESP 18; O2SAT 94
[2025-10-17 17:48] VITALS: BP 119/95; PULSE 79; RESP 16; O2SAT 96
[2025-10-17 17:52] LABS: Alanine Aminotransferase 23 U/L (0-41); Albumin Level 4.5 g/dL (3.5-5.2); Alcohol Level < 10 mg/dL (0-10); Alkaline Phosphatase 92 U/L (40-130); Anion Gap 13.3 (5-19); Aspartate Amino Transferase 23 U/L (0-40); Blood Urea Nitrogen 6 mg/dL (6-20); Calcium 9.5 mg/dL (8.5-10.5); Carbon Dioxide 27 mmol/L (22-29); Chloride 105 mmol/L (98-107); Globulin 2.2 g/dL (1.3-4.6); Glucose 92 mg/dL (65-115); Magnesium 2.2 mg/dL (1.7-2.3); Osmolality Calculated 289 mOsm/kg (285-295); Potassium 4.3 mmol/L (3.5-5.1); Sodium 141 mmol/L (136-145); Total Protein 6.7 g/dL (6.6-8.7)
[2025-10-17 17:57] LABS: Lactic Sepsis W/Reflex 1.2 mmol/L (0.5-2.2)
[2025-10-17] MEDS: divalproex DR 500 mg Tablet 1000 MG PO (18:23)
[2025-10-17 19:41] VITALS: BP 136/94; PULSE 63; RESP 16; O2SAT 96
== END 2025-10-17 19:40 | disposition home or self-care (01) ==
PROVIDERS: Emergency Provider Physician Assistant; PCP Nurse Practitioner Family
DX: G40.209 Localization-related (focal) (partial) symptomatic epilepsy and epileptic syndromes with complex partial seizures, not intractable, without status epilepticus (principal); Z91.148 Patient's other noncompliance with medication regimen for other reason; F17.210 Nicotine dependence, cigarettes, uncomplicated; Z87.820 Personal history of traumatic brain injury
CPT/HCPCS: 70450; 80053; 80157; 80164; 80185; 80307; 83605; 83735; 84146; 85025; 96365; 96375; 99285; J1953; J2060; J9999

== ENCOUNTER 2025-10-26 16:10 | Emergency (ER) | payer MEDICAID, SELFPAY ==
[2023-06-21 10:37] VITALS: BP 125/81; BMI 29.3
[2025-10-26 16:11] VITALS: BP 121/93; PULSE 77; RESP 18; TEMP 36.7; O2SAT 97; BMI 31.6
[2025-10-26 16:23] VITALS: BP 121/93; PULSE 68; RESP 16; O2SAT 97
--- NOTE | 2025-10-26 16:23 | CTR_ITS ---
PROCEDURE INFORMATION: Exam: CT Head Without Contrast Exam date and time: 10/26/2025 5:02 PM Age: 45 years old Clinical indication: Injury or trauma; Fall; Blunt trauma (contusions or hematomas); Additional info: Fall with altered mentation TECHNIQUE: Imaging protocol: Computed tomography of the head without contrast. Radiation optimization: All CT scans at this facility use at least one of these dose optimization techniques: automated exposure control; mA and/or kV adjustment per patient size (includes targeted exams where dose is matched to clinical indication); or iterative reconstruction. COMPARISON: CT head wo con* [id number] 10/17/2025 5:32 PM RADIATION DOSE METRICS: Total DLP (mGy-cm): 1067.8 FINDINGS: Brain: Normal. No hemorrhage. Unremarkable white matter. No mass effect. Cerebral ventricles: No ventriculomegaly. Paranasal sinuses: Visualized sinuses are unremarkable. No fluid levels. Mastoid air cells: Visualized mastoid air cells are well aerated. Bones: Unremarkable. No acute fracture. Soft tissues: Unremarkable. CT/CT head wo con* [id number] IMPRESSION: No acute intracranial abnormality.
--- NOTE | 2025-10-26 16:23 | CTR_ITS ---
PROCEDURE INFORMATION: Exam: CT Cervical Spine Without Contrast Exam date and time: 10/26/2025 5:02 PM Age: 45 years old Clinical indication: Injury or trauma; Fall; Blunt trauma; Additional info: Fall, h/o seizures TECHNIQUE: Imaging protocol: Computed tomography of the cervical spine without contrast. Radiation optimization: All CT scans at this facility use at least one of these dose optimization techniques: automated exposure control; mA and/or kV adjustment per patient size (includes targeted exams where dose is matched to clinical indication); or iterative reconstruction. COMPARISON: MR cervical spin wo con* [id number] 04/16/2024 4:15 PM RADIATION DOSE METRICS: Total DLP (mGy-cm): 1067.8 FINDINGS: Bones: The cervical spine demonstrates mild degenerative changes at multiple levels. There is no evidence of acute fracture. There are no compression fractures or deformities. There is no evidence of spondylolisthesis. Pharynx: Right palatine tonsil calcifications. Lungs: Lung apices are normal. Soft tissues: Unremarkable. CT/CT cervical spin wo con* [id number] IMPRESSION: No acute posttraumatic changes in the cervical spine.
--- NOTE | 2025-10-26 16:24 | W.ED.SEIZURE ---
HPI - Seizure General: Chief Complaint: Seizure Stated Complaint: seizures Time Seen by Provider: 10/26/25 16:14 History of Present Illness: HPI Narrative: 45-year-old male with epilepsy, presents to ED due to fall at home, with breakthrough seizure. He was brought in by EMS. EMS gave Ativan 2 mg. Presenting issue is breakthrough seizures. On his chart review, patient last filled his phenytoin, Depakote, Keppra, carbamazepine. Last fill: Phenytoin: 09/29/2025 Depakote: 09/10/2025 Keppra: 10/24/2025 Carbamazepine: 10/24/2025 These were all for 30-day supply. Last visit to the ED: 10/17/2025. This was for breakthrough seizures. Patient was noted to be noncompliant at that time. He did receive CT of the head. He was brought in by EMS. Lab work was consistent with breakthrough seizure. Patient relates today he was talking to his daughters on the phone, when he fell. He lost his balance. And had a seizure. He did bite his tongue. He is unsure when. He states compliance to his medications at this time. On reevaluation, patient had a petit seizure. Ativan 2 mg ordered. Seizure History: Yes Associated symptoms: Deny chest pain, chills or fever(s) Related Data Previous Rx's ?Medication ?Instructions ?Recorded diclofenac sodium 75 mg 75 mg PO Q12H PRN pain #20 tabs 12/06/23 tablet,delayed release mirtazapine 45 mg tablet 45 mg PO BEDTIME 30 days #30 tabs 03/14/24 prazosin 2 mg capsule 4 mg (2 x 2 mg) PO BEDTIME 30 days 03/14/24 #60 caps prednisone 20 mg tablet 20 mg PO BID #10 tabs 09/17/24 meloxicam 15 mg tablet 15 mg PO DAILY #30 tabs 06/05/25 tizanidine 4 mg capsule 4 mg PO BID PRN muscle spasticity 06/05/25 #30 caps carbamazepine 400 mg 400 mg PO BID 90 days #180 tabs 07/07/25 tablet,extended release,12 hr ergocalciferol (vitamin D2) 1,250 1,250 mcg PO Q7D 3 months #13 caps 07/07/25 mcg (50,000 unit) capsule levetiracetam 500 mg 1,000 mg (2 x 500 mg) PO BID 90 07/07/25 tablet,extended release 24 hr days #360 tabs (Keppra XR) phenytoin sodium extended 100 mg 300 mg (3 x 100 mg) PO DAILY 90 07/07/25 capsule (Dilantin Extended) days #90 caps divalproex 500 mg tablet,delayed 500 mg PO BID #60 tabs 09/09/25 release (Depakote) Allergies Allergy/AdvReac Type Severity Reaction Status Date / Time latex Allergy Severe body rash Verified 08/12/25 08:53 onion Allergy Severe air Verified 08/12/25 08:53 passage swells. Iodinated Contrast Media Allergy ALGY-Rash Verified 08/12/25 08:53 Penicillins Allergy ALGY-Rash Verified 08/12/25 08:53 Review of Systems General: Reports: 10 or more systems reviewed and unremarkable except in HPI and below Const: Denies: fever(s) or chills Eyes: Denies: change in vision or blurry vision ENMT: Reports: oral sores (tongue bite); Denies: throat pain or mouth pain Card: Denies: chest pain or palpitations Resp: Denies: dyspnea or non-productive cough GI: Denies: abdominal pain, nausea or vomiting : Denies: flank pain or difficulty urinating Musc: Denies: neck pain or back pain Neuro: Reports: difficulty walking, frequent falls and Slurred speech present (due to tongue injury per patient); Denies: headache(s), numbness in extremities, weakness in extremities, sensory changes, lack of coordination, dizziness, vertigo or behavioral changes Psych: Denies: anxiety or depression [facility] ED PFSH: Medical History (Updated 10/26/25 @ 18:51 by STEPHANIE Mejia) Alcohol abuse PTSD (post-traumatic stress disorder) Seizures TBI (traumatic brain injury) Hx of migraine headaches Family History Other CAD (coronary artery disease) Dementia Suicide Social History Smoking and tobacco/nicotine status: current every day tobacco/nicotine user cigarettes Packs smoked per day: 0.5 Years cigarettes smoked: 30 Quit status (tobacco/nicotine): considering quitting Alcohol intake: current Alcohol intake frequency: holidays/special occasions only Alcohol type: beer and hard liquor Substance/Drug Use: never Adopted: No Caregiver/support person: No Lives independently: Yes Household members: none Housing: Apartment Marital status: Number of children: 2 Number of grandchildren: 1 Highest education level completed: GED or Equivalent service: Yes (8 years) status: Discharged branch: [employer] Assignments: Outside [facility] ([employer]) Current occupational status: retired and disabled Current occupational exposures/hazards: No Pets and animals: No Leisure activites: other Leisure activities details: Watch TV Sexually active: No Do you think of yourself as: Straight/Heterosexual Current gender identity: Male Macy/Judaism: Pentecostalism Special macy needs: No Agree to transfusion: Yes Physical Exam Const: COMMON NORMALS: no acute distress, average body habitus and patient oriented x3 EXAM LIMITATIONS: altered mental status HENMT: COMMON NORMALS: normocephalic and atraumatic HEAD & SCALP: normocephalic and atraumatic OTHER: Cannot appreciate tongue injury. Neck/C-Spine: COMMON NORMALS: full ROM, no lymphadenopathy and supple Lymph: LYMPHATIC: no lymphadenopathy noted Chest: COMMONS NORMALS: normal inspection of the chest and normal palpation of entire chest wall Resp: COMMON NORMALS: normal respiratory effort, No retractions and No use of accessory muscles Cardio: COMMON NORMALS: regular rate and regular rhythm RATE: regular rate RHYTHM: regular rhythm GI: COMMON NORMALS: Normal to inspection, nondistended, normoactive bowel sounds present, Soft to palpation, non-tender and No hepatosplenomegaly present PALPATION: Yes Soft to palpation and Yes No hepatosplenomegaly present : COMMON NORMALS: Yes no CVA tenderness BLADDER/KIDNEY EXAM: Yes no CVA tenderness Back/Pelvis: COMMON NORMALS: no CVA tenderness Extremity: COMMON NORMALS: normal to inspection, full ROM and capillary refill normal Neuro: KALPESH COMA SCALE: document GCS findings COMMON NORMALS: patient oriented x3, CN's II-XII intact bilaterally and moves all extremities Psych: COMMON NORMALS: mental status grossly normal, Normal thought process present and cooperative THOUGHT PROCESS: Normal thought process present Course Reevaluation(s): Reevaluation #1: Improved. Conversant. No slurred speech. Vital Signs: Vital signs: Vital Signs Temperature 98.1 F 10/26/25 16:11 Pulse Rate 71 10/26/25 18:50 Respiratory Rate 16 10/26/25 17:15 Blood Pressure 121/93 10/26/25 16:23 Pulse Oximetry 98 10/26/25 18:50 Oxygen Delivery Me thod Room Air 10/26/25 18:50 MDM - Seizure MDM Narrative Medical decision making narrative: No further issues after Ativan 2 mg x 1. Depakote, Tegretol, and phenytoin level are all pending. Initial labs show elevation of prolactin, supportive of seizure. Depakote level is improved from previous evaluation, and patient states compliance. Carbamazepine has improved from previous level, and patient states compliance. Patient admits to not taking his phenytoin as told. 300 mg given. He does not need another prescription. He will follow-up with primary care. Breakthrough seizures are most likely an issue with his compliance. Patient describes social factors of living alone. He does desire to follow his medication regimen now, and is scared to have a seizure. I have advised him to reach out for social support to help him set up his medications so this will promote his compliance. I have advised him to follow-up with neurology and primary care. I have advised him to fill his medications and take appropriately. Patient is motivated to take care of himself, and voices motivation because of the love for his daughters. Lab Data 10/26/25 16:47 10/26/25 16:47 Labs: Radiology Impressions Cervical Spine CT 10/26/25 16:23 IMPRESSION: No acute posttraumatic changes in the cervical spine. Head CT 10/26/25 16:23 IMPRESSION: No acute intracranial abnormality. Laboratory Results WBC 9.47 10^3/uL (3.29-11.43) 10/26/25 16:47 RBC 4.75 10^6/uL (3.85-5.65) 10/26/25 16:47 Hgb 15.10 g/dL (11.27-16.99) 10/26/25 16:47 Hct 44.6 % (37-53) 10/26/25 16:47 MCV 93.9 fl (82-101) 10/26/25 16:47 MCH 31.8 pg (27-33) 10/26/25 16:47 MCHC 33.9 g/dL (30-55) 10/26/25 16:47 RDW 12.1 % (12.1-15.1) 10/26/25 16:47 Plt Count 472 10^3/cmm (157-399) H 10/26/25 16:47 MPV 9.4 fL (7.4-10.4) 10/26/25 16:47 Neut % (Auto) 57.5 % 10/26/25 16:47 Lymph % (Auto) 27.6 % 10/26/25 16:47 Sully % (Auto) 11.3 % 10/26/25 16:47 Eos % (Auto) 1.8 % 10/26/25 16:47 Baso % (Auto) 0.6 % 10/26/25 16:47 Neut # (Auto) 5.45 10^3/uL (1.8-7.7) 10/26/25 16:47 Lymph # (Auto) 2.6 10^3/uL (0.8-4.8) 10/26/25 16:47 Sully # (Auto) 1.1 10^3/uL (0.2-0.9) H 10/26/25 16:47 Eos # (Auto) 0.2 10^3/uL (0.0-0.8) 10/26/25 16:47 Baso # (Auto) 0.1 10^3/uL (0.0-0.1) 10/26/25 16:47 Nucleated RBC % (auto) 0 % 10/26/25 16:47 Nucleated RBCs # 0.0 /100WBC 10/26/25 16:47 Sodium 141 mmol/L (136-145) 10/26/25 16:47 Potassium 3.9 mmol/L (3.5-5.1) 10/26/25 16:47 Chloride 105 mmol/L (98-107) 10/26/25 16:47 Carbon Dioxide 25 mmol/L (22-29) 10/26/25 16:47 Anion Gap 14.9 (5-19) 10/26/25 16:47 BUN 6 mg/dL (6-20) 10/26/25 16:47 Creatinine 0.8 mg/dL (0.7-1.2) 10/26/25 16:47 GFR Calculation 103.6 mL/min (90-130) 10/26/25 16:47 Glucose 103 mg/dL (65-115) 10/26/25 16:47 Calculated Osmolality 290 mOsm/kg (285-295) 10/26/25 16:47 Lactic Acid 0.9 mmol/L (0.5-2.2) 10/26/25 16:47 Calcium 9.0 mg/dL (8.5-10.5) 10/26/25 16:47 Total Bilirubin 0.3 mg/dL (0.15-1.2) 10/26/25 16:47 AST 18 U/L (0-40) 10/26/25 16:47 ALT 17 U/L (0-41) 10/26/25 16:47 Alkaline Phosphatase 85 U/L (40-130) 10/26/25 16:47 Total Protein 6.8 g/dL (6.6-8.7) 10/26/25 16:47 Albumin 4.2 g/dL (3.5-5.2) 10/26/25 16:47 Globulin 2.6 g/dL (1.3-4.6) 10/26/25 16:47 Prolactin 15.23 ng/mL (4.0-15.2) H 10/26/25 16:47 Urine Color Yellow (Yellow) 10/26/25 16:54 Urine Appearance Clear (CLEAR) 10/26/25 16:54 Urine pH 5.0 (5-7) 10/26/25 16:54 Ur Specific Henriette 1.020 (1.005-1.030) 10/26/25 16:54 Urine Protein Trace (Negative) A 10/26/25 16:54 Urine Glucose (UA) Negative (Normal) 10/26/25 16:54 Urine Ketones Trace (Negative) 10/26/25 16:54 Urine Blood Negative (Negative) 10/26/25 16:54 Urine Nitrate Negative (Negative) 10/26/25 16:54 Urine Bilirubin Negative (Negative) 10/26/25 16:54 Urine Urobilinogen 1.0 mg/dL (Negative) 10/26/25 16:54 Ur Leukocyte Esterase Negative (Negative) 10/26/25 16:54 Urine RBC 0-2 /hpf (0-2) 10/26/25 16:54 Urine WBC 0-5 /hpf (0-5) 10/26/25 16:54 Ur Squamous Epith Cells 0-5 /hpf (0-5) 10/26/25 16:54 Amorphous Sediment Not Reportable 10/26/25 16:54 Urine Bacteria None seen /hpf (NONE) 10/26/25 16:54 Hyaline Casts 4.95 /lpf 10/26/25 16:54 Urine Opiates Screen Negative ng/mL (Negative) 10/26/25 16:54 Ur Barbiturates Screen Negative ng/mL (Negative) 10/26/25 16:54 Phenytoin 0.8 ug/mL (10-20) L 10/26/25 16:47 Valproic Acid 8.2 ug/mL (50-100) L 10/26/25 16:47 Carbamazepine 2.0 ug/mL (4.0-12.0) L 10/26/25 16:47 Ur Phencyclidine Scrn Negative ng/mL (Negative) 10/26/25 16:54 Ur Amphetamines Screen Negative ng/mL (Negative) 10/26/25 16:54 U Benzodiazepines Scrn Negative ng/mL (Negative) 10/26/25 16:54 Urine Cocaine Screen Negative ng/mL (Negative) 10/26/25 16:54 U Marijuana (THC) Screen Negative ng/mL (Negative) 10/26/25 16:54 Influenza A (PCR) Negative (Negative) 10/26/25 18:36 Influenza Type B (PCR) Negative (Negative) 10/26/25 18:36 RSV (PCR) Negative (Negative) 10/26/25 18:36 SARS-CoV-2 (PCR) Negative (Negative) 10/26/25 18:36 All radiology interpretation(s) finalized by discharge ED provider radiology interpretation(s): No acute finding EKG Data EKG 1: Interpretation: Normal sinus rhythm, normal axis, no ST segment changes Discharge Plan Discharge Patient Disposition: Home Clinical Impression: Epileptic seizure, Noncompliance Condition: Stable Prescriptions: No Action mirtazapine 45 mg tablet 45 mg PO BEDTIME 30 Days Qty: 30 5RF prazosin 2 mg capsule 4 mg PO BEDTIME 30 Days Qty: 60 5RF meloxicam 15 mg tablet 15 mg PO DAILY Qty: 30 0RF tizanidine 4 mg capsule 4 mg PO BID PRN (Reason: muscle spasticity) Qty: 30 0RF prednisone 20 mg tablet 20 mg PO BID Qty: 10 0RF ergocalciferol (vitamin D2) 1,250 mcg (50,000 unit) capsule 1,250 mcg PO Q7D 90 Days Qty: 13 3RF levetiracetam [Keppra XR] 500 mg tablet extended release 24 hr 1,000 mg PO BID 90 Days Qty: 360 3RF phenytoin sodium extended [Dilantin Extended] 100 mg capsule 300 mg PO DAILY 90 Days Qty: 90 3RF Patient Comments: Takes 2 in am and 1 in afternoon carbamazepine 400 mg tablet extended release 12 hr 400 mg PO BID 90 Days Qty: 180 3RF diclofenac sodium 75 mg tablet,delayed release (DR/EC) 75 mg PO Q12H PRN (Reason: pain) Qty: 20 0RF divalproex [Depakote] 500 mg tablet,delayed release (DR/EC) 500 mg PO BID Qty: 60 0RF Discharge Orders: Discharge ED (Routine); Ordered 10/26/25 Ordered By: Rosie Feliciano Referrals: Meghann Weiner FNP-C [Primary Care Provider, Family Practice] Discharge Diet: Usual diet and Low Salt Discharge Activity: Resume usual activity Patient Instructions: Epilepsy (ED), Patient Portal & Natacha Instructions Activity Restrictions/Additional Instructions: - Please take all your medications as prescribed. You are doing a good job with taking your carbamazepine, valproic acid. Please take your phenytoin, and Keppra as well. - I am glad you are improving on your medications. Set up your medications for morning and night. - It is okay to call for help from social supports to help you set up your home and your medications. It is important to have safety factors that keep you from having breakthrough seizures. - Is important to take your medication as prescribed for yourself, and your daughters -Please return to ED with further issues with seizure, fever greater than 100.4 ?F - Please follow-up with your regular doctor regarding your visit today, and different modalities. Please call neurology to follow-up for your breakthrough seizure. - As per [place] law, I have to advise you no driving any motorized vehicle, baths, swimming, or operating equipment that would put you at risk for seizure. Thank you for choosing [facility] for your healthcare needs today. You have been screened and evaluated and felt safe for discharge. Health conditions do change or evolve sometimes and as such it is important that you follow up with your Primary Doctor to be re checked, 3-5 days is a general good time frame for follow up. You are always welcome to return to the ED for re assessment if your symptoms are worsening or you have new concerns Print Language: Tamazight Coding Level of Care Code ED Configuration Management Manager for [facility]
--- NOTE | 2025-10-26 16:49 | ECG_ITS ---
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 Measurements Intervals [place] Rate: 64 P: 49 WV: 153 QRS: 85 QRSD: 92 T: 65 QT: 354 QTc: 367 Interpretive Statements SINUS RHYTHM Early repolarization changes Compared to ECG 05/15/2024 13:05:30 No significant changes Electronically Signed On 10-28-2025 20:10:33 COMMERCIAL LEASE ADMINISTRATOR by Eldon Rose M.D. [email or web address]
[2025-10-26] MEDS: LORazepam 2 mg/mL INJ 1 mL IVP (16:57)
[2025-10-26 17:07] LABS: Hematocrit 44.6 % (37-53); Hemoglobin 15.10 g/dL (11.27-16.99); Mean Corpuscular HGB Conc 33.9 g/dL (30-55); Mean Corpuscular Hemoglobin 31.8 pg (27-33); Mean Corpuscular Volume 93.9 fl (82-101); Nucleated Red Blood Cells % 0 %; Platelet Count 472 10^3/cmm (157-399); Red Blood Count 4.75 10^6/uL (3.85-5.65); White Blood Count 9.47 10^3/uL (3.29-11.43)
[2025-10-26 17:15] VITALS: PULSE 77; RESP 16; O2SAT 98
[2025-10-26 17:26] LABS: Lactic Sepsis W/Reflex 0.9 mmol/L (0.5-2.2)
[2025-10-26 17:34] LABS: Alanine Aminotransferase 17 U/L (0-41); Albumin Level 4.2 g/dL (3.5-5.2); Alkaline Phosphatase 85 U/L (40-130); Anion Gap 14.9 (5-19); Aspartate Amino Transferase 18 U/L (0-40); Blood Urea Nitrogen 6 mg/dL (6-20); Calcium 9.0 mg/dL (8.5-10.5); Carbon Dioxide 25 mmol/L (22-29); Chloride 105 mmol/L (98-107); Globulin 2.6 g/dL (1.3-4.6); Glucose 103 mg/dL (65-115); Osmolality Calculated 290 mOsm/kg (285-295); Potassium 3.9 mmol/L (3.5-5.1); Sodium 141 mmol/L (136-145); Total Protein 6.8 g/dL (6.6-8.7)
[2025-10-26 18:08] LABS: Carbamazepine Tegretol 2.0 ug/mL (4.0-12.0)
[2025-10-26 18:29] LABS: Glucose Urine UA Negative (Normal); Nitrate Urine Negative (Negative); Specific Gravity, Urine 1.020 (1.005-1.030)
[2025-10-26 18:32] LABS: Add Urine Microscopic? YES
[2025-10-26 18:50] VITALS: PULSE 71; O2SAT 98
[2025-10-26 19:03] LABS: PCP Screen Urine Negative (Negative)
[2025-10-26 19:18] LABS: Respiratory Syncytial Virus Ce NEGATIVE (Negative); SARS-CoV-2 PCR NEGATIVE (Negative)
--- NOTE | 2025-10-26 19:27 | PC.NURSE ---
pt refused any more BP.
--- NOTE | 2025-10-26 19:34 | PC.NURSE ---
pt states I'm leaving and I'm waiting in the waiting room. Pt took off bp cuff and is refusing BP reading. PT voices his brother is on the way to get him. Charge nurse aware of pt requests. PT sat in w.c and in waiting room.
== END 2025-10-26 19:35 | disposition home or self-care (01) ==
PROVIDERS: Emergency Provider Physician Assistant; PCP Nurse Practitioner Family
DX: G40.909 Epilepsy, unspecified, not intractable, without status epilepticus (principal); Z91.199 Patient's noncompliance with other medical treatment and regimen due to unspecified reason; Z11.52 Encounter for screening for COVID-19; F17.210 Nicotine dependence, cigarettes, uncomplicated; Z87.820 Personal history of traumatic brain injury
CPT/HCPCS: 36415; 70450; 72125; 80053; 80156; 80164; 80185; 80306; 81001; 83605; 84146; 85025; 87637; 93005; 96374; 99285; J2060; J9999